=== PATIENT | male | born 1945 | race Hispanic/Latino ===

== ENCOUNTER 2017-09-24 21:33 | Inpatient (IN) | payer BC, MEDICARE ==
--- NOTE | 2017-09-24 21:45 | EDPD ---
HPI Stroke - General Time Seen by Provider: 09/24/17 21:35 Historian: Patient, Family - History of Present Illness Narrative History of Present Illness (Free Text): 09/24/17 21:41 Zay Mcdonald is a 72 year old male, whose past medical history includes hypertension, diabetes, hyperlipidemia, and arthritis, who presents to the Emergency department brought in EMS accompanied by family complaining of altered mental status. As per , patient has been disoriented and experiencing expressive aphasia since 17:00 today. Daughter notes patient has experienced a similar episode in the past but not to this extent. Daughter states patient followed-up with his physician at the time but never went for his outpatient MRI. Daughter notes patient was fine this morning and went to a close friend's earlier in the day. On arrival to ED, patient is awake, alert, and oriented to person only. Patient denies any chest pain, shortness of breath, abdominal pain, nausea, or any other complaints. PMD: Dr. Jimmy Teran Neurologist: Dr. Armando Date:: 09/24/17 Time: 21:41 Onset:: Hours Timing: Currently Symptomatic Context: Home Associated Symptoms: other (Expressive aphasia) Exacerbated by: Nothing Relieved by: Nothing - Location Location: Speech rTPA Inclusion/Exclusion - Refusal of Treatment Patient Refused Treatment: No - Inclusion Criteria for Altepase Patient is 18 years or Older: No The Clinical Diagnosis of Ischemic Stroke That is Causing a Potentially Disabling Neurological Deficit: No Time of Onset is Well Established to be Less Than 270 Minute Before Treatment Would Begin: Yes Risk/Benefit Discussed With Patient/Family Member Present: No - Exclusion Criteria for Altepase Uncontrolled Hypertension at Time of Treatment (Systolic BP above 185 or Diastolic BP above 110 mmHg): No Active Internal Bleeding: No Known Bleeding Diathesis Including but Not Limited to: Platelets Below 100,000/ mm,PTT Above 40 sec After Heparin Use, Current Use of Oral Anitcoagulant With INR Greater Than 1.7 or PT Greater Than 15 secs: No Evidence of an Intracranial Hemorrhage: No Evidence of Major Acute Infarct With Signs Greater Than 1/3 MCA Territory: No Suspicion of Subarachnoid Hemorrhage on Pretreatment Evaluation Even if CT Head Negative For Hemorrhage: No - Warning to TPA With Conditions Following Conditions Weighed Against Anticipated Benefit: Yes Condition: Stroke Serevity Too Mild, Rapid Improvement Past Medical History - Provider Review Nursing Documentation Reviewed: Yes - Infectious Disease Hx of Infectious Diseases: None - Cardiac Hx Cardiac Disorders: Yes Hx Hypertension: Yes - Pulmonary Hx Respiratory Disorders: No - Neurological Hx Neurological Disorder: No - HEENT Hx HEENT Disorder: No - Renal Hx Renal Disorder: No - Endocrine/Metabolic Hx Endocrine Disorders: Yes Hx Diabetes Mellitus Type 2: Yes - Hematological/Oncological Hx Blood Disorders: No - Integumentary Hx Dermatological Disorder: No - Musculoskeletal/Rheumatological Hx Musculoskeletal Disorders: Yes Hx Arthritis: Yes - Gastrointestinal Hx Gastrointestinal Disorders: No - Genitourinary/Gynecological Hx Genitourinary Disorders: No - Psychiatric Hx Anxiety: Yes Hx Substance Use: No - Surgical History Hx Orthopedic Surgery: Yes (knee) - Anesthesia Hx Anesthesia Reactions: No Family/Social History - Family/Social History Family History: Non-Contributory - Dr. Stewart Nursing documentation reviewed.: Yes Allergies/Home Meds Allergies/Adverse Reactions: Allergies No Known Allergies Allergy (Verified 09/27/15 13:27) Home Medications: Home Meds Medication Instructions Recorded Confirmed Aspirin [Ecotrin] 325 mg PO DAILY 06/20/16 09/25/17 Atorvastatin [Lipitor] 10 mg PO DAILY 06/20/16 09/25/17 Carvedilol [Coreg] 3.125 mg PO DAILY 06/20/16 09/25/17 Celecoxib [Celecoxib] 200 mg PO DAILY 06/20/16 09/25/17 Etodolac [Etodolac] 400 mg PO DAILY 06/20/16 09/25/17 Gabapentin [Neurontin] 2 tab PO BID 06/20/16 09/25/17 Glipizide [Glipizide] 10 mg PO BID 06/20/16 09/25/17 Mecobal/Levomefolat Ca/B6 Phos 1 tab PO BID 06/20/16 09/25/17 [Foltanx Tablet] MetFORMIN [glucoPHAGE] 1,000 mg PO BID 06/20/16 09/25/17 Valsartan [Diovan] 80 mg PO DAILY 06/20/16 09/25/17 Review of Systems - Physician Review All systems were reviewed & negative as marked: Yes - Review of Systems Constitutional: Normal. absent: Fevers Eyes: Normal ENT: Normal Respiratory: Normal. absent: SOB, Cough Cardiovascular: Normal. absent: Chest Pain Gastrointestinal: Normal. absent: Abdominal Pain, Diarrhea, Nausea, Vomiting Genitourinary Male: Normal. absent: Dysuria, Frequency, Hematuria, Urinary Output Changes Musculoskeletal: Normal. absent: Back Pain, Neck Pain Skin: Normal. absent: Rash Neurological: Speech Changes (+expressive aphasia), Other (+altered mental status). absent: Facial Droop Endocrine: Normal Hemo/Lymphatic: Normal Psychiatric: Normal ED Stroke Physical Exam Vital Signs Reviewed: Yes Temperature: Afebrile Blood Pressure: Hypertensive Pulse: Regular Respiratory Rate: Normal Appearance: Positive for: Well-Appearing, Non-Toxic, Comfortable Pain Distress: None Mental Status: Positive for: other (Alert, oriented x1 (person)) - Systems Exam Head: Present: Atraumatic, Normocephalic Pupils: Present: PERRL Extroacular Muscles: Present: EOMI Conjunctiva: Present: Normal Mouth: Present: Moist Mucous Membranes Neck: Present: Normal Range of Motion Respiratory/Chest: Present: Clear to Auscultation, Good Air Exchange. No: Respiratory Distress, Accessory Muscle Use Cardiovascular: Present: Regular Rate and Rhythm, Normal S1, S2. No: Murmurs Abdomen: Present: Normal Bowel Sounds. No: Tenderness, Distention, Peritoneal Signs Upper Extremity: Present: Normal Inspection. No: Cyanosis, Edema Lower Extremity: Present: Normal Inspection. No: Edema Neurologic: Present: GCS=15, CN II-XII Intact, Motor Func Grossly Intact, Normal Sensory Function, Normal Cerebellar Funct, Gait Normal. No: Speech Normal (Expressive aphasia), Pronator Drift, Facial Droop Skin: Present: Warm, Dry, Normal Color. No: Rashes Psychiatric: Present: Alert. No: Oriented x 3 (Oriented x1 (person)) Medical Decision Making ED Course and Treatment: 09/24/17 21:41 Impression: 72 year old male brought in by EMS for altered mental status and expressive aphasia since 17:00 today. Differential Diagnosis included but are not limited to: CVA vs. TIA Plan: -- CT Head w/o contrast -- EKG -- Chest X-ray -- Labs, troponin, lipid panel, troponin, blood type and screen -- Reassess and disposition Prior Visits: Notes and results from previous visits were reviewed. On 09/27/2015, pt was seen in the Emergency department for right lower back pain , worse with movement. Pt was d/c home. Progress Notes: 09/24/17 21:41 Code Stroke called. Pt taken to CT scan. 09/24/17 22:01 Reviewed radiology, CT Head shows: Brain: Bilateral white matter changes. This is nonspecific and may include microangiopathic disease, small lacunae of indeterminate chronicity, chronic infarcts and/or encephalomalacia. No hemorrhage. No edema. Ventricles: No hydrocephalus. Bones: Skull is intact. Sinuses: Mild bilateral maxillary sinus disease with small polyps or mucus retention cyst. Mastoid air cells: No mastoid effusion. IMPRESSION: Chronic changes as above. Acute infarcts/early ischemic changes may not be detectable by this modality; MRI is more sensitive in detecting acute ischemia. 09/24/17 22:36 Reviewed EKG, NSR at [address]-segment elevations or depressions, no T-wave inversions, normal intervals. 09/24/17 22:55 Chest X-ray reviewed, shows no acute processes. 09/24/17 23:[address] Gonzalez, neurologist, who is aware and agrees with plan. Requests pt receive Plavix and CTA Head. States pt not a candidate for tPA due to improving symptoms/symptoms are not severe enough. 09/24/17 23:[address] Teran, who is aware and agrees with plan. Accepts pt in to his service. Pt will be admitted to Telemetry for TIA. Requests Dr. Gonzalez on consult. 09/25/17 01:31 CTA Head Impression: The right vertebral artery appears minimally dominant with respect to the left. The basilar artery is patent. The posterior cerebral arteries are patent. Calcifications are noted within the cavernous internal carotid arteries bilaterally more prominent on the right. No significant stenosis or occlusion. The anterior cerebral arteries are patent. The middle cerebral arteries are patent. The visualized brain parenchyma appears normal. IMPRESSION: No acute findings. - Critical Care Critical Care Minutes: 30 minutes - Lab Interpretations I have reviewed the lab results: Yes - RAD Interpretation Sales And Marketing Analyst: ED Physician, Radiologist - EKG Interpretation Interpreted by ED Physician: Yes Type: 12 lead EKG - Scribe Statement The provider has reviewed the documentation as recorded by the Scribe Nandini Prieto Provider Scribe Attestation: All medical record entries made by the Scribe were at my direction and personally dictated by me. I have reviewed the chart and agree that the record accurately reflects my personal performance of the history, physical exam, medical decision making, and the department course for this patient. I have also personally directed, reviewed, and agree with the discharge instructions and disposition. NIHSS Scale ([place]) Time Performed: 21:41 - How Severe is the Stoke Baseline Level of Consciousness: 0=Alert LOC to Questions: 1=One correct LOC to commands: 0=Obeys both correctly Best Gaze: 0=Normal Visual: 0=No visual loss Facial: 0=Normal Motor Arm - Left: 0=No drift Motor Arm - Right: 0=No drift Motor Leg - Left: 0=No drift Motor Leg - Right: 0=No drift Limb Ataxia: 0=Absent Sensory: 0=Normal Best Language: 1=Mild to moderate aphasia Dysarthia: 0=Normal articulation Extinction & Inattention (Neglect): 0=Normal, no object Score: 2 Risk Level: Minor Stroke Risk Disposition/Present on Arrival - Present on Arrival Any Indicators Present on Arrival: No History of DVT/PE: No History of Uncontrolled Diabetes: No Urinary Catheter: No History of Decub. Ulcer: No History Surgical Site Infection Following: None - Disposition Have Diagnosis and Disposition been Completed?: Yes Diagnosis: CVA (cerebral vascular accident) Disposition: HOSPITALIZED Disposition Time: 00:50 Condition: STABLE
[2017-09-24 21:48] VITALS: BMI 36.0
[2017-09-24 21:58] LABS: BASO # 0.01 K/mm3 (0.0-2.0); BASO % 0.1 % (0.0-3.0); EOS # 0.2 (0.0-0.7); GRAN # 4.14 (1.4-6.5); GRAN % 56.4 % (50.0-68.0); HEMATOCRIT 42.6 % (42.0-52.0); LYMPH % 27.7 % (22.0-35.0); MEAN CELL VOLUME 92.6 fl (80.0-105.0); MEAN CORPUSCULAR HGB CONC 32.4 g/dl (31.0-37.0); MEAN PLATELET VOLUME 11.2 fl (7.0-11.0); MONO # 0.9 (0.1-0.6); MONO % 12.8 % (1.0-6.0); RED CELL DISTRIBUTION WIDTH 13.6 % (11.5-14.5); WHITE BLOOD COUNT 7.3 10^3/ul (4.5-11.0)
--- NOTE | 2017-09-24 22:01 | CT ---
EXAM: CT Head Without Intravenous Contrast CLINICAL HISTORY: 72 years old, male; Signs and symptoms; Other: Code stroke TECHNIQUE: Axial computed tomography images of the head/brain without intravenous contrast. All CT scans at this facility use one or more dose reduction techniques, viz.: automated exposure control; ma/kV adjustment per patient size (including targeted exams where dose is matched to indication; i.e. head); or iterative reconstruction technique. COMPARISON: No relevant prior studies available. FINDINGS: Brain: Bilateral white matter changes. This is nonspecific and may include microangiopathic disease, small lacunae of indeterminate chronicity, chronic infarcts and/or encephalomalacia. No hemorrhage. No edema. Ventricles: No hydrocephalus. Bones: Skull is intact. Sinuses: Mild bilateral maxillary sinus disease with small polyps or mucus retention cyst. Mastoid air cells: No mastoid effusion. IMPRESSION: Chronic changes as above. Acute infarcts/early ischemic changes may not be detectable by this modality; MRI is more sensitive in detecting acute ischemia.
[2017-09-24 22:09] LABS: PARTIAL THROMBOPLASTIN TIME 33.7 Seconds (25.1-36.5)
[2017-09-24 22:17] LABS: ALB/GLOB RATIO 1.3 (1.1-1.8); ALKALINE PHOSPHATASE 70 U/L (38-126); ALT/SGPT 57 U/L (7-56); AST/SGOT 29 U/L (17-59); BILIRUBIN,TOTAL 0.7 mg/dL (0.2-1.3); BLOOD UREA NITROGEN 24 mg/dL (7-21); CALCIUM 9.6 mg/dL (8.4-10.5); CARBON DIOXIDE 27 mmol/L (21-33); CHLORIDE 107 mmol/L (98-107); GFR AFRICAN-AMERICAN > 60; GLUCOSE,RANDOM 112 mg/dL (70-110); TOTAL PROTEIN 7.2 g/dL (5.8-8.3)
[2017-09-24 22:46] LABS: POTASSIUM 4.5 mmol/L (3.6-5.0); SODIUM 142 mmol/L (132-148)
[2017-09-24 22:47] LABS: TROPONIN I < 0.01 ng/mL
[2017-09-24 22:59] LABS: CHOLESTEROL 139 mg/dL (130-200)
[2017-09-24] MEDS ORDERED: Sodium Chloride 0.9% 1,000 ML IV STA (23:16)
[2017-09-25] MEDS ORDERED: Iodixanol 320 MG/ML 100 ML BOTTLE IV ONE (00:04)
--- NOTE | 2017-09-25 01:26 | CT ---
EXAM: CT Angiography Head With Intravenous Contrast EXAM DATE/TIME: 09/24/2017 11:08 PM CLINICAL HISTORY: 72 years old, male; Signs and symptoms; Cognitive deficit; Altered mental status; Additional info: CVA TECHNIQUE: Axial computed tomographic angiography images of the head with intravenous contrast using CT angiography protocol. All CT scans at this facility use one or more dose reduction techniques, viz.: automated exposure control; ma/kV adjustment per patient size (including targeted exams where dose is matched to indication; i.e. head); or iterative reconstruction technique. MIP reconstructed images were created and reviewed. Coronal and sagittal reformatted images were created and reviewed. CONTRAST: 96 mL of VISI 320 administered intravenously. COMPARISON: CT - HEAD W/O (CODE STROKE) 2017-09-24 21:48 FINDINGS: The right vertebral artery appears minimally dominant with respect to the left. The basilar artery is patent. The posterior cerebral arteries are patent. Calcifications are noted within the cavernous internal carotid arteries bilaterally more prominent on the right. No significant stenosis or occlusion. The anterior cerebral arteries are patent. The middle cerebral arteries are patent. The visualized brain parenchyma appears normal. IMPRESSION: No acute findings.
[2017-09-25] MEDS ORDERED: Sodium Chloride 0.9% 1,000 ML IV STA (01:45)
[2017-09-25] MEDS: Sodium Chloride 0.9% 1,000 ML IV SCH ×2 (01:57→11:15)
--- NOTE | 2017-09-25 07:50 | CP.PCM.PCO ---
Physician Communication Note - Physician Communication Note Physician Communication Note: Altered speech/affect r/o CVA
--- NOTE | 2017-09-25 08:25 | RAD ---
HISTORY: cva COMPARISON: No prior. FINDINGS: LUNGS: No active pulmonary disease. PLEURA: No significant pleural effusion identified, no pneumothorax apparent. CARDIOVASCULAR: Prominent cardiac silhouette is appreciated. Mild pulmonary venous congestion questioned. OSSEOUS STRUCTURES: No significant abnormalities. VISUALIZED UPPER ABDOMEN: Normal. OTHER FINDINGS: None. IMPRESSION: Prominent cardiac silhouette noted and mild pulmonary venous congestion is questioned. No acute infiltrate bilaterally. No pleural effusions.
[2017-09-25] MEDS ORDERED: Influenza Vaccine 60 mcg/0.5 mL SYR (4YR UP) IM ONE (13:12)
[2017-09-25] MEDS ORDERED: Pneumococcal 23-Valent Vaccine IM ONE (13:12)
--- NOTE | 2017-09-25 14:26 | MRI ---
PROCEDURE: MRI BRAIN WITHOUT CONTRAST HISTORY: cva COMPARISON: None. TECHNIQUE: Multiplanar, multisequence MR images of the brain were obtained without intravenous contrast enhancement. FINDINGS: HEMORRHAGE: None DWI: No evidence of an acute or early subacute infarction. BRAIN PARENCHYMA: Diffuse cerebral atrophy and chronic microangiopathy are reiterated. No mass is identified or suspicious extra-axial fluid collection in the midline brain and appears diffusely unremarkable nevertheless. Posterior fossa contents remain unremarkable including the brainstem. Trace dilated perivascular spaces are seen at the left basal ganglia superiorly in particular. VENTRICLES: Unremarkable. No hydrocephalus. CRANIUM: Unremarkable. ORBITS: Grossly unremarkable. PARANASAL SINUSES/MASTOIDS: Trace bilateral ethmoid and maxillary sinus disease is appreciate as well as at the left frontal sinus. VASCULAR SYSTEM: Skull base flow voids intact. OTHER FINDINGS: None. IMPRESSION: No acute intracranial findings including brain infarction. Reiterated age related neuro degenerative changes are identified.
--- NOTE | 2017-09-25 15:08 | CP.PCM.CON ---
Addendum entered and electronically signed by Ct Tuttle DO 09/25/17 15:57 : Social history: denies smoking, alcohol use, illicit drug use family history: mother: maryann, father: diabetes Original Note: <Ct Tuttle - Last Filed: 09/25/17 15:56> History of Present Illness - History of Present Illness History of Present Illness: PGY-2 Neurology consult note for Dr. Lanza's service 72 year old male, wITH past medical history of hypertension, diabetes, hyperlipidemia, and arthritis, who presents to the Emergency department with altered mental status and expressive aphasia. As per adn daughter at bedside, patient was found to disoriented and experiencing expressive aphasia since yesterday evening. Daughter notes patient has experienced a similar episode in the past but they resolved and were not to this extent. Daughter states patient initially followed-up with his physician but never went for his outpatient MRI. Per family patient was fine in the morning and went to a close friend's earlier in the day. Per daughter patient has poor compliance with medications and does not wear cpap machine at night. Patient denies any chest pain, shortness of breath, abdominal pain, nausea, or any other complaints. PMH: hypertension, diabetes, hyperlipidemia, and arthritis PSH: orthopedic suger of knee social history: allergy: NKDA home meds: diovan, metformin, glipizide, neurontin, vot D3, celecoxib, coreg, lipitor, asa Review of Systems - Review of Systems All systems: reviewed and no additional remarkable complaints except (as states in HPI) Past Patient History - Infectious Disease Hx of Infectious Diseases: None - Past Social History Smoking Status: Never Smoked - CARDIAC Hx Cardiac Disorders: Yes (hypotension) Hx Hypercholesterolemia: Yes Hx Hypertension: Yes - PULMONARY Hx Respiratory Disorders: No - NEUROLOGICAL Hx Neurological Disorder: Yes HX Cerebrovascular Accident: Yes (09/24/17 expressive aphasia) - HEENT Hx HEENT Problems: No - RENAL Hx Chronic Kidney Disease: No - ENDOCRINE/METABOLIC Hx Endocrine Disorders: Yes Hx Diabetes Mellitus Type 2: Yes - HEMATOLOGICAL/ONCOLOGICAL Hx Blood Disorders: No - INTEGUMENTARY Hx Dermatological Problems: No - MUSCULOSKELETAL/RHEUMATOLOGICAL Hx Falls: No - GASTROINTESTINAL Hx Gastrointestinal Disorders: Yes (obese) - GENITOURINARY/GYNECOLOGICAL Hx Genitourinary Disorders: No - PSYCHIATRIC Hx Substance Use: No - SURGICAL HISTORY Hx Orthopedic Surgery: Yes (knee right torn meniscus "yr's ago") Other/Comment: left hup replacement 5 or 6 yrs ago due to arthritis, lumbar spinal fusion with screws and plate 5 or 6 yrs ago - ANESTHESIA Hx Anesthesia Reactions: No Meds Allergies/Adverse Reactions: Allergies Allergy/AdvReac Type Severity Reaction Status Date / Time No Known Allergies Allergy Verified 09/27/15 13:27 - Medications Medications: Current Medications Aspirin (Aspirin Chewable) 81 mg PO DAILY [facility] Last Admin: 09/25/17 11:18 Dose: 81 mg Aspirin (Aspirin) 325 mg PO DAILY [facility] Atorvastatin Calcium (Lipitor) 10 mg PO DIN [facility] Carvedilol (Coreg) 3.125 mg PO BID [facility] Cholecalciferol (Vitamin D) 1,000 iu PO DAILY [facility] Gabapentin (Neurontin) 1,200 mg PO ACB [facility] PRN Reason: Protocol Gabapentin (Neurontin) 600 mg PO ACD [facility] PRN Reason: Protocol Gabapentin (Neurontin) 600 mg PO HS [facility] PRN Reason: Protocol Glipizide (Glucotrol) 10 mg PO 0730,1630 [facility] Sodium Chloride (Sodium Chloride 0.9%) 1,000 mls @ 100 mls/hr IV .Q10H [facility] Last Admin: 09/25/17 11:15 Dose: 100 mls/hr Losartan Potassium (Cozaar) 50 mg PO DAILY [facility] Metformin HCl (Glucophage) 1,000 mg PO BID [facility] Physical Exam - Constitutional Appears: No Acute Distress - Head Exam Head Exam: ATRAUMATIC, NORMAL INSPECTION, NORMOCEPHALIC - Eye Exam Eye Exam: EOMI, Normal appearance - ENT Exam ENT Exam: Mucous Membranes Moist - Respiratory Exam Respiratory Exam: Clear to Auscultation Bilateral, NORMAL BREATHING PATTERN. absent: Rales, Rhonchi, Wheezes, Respiratory Distress - Cardiovascular Exam Cardiovascular Exam: REGULAR RHYTHM. absent: Tachycardia, Diastolic murmur, Systolic Murmur - GI/Abdominal Exam GI & Abdominal Exam: Soft. absent: Tenderness - Extremities Exam Extremities exam: Positive for: normal inspection. Negative for: pedal edema - Neurological Exam Neurological exam: Alert, CN II-XII Intact - Expanded Neurological Exam Expanded Neurological exam: Expressive Aphasia (improving) Speech: Expressive Aphasia Cranial nerves: Tongue Deviation: Normal Cerebellar Function: Finger to Nose: Normal Upper motor neuron: Babinski Sign: Normal Neuro motor strength exam: Left Upper Extremity: 5, Right Upper Extremity: 5, Left Lower Extremity: 5, Right Lower Extremity: 5 - Skin Skin Exam: Dry, Intact, Normal Color, Warm Results - Vital Signs Recent Vital Signs: Last Vital Signs Temp 98.3 F 09/24/17 21:34 Pulse 60 09/25/17 12:58 Resp 18 09/25/17 12:58 BP 142/55 L 09/25/17 12:58 Pulse Ox 97 09/25/17 11:00 - Labs Result Diagrams: 09/24/17 21:43 09/24/17 21:43 Labs: Laboratory Results - last 24 hr 09/25/17 09/25/17 09/25/17 07:50 07:50 07:50 ESR 10 C-React Prot High Sens 5.28 H Vitamin B12 295 25-OH Vitamin D Total 09/25/17 07:50 ESR C-React Prot High Sens Vitamin B12 25-OH Vitamin D Total 34.6 Assessment & Plan - Assessment and Plan (Free Text) Assessment: 72 year old male, wITH past medical history of hypertension, diabetes, hyperlipidemia, and arthritis, who presents to the Emergency department with expressive aphasia most likely due to TIA. 1. expressive aphasia most likely due to TIA. 2. HTN 3. diabetes 4. hyperlipidemia - Most likely TIA due to diffuse arthroscelrotic disease. - CTA and CT of the head normal - MRI of brain is normal, no stroke, TIA. - carotid ultrasound bilaterally pending. - HgbA1C is 7. - Vitamin B12 is low normal recommend injection. - Cpap for ANDREW. - Consider pulmary consult. - Avoid sudden drops in blood pressure. Patient seen and case discussed/reviewed with attending, Dr. Lanza <Chencho Lanza - Last Filed: 09/25/17 18:01> Meds - Medications Medications: Current Medications Aspirin (Aspirin Chewable) 81 mg PO DAILY [facility] Last Admin: 09/25/17 11:18 Dose: 81 mg Aspirin (Aspirin) 325 mg PO DAILY [facility] Atorvastatin Calcium (Lipitor) 10 mg PO DIN [facility] Last Admin: 09/25/17 17:04 Dose: 10 mg Carvedilol (Coreg) 3.125 mg PO BID [facility] Last Admin: 09/25/17 17:05 Dose: 3.125 mg Cholecalciferol (Vitamin D) 1,000 iu PO DAILY [facility] Last Admin: 09/25/17 17:03 Dose: 1,000 iu Gabapentin (Neurontin) 1,200 mg PO ACB [facility] PRN Reason: Protocol Gabapentin (Neurontin) 600 mg PO ACD [facility] PRN Reason: Protocol Last Admin: 09/25/17 17:05 Dose: 600 mg Gabapentin (Neurontin) 600 mg PO HS [facility] PRN Reason: Protocol Glipizide (Glucotrol) 10 mg PO 0730,1630 [facility] Last Admin: 09/25/17 17:04 Dose: 10 mg Sodium Chloride (Sodium Chloride 0.9%) 1,000 mls @ 100 mls/hr IV .Q10H [facility] Last Admin: 09/25/17 11:15 Dose: 100 mls/hr Losartan Potassium (Cozaar) 50 mg PO DAILY [facility] Metformin HCl (Glucophage) 1,000 mg PO BID [facility] Last Admin: 09/25/17 17:04 Dose: 1,000 mg Results - Vital Signs Recent Vital Signs: Last Vital Signs Temp 98.1 F 09/25/17 16:30 Pulse 66 09/25/17 16:30 Resp 20 09/25/17 16:30 BP 158/60 H 09/25/17 16:30 Pulse Ox 98 09/25/17 16:30 - Labs Result Diagrams: 09/24/17 21:43 09/24/17 21:43 Labs: Laboratory Results - last 24 hr 09/25/17 09/25/17 09/25/17 07:50 07:50 07:50 ESR 10 POC Glucose (mg/dL) C-React Prot High Sens 5.28 H Vitamin B12 295 25-OH Vitamin D Total 09/25/17 09/25/17 07:50 16:28 ESR POC Glucose (mg/dL) 132 H C-React Prot High Sens Vitamin B12 25-OH Vitamin D Total 34.6 Attending/Attestation - Attestation I have personally seen and examined this patient.: Yes I have fully participated in the care of the patient.: Yes I have reviewed all pertinent clinical information: Yes
--- NOTE | 2017-09-25 18:29 | US ---
PROCEDURE: Bilateral carotid artery duplex ultrasound HISTORY: Carotid stenosis CVA PHYSICIAN(S): Chase Al MD. TECHNIQUE: Duplex sonography and color-flow Doppler were used to evaluate the carotid bifurcations and limited segments of the vertebral arteries bilaterally. FINDINGS: There is mild smooth heterogeneous plaque noted at the carotid bifurcations bilaterally. The peak systolic velocity in the proximal right internal carotid artery is 103 cm/sec. This corresponds to a 20 to 39% proximal right ICA stenosis. Normal systolic velocities are noted in the proximal right external carotid artery. There is antegrade flow in the right vertebral artery. The peak systolic velocity in the proximal left internal carotid artery is 100 cm/sec. This corresponds to a 20 to 39% proximal left ICA stenosis. Normal systolic velocities are noted in the proximal left external carotid artery. There is antegrade flow in the left vertebral artery. IMPRESSION: 1. Bilateral 20-39% proximal ICA stenoses. 2. Antegrade flow in both vertebral arteries.
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
--- NOTE | 2017-09-25 23:34 | CARD ---
APPROVED REPORT EKG Measurement Heart [id number] <Conclusion> Normal sinus rhythm Normal ECG
[2017-09-26 06:30] LABS: HOMOCYSTEINE 9.6 umol/L (<11.4)
--- NOTE | 2017-09-26 10:25 | CP.PCM.PN ---
<Ct Tuttle - Last Filed: 09/26/17 18:02> Subjective - Date & Time of Evaluation Date of Evaluation: 09/26/17 Time of Evaluation: 10:22 - Subjective Subjective: PGY-2 Neurology progress note for Dr. Lanza's service Patient seen and examined at bedside. No acute distress. Patient states that he is feeling good. He is alert, orient to person, place and time. He denies any headache, dizziness, lightheadedness, chest pain, sob, focal weakness. Objective - Vital Signs/Intake and Output Vital Signs (last 24 hours): Temp Pulse Resp BP Pulse Ox 98.9 F 83 20 157/76 H 96 09/26/17 08:32 09/26/17 09:34 09/26/17 08:32 09/26/17 09:34 09/26/17 08:32 Intake and Output: 09/26/17 09/26/17 06:59 18:59 Intake Total 780 Output Total 1050 Balance -270 - Medications Medications: Current Medications Aspirin (Aspirin Chewable) 81 mg PO DAILY [facility] Last Admin: 09/26/17 09:34 Dose: 81 mg Aspirin (Aspirin) 325 mg PO DAILY [facility] Atorvastatin Calcium (Lipitor) 10 mg PO DIN [facility] Last Admin: 09/25/17 17:04 Dose: 10 mg Carvedilol (Coreg) 3.125 mg PO BID [facility] Last Admin: 09/26/17 09:33 Dose: 3.125 mg Cholecalciferol (Vitamin D) 1,000 iu PO DAILY [facility] Last Admin: 09/26/17 09:34 Dose: 1,000 iu Gabapentin (Neurontin) 1,200 mg PO ACB [facility] PRN Reason: Protocol Last Admin: 09/26/17 08:25 Dose: 1,200 mg Gabapentin (Neurontin) 600 mg PO ACD [facility] PRN Reason: Protocol Last Admin: 09/25/17 17:05 Dose: 600 mg Gabapentin (Neurontin) 600 mg PO HS [facility] PRN Reason: Protocol Last Admin: 09/25/17 22:18 Dose: 600 mg Glipizide (Glucotrol) 10 mg PO 0730,1630 [facility] Last Admin: 09/26/17 08:24 Dose: 10 mg Sodium Chloride (Sodium Chloride 0.9%) 1,000 mls @ 100 mls/hr IV .Q10H [facility] Last Admin: 09/25/17 11:15 Dose: 100 mls/hr Losartan Potassium (Cozaar) 50 mg PO DAILY [facility] Last Admin: 09/26/17 09:34 Dose: 50 mg Metformin HCl (Glucophage) 1,000 mg PO BID [facility] Last Admin: 09/26/17 09:33 Dose: 1,000 mg - Labs Labs: PT 10.9 SECONDS (9.4-12.5) 09/24/17 21:43 INR 1.00 (0.93-1.08) 09/24/17 21:43 APTT 33.7 Seconds (25.1-36.5) 09/24/17 21:43 - Constitutional Appears: Well, No Acute Distress - Head Exam Head Exam: ATRAUMATIC, NORMAL INSPECTION, NORMOCEPHALIC - Eye Exam Eye Exam: EOMI, Normal appearance - ENT Exam ENT Exam: Mucous Membranes Moist - Respiratory Exam Respiratory Exam: Clear to Ausculation Bilateral, NORMAL BREATHING PATTERN. absent: Rhonchi - Cardiovascular Exam Cardiovascular Exam: REGULAR RHYTHM, +S1, +S2. absent: Tachycardia, Murmur - GI/Abdominal Exam GI & Abdominal Exam: Soft, Normal Bowel Sounds. absent: Distended, Firm, Guarding, Tenderness - Extremities Exam Extremities Exam: Normal Inspection. absent: Pedal Edema, Tenderness - Neurological Exam Neurological Exam: Alert, Awake, CN II-XII Intact, Oriented x3 Neuro motor strength exam: Left Upper Extremity: 5, Right Upper Extremity: 5, Left Lower Extremity: 5, Right Lower Extremity: 5 - Skin Skin Exam: Dry, Intact, Normal Color, Warm Assessment and Plan - Assessment and Plan (Free Text) Assessment: 72 year old male, with past medical history of hypertension, diabetes, hyperlipidemia, and arthritis, who presents to the Emergency department with expressive aphasia most likely due to TIA. 1. expressive aphasia most likely due to TIA. 2. HTN 3. diabetes 4. hyperlipidemia - TIA due to diffuse arthroscelrotic disease. - CTA and CT of the head normal - MRI of brain is normal, no stroke, TIA. - carotid ultrasound bilaterally pending. - HgbA1C is 7. - Vitamin B12 is low normal recommend injection. - continue Cpap for ANDREW, follow up pulmonary outpatient - asa 81mg - lipitor 40mg - Avoid sudden drops in blood pressure. - had discussion with family and patient about compliance and follow up Thank you for the consult, please reconsult us if needed. Patient seen and case discussed/reviewed with attending, Dr. Lanza <Chencho Lanza - Last Filed: 09/27/17 09:19> Objective - Vital Signs/Intake and Output Vital Signs (last 24 hours): Temp Pulse Resp BP Pulse Ox 97.5 F L 65 20 136/73 97 09/27/17 06:00 09/27/17 06:00 09/27/17 06:00 09/27/17 06:00 09/27/17 06:00 Intake and Output: 09/27/17 09/27/17 06:59 18:59 Intake Total 1360 Output Total 400 Balance 960 - Medications Medications: Current Medications Acetaminophen (Tylenol 325mg Tab) 650 mg PO Q6H PRN PRN Reason: Pain, Mild (1-3) Aspirin (Aspirin Chewable) 81 mg PO DAILY [facility] Last Admin: 09/26/17 09:34 Dose: 81 mg Aspirin (Aspirin) 325 mg PO DAILY [facility] Atorvastatin Calcium (Lipitor) 10 mg PO DIN [facility] Last Admin: 09/26/17 20:39 Dose: Not Given Carvedilol (Coreg) 3.125 mg PO BID [facility] Last Admin: 09/26/17 20:37 Dose: Not Given Cholecalciferol (Vitamin D) 1,000 iu PO DAILY [facility] Last Admin: 09/26/17 09:34 Dose: 1,000 iu Gabapentin (Neurontin) 1,200 mg PO ACB [facility] PRN Reason: Protocol Last Admin: 09/27/17 07:45 Dose: Not Given Gabapentin (Neurontin) 600 mg PO ACD [facility] PRN Reason: Protocol Last Admin: 09/26/17 20:39 Dose: Not Given Gabapentin (Neurontin) 600 mg PO HS [facility] PRN Reason: Protocol Last Admin: 09/27/17 01:04 Dose: 600 mg Glipizide (Glucotrol) 10 mg PO 0730,1630 [facility] Last Admin: 09/26/17 20:39 Dose: Not Given Sodium Chloride (Sodium Chloride 0.9%) 1,000 mls @ 100 mls/hr IV .Q10H [facility] Last Admin: 09/26/17 20:40 Dose: Not Given Lorazepam (Ativan) 1 mg IVP [facility] PRN; Protocol PRN Reason: Agitation Losartan Potassium (Cozaar) 50 mg PO DAILY [facility] Last Admin: 09/26/17 09:34 Dose: 50 mg Metformin HCl (Glucophage) 1,000 mg PO BID [facility] Last Admin: 09/26/17 20:39 Dose: Not Given Quetiapine Fumarate (Seroquel) 12.5 mg PO HS [facility] PRN Reason: Protocol Last Admin: 09/27/17 01:04 Dose: 12.5 mg Ziprasidone (Geodon Inj) 10 mg IM Q12H PRN; Protocol PRN Reason: agitation/psychosis - Labs Labs: PT 10.9 SECONDS (9.4-12.5) 09/24/17 21:43 INR 1.00 (0.93-1.08) 09/24/17 21:43 APTT 33.7 Seconds (25.1-36.5) 09/24/17 21:43 Attending/Attestation - Attestation I have personally seen and examined this patient.: Yes I have fully participated in the care of the patient.: Yes I have reviewed all pertinent clinical information, including history, physical exam and plan: Yes
--- NOTE | 2017-09-26 16:02 | CP.PCM.PCO ---
Physician Communication Note - Physician Communication Note Physician Communication Note: Violently agitated-Rx Ativan
[2017-09-26] MEDS: Sodium Chloride 0.9% 1,000 ML IV SCH (20:40)
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
--- NOTE | 2017-09-27 07:06 | CP.PCM.PCO ---
Physician Communication Note - Physician Communication Note Physician Communication Note: AgitTion controlled by psychiatry/aphasia persists
--- NOTE | 2017-09-27 09:02 | CARD ---
APPROVED REPORT EXAM: Two-dimensional and M-mode echocardiogram with Doppler and color Doppler. INDICATION R/O TIA/BUBBLE STUDY 2D DIMENSIONS Left Atrium (2D)5.0 (1.6-4.0cm)IVSd1.3 (0.7-1.1cm) LVDd4.8 (3.9-5.9cm)PWd1.4 (0.7-1.1cm) LVDs3.5 (2.5-4.0cm)FS (%) 26.6 % LVEF (%)51.9 (>50%) M-Mode DIMENSIONS Aortic Root3.50 (2.2-3.7cm)Aortic Cusp Exc.2.00 (1.5-2.0cm) Aortic Valve AoV Peak Vbjzbysa886.0cm/Rob Peak GR.15mmHg Mitral Valve MV E Wexefnev78.5cm/sMV A Dmsopcvg10.7cm/sE/A ratio0.7 TDI Lateral E' Peak V7.41cm/sMedial E' Peak V5.95cm/sE/Lateral E'8.2 E/Medial E'10.2 Pulmonary Valve PV Peak Heeduncj17.0cm/sPV Peak Grad.3mmHg Tricuspid Valve TR Peak Wiwkdjwr117of/sRAP NWKWGLOE67poVtCA Peak Gr.14mmHg [id number] LEFT VENTRICLE The left ventricle is normal size. There is mild concentric left ventricular hypertrophy. The left ventricular function is normal. The left ventricular ejection fraction is within the normal range. There is normal LV segmental wall motion. RIGHT VENTRICLE The right ventricle is normal size. The right ventricular systolic function is normal. ATRIA The left atrium is moderately dilated. The right atrium size is normal. The interatrial septum is intact with no evidence for an atrial septal defect. AORTIC VALVE The aortic valve is normal in structure. No aortic regurgitation is present. There is no aortic valvular stenosis. MITRAL VALVE Mitral annular calcification is mild. There is no mitral valve regurgitation noted. TRICUSPID VALVE The tricuspid valve is normal in structure. There is mild tricuspid regurgitation. GREAT VESSELS The aortic root is normal in size. The IVC is normal in size and collapses >50% with inspiration. PERICARDIAL EFFUSION There is no pleural effusion. There is no pericardial effusion. <Conclusion> Dilated LA. Mild concentric LVH. Normal LV systolic function. Mild TR. No PFO identified.
--- NOTE | 2017-09-27 12:28 | RAD ---
PROCEDURE: Bilateral Knee Radiographs. HISTORY: ACUTE RT KNEE PAIN COMPARISON: None. FINDINGS: BONES: Right Knee: Normal. No fracture. Left Knee: Normal. No fracture. JOINTS: Right Knee: Severe degenerative changes are seen in all 3 compartments. There is severe joint space narrowing and osteophyte formation. The changes are severe in the patellofemoral joint. Left knee: Normal. No osteoarthritis. SOFT TISSUES: Right Knee: Normal. Left Knee: Normal. JOINT EFFUSION: Right Knee: None. Left Knee: None. OTHER FINDINGS: None. IMPRESSION: Severe osteoarthritis of the right knee. The left knee is unremarkable
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
[2017-09-28] MEDS: Sodium Chloride 0.9% 1,000 ML IV SCH ×2 (05:05→17:09)
[2017-09-28] MEDS ORDERED: Bupivacaine 0.5% Inj(30mL) IJ ONE (08:34)
[2017-09-28] MEDS ORDERED: MethylPREDNISolone Depo 40 mg/ml Inj IM ONE (08:34)
[2017-09-28 09:45] LABS: FLUID TYPE SYNOVIAL FLUID
[2017-09-28 10:24] LABS: SYNOVIAL FLUID LYMPHOCYTE 10.5 % (0-0); SYNOVIAL FLUID NEUTROPHIL 89.5 % (0-0)
--- NOTE | 2017-09-28 12:29 | CON ---
DATE: 09/28/2017 HISTORY: The patient is a 72-year-old male with pain in his right, worse than the left, knee. X-ray show extensive osteoarthritis, worse on the right than the left, with a large effusion of synovial fluid. The patient had the same condition for over 10 years including two surgeries and one arthrocentesis about 10 years ago. So, with this information, we did prepping of the right knee and did arthrocentesis of the suprapatellar area laterally and extracted about 40 mL of serosanguineous fluid, relatively clear. No evidence of purulence. No evidence of infection, looks like osteoarthritic knee with hypertrophic synovial fluid. So we send that fluid to the lab for cell count, culture, and crystals, and injected the knee with Depo-Medrol and Marcaine for symptomatic relief, and we will sent him to physical therapy. He does not want to consider surgery even though he is a good candidate, because of his age and the nature of his condition severe osteoarthritis of the right knee with limited range of motion. We will start physical therapy and ambulate with a walker, and we will wait for the cell count culture and crystal results to come back for the osteoarthritis of the right knee. Cody Brunner DO [facility]
--- NOTE | 2017-09-28 19:55 | PN ---
FOLLOWUP NOTE DATE: 09/28/2017 SUBJECTIVE: The patient was followed up today. The patient presented much calmer. The patient has residual symptoms of aphasia. As per family, the patient is doing much better but at times, the patient has episodes of confusion and delirium was improving. OBJECTIVE: VITAL SIGNS: Stable. MEDICATIONS: Reviewed. The patient is on Tylenol, aspirin, Neurontin. The patient also is on Seroquel 12.5 mg at the nighttime scheduled, which is helping him. The patient also is on Ativan 1 mg IV push three times a day as needed for agitation. Last time, the patient got it was more than 24 hours. MENTAL STATUS EXAMINATION: The patient presented to be alert. The patient is much calmer. Intermittent eye contact. Speech: The patient has aphasia, but this improving. Mood described, I feel better. Affect was constricted but reactive. Mood congruent. Thought process was more coherent but at times, the patient has episodes of confusions. The patient denied thoughts of harming himself or others. Denied intents or plan. Insight and judgment improving. Impulses are better controlled. IMPRESSION: Most likely the patient has delirium, which is improving. PLAN: Continue current management. Continue current medications. The patient is improving. Discussed medications with the patient as well as the patient's family. Risk, benefits and alternatives also were discussed. This press writer will follow up on this patient every other day. Should you have any questions, give me a call back. If the patient is improving, Seroquel as needed should be given. Thank you very much for letting me participate in care of your patient. Brittany Bowling MD
[2017-09-29] MEDS: Sodium Chloride 0.9% 1,000 ML IV SCH (01:56)
--- NOTE | 2017-09-29 17:31 | PN ---
SUBJECTIVE: The patient is 72-year-old who came with confusion, difficulty bringing out the words and now feels better more, not in distress, sitting comfortably, at bedside. Denies any headache or dizziness. PHYSICAL EXAMINATION: HEENT: Normocephalic, atraumatic. NECK: Supple. NEUROLOGIC: Awake, oriented to self. No aphasia. Cranial nerves II-XII were tested. Pupils reactive. EOM intact. No facial asymmetry. Tongue midline. Motor examination: Spontaneous movement of the extremities noted. Deep tendon reflexes is 1+. Both plantars are downgoing. Sensory appears intact. Cerebellar, gait deferred. Not in distress. IMPRESSION: Continue present management, will followup. William Lanza MD
--- NOTE | 2017-09-29 19:13 | PN ---
FOLLOWUP NOTE SUBJECTIVE: Shortly, the patient is a 72-year-old male. This commercial real estate underwriter was involved into the patient's care because the patient was agitated. The patient was in delirium stage. The patient was started on Seroquel at the nighttime as well as Ativan as needed for agitation. Overall, the patient improved significantly. The patient was seen today for followup. The patient was alert and oriented, pleasant, cooperative. Family is around the patient. Discussed with the patient's . The patient gave permission to talk to his . As per the , the patient is closer to his baseline. The patient is much calmer right now. Family is very appreciative. The patient's family was educated about plan to give Seroquel only as needed. The patient and the family were educated about delirium which is improving. Vital signs seem to be stable. Medications reviewed. The patient is on Tylenol, aspirin, Lipitor, Coreg, vitamin D, Neurontin, gabapentin, Glucotrol, Cozaar, metformin, Seroquel 12.5 mg as needed for agitation at the nighttime. MENTAL STATUS EXAMINATION: The patient is much calmer, pleasant, cooperative, is aware of his medical condition. The patient requested to be discharged tomorrow, but this is up to the primary team. There were no episodes of aggression or agitation for the past 2 days. The patient has intermittent eye contact. Speech was normal rate, but the patient still has some residual aphasia. Thought process seems to be more coherent and goal directed. Thought content, the patient denied visual, auditory, and tactile hallucinations. Denied paranoid ideation. The patient denied thoughts of harming himself or others. Denied intents or plan. Insight and judgment improving. Impulses are better controlled. IMPRESSION AND PLAN: Delirium is improving. Continue current management. This commercial real estate underwriter will change Seroquel to as-needed. The patient and family were educated about this plan, were in agreement with the plan. The patient does not have any symptoms of depression or psychosis, has good appetite and fair sleep. This commercial real estate underwriter will sign off. Should you have any questions, give me a call back. Thank you very much for letting me participate in care of your patient. Brittany Bowling MD [facility] # [id number]
[2017-09-30 16:40] VITALS: RESP 20
[2017-10-01 07:06] LABS: BASO # 0.01 K/mm3 (0.0-2.0); BASO % 0.1 % (0.0-3.0); EOS # 0.3 (0.0-0.7); EOS % 3.5 % (1.5-5.0); GRAN # 5.79 (1.4-6.5); GRAN % 66.1 % (50.0-68.0); HEMATOCRIT 42.9 % (42.0-52.0); LYMPH # 1.8 (1.2-3.4); LYMPH % 20.4 % (22.0-35.0); MEAN CELL VOLUME 93.1 fl (80.0-105.0); MEAN CORPUSCULAR HEMOGLOBIN 29.9 pg (25.0-35.0); MEAN CORPUSCULAR HGB CONC 32.2 g/dl (31.0-37.0); MEAN PLATELET VOLUME 11.5 fl (7.0-11.0); MONO # 0.9 (0.1-0.6); MONO % 9.9 % (1.0-6.0); RED CELL DISTRIBUTION WIDTH 13.3 % (11.5-14.5); WHITE BLOOD COUNT 8.8 10^3/ul (4.5-11.0)
[2017-10-01 07:28] LABS: ALB/GLOB RATIO 1.1 (1.1-1.8); ALKALINE PHOSPHATASE 104 U/L (38-126); ALT/SGPT 61 U/L (7-56); AST/SGOT 25 U/L (17-59); BILIRUBIN,TOTAL 0.7 mg/dL (0.2-1.3); BLOOD UREA NITROGEN 25 mg/dL (7-21); CALCIUM 9.2 mg/dL (8.4-10.5); CARBON DIOXIDE 30 mmol/L (21-33); CHLORIDE 104 mmol/L (98-107); GFR AFRICAN-AMERICAN > 60; GLUCOSE,RANDOM 99 mg/dL (70-110); POTASSIUM 4.5 mmol/L (3.6-5.0); SODIUM 142 mmol/L (132-148); TOTAL PROTEIN 6.9 g/dL (5.8-8.3)
[2017-10-01 08:32] VITALS: BP 162/84; TEMP 97.4; O2SAT 98
[2017-10-01 12:02] VITALS: PULSE 57
== END 2017-10-01 14:47 | disposition home or self-care (01) | DRG 69 ==
LOC: ED 21:33 → ERH 09-25 01:00 → 3RNO 09-25 14:43
PROVIDERS: ADMIT Surgery; ATTEND Surgery
PROC: 3E0234Z Introduction of Serum, Toxoid and Vaccine into Muscle, Percutaneous Approach (ICD-10-PCS; principal; 2017-09-25)
DX: G45.9 Transient cerebral ischemic attack, unspecified (principal); F05 Delirium due to known physiological condition; E11.9 Type 2 diabetes mellitus without complications; R47.01 Aphasia; I10 Essential (primary) hypertension; E78.5 Hyperlipidemia, unspecified; E78.00 Pure hypercholesterolemia, unspecified; G47.33 Obstructive sleep apnea (adult) (pediatric); M17.11 Unilateral primary osteoarthritis, right knee; Z79.82 Long term (current) use of aspirin; Z79.899 Other long term (current) drug therapy; Z83.3 Family history of diabetes mellitus; Z82.3 Family history of stroke; Z91.14 Patient's other noncompliance with medication regimen; Z98.1 Arthrodesis status; Z96.642 Presence of left artificial hip joint; F41.9 Anxiety disorder, unspecified; R40.2412 Glasgow coma scale score 13-15, at arrival to emergency department; Z23 Encounter for immunization

== ENCOUNTER 2018-12-23 21:07 | Inpatient (IN) | payer MEDICARE ==
[2018-12-23 21:22] VITALS: BMI 42.7
--- NOTE | 2018-12-23 21:38 | ED PDOC ---
Arrival/HPI - General Chief Complaint: Altered Mental Status Time Seen by Provider: 12/23/18 21:15 Historian: Patient - History of Present Illness Narrative History of Present Illness (Text): 12/23/18 21:15 73 year old male, whose past medical history includes stroke without any residual deficits, diabetes, arthritis, hypertension, and hyperlipidemia, who presents to the Emergency department complaining of difficulty word finding since sudden onset at 14:00 today. Patient reports a similar experience 2 years prior during which he had a stroke but recovered. Patient notes symptoms have been persistent since 14:00 today. Patient denies any other focal neurological deficits. and daughter at bedside noticed difficulty word finding, but deny any slurred speech or difficulty ambulating. No unilateral weakness. No diffic ulty swallowing. No vision complaints. Patient denies any falls, trauma, fevers, chills, night sweats, neck stiffness, chest pain, shortness of breath, abdominal pain, or any other complaints. Time/Duration: Other (Patient notes onset since 14:00 today) Symptom Onset: Sudden Symptom Course: Unchanged Activities at Onset: Light Past Medical History - Provider Review Nursing Documentation Reviewed: Yes - Infectious Disease Hx of Infectious Diseases: None - Cardiac Hx Hypertension: Yes - Pulmonary Hx Respiratory Disorders: No - Neurological Hx Neurological Disorder: Yes HX Cerebrovascular Accident: Yes (09/24/17 expressive aphasia) - HEENT Hx HEENT Disorder: No - Renal Hx Renal Disorder: No - Endocrine/Metabolic Hx Diabetes Mellitus Type 2: Yes - Hematological/Oncological Hx Blood Disorders: No - Integumentary Hx Dermatological Disorder: No - Musculoskeletal/Rheumatological Hx Arthritis: Yes - Gastrointestinal Hx Gastrointestinal Disorders: Yes (obese) - Genitourinary/Gynecological Hx Genitourinary Disorders: No - Psychiatric Hx Anxiety: Yes Hx Substance Use: No - Surgical History Hx Orthopedic Surgery: Yes (knee right torn meniscus "yr's ago") Other/Comment: left hup replacement 5 or 6 yrs ago due to arthritis, lumbar spinal fusion with screws and plate 5 or 6 yrs ago - Anesthesia Hx Anesthesia Reactions: No Family/Social History - Physician Review Nursing Documentation Reviewed: Yes Family/Social History: No Known Family HX Smoking Status: Never Smoked Hx Alcohol Use: No (rare) Hx Substance Use: No Allergies/Home Meds Allergies/Adverse Reactions: Allergies No Known Allergies Allergy (Verified 09/27/15 13:27) Home Medications: Home Meds Medication Instructions Recorded Confirmed Aspirin [Ecotrin] 325 mg PO DAILY 06/20/16 09/25/17 Atorvastatin [Lipitor] 10 mg PO DAILY 06/20/16 09/25/17 Carvedilol [Coreg] 3.125 mg PO BID 06/20/16 09/25/17 Gabapentin [Neurontin] 2 tab PO ACB 06/20/16 09/25/17 Glipizide 10 mg PO BID 06/20/16 09/25/17 MetFORMIN [glucoPHAGE] 1,000 mg PO BID 06/20/16 09/25/17 Valsartan [Diovan] 80 mg PO DAILY 06/20/16 09/25/17 Celecoxib [Celebrex] 200 mg PO DAILY 09/25/17 09/25/17 Cholecalciferol (Vitamin D3) 1,000 units PO DAILY 09/25/17 09/25/17 Gabapentin [Neurontin] 1 tab PO ACD 09/25/17 09/25/17 Gabapentin [Neurontin] 1 tab PO HS 09/25/17 09/25/17 Glucosam/Chond/Hyalu/Cf Borate 1 each PO DAILY 09/25/17 09/25/17 [Move Free Joint Health Tablet] Review of Systems - Physician Review All systems were reviewed & negative as marked: Yes - Review of Systems Constitutional: Normal. absent: Weight Change, Fevers, Night Sweats Eyes: absent: Vision Changes, Photophobia, Eye Pain ENT: absent: Hearing Changes, Tinnitus, TMJ Pain, Voice Changes Respiratory: absent: SOB, Cough, Sputum Cardiovascular: Normal. absent: Chest Pain, Palpitations, Edema Gastrointestinal: Normal. absent: Abdominal Pain, Stool Changes, Constipation, Vomiting Genitourinary Male: absent: Dysuria, Frequency Musculoskeletal: Normal. absent: Arthralgias, Back Pain, Neck Pain (Patient den ies neck stiffness ), Joint Swelling Skin: absent: Rash, Pruritis Neurological: Speech Changes (Patient notes he has been having difficulty word finding persistently since sudden onset at 14:00 today). absent: Normal, Headache, Dizziness, Focal Weakness, Gait Changes, Facial Droop, Disequilibrium, Seizure Endocrine: absent: Diaphoresis Physical Exam Vital Signs Reviewed: Yes Vital Signs Pulse Resp BP Pulse Ox 12/23/18 21:20 73 18 159/80 H 95 Temperature: Afebrile Blood Pressure: Hypertensive Pulse: Regular Respiratory Rate: Normal Appearance: Positive for: Well-Appearing, Non-Toxic, Comfortable Pain Distress: None Mental Status: Positive for: Alert and Oriented X 3 Finger Stick Blood Glucose: 110 - Systems Exam Head: Present: Atraumatic, Normocephalic Pupils: Present: PERRL Extroacular Muscles: Present: EOMI Conjunctiva: Present: Normal Ears: Present: Normal Mouth: Present: Moist Mucous Membranes Pharnyx: Present: Normal. No: ERYTHEMA, EXUDATE Neck: Present: Normal Range of Motion. No: Meningeal Signs, MIDLINE TENDERNESS Respiratory/Chest: Present: Clear to Auscultation, Good Air Exchange. No: Respiratory Distress, Accessory Muscle Use Cardiovascular: Present: Regular Rate and Rhythm, Normal S1, S2. No: Murmurs Abdomen: No: Tenderness, Distention, Peritoneal Signs Back: Present: Normal Inspection. No: CVA Tenderness, Midline Tenderness Upper Extremity: Present: Normal Inspection, Normal ROM, NORMAL PULSES, Neurovascularly Intact. No: Cyanosis, Edema Lower Extremity: Present: Normal Inspection, NORMAL PULSES, Normal ROM, Neurovascularly Intact. No: Edema, Deformity Neurological: Present: GCS=15, CN II-XII Intact, Motor Func Grossly Intact, Normal Sensory Function, Normal Cerebellar Funct, Gait Normal, Memory Normal. No: Speech Normal (Difficulty word finding) Skin: Present: Warm, Dry, Normal Color. No: Rashes Psychiatric: Present: Alert, Oriented x 3, Normal Insight, Normal Concentration Medical Decision Making ED Course and Treatment: 12/23/18 21:15 Impression: 73 year old male who presents to the emergency department for having persistent difficulty word finding since 14:00 today. Outside of TPA window given time frame. NIHSS 1 given mild aphasia. No signs of trauma. Afebrile, normal glucose, no meningeal signs. Code stroke called given within 24 hours. Differential Diagnosis included but are not limited to: Plan: -- Labs -- CTA of head & neck bundle -- CT of head -- EKG -- X-Ray of chest -- IV fluids -- Reassess and disposition Prior Visits: Notes and results from previous visits were reviewed. Progress Notes: EK, NSR, no stemi CT of head reviewed by radiologist, shows: IMPRESSION: 1. There is generalized parenchymal atrophy noted as demonstrated by symmetrical dilatation of ventricles and sulci. 2. Chronic periventricular and subcortical microvascular disease is seen. 3. Sinusitis. 4. No acute intracranial pathology. -- CTA of head & neck reviewed by radiologist, shows: IMPRESSION: 1. Atheromatous calcific plaquing within the internal carotid siphons bilaterally and minimally within the left carotid bulb. 2. Otherwise, unremarkable CTA of the head and neck. 3. Evidence of degenerative disc disease at C4-5, C5-6, C6-7. 4. 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 Gonzalez: Plavix 300 mg, permissive HTN. Fluids running, pt in NAD- agreeable to plan. Paged Diego Dixon for admission Pt notes he is still having some difficulty word findings but denies any other FND. Neuro exam unchanged from baseline. 12/23/18 23:43 Discussed case with Diego Dixon who is aware of and agrees with plan. Dr. Teran accepts patient onto his service to telemetry. 12/24/18 00:25 - RAD Interpretation Radiology Orders: 12/23/18 21:22 HEAD W/O (CODE STROKE) [CT] Stat CHEST PORTABLE [RAD] Stat 12/23/18 21:30 CTA HEAD & NECK BUNDLE [CT] Stat Pediatric Cns: Radiologist - EKG Interpretation EKG Interpretation (Text): 12/23/18 EKG: Ordered, reviewed, and independently interpreted the EKG. Rate : 65 BPM Rhythm : NSR Interpretation : No STEMI Interpreted by ED Physician: Yes Type: 12 lead EKG - Medication Orders Current Medication Orders: Sodium Chloride (Sodium Chloride 0.9%) 1,000 mls @ 100 mls/hr IV .Q10H TYSON NIHSS Scale ([place]) Time Performed: 21:15 - How Severe is the Stoke Baseline Level of Consciousness: 0=Alert LOC to Questions: 0=Both comments correct LOC to commands: 0=Obeys both correctly Best Gaze: 0=Normal Visual: 0=No visual loss Facial: 0=Normal Motor Arm - Left: 0=No drift Motor Arm - Right: 0=No drift Motor Leg - Left: 0=No drift Motor Leg - Right: 0=No drift Limb Ataxia: 0=Absent Sensory: 0=Normal Best Language: 1=Mild to moderate aphasia Dysarthia: 0=Normal articulation Extinction & Inattention (Neglect): 0=Normal, no object Score: 1 Risk Level: Minor Stroke Risk rTPA Inclusion/Exclusion - Refusal of Treatment Patient Refused Treatment: No - Inclusion Criteria for Altepase Patient is 18 years or Older: Yes The Clinical Diagnosis of Ischemic Stroke That is Causing a Potentially Disabling Neurological Deficit: Yes Time of Onset is Well Established to be Less Than 270 Minute Before Treatment Would Begin: No Risk/Benefit Discussed With Patient/Family Member Present: Yes - Scribe Statement The provider has reviewed the documentation as recorded by the Scribe Flaca Porter All medical record entries made by the Scribe were at my direction and personally dictated by me. I have reviewed the chart and agree that the record accurately reflects my personal performance of the history, physical exam, medical decision making, and the department course for this patient. I have also personally directed, reviewed, and agree with the discharge instructions and disposition. Disposition/Present on Arrival - Present on Arrival Any Indicators Present on Arrival: No History of DVT/PE: No History of Uncontrolled Diabetes: No Urinary Catheter: No History of Decub. Ulcer: No History Surgical Site Infection Following: None - Disposition Have Diagnosis and Disposition been Completed?: Yes Diagnosis: Aphasia, Stroke-like symptom Disposition Time: 23:33 Patient Problems: Current Active Problems Problem Status Onset Aphasia Acute Stroke-like symptom Acute Condition: STABLE
[2018-12-23] MEDS: Sodium Chloride 0.9% 1,000 ML IV SCH (22:00)
[2018-12-23 22:14] LABS: BASO # 0.01 K/mm3 (0.0-2.0); BASO % 0.2 % (0.0-3.0); EOS # 0.3 (0.0-0.7); EOS % 7.2 % (1.5-5.0); HEMOGLOBIN 12.9 g/dL (14.0-18.0); LYMPH % 20.9 % (22.0-35.0); MEAN CELL VOLUME 90.8 fl (80.0-105.0); MEAN CORPUSCULAR HEMOGLOBIN 29.8 pg (25.0-35.0); MEAN CORPUSCULAR HGB CONC 32.8 g/dl (31.0-37.0); MEAN PLATELET VOLUME 10.6 fl (7.0-11.0); MONO # 1.1 (0.1-0.6); MONO % 22.6 % (1.0-6.0); PLATELET COUNT 131 10^3/uL (120.0-450.0); RBC 4.33 10^6/uL (3.5-6.1); RED CELL DISTRIBUTION WIDTH 13.5 % (11.5-14.5); WHITE BLOOD COUNT 4.7 10^3/uL (4.5-11.0)
[2018-12-23 22:25] LABS: INR 0.95; PARTIAL THROMBOPLASTIN TIME 32.6 Seconds (26.9-38.3); PROTHROMBIN TIME 10.5 SECONDS (9.4-12.5)
[2018-12-23 22:26] LABS: ALB/GLOB RATIO 1.3 (1.1-1.8); ALBUMIN 3.8 g/dL (3.0-4.8); ALT/SGPT 28 U/L (7-56); AST/SGOT 26 U/L (17-59); BLOOD UREA NITROGEN 19 mg/dL (7-21); CALCIUM 8.9 mg/dL (8.4-10.5); GFR NON-AFRICAN AMERICAN > 60; HDL CHOLESTEROL 39 mg/dL (29-60)
[2018-12-23 22:36] LABS: EOSINOPHIL 5 % (0.0-3.0); LYMPHOCYTE 27 % (22.0-35.0); MONOCYTE 15 % (1.0-6.0); NEUTROPHIL 53 % (50.0-70.0)
[2018-12-23 22:37] LABS: LDL CHOLESTEROL 64 mg/dL (0-129); TROPONIN I < 0.01 ng/mL
--- NOTE | 2018-12-24 09:21 | CARD ---
APPROVED REPORT Date of service: 12/23/2018 EKG Measurement Heart [id number] <Conclusion> Normal sinus rhythm Normal ECG
--- NOTE | 2018-12-24 09:22 | CT ---
Date of service: 12/23/2018 PROCEDURE: CT HEAD WITHOUT CONTRAST. HISTORY: Code Stroke COMPARISON: None available. TECHNIQUE: Axial computed tomography images were obtained through the head/brain without intravenous contrast. Radiation dose: Total exam DLP = 1050.25 mGy-cm. This CT exam was performed using one or more of the following dose reduction techniques: Automated exposure control, adjustment of the mA and/or kV according to patient size, and/or use of iterative reconstruction technique. FINDINGS: HEMORRHAGE: No intracranial hemorrhage. BRAIN: No mass effect or edema. Chronic microvascular changes. VENTRICLES: Unremarkable. No hydrocephalus. CALVARIUM: Unremarkable. PARANASAL SINUSES: Unremarkable as visualized. No significant inflammatory changes. MASTOID AIR CELLS: Unremarkable as visualized. No inflammatory changes. OTHER FINDINGS: The report concurs with the preliminary [facility] report IMPRESSION: No acute intracranial abnormality
--- NOTE | 2018-12-24 09:28 | CT ---
Date of service: 12/23/2018 PROCEDURE: CT Angiography of the neck with contrast HISTORY: mild aphasia COMPARISON: None. TECHNIQUE: Contiguous axial images of the neck were obtained from the level of the skull-base to the superior mediastinum in the arteriographic phase of enhancement. Coronal and sagittal reformats or also generated. IV contrast dose: Radiation dose: Total exam DLP = 684.78 mGy-cm. This CT exam was performed using one or more of the following dose reduction techniques: Automated exposure control, adjustment of the mA and/or kV according to patient size, and/or use of iterative reconstruction technique. FINDINGS: RIGHT CAROTID ARTERIES: Common Carotid Artery: Normal. Carotid Bifurcation: Normal. Internal Carotid Artery:Normal. External Carotid Artery (proximal branches): Normal. LEFT CAROTID ARTERIES: Common Carotid Artery: Mild calcified plaque Carotid Bifurcation: Normal. Internal Carotid Artery:Normal. External Carotid Artery (proximal branches): Normal. VERTEBRAL ARTERIES: Right Vertebral Artery: Normal. Left Vertebral Artery: Normal. OTHER FINDINGS: Minimal calcification IMPRESSION: No significant stenosis CT Angiography of the Brain. HISTORY: mild aphasia COMPARISON: None available. TECHNIQUE: CT angiography of the intracranial arteries was performed. Coronal and sagittal maximum intensity projection reformated images were generated. Radiation dose: Total exam DLP = 684.78 mGy-cm. This CT exam was performed using one or more of the following dose reduction techniques: Automated exposure control, adjustment of the mA and/or kV according to patient size, and/or use of iterative reconstruction technique. FINDINGS: INTERNAL CEREBRAL ARTERIES: Unremarkable. The skull base, petrous, cavernous and supraclinoid segments are bilaterally widely patent. ANTERIOR CEREBRAL ARTERIES: Unremarkable. A1 and A2 segments are widely patent. Smaller distal branches unremarkable, as visualized. MIDDLE CEREBRAL ARTERIES: Unremarkable. M1 and M2 segments are widely patent. Perisylvian branches grossly symmetric. POSTERIOR CIRCULATION: Basilar Artery: Unremarkable. Distal Vertebral Arteries: Unremarkable. Posterior Cerebral Arteries: Unremarkable. Posterior Inferior Cerebellar Arteries: Unremarkable. ANEURYSM/ VASCULAR MALFORMATIONS: None. OTHER FINDINGS: The report concurs with the preliminary [facility] report IMPRESSION: Unremarkable CT Angiography of the Brain.
--- NOTE | 2018-12-24 10:01 | RAD ---
Date of service: 12/23/2018 HISTORY: Code Stroke COMPARISON: No prior. FINDINGS: LUNGS: No active pulmonary disease. PLEURA: No significant pleural effusion identified, no pneumothorax apparent. CARDIOVASCULAR: No aortic atherosclerotic calcification present. Mild cardiomegaly no pulmonary vascular congestion. OSSEOUS STRUCTURES: No significant abnormalities. VISUALIZED UPPER ABDOMEN: Normal. OTHER FINDINGS: None. IMPRESSION: No active disease.
[2018-12-24] MEDS: Sodium Chloride 0.9% 1,000 ML IV SCH ×2 (10:23→18:03)
--- NOTE | 2018-12-24 12:01 | CP.PCM.CON ---
<Sp Miles - Last Filed: 12/24/18 16:11> History of Present Illness - History of Present Illness History of Present Illness: PGY-1 Neurology Consult note for Dr. Cisneros Consulting physician: Dr. Lamont Tiwari CC: Speech changes HPI: Patient is a 73 year old male with past medical history of CVA (2016), diabetes, arthritis, hypertension, and hyperlipidemia, who presents to the Emergency de partment complaining of difficulties in finding his words. Patient's was at bedside and states that the symptoms started at 2pm on 12/23 while they were at home. She states that he had a similar episodes 2 years prior during which he had a stroke but recovered. Patient's denies noticing any slurred speech, difficulty ambulating, or focal neurological deficits. Patient denies any falls, trauma, vision changes, difficulty swallowing, fevers, chills, chest pain, shortness of breath, nausea, vomiting, or abdominal pain. HPI and ROS limited due to patient's confusion. HPI obtained from medical records and , who is at bedside. In ED, code stroke was called, NIHSS score: 1. Outside of tPA window, tPA not indicated. PMHx: CVA (2017), diabetes, arthritis, hypertension, and hyperlipidemia. PSHx: Right knee surgery, left hip replacement, lumbar spinal fusion with screws and plate. Social Hx: Denies tobacco, alcohol, or drug use. Family Hx: denies Allergies: NKDA PMD: Dr. Teran Past Patient History - Infectious Disease Hx of Infectious Diseases: None - Past Social History Smoking Status: Never Smoked - CARDIAC Hx Hypertension: Yes - PULMONARY Hx Respiratory Disorders: No - NEUROLOGICAL Hx Neurological Disorder: Yes HX Cerebrovascular Accident: Yes (09/24/17 expressive aphasia) - HEENT Hx HEENT Problems: No - RENAL Hx Chronic Kidney Disease: No - ENDOCRINE/METABOLIC Hx Diabetes Mellitus Type 2: Yes - HEMATOLOGICAL/ONCOLOGICAL Hx Blood Disorders: No - INTEGUMENTARY Hx Dermatological Problems: No - MUSCULOSKELETAL/RHEUMATOLOGICAL Hx Arthritis: Yes - GASTROINTESTINAL Hx Gastrointestinal Disorders: Yes (obese) - GENITOURINARY/GYNECOLOGICAL Hx Genitourinary Disorders: No - PSYCHIATRIC Hx Anxiety: Yes Hx Substance Use: No - SURGICAL HISTORY Hx Orthopedic Surgery: Yes (knee right torn meniscus "yr's ago") Other/Comment: left hup replacement 5 or 6 yrs ago due to arthritis, lumbar spinal fusion with screws and plate 5 or 6 yrs ago - ANESTHESIA Hx Anesthesia Reactions: No Meds Allergies/Adverse Reactions: Allergies Allergy/AdvReac Type Severity Reaction Status Date / Time No Known Allergies Allergy Verified 12/24/18 11:51 - Medications Medications: Current Medications Glipizide (Glucotrol) 10 mg PO 0730,1630 [facility] Sodium Chloride (Sodium Chloride 0.9%) 1,000 mls @ 100 mls/hr IV .Q10H [facility] Last Admin: 12/24/18 10:23 Dose: 100 mls/hr Losartan Potassium (Cozaar) 100 mg PO DAILY [facility] Metformin HCl (Glucophage) 1,000 mg PO BID [facility] Last Admin: 12/24/18 10:54 Dose: Not Given Physical Exam - Constitutional Appears: No Acute Distress, Confused - Head Exam Head Exam: ATRAUMATIC, NORMAL INSPECTION - Eye Exam Eye Exam: EOMI, Normal appearance Pupil Exam: NORMAL ACCOMODATION, PERRL - ENT Exam ENT Exam: Mucous Membranes Moist - Respiratory Exam Respiratory Exam: Clear to Auscultation Bilateral. absent: Wheezes, Respiratory Distress - Cardiovascular Exam Cardiovascular Exam: REGULAR RHYTHM, +S1, +S2. absent: Systolic Murmur - GI/Abdominal Exam GI & Abdominal Exam: Normal Bowel Sounds, Soft. absent: Tenderness - Extremities Exam Extremities exam: Negative for: calf tenderness, pedal edema - Neurological Exam Neurological exam: Alert, CN II-XII Intact Additional comments: Patient is noted to have difficulties in finding his words. No slurred speech or facial droop noted. Sensations intact in all extremities. No pronator drift noted. - Expanded Neurological Exam Expanded Neuro motor strength exam: Left Upper Extremity: 5, Right Upper Extremity: 5, Left Lower Extremity: 5, Right Lower Extremity: 5 - Psychiatric Exam Psychiatric exam: Agitated - Skin Skin Exam: Dry, Intact, Normal Color, Warm Results - Vital Signs Recent Vital Signs: Last Vital Signs Temp 98.9 F 12/24/18 10:49 Pulse 75 12/24/18 10:49 Resp 18 12/24/18 10:49 BP 153/69 H 12/24/18 10:49 Pulse Ox 94 L 12/24/18 10:49 - Labs Result Diagrams: 12/23/18 22:12 12/23/18 22:12 Labs: Laboratory Results - last 24 hr 12/23/18 12/23/18 12/23/18 21:10 22:06 22:12 WBC 4.7 RBC 4.33 Hgb 12.9 L Hct 39.3 L MCV 90.8 MCH 29.8 MCHC 32.8 RDW 13.5 Plt Count 131 MPV 10.6 Neut % (Auto) 49.1 L Lymph % (Auto) 20.9 L Madison % (Auto) 22.6 H Eos % (Auto) 7.2 H Baso % (Auto) 0.2 Lymph # (Auto) 1.0 L Madison # (Auto) 1.1 H Eos # (Auto) 0.3 Baso # (Auto) 0.01 Absolute Neuts (auto) 2.30 Neutrophils % (Manual) 53 Lymphocytes % (Manual) 27 Monocytes % (Manual) 15 H Eosinophils % (Manual) 5 H PT INR APTT Sodium Potassium Chloride Carbon Dioxide Anion Gap BUN Creatinine Est GFR ( Amer) Est GFR (Non-Af Amer) POC Glucose (mg/dL) 104 Random Glucose Calcium Total Bilirubin AST ALT Alkaline Phosphatase Troponin I Total Protein Albumin Globulin Albumin/Globulin Ratio Triglycerides Cholesterol LDL Cholesterol Direct HDL Cholesterol Blood Type B POSITIVE Blood Type Confirm Antibody Screen Negative BBK History Checked No verified bt 12/23/18 12/23/18 12/23/18 22:12 22:12 23:47 WBC RBC Hgb Hct MCV MCH MCHC RDW Plt Count MPV Neut % (Auto) Lymph % (Auto) Madison % (Auto) Eos % (Auto) Baso % (Auto) Lymph # (Auto) Madison # (Auto) Eos # (Auto) Baso # (Auto) Absolute Neuts (auto) Neutrophils % (Manual) Lymphocytes % (Manual) Monocytes % (Manual) Eosinophils % (Manual) PT 10.5 INR 0.95 APTT 32.6 Sodium 138 Potassium 4.8 Chloride 107 Carbon Dioxide 24 Anion Gap 11 BUN 19 Creatinine 1.0 Est GFR ( Amer) > 60 Est GFR (Non-Af Amer) > 60 POC Glucose (mg/dL) Random Glucose 117 H Calcium 8.9 Total Bilirubin 0.5 AST 26 ALT 28 Alkaline Phosphatase 79 Troponin I < 0.01 Total Protein 6.8 Albumin 3.8 Globulin 2.9 Albumin/Globulin Ratio 1.3 Triglycerides 105 Cholesterol 128 L LDL Cholesterol Direct 64 HDL Cholesterol 39 Blood Type Blood Type Confirm B POSITIVE Antibody Screen BBK History Checked Assessment & Plan - Assessment and Plan (Free Text) Assessment: Patient is a 73 year old male presenting with speech changes. Patient is admitted to rule out a stroke. Plan: - Head and neck CTA: Unremarkable - Head CT: No acute intracranial abnormality - Brain MRI: pending - NIHSS score: 1 - Lipid panel: WNL - Patient is confused, on 1:1 observation - Patient wanted to leave AMA, psychiatry consulted to assess competency - Further recommendations as per Dr. Cisneros Patient seen and case discussed with attending, Dr. Cisneros. Sp Miles, PGY-1 <Ben Cisneros - Last Filed: 12/24/18 18:45> Meds - Medications Medications: Current Medications Glipizide (Glucotrol) 10 mg PO 0730,1630 [facility] Last Admin: 12/24/18 18:02 Dose: 10 mg Sodium Chloride (Sodium Chloride 0.9%) 1,000 mls @ 100 mls/hr IV .Q10H [facility] Last Admin: 12/24/18 18:03 Dose: 100 mls/hr Losartan Potassium (Cozaar) 100 mg PO DAILY [facility] Last Admin: 12/24/18 12:37 Dose: 100 mg Metformin HCl (Glucophage) 1,000 mg PO BID [facility] Last Admin: 12/24/18 10:54 Dose: Not Given Results - Vital Signs Recent Vital Signs: Last Vital Signs Temp 98.7 F 12/24/18 18:00 Pulse 73 12/24/18 18:00 Resp 20 12/24/18 18:00 BP 176/88 H 12/24/18 18:00 Pulse Ox 94 L 12/24/18 10:49 - Labs Result Diagrams: 12/23/18 22:12 12/23/18 22:12 Labs: Laboratory Results - last 24 hr 12/23/18 12/23/18 12/23/18 21:10 22:06 22:12 WBC 4.7 RBC 4.33 Hgb 12.9 L Hct 39.3 L MCV 90.8 MCH 29.8 MCHC 32.8 RDW 13.5 Plt Count 131 MPV 10.6 Neut % (Auto) 49.1 L Lymph % (Auto) 20.9 L Madison % (Auto) 22.6 H Eos % (Auto) 7.2 H Baso % (Auto) 0.2 Lymph # (Auto) 1.0 L Madison # (Auto) 1.1 H Eos # (Auto) 0.3 Baso # (Auto) 0.01 Absolute Neuts (auto) 2.30 Neutrophils % (Manual) 53 Lymphocytes % (Manual) 27 Monocytes % (Manual) 15 H Eosinophils % (Manual) 5 H PT INR APTT Sodium Potassium Chloride Carbon Dioxide Anion Gap BUN Creatinine Est GFR ( Amer) Est GFR (Non-Af Amer) POC Glucose (mg/dL) 104 Random Glucose Calcium Total Bilirubin AST ALT Alkaline Phosphatase Troponin I Total Protein Albumin Globulin Albumin/Globulin Ratio Triglycerides Cholesterol LDL Cholesterol Direct HDL Cholesterol Blood Type B POSITIVE Blood Type Confirm Antibody Screen Negative BBK History Checked No verified bt 12/23/18 12/23/18 12/23/18 22:12 22:12 23:47 WBC RBC Hgb Hct MCV MCH MCHC RDW Plt Count MPV Neut % (Auto) Lymph % (Auto) Madison % (Auto) Eos % (Auto) Baso % (Auto) Lymph # (Auto) Madison # (Auto) Eos # (Auto) Baso # (Auto) Absolute Neuts (auto) Neutrophils % (Manual) Lymphocytes % (Manual) Monocytes % (Manual) Eosinophils % (Manual) PT 10.5 INR 0.95 APTT 32.6 Sodium 138 Potassium 4.8 Chloride 107 Carbon Dioxide 24 Anion Gap 11 BUN 19 Creatinine 1.0 Est GFR ( Amer) > 60 Est GFR (Non-Af Amer) > 60 POC Glucose (mg/dL) Random Glucose 117 H Calcium 8.9 Total Bilirubin 0.5 AST 26 ALT 28 Alkaline Phosphatase 79 Troponin I < 0.01 Total Protein 6.8 Albumin 3.8 Globulin 2.9 Albumin/Globulin Ratio 1.3 Triglycerides 105 Cholesterol 128 L LDL Cholesterol Direct 64 HDL Cholesterol 39 Blood Type Blood Type Confirm B POSITIVE Antibody Screen BBK History Checked Assessment & Plan - Assessment and Plan (Free Text) Plan: Neurology attending note: I have examined the patient independently and formulated the assessment and plan. Mr Mcdonald is a 73 yr old male who is admitted for possible left frontal stroke,ischemic. Stroke workup has been initiated including MRI Brain, ECHO and speech therapy. WE will await results of these tests before discharge. Thank you DR. Cisneros Neurology
--- NOTE | 2018-12-24 13:49 | CP.PCM.PCO ---
Physician Communication Note - Physician Communication Note Physician Communication Note: Still confused(improving)-lesscombative/NO AMA Allowable!
[2018-12-24] MEDS ORDERED: Pneumococcal 23-Valent Vaccine IM ONE (14:46)
[2018-12-24] MEDS ORDERED: Influenza Vaccine 60 mcg/0.5 mL SYR (4YR UP) IM ONE (14:46)
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
[2018-12-25] MEDS: Sodium Chloride 0.9% 1,000 ML IV SCH ×2 (04:28→23:48)
[2018-12-25] MEDS ORDERED: Metoprolol 1 mg/ml Inj IVP ONE (11:00)
--- NOTE | 2018-12-25 11:04 | CP.PCM.PCO ---
Physician Communication Note - Physician Communication Note Physician Communication Note: Extreme agitation(?DT)-Steve PELAEZ- [id number] consult
--- NOTE | 2018-12-25 11:09 | CP.PCM.PCO ---
Physician Communication Note - Physician Communication Note Physician Communication Note: states he Does Not Drink ETOH/Pt states otherwise
[2018-12-25] MEDS: Thiamine 100 mg/ml Inj IM SCH (11:35)
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
--- NOTE | 2018-12-25 20:30 | CON ---
DATE: 12/25/2018 HISTORY OF PRESENT ILLNESS: In short, the patient is a 73-year-old male with multiple medical issues including stroke, history of hypertension, hyperlipidemia. The patient was admitted on the medical side for evaluation of aphasia. Psych consult was called for evaluation of capacity to leave against medical advice. The patient was seen and examined. The patient presented to be in distress. The patient appears to be anxious and mildly agitated. The patient obviously was not able to express himself. The patient seems to be frustrated that was not able to express what he means. The patient seems to be poor historian due to aphasia. Collateral information were obtained from the patient's , Harini Mcdonald, who is next to the patient. The patient does not have history of mental illness, does not have history of substance abuse. The patient has similar episodes in the past, but recovered fully. Also discussed with Dr. Teran today. The patient had similar presentations in the past. During the nighttime, the patient wanted to leave against medical advise, was restless, was started on one-to-one and was given 4 mg of Ativan, which seems to not very helpful. This principal technical writer reviewed the previous admissions. The patient had the similar presentation and the patient improved on Seroquel 12.5 mg and Ativan. Last time, the patient was seen by this principal technical writer on 09/2017. PHYSICAL EXAMINATION: VITAL SIGNS: Going back to the current presentation, vital signs reviewed, it seems to be the patient has tachycardia, blood pressure is elevated at 174/80, respirations 18, oxygen saturation 94. MEDICATIONS: Medications reviewed. Seroquel will be started at the nighttime, Ativan 2 mg twice a day and at the nighttime started. Risks, benefits, and alternatives were discussed with the patient's . LABORATORY DATA: Labs reviewed. MENTAL STATUS EXAMINATION: The patient appears to be alert, mildly restless, soft restraint upper extremities and lower extremities. No meaningful conversation possible. The patient is aphasic. IMPRESSION: Most likely, the patient is in delirium stage, also the patient could be agitated because of aphasia. PLAN: Seroquel 12.5 mg at the nighttime, also Ativan 2 mg twice a day and at the nighttime. Risks, benefits, and alternatives of the medications discussed with the patient's family including the patient's . The patient does not have history of dementia and does not have history of mental illness, but had similar episodes in the past. Meanwhile, we will continue current management, continue current medications, and follow up and advise accordingly. Brittany Bowling MD [facility]
[2018-12-25] MEDS: Metoprolol 1 mg/ml Inj IVP SCH (20:35)
--- NOTE | 2018-12-25 21:23 | CP.PCM.PN ---
Subjective - Date & Time of Evaluation Date of Evaluation: 12/25/18 Time of Evaluation: 15:00 - Subjective Subjective: Patient is quite agitated, and drifts in and out of sleep. He has received seroquel and ativan and has significant expressive aphasia. He has not had MRI Brain done yet due to agitation. ROS: not able to be obtained due to pateints mental status. On exam: Shows aphasia. otherwise normal neurological exam. Objective - Vital Signs/Intake and Output Vital Signs (last 24 hours): Temp Pulse Resp BP Pulse Ox 99.8 F H 85 20 154/96 H 94 L 12/25/18 06:00 12/25/18 20:35 12/25/18 18:00 12/25/18 20:35 12/25/18 06:00 Intake and Output: 12/25/18 12/26/18 18:59 06:59 Intake Total 1200 Balance 1200 - Medications Medications: Current Medications Glipizide (Glucotrol) 10 mg PO 0730,1630 [facility] Last Admin: 12/25/18 16:30 Dose: Not Given Sodium Chloride (Sodium Chloride 0.9%) 1,000 mls @ 100 mls/hr IV .Q10H [facility] Last Admin: 12/25/18 04:28 Dose: 100 mls/hr Lorazepam (Ativan) 0.5 mg PO Q6 PRN; Protocol PRN Reason: Agitation Lorazepam (Ativan) 4 mg IVP Q2H PRN; Protocol PRN Reason: Restlessness Last Admin: 12/25/18 20:37 Dose: 4 mg Lorazepam (Ativan) 2 mg PO BID [facility]; Protocol Last Admin: 12/25/18 18:00 Dose: Not Given Lorazepam (Ativan) 2 mg PO HS [facility]; Protocol Losartan Potassium (Cozaar) 100 mg PO DAILY [facility] Last Admin: 12/25/18 10:57 Dose: Not Given Metformin HCl (Glucophage) 1,000 mg PO BID [facility] Last Admin: 12/24/18 10:54 Dose: Not Given Metoprolol Tartrate (Lopressor) 5 mg IVP Q4H [facility] Last Admin: 12/25/18 20:35 Dose: 5 mg Quetiapine Fumarate (Seroquel) 12.5 mg PO HS [facility]; Protocol Thiamine HCl (Vitamin B1 Inj) 100 mg IM DAILY [facility] Last Admin: 12/25/18 11:35 Dose: 100 mg Ziprasidone (Geodon Inj) 10 mg IM Q2 PRN; Protocol PRN Reason: Agitation - Labs Labs: 12/23/18 22:12 12/23/18 22:12 PT 10.5 SECONDS (9.4-12.5) 12/23/18 22:12 INR 0.95 12/23/18 22:12 APTT 32.6 Seconds (26.9-38.3) 12/23/18 22:12 - Neurological Exam Neurological Exam: Alert, Awake, CN II-XII Intact, Normal Gait. absent: Abnormal Gait, Altered, Motor Sensory Deficit, Oriented x3, Reflexes Normal Neuro motor strength exam: Left Upper Extremity: 5, Right Upper Extremity: 5, Left Lower Extremity: 5, Right Lower Extremity: 5 - Psychiatric Exam Psychiatric exam: Agitated Assessment and Plan - Assessment and Plan (Free Text) Assessment: 73 yr old male with most likely LEft frontal lobe stroke, now with delirium that is preventing the stroke workup. His deficits are stable so we will continue to attempt testing. PLan; 1. Aspirin 2. MRI Brain without sheela 3. ECHO 4. PT ST OT 5. Appreciate psychiatry consult and assistance. Dr. Cisneros
[2018-12-26] MEDS: Metoprolol 1 mg/ml Inj IVP SCH ×8 (00:48→23:46)
[2018-12-26] MEDS: Thiamine 100 mg/ml Inj IM SCH ×2 (10:20→10:28)
--- NOTE | 2018-12-26 10:20 | CP.PCM.PN ---
Subjective - Date & Time of Evaluation Date of Evaluation: 12/26/18 Time of Evaluation: 10:20 - Subjective Subjective: PGY-1 Neurology Progress note for Dr. Cisneros Patient seen and examined at bedside. Family was at bedside. He is AAO x 3 and states that he is feeling better. Patient agrees to get a head CT. Objective - Vital Signs/Intake and Output Vital Signs (last 24 hours): Temp Pulse Resp BP Pulse Ox 99.8 F H 77 20 133/70 95 12/26/18 06:00 12/26/18 08:43 12/26/18 06:00 12/26/18 08:43 12/26/18 06:00 Intake and Output: 12/26/18 12/26/18 06:59 18:59 Intake Total 1200 Balance 1200 - Medications Medications: Current Medications Glipizide (Glucotrol) 10 mg PO 0730,1630 [facility] Last Admin: 12/26/18 08:36 Dose: Not Given Sodium Chloride (Sodium Chloride 0.9%) 1,000 mls @ 100 mls/hr IV .Q10H [facility] Last Admin: 12/25/18 23:48 Dose: 100 mls/hr Lorazepam (Ativan) 0.5 mg PO Q6 PRN; Protocol PRN Reason: Agitation Lorazepam (Ativan) 4 mg IVP Q2H PRN; Protocol PRN Reason: Restlessness Last Admin: 12/26/18 03:19 Dose: 4 mg Lorazepam (Ativan) 2 mg PO BID [facility]; Protocol Last Admin: 12/25/18 18:00 Dose: Not Given Lorazepam (Ativan) 2 mg PO HS [facility]; Protocol Last Admin: 12/25/18 21:24 Dose: Not Given Losartan Potassium (Cozaar) 100 mg PO DAILY [facility] Last Admin: 12/25/18 10:57 Dose: Not Given Metformin HCl (Glucophage) 1,000 mg PO BID [facility] Last Admin: 12/24/18 10:54 Dose: Not Given Metoprolol Tartrate (Lopressor) 5 mg IVP Q4H [facility] Last Admin: 12/26/18 08:43 Dose: Not Given Quetiapine Fumarate (Seroquel) 12.5 mg PO HS [facility]; Protocol Last Admin: 12/25/18 21:23 Dose: Not Given Thiamine HCl (Vitamin B1 Inj) 100 mg IM DAILY [facility] Last Admin: 12/25/18 11:35 Dose: 100 mg Ziprasidone (Geodon Inj) 10 mg IM Q2 PRN; Protocol PRN Reason: Agitation - Labs Labs: 12/23/18 22:12 12/23/18 22:12 PT 10.5 SECONDS (9.4-12.5) 12/23/18 22:12 INR 0.95 12/23/18 22:12 APTT 32.6 Seconds (26.9-38.3) 12/23/18 22:12 - Additional Findings Additional findings: - Constitutional Appears: No Acute Distress - Head Exam Head Exam: ATRAUMATIC, NORMAL INSPECTION - Eye Exam Eye Exam: EOMI, Normal appearance Pupil Exam: NORMAL ACCOMODATION, PERRL - ENT Exam ENT Exam: Mucous Membranes Moist - Respiratory Exam Respiratory Exam: Clear to Auscultation Bilateral. absent: Wheezes, Respiratory Distress - Cardiovascular Exam Cardiovascular Exam: REGULAR RHYTHM, +S1, +S2. absent: Systolic Murmur - GI/Abdominal Exam GI & Abdominal Exam: Normal Bowel Sounds, Soft. absent: Tenderness - Extremities Exam Extremities exam: Negative for: calf tenderness, pedal edema - Neurological Exam Neurological exam: AAO x 3, CN II-XII Intact Additional comments: Patient is noted to have difficulties in finding his words but is improving. He is able to identify objects and follows commands. No slurred speech or facial droop noted. Sensations intact in all extremities. No pronator drift noted. - Expanded Neurological Exam Expanded Neuro motor strength exam: Left Upper Extremity: 5, Right Upper Extremity: 5, Left Lower Extremity: 5, Right Lower Extremity: 5 - Psychiatric Exam Psychiatric exam: Agitated - Skin Skin Exam: Dry, Intact, Normal Color, Warm Assessment and Plan - Assessment and Plan (Free Text) Assessment: Patient is a 73 year old male presenting with speech changes. Patient is admitted to rule out a stroke. Plan: - Head CT with contrast ordered - Patient too agitated to get an MRI - Continue with daily Aspirin and Lipitor - Continue to work with PT/ST/OT - Further recommendations as per Dr. Cisneros Patient seen and case discussed with attending, Dr. Blayne Miles, PGY-1
--- NOTE | 2018-12-26 11:04 | CP.PCM.PCO ---
Physician Communication Note - Physician Communication Note Physician Communication Note: Finally sedated/BPbetter/? Plavix Rx when PO Intake possible
[2018-12-26] MEDS: Sodium Chloride 0.9% 1,000 ML IV SCH ×2 (11:23→23:40)
--- NOTE | 2018-12-26 20:51 | PN ---
DATE: 12/26/2018 FOLLOWUP NOTE SUBJECTIVE: This screenplay writer attempted to speak to the patient, but the patient is deeply sleeping, was not able to participate in interview. The patient got Ativan 2 mg earlier and that is why the patient was sleeping. As per report, the patient had restless night again, was refusing to take medications. The patient is on one-to-one observation. The patient was seen by neurology team. As per neurology team, the patient presented little better and the patient agreed to have CT scan. 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 PHYSICAL EXAMINATION: VITAL SIGNS: Reviewed. Temperature 98.7, pulse is 84, blood pressure 149/73, respirations 18, oxygen saturation is 96. MEDICATIONS: Reviewed. The patient has tendency of refusing to take medication. The patient is on aspirin, Lipitor, glipizide but the patient refused, Ativan 2 mg twice a day schedule and 2 mg at the nighttime. The patient is on Cozaar, Glucophage, Lopressor, Seroquel 12.5 mg at the nighttime schedule, but the patient refused to take it. The patient is on sodium chloride. Geodon as needed for agitation. MENTAL STATUS EXAMINATION: The patient is deeply sleeping and was not able to participate in interview. IMPRESSION: The patient obviously in delirium stage. The patient has left frontal lobe stroke most likely which could explain the patient's agitation as well as aphasia. At present moment, the patient has delirium, which seems to be related to the stroke and aphasia and agitation due to aphasia. PLAN: Continue current management. Continue current medications. We will follow up this patient every other day. The patient has a scheduled dose of Seroquel and Ativan and as needed IM of Geodon. Discussed with the patient's family yesterday. We will follow up on Monday. Should you have any questions, give me a call back. Brittany Bowling MD [facility]
[2018-12-26] MEDS ORDERED: Iohexol 350 MG/100 ML VIAL ONE (21:37)
[2018-12-27] MEDS: Metoprolol 1 mg/ml Inj IVP SCH ×5 (05:50→20:40)
--- NOTE | 2018-12-27 08:47 | CT ---
Date of service: 12/26/2018 PROCEDURE: CT HEAD WITH CONTRAST HISTORY: r/o CVA COMPARISON: None available. TECHNIQUE: Axial computed tomography images were obtained through the head/brain with intravenous contrast. Contrast dose: 96 cc of Omni 350 Radiation dose: Total exam DLP = 1941.08 mGy-cm. This CT exam was performed using one or more of the following dose reduction techniques: Automated exposure control, adjustment of the mA and/or kV according to patient size, and/or use of iterative reconstruction technique. FINDINGS: HEMORRHAGE: No intracranial hemorrhage. BRAIN: No mass, mass effect or edema. No abnormal intracranial enhancement. Chronic microvascular changes in the periventricular white matter. VENTRICLES: Unremarkable. No hydrocephalus. CALVARIUM: Unremarkable. PARANASAL SINUSES: Unremarkable as visualized. No significant inflammatory changes. MASTOID AIR CELLS: Unremarkable as visualized. No mastoid effusion. OTHER FINDINGS: The report concurs with the preliminary [facility] report IMPRESSION: No acute intracranial findings
[2018-12-27] MEDS: Sodium Chloride 0.9% 1,000 ML IV SCH ×3 (11:05→21:35)
--- NOTE | 2018-12-27 11:06 | CP.PCM.PCO ---
Physician Communication Note - Physician Communication Note Physician Communication Note: Awake-zach diet-? Start Plavix([facility] Neurology)
--- NOTE | 2018-12-27 11:17 | CP.PCM.PN ---
Subjective - Date & Time of Evaluation Date of Evaluation: 12/27/18 Time of Evaluation: 11:16 - Subjective Subjective: PGY-1 Neurology Progress note for Dr. Cisneros Patient seen and examined at bedside. No acute events overnight. He is AAO x 3 and his speech has improved since admission. He denies headaches, dizziness, or any other complaints at this time. Objective - Vital Signs/Intake and Output Vital Signs (last 24 hours): Temp Pulse Resp BP Pulse Ox 98.0 F 84 20 146/69 96 12/27/18 06:00 12/27/18 06:00 12/27/18 06:00 12/27/18 09:26 12/26/18 08:43 Intake and Output: 12/27/18 12/27/18 06:59 18:59 Intake Total 1440 Output Total 1200 Balance 240 - Medications Medications: Current Medications Aspirin (Ecotrin) 81 mg PO DAILY [facility] Last Admin: 12/27/18 09:25 Dose: 81 mg Atorvastatin Calcium (Lipitor) 10 mg PO DIN [facility] Last Admin: 12/26/18 17:28 Dose: Not Given Glipizide (Glucotrol) 10 mg PO 0730,1630 [facility] Last Admin: 12/27/18 09:26 Dose: 10 mg Sodium Chloride (Sodium Chloride 0.9%) 1,000 mls @ 100 mls/hr IV .Q10H [facility] Last Admin: 12/27/18 11:05 Dose: 100 mls/hr Lorazepam (Ativan) 2 mg PO BID [facility]; Protocol Last Admin: 12/27/18 09:25 Dose: 2 mg Lorazepam (Ativan) 2 mg PO HS [facility]; Protocol Last Admin: 12/26/18 21:02 Dose: 2 mg Lorazepam (Ativan) 1 mg IVP Q4H PRN; Protocol PRN Reason: Anxiety Losartan Potassium (Cozaar) 100 mg PO DAILY [facility] Last Admin: 12/27/18 09:25 Dose: 100 mg Metformin HCl (Glucophage) 1,000 mg PO BID [facility] Last Admin: 12/27/18 09:26 Dose: 1,000 mg Metoprolol Tartrate (Lopressor) 5 mg IVP Q4H [facility] Last Admin: 12/27/18 09:26 Dose: Not Given Quetiapine Fumarate (Seroquel) 12.5 mg PO HS [facility]; Protocol Last Admin: 12/26/18 21:03 Dose: 12.5 mg Ziprasidone (Geodon Inj) 10 mg IM Q2 PRN; Protocol PRN Reason: Agitation - Labs Labs: 12/23/18 22:12 12/23/18 22:12 PT 10.5 SECONDS (9.4-12.5) 12/23/18 22:12 INR 0.95 12/23/18 22:12 APTT 32.6 Seconds (26.9-38.3) 12/23/18 22:12 - Additional Findings Additional findings: - Constitutional Appears: No Acute Distress - Head Exam Head Exam: ATRAUMATIC, NORMAL INSPECTION - Eye Exam Eye Exam: EOMI, Normal appearance Pupil Exam: NORMAL ACCOMODATION, PERRL - ENT Exam ENT Exam: Mucous Membranes Moist - Respiratory Exam Respiratory Exam: Clear to Auscultation Bilateral. absent: Wheezes, Respiratory Distress - Cardiovascular Exam Cardiovascular Exam: REGULAR RHYTHM, +S1, +S2. absent: Systolic Murmur - GI/Abdominal Exam GI & Abdominal Exam: Normal Bowel Sounds, Soft. absent: Tenderness - Extremities Exam Extremities exam: Negative for: calf tenderness, pedal edema - Neurological Exam Neurological exam: AAO x 3, CN II-XII Intact Additional comments: Patient's speech has improved since admission. No slurred speech or facial droop noted. Sensations intact in all extremities. No pronator drift noted. - Expanded Neurological Exam Expanded Neuro motor strength exam: Left Upper Extremity: 5, Right Upper Extremity: 5, Left Lower Extremity: 5, Right Lower Extremity: 5 - Psychiatric Exam Psychiatric exam: Agitated - Skin Skin Exam: Dry, Intact, Normal Color, Warm Assessment and Plan - Assessment and Plan (Free Text) Assessment: Patient is a 73 year old male presenting with speech changes. Patient is admitted to rule out a stroke. Plan: - Head CT with contrast shows no acute findings - Continue with daily Aspirin and Lipitor - Continue to work with PT/ST/OT - Follow up with Dr. Gonzalez in his office in 4 weeks - Further recommendations as per Dr. Cisneros Disposition: No further neurological imaging/interventions indicated at this time. Neurology will be signing off at this time. Please feel free to reconsult as indicated. Patient seen and case discussed with attending, Dr. Blayne Miles, PGY-1
[2018-12-27] MEDS: Metoprolol 1 mg/ml Inj IVP PRN (23:06)
--- NOTE | 2018-12-28 02:48 | CP.PCM.PN ---
<Taqueria George - Last Filed: 12/28/18 02:53> Subjective - Date & Time of Evaluation Date of Evaluation: 12/28/18 Time of Evaluation: 02:30 - Subjective Subjective: Paged by nurse Patient noted to be agitated, trying to pull out his IV and gown PRN Ativan was given with no resolution Patient was examined at bedside. Patient is AAOx1 and uncooperative with questioning. Soft wrist restraints were ordered Taqueria George PGY-1 Objective - Vital Signs/Intake and Output Vital Signs (last 24 hours): Temp Pulse Resp BP Pulse Ox 99.2 F 88 73 H 173/83 H 95 12/27/18 23:29 12/28/18 01:52 12/27/18 23:29 12/27/18 23:29 12/27/18 23:29 Intake and Output: 12/27/18 12/28/18 18:59 06:59 Intake Total 1200 Balance 1200 - Medications Medications: Current Medications Aspirin (Ecotrin) 81 mg PO DAILY [facility] Last Admin: 12/27/18 09:25 Dose: 81 mg Atorvastatin Calcium (Lipitor) 10 mg PO DIN [facility] Last Admin: 12/27/18 17:01 Dose: 10 mg Glipizide (Glucotrol) 10 mg PO 0730,1630 [facility] Last Admin: 12/27/18 17:01 Dose: 10 mg Sodium Chloride (Sodium Chloride 0.9%) 1,000 mls @ 100 mls/hr IV .Q10H [facility] Last Admin: 12/27/18 21:35 Dose: 100 mls/hr Lorazepam (Ativan) 2 mg PO BID [facility]; Protocol Last Admin: 12/27/18 17:01 Dose: 2 mg Lorazepam (Ativan) 2 mg PO HS [facility]; Protocol Last Admin: 12/28/18 00:09 Dose: 2 mg Lorazepam (Ativan) 1 mg IVP Q4H PRN; Protocol PRN Reason: Anxiety Last Admin: 12/28/18 00:23 Dose: 1 mg Losartan Potassium (Cozaar) 100 mg PO DAILY [facility] Last Admin: 12/27/18 09:25 Dose: 100 mg Metformin HCl (Glucophage) 1,000 mg PO BID [facility] Last Admin: 12/27/18 17:01 Dose: 1,000 mg Metoprolol Tartrate (Lopressor) 5 mg IVP Q6 PRN PRN Reason: if sbp >150 Last Admin: 12/27/18 23:06 Dose: 5 mg Metoprolol Tartrate (Lopressor) 50 mg PO BID [facility] Quetiapine Fumarate (Seroquel) 12.5 mg PO HS [facility]; Protocol Last Admin: 12/27/18 21:30 Dose: 12.5 mg Ziprasidone (Geodon Inj) 10 mg IM Q2 PRN; Protocol PRN Reason: Agitation Last Admin: 12/28/18 01:40 Dose: 10 mg - Labs Labs: 12/23/18 22:12 12/23/18 22:12 PT 10.5 SECONDS (9.4-12.5) 12/23/18 22:12 INR 0.95 12/23/18 22:12 APTT 32.6 Seconds (26.9-38.3) 12/23/18 22:12 <Susy Crawford - Last Filed: 12/28/18 19:21> Objective - Vital Signs/Intake and Output Vital Signs (last 24 hours): Temp Pulse Resp BP Pulse Ox 98 F 74 20 151/80 H 95 12/28/18 18:00 12/28/18 18:00 12/28/18 18:00 12/28/18 18:00 12/28/18 06:00 Intake and Output: 12/28/18 12/29/18 18:59 06:59 Intake Total 200 Balance 200 - Medications Medications: Current Medications Aspirin (Ecotrin) 81 mg PO DAILY [facility] Last Admin: 12/28/18 10:45 Dose: 81 mg Atorvastatin Calcium (Lipitor) 10 mg PO DIN [facility] Last Admin: 12/28/18 18:56 Dose: 10 mg Glipizide (Glucotrol) 10 mg PO 0730,1630 [facility] Last Admin: 12/28/18 17:10 Dose: 10 mg Sodium Chloride (Sodium Chloride 0.9%) 1,000 mls @ 60 mls/hr IV .[id number] [facility] Last Admin: 12/28/18 05:44 Dose: Not Given Lorazepam (Ativan) 2 mg PO BID [facility]; Protocol Last Admin: 12/28/18 18:55 Dose: 2 mg Lorazepam (Ativan) 2 mg PO HS [facility]; Protocol Last Admin: 12/28/18 00:09 Dose: 2 mg Lorazepam (Ativan) 1 mg IVP Q4H PRN; Protocol PRN Reason: Anxiety Last Admin: 12/28/18 00:23 Dose: 1 mg Losartan Potassium (Cozaar) 100 mg PO DAILY [facility] Last Admin: 12/28/18 10:45 Dose: 100 mg Metformin HCl (Glucophage) 1,000 mg PO BID [facility] Last Admin: 12/28/18 18:56 Dose: 1,000 mg Metoprolol Tartrate (Lopressor) 5 mg IVP Q6 PRN PRN Reason: if sbp >150 Last Admin: 12/28/18 05:28 Dose: 5 mg Metoprolol Tartrate (Lopressor) 50 mg PO BID [facility] Last Admin: 12/28/18 18:56 Dose: 50 mg Quetiapine Fumarate (Seroquel) 25 mg PO HS [facility]; Protocol Ziprasidone (Geodon Inj) 10 mg IM Q2 PRN; Protocol PRN Reason: Agitation Last Admin: 12/28/18 01:40 Dose: 10 mg - Labs Labs: 12/28/18 07:00 12/28/18 07:00 PT 12.9 SECONDS (9.4-12.5) H 12/28/18 07:00 INR 1.14 12/28/18 07:00 APTT 32.6 Seconds (26.9-38.3) 12/23/18 22:12 Attending/Attestation - Attestation I have personally seen and examined this patient.: No I have fully participated in the care of the patient.: No I have reviewed all pertinent clinical information, including history, physical exam and plan: No
--- NOTE | 2018-12-28 02:49 | CP.PCM.PN ---
Objective - Vital Signs/Intake and Output Vital Signs (last 24 hours): Temp Pulse Resp BP Pulse Ox 99.2 F 88 73 H 173/83 H 95 12/27/18 23:29 12/28/18 01:52 12/27/18 23:29 12/27/18 23:29 12/27/18 23:29 Intake and Output: 12/27/18 12/28/18 18:59 06:59 Intake Total 1200 Balance 1200 - Medications Medications: Current Medications Aspirin (Ecotrin) 81 mg PO DAILY [facility] Last Admin: 12/27/18 09:25 Dose: 81 mg Atorvastatin Calcium (Lipitor) 10 mg PO DIN [facility] Last Admin: 12/27/18 17:01 Dose: 10 mg Glipizide (Glucotrol) 10 mg PO 0730,1630 [facility] Last Admin: 12/27/18 17:01 Dose: 10 mg Sodium Chloride (Sodium Chloride 0.9%) 1,000 mls @ 100 mls/hr IV .Q10H [facility] Last Admin: 12/27/18 21:35 Dose: 100 mls/hr Lorazepam (Ativan) 2 mg PO BID [facility]; Protocol Last Admin: 12/27/18 17:01 Dose: 2 mg Lorazepam (Ativan) 2 mg PO HS [facility]; Protocol Last Admin: 12/28/18 00:09 Dose: 2 mg Lorazepam (Ativan) 1 mg IVP Q4H PRN; Protocol PRN Reason: Anxiety Last Admin: 12/28/18 00:23 Dose: 1 mg Losartan Potassium (Cozaar) 100 mg PO DAILY [facility] Last Admin: 12/27/18 09:25 Dose: 100 mg Metformin HCl (Glucophage) 1,000 mg PO BID [facility] Last Admin: 12/27/18 17:01 Dose: 1,000 mg Metoprolol Tartrate (Lopressor) 5 mg IVP Q6 PRN PRN Reason: if sbp >150 Last Admin: 12/27/18 23:06 Dose: 5 mg Metoprolol Tartrate (Lopressor) 50 mg PO BID [facility] Quetiapine Fumarate (Seroquel) 12.5 mg PO HS [facility]; Protocol Last Admin: 12/27/18 21:30 Dose: 12.5 mg Ziprasidone (Geodon Inj) 10 mg IM Q2 PRN; Protocol PRN Reason: Agitation Last Admin: 12/28/18 01:40 Dose: 10 mg - Labs Labs: 12/23/18 22:12 12/23/18 22:12 PT 10.5 SECONDS (9.4-12.5) 12/23/18 22:12 INR 0.95 12/23/18 22:12 APTT 32.6 Seconds (26.9-38.3) 12/23/18 22:12
[2018-12-28] MEDS: Metoprolol 1 mg/ml Inj IVP PRN (05:28)
[2018-12-28] MEDS: Sodium Chloride 0.9% 1,000 ML IV SCH ×2 (05:44→22:26)
[2018-12-28 07:17] LABS: BASO # 0.01 K/mm3 (0.0-2.0); BASO % 0.1 % (0.0-3.0); EOS # 0.3 (0.0-0.7); EOS % 3.3 % (1.5-5.0); LYMPH # 1.4 (1.2-3.4); LYMPH % 17.6 % (22.0-35.0); MEAN CELL VOLUME 91.8 fl (80.0-105.0); MEAN CORPUSCULAR HEMOGLOBIN 29.5 pg (25.0-35.0); MEAN CORPUSCULAR HGB CONC 32.1 g/dl (31.0-37.0); MEAN PLATELET VOLUME 10.3 fl (7.0-11.0); MONO # 1.5 (0.1-0.6); MONO % 19.7 % (1.0-6.0); RBC 4.41 10^6/uL (3.5-6.1); RED CELL DISTRIBUTION WIDTH 13.3 % (11.5-14.5); WHITE BLOOD COUNT 7.7 10^3/uL (4.5-11.0)
[2018-12-28 07:25] LABS: INR 1.14; PROTHROMBIN TIME 12.9 SECONDS (9.4-12.5)
[2018-12-28 07:53] LABS: ALB/GLOB RATIO 1.2 (1.1-1.8); ALBUMIN 3.8 g/dL (3.0-4.8); ALT/SGPT 22 U/L (7-56); AST/SGOT 36 U/L (17-59); BLOOD UREA NITROGEN 12 mg/dL (7-21); CALCIUM 8.8 mg/dL (8.4-10.5); GFR NON-AFRICAN AMERICAN > 60
--- NOTE | 2018-12-28 10:05 | CP.PCM.PCO ---
Physician Communication Note - Physician Communication Note Physician Communication Note: dx; CVA
--- NOTE | 2018-12-28 18:30 | PN ---
DATE: 12/28/2018 SUBJECTIVE: The patient is a 73-year-old male who was admitted on the medical side to rule out CVA. The patient had expressive aphasia. This newswriter got involved into the patient's care because of altered mental status and periods of agitation. Please see initial consultation note for more detailed information. This newswriter implemented Seroquel as well as Ativan because the patient had episodes of trying to pull IV line as well as restless behavior and the patient posed imminent danger to self and others. The patient was seen by this newswriter every other day. The patient was seen today. As per report, the patient had a good one day of good behavior. The patient was able to express himself. Overnight, the patient again became agitated and needed to be on soft restraint upper extremities. The patient was seen today. The patient is status post medication. Majority of the information was obtained from the patient's who is next to him. As per , the patient was able to express himself and had a very good day yesterday but by the evening time, the patient became very confused and agitated. So far, the patient is improving from the from the 's perspective. This newswriter educated about treatment plan, about Seroquel, about Ativan. The patient was feeling comfortable for this medication to be administered to the patient. PHYSICAL EXAMINATION VITAL SIGNS: Vital signs seem to be stable. Temperature 98.9, pulse 79, blood pressure 141/72, respiration 20, and O2 saturation is 95%. MEDICATIONS: Reviewed. The patient is on aspirin, Lipitor, glipizide, Ativan 2 mg twice a day and 2 mg at the nighttime, Ativan 1 mg IV push every 4 hours as needed for anxiety and restless behavior, Cozaar, metformin, Lopressor. Seroquel will be increased to 25 mg from 12.5 mg and Geodon 10 mg IM every 2 hours as the medical team. This newswriter okays clarification for Geodon 10 mg every 2 hours, but maximal two doses could be given a day, which seems to be fine. MENTAL STATUS EXAM: The patient is deeply sedated and was not able to participate in interview, but the patient has episodes of confusion, agitation, and restless behavior. IMPRESSION: Most likely, the patient is in delirium stage due to general medical condition. The patient did not have any new stroke but most likely the patient had transient ischemic attack. PLAN: Seroquel was increased to 25 mg at the nighttime, Ativan 2 mg twice a day and 1 mg at the nighttime. Without those medications, the patient appears to be very restless, agitated and not able to participate in treatment plan. The medications were discussed with the patient's . Over the weekend, the patient would be seen by Dr. Parada. Next followup is Monday. Should you have any questions give me a call back. Brittany Bowling MD
--- NOTE | 2018-12-29 04:27 | CP.PCM.CON ---
<Bora Jackman - Last Filed: 12/29/18 05:28> History of Present Illness - History of Present Illness History of Present Illness: Patient is a 73 year old male with past medical history of CVA (2017), diabetes, arthritis, hypertension, and hyperlipidemia, who presented to the Emergency department complaining of difficulties in finding his words as symptoms started at 2pm on 12/23 . Rapid response and code blue were called around 4am this morning because patient became bradycardic and unresponsive. Code was initiated, compressions started, one dose of atropine was given, followed by one dose epi after which radial pulse was felt. HPI and ROS limited due to patient's condition. Patient was intubated and will transferred to ICU. PMHx: CVA (2017), diabetes, arthritis, hypertension, and hyperlipidemia. PSHx: Right knee surgery, left hip replacement, lumbar spinal fusion with screws and plate. Social Hx: Denies tobacco, alcohol, or drug use. Family Hx: denies Allergies: NKDA PMD: Dr. Teran Review of Systems - Review of Systems Systems not reviewed;Unavailable: Acuity of Condition Review of Systems: Unable to obtain due to mental status and condition Past Patient History - Infectious Disease Hx of Infectious Diseases: None - Past Social History Smoking Status: Never Smoked - CARDIAC Hx Cardiac Disorders: Yes Hx Hypercholesterolemia: Yes (HLD) Hx Hypertension: Yes - PULMONARY Hx Respiratory Disorders: No - NEUROLOGICAL HX Cerebrovascular Accident: Yes (without residual deficits.) - HEENT Hx HEENT Problems: No - RENAL Hx Chronic Kidney Disease: No - ENDOCRINE/METABOLIC Hx Diabetes Mellitus Type 2: Yes - HEMATOLOGICAL/ONCOLOGICAL Hx Blood Disorders: No - INTEGUMENTARY Hx Dermatological Problems: No - MUSCULOSKELETAL/RHEUMATOLOGICAL Hx Arthritis: Yes - GASTROINTESTINAL Hx Gastrointestinal Disorders: Yes (obese) - GENITOURINARY/GYNECOLOGICAL Hx Genitourinary Disorders: No - PSYCHIATRIC Hx Anxiety: Yes Hx Substance Use: No - SURGICAL HISTORY Hx Orthopedic Surgery: Yes (knee right torn meniscus "yr's ago") Other/Comment: left hup replacement 5 or 6 yrs ago due to arthritis, lumbar spinal fusion with screws and plate 5 or 6 yrs ago - ANESTHESIA Hx Anesthesia Reactions: No Meds Allergies/Adverse Reactions: Allergies Allergy/AdvReac Type Severity Reaction Status Date / Time No Known Allergies Allergy Verified 12/24/18 11:51 - Medications Medications: Current Medications Aspirin (Ecotrin) 81 mg PO DAILY [facility] Last Admin: 12/28/18 10:45 Dose: 81 mg Atorvastatin Calcium (Lipitor) 10 mg PO DIN [facility] Last Admin: 12/28/18 18:56 Dose: 10 mg Glipizide (Glucotrol) 10 mg PO 0730,1630 [facility] Last Admin: 12/28/18 17:10 Dose: 10 mg Sodium Chloride (Sodium Chloride 0.9%) 1,000 mls @ 60 mls/hr IV .[id number] [facility] Last Admin: 12/28/18 22:26 Dose: Not Given Lorazepam (Ativan) 2 mg PO BID [facility]; Protocol Last Admin: 12/28/18 18:55 Dose: 2 mg Lorazepam (Ativan) 2 mg PO HS [facility]; Protocol Last Admin: 12/28/18 22:14 Dose: 2 mg Lorazepam (Ativan) 1 mg IVP Q4H PRN; Protocol PRN Reason: Anxiety Last Admin: 12/28/18 00:23 Dose: 1 mg Losartan Potassium (Cozaar) 100 mg PO DAILY [facility] Last Admin: 12/28/18 10:45 Dose: 100 mg Metformin HCl (Glucophage) 1,000 mg PO BID [facility] Last Admin: 12/28/18 18:56 Dose: 1,000 mg Metoprolol Tartrate (Lopressor) 5 mg IVP Q6 PRN PRN Reason: if sbp >150 Last Admin: 12/28/18 05:28 Dose: 5 mg Metoprolol Tartrate (Lopressor) 50 mg PO BID [facility] Last Admin: 12/28/18 18:56 Dose: 50 mg Quetiapine Fumarate (Seroquel) 25 mg PO HS [facility]; Protocol Last Admin: 12/28/18 22:14 Dose: 25 mg Ziprasidone (Geodon Inj) 10 mg IM Q2 PRN; Protocol PRN Reason: Agitation Last Admin: 12/28/18 01:40 Dose: 10 mg Physical Exam - Constitutional Appears: In Acute Distress - Head Exam Head Exam: ATRAUMATIC, NORMAL INSPECTION, NORMOCEPHALIC - Eye Exam Eye Exam: Normal appearance - ENT Exam ENT Exam: Mucous Membranes Moist - Respiratory Exam Respiratory Exam: Clear to Auscultation Bilateral. absent: Rhonchi, Wheezes, Respiratory Distress - Cardiovascular Exam Cardiovascular Exam: REGULAR RHYTHM, +S1, +S2 - GI/Abdominal Exam GI & Abdominal Exam: Distended, Soft - Extremities Exam Extremities exam: Positive for: pedal pulses present. Negative for: pedal edema - Neurological Exam Additional comments: unable to assess - Skin Skin Exam: Dry, Intact Results - Vital Signs Recent Vital Signs: Last Vital Signs Temp 98.6 F 12/29/18 00:01 Pulse 87 12/29/18 02:00 Resp 20 12/29/18 00:01 BP 153/80 H 12/29/18 00:01 Pulse Ox 95 12/29/18 00:01 - Labs Result Diagrams: 12/29/18 04:35 12/29/18 04:35 Labs: Laboratory Results - last 24 hr 12/28/18 12/28/18 12/28/18 07:00 07:00 07:00 WBC 7.7 D RBC 4.41 Hgb 13.0 L Hct 40.5 L MCV 91.8 MCH 29.5 MCHC 32.1 RDW 13.3 Plt Count 139 MPV 10.3 Neut % (Auto) 59.3 Lymph % (Auto) 17.6 L [place] % (Auto) 19.7 H Eos % (Auto) 3.3 Baso % (Auto) 0.1 Lymph # (Auto) 1.4 [place] # (Auto) 1.5 H Eos # (Auto) 0.3 Baso # (Auto) 0.01 Absolute Neuts (auto) 4.54 PT 12.9 H INR 1.14 Sodium 141 Potassium 4.1 Chloride 108 H Carbon Dioxide 27 Anion Gap 10 BUN 12 Creatinine 0.8 Est GFR ( Amer) > 60 Est GFR (Non-Af Amer) > 60 Random Glucose 137 H Calcium 8.8 Phosphorus 3.9 Magnesium 1.9 Total Bilirubin 0.9 AST 36 ALT 22 Alkaline Phosphatase 96 Total Protein 7.1 Albumin 3.8 Globulin 3.3 Albumin/Globulin Ratio 1.2 Assessment & Plan - Assessment and Plan (Free Text) Assessment: Patient is a 73 year old male with past medical history of CVA (2017), diabetes, arthritis, hypertension, and hyperlipidemia, who presented to the Emergency department complaining of difficulties in finding his words as symptoms started at 2pm on 12/23 . Rapid response and code blue were called around 4am this morning because patient became unresponsive. Patient intubated and monitored in the ICU. Plan: Neuro - AAOx0 - maintain normothermia - Neurology on consult. Appreciate recs. - Ativan PRN discontinued Cardio - s/p cardiac arrest - maintain MAP > 65 mm Hg - dopamine drip - ECHO - EKG pending - Cardiology Dr. Baez consulted. Appreciate recs. - Troponin 0.20 - Hyperkalemia - D50 x2, insulin 10 units, calcium gluconate, kayexalate given - trend troponins - hold beta kyler and losartan - Lipitor 80 mg PO daily - Aspirin 300 mg VT given Pulm - s/p intubation - possible aspiration as patient vomited - maintain SaO2>92% - CXR - Zosyn renally dosed - followup d-dimer and V/Q scan - ABG pending - heparin drip for possible PE GI - NPO - Protonix Renal - Creatinine 1.7 - francois catheter placed - Strict Is and Os - NS @ 100 ccs/hr H/H - stable - heparin drip - monitor coags - continue to monitor ID - afebrile, leukocytosis likely reactive - empiric Zosyn for aspiration pneumonia - blood and urine cultures, procal pending Endo - no active issues - maintain euglycemia - ISS, Accuchecks Case discussed with Dr. Yvette Jackman PGY-2 <Susy Crawford - Last Filed: 12/29/18 05:58> Meds - Medications Medications: Current Medications Aspirin (Ecotrin) 81 mg PO DAILY [facility] Last Admin: 12/28/18 10:45 Dose: 81 mg Atorvastatin Calcium (Lipitor) 80 mg PO DIN [facility] Dextrose (Dextrose 50% Inj) 0 ml IV STAT PRN; Protocol PRN Reason: Hypoglycemia Protocol Dopamine HCl/Dextrose (Dopamine 400mg/250ml D5w) 400 mg in 250 mls @ 21.5 mls/hr IV .[id number] PRN; Protocol PRN Reason: TITRATE PER MD ORDER Dextrose (Dextrose 5% In Water 1000 Ml) 1,000 mls @ 0 mls/hr IV .Q0M PRN; Protocol PRN Reason: Hypoglycemia Protocol Piperacillin Sod/Tazobactam Sod (Zosyn 2.25 Gm In 0.9% 100 Ml) 2.25 gm in 100 mls @ 100 mls/hr IVPB STAT STA; Protocol Stop: 12/29/18 05:58 Sodium Chloride (Sodium Chloride 0.9%) 1,000 mls @ 100 mls/hr IV .Q10H [facility] Heparin Sodium/Sodium Chloride (Heparin 24960 Units/250ml 1/2 Normal Saline) 25,000 units in 250 mls @ 20.64 mls/hr IV .Q12H7M PRN; Protocol PRN Reason: ADJUST RATE PER PROTOCOL Insulin Human Lispro (Humalog Low) 0 units SC ACHS [facility]; Protocol Metoprolol Tartrate (Lopressor) 5 mg IVP Q6 PRN PRN Reason: if sbp >150 Last Admin: 12/28/18 05:28 Dose: 5 mg Pantoprazole Sodium (Protonix Inj) 40 mg IVP DAILY [facility] Results - Vital Signs Recent Vital Signs: Last Vital Signs Temp 98.6 F 12/29/18 00:01 Pulse 87 12/29/18 02:00 Resp 20 12/29/18 00:01 BP 153/80 H 12/29/18 00:01 Pulse Ox 95 12/29/18 00:01 - Labs Result Diagrams: 12/29/18 04:35 12/29/18 04:35 Labs: Laboratory Results - last 24 hr 12/28/18 12/28/18 12/28/18 07:00 07:00 07:00 WBC 7.7 D RBC 4.41 Hgb 13.0 L Hct 40.5 L MCV 91.8 MCH 29.5 MCHC 32.1 RDW 13.3 Plt Count 139 MPV 10.3 Neut % (Auto) 59.3 Lymph % (Auto) 17.6 L [place] % (Auto) 19.7 H Eos % (Auto) 3.3 Baso % (Auto) 0.1 Lymph # (Auto) 1.4 [place] # (Auto) 1.5 H Eos # (Auto) 0.3 Baso # (Auto) 0.01 Absolute Neuts (auto) 4.54 PT 12.9 H INR 1.14 Sodium 141 Potassium 4.1 Chloride 108 H Carbon Dioxide 27 Anion Gap 10 BUN 12 Creatinine 0.8 Est GFR ( Amer) > 60 Est GFR (Non-Af Amer) > 60 Random Glucose 137 H Calcium 8.8 Phosphorus 3.9 Magnesium 1.9 Total Bilirubin 0.9 AST 36 ALT 22 Alkaline Phosphatase 96 Troponin I Total Protein 7.1 Albumin 3.8 Globulin 3.3 Albumin/Globulin Ratio 1.2 12/29/18 12/29/18 04:35 04:35 WBC 13.4 H D RBC 4.49 Hgb 13.4 L Hct 44.4 MCV 98.9 D MCH 29.8 MCHC 30.2 L RDW 13.4 Plt Count 219 MPV 10.3 Neut % (Auto) 73.8 H Lymph % (Auto) 13.5 L [place] % (Auto) 11.0 H Eos % (Auto) 1.6 Baso % (Auto) 0.1 Lymph # (Auto) 1.8 [place] # (Auto) 1.5 H Eos # (Auto) 0.2 Baso # (Auto) 0.02 Absolute Neuts (auto) 9.90 H PT INR Sodium 147 Potassium 5.7 H* D Chloride 107 Carbon Dioxide 33 Anion Gap 12 BUN 19 Creatinine 1.7 H Est GFR ( Amer) 48 Est GFR (Non-Af Amer) 40 Random Glucose 217 H Calcium 8.8 Phosphorus 12.0 H Magnesium 2.5 H Total Bilirubin 0.7 AST 68 H D ALT 51 Alkaline Phosphatase 110 Troponin I 0.20 H* D Total Protein 7.0 Albumin 3.9 Globulin 3.2 Albumin/Globulin Ratio 1.2 Attending/Attestation - Attestation I have personally seen and examined this patient.: Yes I have fully participated in the care of the patient.: Yes I have reviewed all pertinent clinical information: Yes Notes (Text): 12/29/18 05:53 Seen and examined with resident. Obese unresponsive S1S2 CTA anterior chest Distended belly, + BS Cardiac arrest ROSC after CPR, atropine and epinepherine intubated vent bundle cardiac consult R/O PE started on heparin gtt V/Q scan stat Hypotension on IVF and dopamine gtt Losartan and lopressor held Hyperkalemia treated hold losartan GONZALEZ francois hydration trend cr troponin leak 2/2 CPR trend troponin cardiology consulted trend troponin ASA 300 VT x 1 stat lipitor increased to 80 mg rest of A&P as above
[2018-12-29 04:46] LABS: BASO # 0.02 K/mm3 (0.0-2.0); BASO % 0.1 % (0.0-3.0); EOS # 0.2 (0.0-0.7); EOS % 1.6 % (1.5-5.0); HEMOGLOBIN 13.4 g/dL (14.0-18.0); LYMPH # 1.8 (1.2-3.4); LYMPH % 13.5 % (22.0-35.0); MEAN CELL VOLUME 98.9 fl (80.0-105.0); MEAN CORPUSCULAR HEMOGLOBIN 29.8 pg (25.0-35.0); MEAN CORPUSCULAR HGB CONC 30.2 g/dl (31.0-37.0); MEAN PLATELET VOLUME 10.3 fl (7.0-11.0); MONO # 1.5 (0.1-0.6); RBC 4.49 10^6/uL (3.5-6.1); RED CELL DISTRIBUTION WIDTH 13.4 % (11.5-14.5); WHITE BLOOD COUNT 13.4 10^3/uL (4.5-11.0)
[2018-12-29 04:55] LABS: ALB/GLOB RATIO 1.2 (1.1-1.8); ALBUMIN 3.9 g/dL (3.0-4.8); CALCIUM 8.8 mg/dL (8.4-10.5)
[2018-12-29] MEDS ORDERED: Insulin Regular 1 UNITS/0.01 ML ML IV ONE (04:56)
[2018-12-29] MEDS ORDERED: Piperacillin/Tazobact 2.25gm 2.25 GM/100 ML BAG IVPB STA (04:59)
[2018-12-29 05:08] LABS: TROPONIN I 0.2 ng/mL
[2018-12-29] MEDS ORDERED: Heparin25000 units/250ml 1/2NS 25,000 UNITS/250 ML BAG IV SCH (05:15)
--- NOTE | 2018-12-29 06:25 | PCM.PROC ---
<Jose Cramer - Last Filed: 12/29/18 06:23> Procedures Attestation:: I certify that I have explained the specified Operation(s) or Procedure(s), risks, benefits and reasonable alternatives to the Patient and/or other person responsible. The opportunity was given to ask questions and all questions answered - Central Line Placement Left Internal Jugular Triple Lumen Catheter Aseptic technique was employed throughout the procedure: Hand Hygiene done prior to procedure, Full sterile barriers (mask, hair cover, sterile gown, sterile gloves), Full body sterile drape, Chloraprep Antiseptic: 30 second prep for IJ or SC sites CVP Time Out Performed: Yes Pt. Placed on Pulse Ox Monitor: Yes Central Line Prep: Chlorhexidine-Alcohol Combination Local Anesthesia Used: Lidocaine 1% Ultrasound Used for Placement: Yes Central Line Lumen Inserted: triple Central Line Length: 20 cm Post Procedure: Sutured in Place, Good Blood Return, All Ports Aspirated, Flushed, Capped, Sterile Dressing Applied Secured by: Suture Post procedure dressing: Chlorhexidine disc (Biopatch) Post Procedure X-Ray: Yes Patient Tolerated Procedure: No Complications Immediate Complications: None <Susy Crawford - Last Filed: 12/29/18 06:55> Attending/Attestation - Attestation I have personally seen and examined this patient.: Yes I have fully participated in the care of the patient.: Yes I have reviewed all pertinent clinical information, including history, physical exam and plan: Yes
[2018-12-29] MEDS: Sodium Chloride 0.9% 1,000 ML IV SCH ×2 (07:30→21:23)
[2018-12-29] MEDS: Heparin 25,000units in 1/2NS /250 ML BAG IV PRN ×2 (08:12→21:22)
[2018-12-29] MEDS: Insulin Lispro (humaLOG) LOW Coverage SC SCH ×3 (09:18→17:25)
--- NOTE | 2018-12-29 09:18 | PN ---
DATE: 12/29/2018 [employer]IVE NOTE SUBJECTIVE: The patient is unresponsive on the ventilator. At this time, he is on dopamine to support his blood pressure. The patient had bradycardia with cardiac arrest and CPR earlier this morning was a very difficult intubation and felt to have aspirated. At this time, he is on the ventilator 100%, O2 saturations are stable. BP is stable with the dopamine support. OBJECTIVE: VITAL SIGNS: Temperature is 99.1, his pulse is 102, respirations are 20 and his BP is 170/92. SKIN: Warm and dry. HEENT: Head is atraumatic, normocephalic. Eyes, reactive to light. Ears, nose and throat seem to be within normal limits. NECK: Supple, but obese. LUNGS: Reveal bilateral rhonchi. HEART: Regular rate and rhythm. Normal S1 and S2. ABDOMEN: Soft, but obese. Decreased bowel sounds. GENITALIA/RECTAL: Deferred. MUSCULOSKELETAL: No joint deformities. EXTREMITIES: Reveal trace lower extremity edema. NEUROLOGIC: The patient is unresponsive on the ventilator. LABORATORY DATA: As far as his laboratories, the patient's white count is 13.4, hemoglobin is 13.4, hematocrit 44.4 with platelets of 219,000. The patient's D-dimer is 4186 and his sodium is 147, potassium 5.7, chloride 107, CO2 of 33 with a BUN of 19, creatinine of 1.7 and a glucose of 217. The patient's troponins are mildly elevated at 0.2. As far as chest x-ray, there is at this time no obvious infiltrates. IMPRESSION: As far as my impression, this patient has respiratory failure with bradycardia, short episode of cardiac arrest with cardiopulmonary resuscitation. The patient during the cardiopulmonary resuscitation seemed to have aspirated with aspiration pneumonia as a possibility to develop. The patient was initially the patient was initially admitted for mild aphasia and stroke-like syndrome, felt to have a cerebrovascular accident, has a history of morbid obesity, diabetes, hypertension, arthritis and hyperlipidemia. The patient is noted to have acute renal insufficiency and possible obstructive sleep apnea due to his body habitus. The patient has been in the hospital for the above diagnoses. We also are considering possible pulmonary embolism, so the patient has been scheduled for V/Q scan, he is on dopamine to support his blood pressure and heparin will be started. PLAN: As far as our plan, we will continue with ventilator support, decrease the FIO2 as the patient tolerates. Will follow his chest x-ray and arterial blood gas closely. The patient will get aggressive pulmonary toilet. He is on the dopamine IV and heparin IV. The patient is getting his Lipitor as well as Protonix and IV fluids. He is on Zosyn as well. We will continue to treat aggressively and follow closely along with the other consultants and the primary care doctor. Narciso Castro MD
--- NOTE | 2018-12-29 09:21 | RAD ---
Date of service: 12/29/2018 HISTORY: debra giles COMPARISON: 12/23/2018 FINDINGS: Endotracheal tube terminates 1.5 cm proximal to the angie. Left IJV line terminates in the SVC. LUNGS: The lungs are well inflated. There is moderate pulmonary venous congestion. There is asymmetric prominence of the left hilum and patchy airspace disease in the infrahilar region. PLEURA: No pleural effusions or pneumothorax. CARDIOVASCULAR: Mild cardiomegaly. No aortic atherosclerotic calcifications present. OSSEOUS STRUCTURES: Within normal limits for the patient's age. VISUALIZED UPPER ABDOMEN: Normal. OTHER FINDINGS: None. IMPRESSION: Patchy airspace disease in the left infrahilar region could represent pneumonia. Asymmetric enlargement of the left hilum could be related to adenopathy versus mass. Postobstructive pneumonia is also a consideration. Follow-up after medical management is recommended to ensure complete resolution.
--- NOTE | 2018-12-29 09:39 | RAD ---
Date of service: 12/29/2018 HISTORY: intubated COMPARISON: 12/29/2018. FINDINGS: Endotracheal tube terminates 1.5 cm proximal to the angie. The left IJV line terminates in the SVC. LUNGS: The lungs are well inflated. There is interval development of patchy airspace disease in the right lung and left mid lung. There is mild pulmonary venous congestion. PLEURA: No pleural effusions or pneumothorax. CARDIOVASCULAR: There is persistent moderate cardiomegaly. No aortic atherosclerotic calcifications present. OSSEOUS STRUCTURES: Within normal limits for the patient's age. VISUALIZED UPPER ABDOMEN: Normal. OTHER FINDINGS: None. IMPRESSION: Interval development of multifocal pneumonia in the right lung, persistent patchy pneumonia in the left mid lung. Stable position of endotracheal tube and left IJV line.
[2018-12-29] MEDS: DOPamine 400mg/250ml D5W 400 MG/250 ML BAG IV PRN ×3 (10:50→21:24)
[2018-12-29 11:05] LABS: ARTERIAL BLOOD GAS HCO3 23.6 mmol/L (21-28); ARTERIAL BLOOD GAS O2 SAT 93.4 % (95-98); ARTERIAL BLOOD GAS PCO2 39 mm/Hg (35-45); ARTERIAL BLOOD GAS PH 7.39 (7.35-7.45); ARTERIAL BLOOD GAS TCO2 24.8 mmol.L (22-28)
[2018-12-29] MEDS ORDERED: NOREPINEPHRINE BIT/0.9 % NACL 4 MG/250 ML BAG IV PRN (11:07)
--- NOTE | 2018-12-29 11:45 | RAD ---
Date of service: 12/29/2018 HISTORY: OG tube placement COMPARISON: None available. FINDINGS: BOWEL: The nasogastric tube terminates in the distal esophagus. There is gaseous distension of the stomach. There is gas in visualized bowel loops. BONES: Status post posterior spinal fixation in the lower lumbar spine with transpedicular screws and plate. OTHER FINDINGS: None. IMPRESSION: Nasogastric tube terminates in the distal esophagus. Gaseous distension of the stomach.
[2018-12-29] MEDS ORDERED: Sodium Chloride 0.9% 1,000 ML IV STA (11:53)
[2018-12-29 12:19] LABS: ALB/GLOB RATIO 1.1 (1.1-1.8); ALBUMIN 3.3 g/dL (3.0-4.8); CALCIUM 8.4 mg/dL (8.4-10.5)
--- NOTE | 2018-12-29 13:16 | CARD ---
APPROVED REPORT Date of service: 12/29/2018 EXAM: Two-dimensional and M-mode echocardiogram with Doppler and color Doppler. INDICATION Dyspnea 2D DIMENSIONS Left Atrium (2D)3.7 (1.6-4.0cm)IVSd1.1 (0.7-1.1cm) LVDd4.9 (3.9-5.9cm)PWd1.3 (0.7-1.1cm) LVDs3.5 (2.5-4.0cm)FS (%) 28.5 % LVEF (%)54.7 (>50%) M-Mode DIMENSIONS Aortic Root3.20 (2.2-3.7cm)Aortic Cusp Exc.1.80 (1.5-2.0cm) Aortic Valve AoV Peak Vajghdxd668.0cm/Rob Peak GR.14mmHg Mitral Valve MV E Utojnhqk52.7cm/sMV A Wgwttngl87.9cm/sE/A ratio0.8 TDI Lateral E' Peak V7.31cm/sMedial E' Peak V5.75cm/sE/Lateral E'8.7 E/Medial E'11.1 Pulmonary Valve PV Peak Ktsvwhis363.0cm/sPV Peak Grad.4mmHg Tricuspid Valve TR Peak Gaghrdat647lv/sRAP [id number] Peak Gr.28mmHg [id number] LEFT VENTRICLE The left ventricle is normal size. There is borderline concentric left ventricular hypertrophy. The left ventricular function is normal.EF-55% There is normal LV segmental wall motion. Transmitral Doppler flow pattern is Grade III-reversible restrictive diastolic dysfunction. No left ventricle thrombus noted on this study. There is no ventricular septal defect visualized. There is no left ventricular aneurysm. There is no mass noted in the left ventricle. RIGHT VENTRICLE The right ventricle is normal size. There is normal right ventricular wall thickness. The right ventricular systolic function is normal. ATRIA The left atrium size is normal. The right atrium size is normal. The interatrial septum is intact with no evidence for an atrial septal defect. AORTIC VALVE The aortic valve is thickened but opens well. There is trace aortic regurgitation. There is no aortic valvular stenosis. There is no aortic valvular vegetation. MITRAL VALVE The mitral valve is thickened but opens well. Mitral regurgitation is trace to mild. There is no mitral valve stenosis. There is no evidence of mitral valve prolapse. TRICUSPID VALVE The tricuspid valve leaflets are thickened , but open well. There is no tricuspid valve regurgitation noted.RVSP-38 mmof Hg. There is no tricuspid valve stenosis. There is no tricuspid valve prolapse or vegetation. PULMONIC VALVE The pulmonic valve is not well visualized. GREAT VESSELS The aortic root is normal in size. The ascending aorta is normal in size. The pulmonary artery is normal. The IVC is normal in size and collapses >50% with inspiration. PERICARDIAL EFFUSION There is no pleural effusion. There is no pericardial effusion. <Conclusion> The left ventricle is normal size. There is borderline concentric left ventricular hypertrophy. The left ventricular function is normal.EF-55% There is trace aortic regurgitation. Mitral regurgitation is trace to mild. There is no tricuspid valve regurgitation noted.RVSP-38 mmof Hg. The IVC is normal in size and collapses >50% with inspiration. There is no pericardial effusion. No vegetation or thrombus noted.
[2018-12-29 13:40] LABS: CK-MB 3.6 ng/mL (0.0-3.6); TROPONIN I 0.53 ng/mL
[2018-12-29] MEDS ORDERED: Potassium Phosphate 15 MMOLE in Dextrose 5% In Water 250 ML IVPB ONE (13:41)
[2018-12-29] MEDS ORDERED: Sodium Phosphate 15 MMOLE in Dextrose 5% In Water 250 ML IVPB ONE (13:48)
[2018-12-29] MEDS ORDERED: Vancomycin 1gm in NS 250ml 1 GM/250 ML BAG IVPB STA (15:35)
--- NOTE | 2018-12-29 16:10 | PN ---
DATE: 12/29/2018 CHIEF COMPLAINT: Cardiac arrest. PRESENT HOSPITAL ILLNESS: The patient is a 73-year-old morbidly obese adult onset diabetic, hypertensive, who entered the hospital with expressive aphasia of a recurrent nature that was slowly resolving with the patient's extreme belligerence and required sedation. During the night, he became somewhat somnolent, not taking in his benzodiazepine sedation and was noted at 4:00 a.m. on the monitor worker to have a junctional rhythm at 35. A rapid response followed and then a code which required intubation of the difficult nature. There is probably some aspiration, it was noted on the initial x-ray and the patient was transferred to the intensive care unit. He was on dopamine at that time and when the dopamine ran out, the blood pressure dropped to 66 and required restarting of the medication. The code team and the nurse on the floor did not call the attending physician and he founds out 4 hours later the patient was now in the intensive care unit and answers were difficult to obtain. Consultation with Dr. Rajan from cardiology demonstrates a very significant jump in troponin, probably secondary to the period of time when he was hypoxic and due to the creatinine of 1.5, rising to 1.7, it was advisable not to do a VQ scan and echocardiogram failed to demonstrate and enlarged pulmonary artery and the suspicion at this point was that the patient has obstructive sleep apnea became hypoxic and developed a burning arrhythmia and the code status. The patient was placed on intravenous heparin, dopamine is restarted and he is on the respirator and discussion was held with Dr. Sharma from the Intensive Care Unit to continue supportive care at this point. The family is advised that there is some air space disease in the right middle and lower lobe presumptively secondary to the gastric uses being aspirated at the time of the intubation. The patient's prognosis is somewhat guarded but family has been reassured that at this point full measures have been taken and it is anticipated he will recover. Neurology was seen initially on this patient ordered some tests and was unable to come up with an answer and according to the resident's note signed off on the case without definitive diagnosis and recommendation. It is a feeling of this attending that the patient will be on Plavix after discharge if he recovers enough at this point. This dictation will be electronically signed without being read. Diego Teran MD [facility] # [id number]
[2018-12-29 16:49] LABS: VENOUS BLOOD GAS BASE EXCESS -0.6 mmol/L (0.0-2.0); VENOUS BLOOD GAS PO2 211 mm/Hg (30-55); VENOUS BLOOD PH 7.35 (7.32-7.43)
--- NOTE | 2018-12-29 17:10 | CP.PCM.PN ---
Subjective - Date & Time of Evaluation Date of Evaluation: 12/29/18 Time of Evaluation: 04:30 - Subjective Subjective: My involvement in this case is limited only to the assistance of emergent endotracheal intubation. I was called to the floor to assist for emergent and difficult intubation attempted by Dr. Crawford -patient was s/p cardiac with successful ROSC. I arrived at bedside and patient was undergoing bag mask ventilation by respiratory therapy and Dr. Crawford. Patient was observed to be unconscious but breathing spontaneously in between assisted breaths. The hypopharynx was accessed and visualized via glidescope. The patient vocal cords were directlly visualized, there was no blood noted, there was copious amount of emesis that was intermittent suctioned by myself. The trachea was successfully intubated on second attempt. ETT was directly visualized passing the vocal cords and into the trachea and placement further confirmed by auscultation and condensation seen within the ETT. Emesis was further noted within the ETT with each assisted breath and was immediately suctioned by respiratory therapy. At this point, Dr. Crawford took control of the case. Objective - Vital Signs/Intake and Output Vital Signs (last 24 hours): Temp Pulse Resp BP Pulse Ox 98 F 93 H 24 116/58 L 97 12/29/18 06:00 12/29/18 14:30 12/29/18 08:30 12/29/18 14:30 12/29/18 14:30 Intake and Output: 12/29/18 12/29/18 06:59 18:59 Intake Total 200 395 Balance 200 395 - Medications Medications: Current Medications Aspirin (Ecotrin) 81 mg PO DAILY [facility] Last Admin: 12/29/18 09:16 Dose: Not Given Atorvastatin Calcium (Lipitor) 80 mg PO DIN [facility] Dextrose (Dextrose 50% Inj) 0 ml IV STAT PRN; Protocol PRN Reason: Hypoglycemia Protocol Dopamine HCl/Dextrose (Dopamine 400mg/250ml D5w) 400 mg in 250 mls @ 21.5 mls/hr IV .[id number] PRN; Protocol PRN Reason: TITRATE PER MD ORDER Last Titration: 12/29/18 15:50 Dose: 10 mcg/kg/min, 43.001 mls/hr Dextrose (Dextrose 5% In Water 1000 Ml) 1,000 mls @ 0 mls/hr IV .Q0M PRN; Protocol PRN Reason: Hypoglycemia Protocol Sodium Chloride (Sodium Chloride 0.9%) 1,000 mls @ 100 mls/hr IV .Q10H [facility] Last Admin: 12/29/18 07:30 Dose: 100 mls/hr Heparin Sodium/Sodium Chloride (Heparin 02200 Units/250ml 1/2 Normal Saline) 25,000 units in 250 mls @ 20.64 mls/hr IV .Q12H7M PRN; Protocol PRN Reason: ADJUST RATE PER PROTOCOL Last Titration: 12/29/18 15:02 Dose: 0 units/kg/hr, 0 mls/hr NOREPINEPHRINE BIT/0.9 % NACL (Levophed 4 Mg/ 250 Ml Ns Premixed) 4 mg in 250 mls @ 15 mls/hr IV .[id number] PRN; Protocol PRN Reason: TITRATE PER MD ORDER Sodium Phosphate 15 mmole/ (Dextrose) 255 mls @ 42.5 mls/hr IVPB ONCE ONE Stop: 12/29/18 19:47 Last Admin: 12/29/18 14:28 Dose: 42.5 mls/hr Acetaminophen (Ofirmev) 1,000 mg in 100 mls @ 400 mls/hr IVPB Q6H PRN PRN Reason: for temp>100.4 Stop: 12/31/18 14:59 Last Admin: 12/29/18 15:04 Dose: 400 mls/hr Meropenem/Sodium Chloride (Merrem Iv 500 Mg/Ns 50 Ml) 500 mg in 50 mls @ 100 mls/hr IVPB Q12 [facility]; Protocol Stop: 01/07/19 22:01 Vancomycin HCl (Vancomycin 1gm) 1 gm in 250 mls @ 167 mls/hr IVPB STAT STA; Protocol Stop: 12/29/18 17:04 Last Admin: 12/29/18 15:46 Dose: 167 mls/hr Insulin Human Lispro (Humalog Low) 0 units SC ACHS [facility]; Protocol Last Admin: 12/29/18 12:17 Dose: 3 units Metoprolol Tartrate (Lopressor) 5 mg IVP Q6 PRN PRN Reason: if sbp >150 Last Admin: 12/28/18 05:28 Dose: 5 mg Pantoprazole Sodium (Protonix Inj) 40 mg IVP DAILY [facility] Last Admin: 12/29/18 12:17 Dose: 40 mg - Labs Labs: 12/29/18 04:35 12/29/18 11:45 PT 12.9 SECONDS (9.4-12.5) H 12/28/18 07:00 INR 1.14 12/28/18 07:00 APTT 115.5 Seconds (26.9-38.3) H* 12/29/18 14:31
[2018-12-29] MEDS: MEROPENEM 500 MG in NS 500 MG/50 ML BAG IVPB SCH (21:20)
--- NOTE | 2018-12-29 21:31 | CON ---
DATE: 12/29/2018 CARDIOLOGY CONSULTATION REASON FOR CONSULTATION: Status post code blue, respiratory failure, bradycardia, intubated, moved to ICU. BRIEF CLINICAL HISTORY: A 73-year-old morbidly obese male with history of CVA, diabetes, arthritis, possible sleep apnea, hypertension, and hyperlipidemia, who was initially presented to emergency room, initially admitted on 12/23/2018, with altered mental status, and was confused and combative. Yesterday, the patient had rapid response and code blue, found to have heart rate of 30, requiring intubation, it was a prolonged intubation because of thick neck difficult intubation. Now, the patient moved to ICU. Information obtained from the chart and the nursing staff taking care of the patient. At 4 a.m., heart rate was 38 and blood pressure was 170/138. PAST MEDICAL HISTORY: Significant for CVA in 2017, diabetes, arthritis, hypertension, and hyperlipidemia. PAST SURGICAL HISTORY: Significant for right knee surgery, left hip replacement, lumbar spinal stenosis, and a plating at the back. SOCIAL HISTORY: Documented in the chart; no history of alcohol abuse, no history of substance abuse or tobacco abuse. RECENT CARDIAC WORKUP: The patient had a stress test on 08/27/2012, normal myocardial perfusion study and then the patient had serial stress test in 2012 and 2013, and then the patient had a MUGA scan in 2013 that shows ejection fraction 52%, normal RV. The patient had last stress test on 06/20/2016, and also was essentially normal myocardial perfusion and in comparison of last study on 09/22/2014, no significant change. Recent carotid artery ultrasound in 09/2017 shows bilateral 39% stenosis noted. Admitting CAT scan of the head on 12/26/2018, no acute intracranial finding noted. EKG on admitting 12/23/2018, normal sinus, no acute ST-T changes noted, heart rate on admission was 65. CURRENT MEDICATIONS: At home, the patient was taking Keppra, Seroquel, Glucophage, Cozaar, glipizide, Neurontin, Plavix, cholecalciferol, carvedilol, atorvastatin, and aspirin. REVIEW OF SYSTEMS: As per HPI. PHYSICAL EXAMINATION GENERAL: Height of the patient is 5 feet 6 inches, weight of the patient is 252 pounds, and body mass index 41 kg/m2. VITAL SIGNS: Temperature 99.1, heart rate 60, blood pressure 130/80. HEENT: PERRLA. Extraocular muscles intact. NECK: Supple. No carotid bruits or thyromegaly. CHEST: Clear to auscultation. HEART: S1 and S2, regular. ABDOMEN: Soft. EXTREMITIES: Clubbing and cyanosis, negative. LABORATORY DATA: WBC 13.4, hemoglobin 13.4, hematocrit 44.4, platelet count 219. Chemistry shows sodium 147, potassium 5.7, chloride 107, carbon dioxide 33, anion gap of 12, BUN 19, creatinine 1.7. Troponin 0.2. IMPRESSION: A 73-year-old male with past medical history of diabetes, hypertension, hyperlipidemia, morbid obesity, possibly obstructive sleep apnea, admitted with altered mental status. Yesterday, the patient had code blue, intubated and moved to ICU. The patient has an acute kidney injury with hyperkalemia, positive troponin most likely secondary to post CPR requiring CPR and intubation, that was a difficult intubation. RECOMMENDATIONS: Since the patient has acute kidney injury, we cannot get the CT angio to rule out pulmonary embolism. Troponin positive, and the patient since has stable H and H, we will start heparin, get echo to assess LV function. Follow up serial CPK and troponin. Heparin will cover both acute PE. Also needs to rule out obstructive sleep apnea. We will continue aspirin, continue heparin and treat possible as possible unstable angina versus acute PE. Echo to assess LV function as well as RV pressure. Further management depending upon hospital course. Covered with broad-spectrum antibiotic. Overall, the patient is critical, prognosis guarded. Follow up serial CPK and troponin. We will also give Kayexalate and repeat SMA-7. We will repeat TSH, lipid profile, fasting and hemoglobin A1c tomorrow morning. We will follow with you. Thank you Dr. Nayak for providing us the opportunity in taking care of the patient, Zay Mcdonald. Magdalena Rajan MD
[2018-12-29 21:44] LABS: TROPONIN I 0.81 ng/mL
[2018-12-29] MEDS ORDERED: Linezolid 600 mg in D5W 300 ml 600 MG/300 ML BAG IVPB SCH (22:00)
[2018-12-29 22:02] LABS: CK MB% 0.6 % (2.5-3.0); CK-MB 15.1 ng/mL (0.0-3.6)
--- NOTE | 2018-12-29 23:22 | CON ---
DATE: 12/29/2018 LOCATION: The patient is seen in [facility], bed 5. The patient is intubated on a ventilator, hypotensive. CHIEF COMPLAINT: Respiratory failure day. HISTORY OF PRESENT ILLNESS: This is a 73-year-old male whose past medical history is significant for diabetes mellitus, high cholesterol, hypertension, arthritis, bipolar, and has anxiety who is admitted with aphasia, stroke-like symptoms, and was in the hospital now. The patient was admitted on 12/23/2018, had a CAT scan of the head and was seen in emergency room by Dr. Lamont Tiwari on 12/23/2018 and has been in the hospital now. Today, the patient required respiratory failure. The patient had a cardiac arrest and code blue, is hypotensive during the intubation. It was believed that the patient aspirated and infectious disease consultation requested. REVIEW OF SYSTEMS: Reveal the patient is unable to give any information. Information status from a residence and caring for the patient and there has been low-grade fever, respiratory failure, intubated. A 12-point review of systems is performed. PAST MEDICAL HISTORY: Significant for anxiety, bipolar, high cholesterol, arthritis, hypertension, obesity with BMI of 41, and diabetes mellitus. PAST SURGICAL HISTORY: Significant for knee surgery. ALLERGIES: THE PATIENT HAS NO KNOWN ALLERGIES. MEDICATIONS AT HOME: Reviewed including the patient was on Seroquel. PHYSICAL EXAMINATION: GENERAL: The patient is intubated on a ventilator in poor condition. VITAL SIGNS: Temperature of 98, heart rate of 99 to 102, blood pressure is 88/49 now up to 116 on pressors, and respiratory rate on a vent. HEENT: ET tube in place. NECK: Supple. LUNGS: Decreased breath sounds. HEART: Normal S1 and S2. ABDOMEN: Soft and nontender. LABORATORY DATA: Reveals a white count of 13,400, hemoglobin of 13, and platelets of 219. Chemistry reveals a creatinine is 2.4. Troponin is 0.53 and 0.20. Microbiology is pending and chest x-ray is noted to have infiltrates, airspace disease. ASSESSMENT AND PLAN: A 73-year-old with diabetes, obesity, hypertension, arthritis, and high cholesterol, admitted with change in mental status, stroke-like symptoms, status post cardiac arrest with septic shock with aspiration healthcare-associated pneumonia with respiratory failure, intubated on ventilator, status post cardiac arrest with acute renal failure and cerebrovascular accident. We will treat with vancomycin x1 dose and meropenem, pending blood cultures, urine cultures, sputum cultures, nasal methicillin-resistant Staphylococcus aureus, and procalcitonin. Overall prognosis quite poor. Darrel Ramesh MD
--- NOTE | 2018-12-29 23:29 | CP.PCM.PCO ---
Physician Communication Note - Physician Communication Note Physician Communication Note: Holding heparin til am
[2018-12-30] MEDS ORDERED: DiphenhydrAMINE 50 mg/ml Inj IVP STA (03:24)
[2018-12-30] MEDS ORDERED: Morphine 4 mg/ml ISec IVP STA (05:02)
[2018-12-30] MEDS: Insulin Lispro (humaLOG) LOW Coverage SC SCH ×5 (05:04→23:50)
[2018-12-30] MEDS: DOPamine 400mg/250ml D5W 400 MG/250 ML BAG IV PRN (05:06)
[2018-12-30] MEDS: Sodium Chloride 0.9% 1,000 ML IV SCH ×2 (05:09→23:51)
[2018-12-30 05:59] LABS: VENOUS BLOOD GAS BASE EXCESS -1.7 mmol/L (0.0-2.0); VENOUS BLOOD GAS PO2 224 mm/Hg (30-55); VENOUS BLOOD PH 7.39 (7.32-7.43)
[2018-12-30 06:22] LABS: BASO # 0.01 K/mm3 (0.0-2.0); BASO % 0.1 % (0.0-3.0); HEMOGLOBIN 12.2 g/dL (14.0-18.0); LYMPH % 8.7 % (22.0-35.0); MEAN CELL VOLUME 91.6 fl (80.0-105.0); MEAN CORPUSCULAR HEMOGLOBIN 29.3 pg (25.0-35.0); MEAN CORPUSCULAR HGB CONC 31.9 g/dl (31.0-37.0); MEAN PLATELET VOLUME 10.9 fl (7.0-11.0); MONO # 1.2 (0.1-0.6); MONO % 10.4 % (1.0-6.0); RBC 4.17 10^6/uL (3.5-6.1); RED CELL DISTRIBUTION WIDTH 13.3 % (11.5-14.5); WHITE BLOOD COUNT 11.9 10^3/uL (4.5-11.0)
[2018-12-30 06:50] LABS: ALBUMIN 3.3 g/dL (3.0-4.8); ALT/SGPT 56 U/L (7-56); AST/SGOT 121 U/L (17-59); BLOOD UREA NITROGEN 30 mg/dL (7-21); CALCIUM 8.1 mg/dL (8.4-10.5); GFR NON-AFRICAN AMERICAN 26; HDL CHOLESTEROL 32 mg/dL (29-60); LDL CHOLESTEROL < 30 mg/dL (0-129); TROPONIN I 0.56 ng/mL
[2018-12-30 06:58] LABS: CK MB% 0.4 % (2.5-3.0); CK-MB 17.7 ng/mL (0.0-3.6)
[2018-12-30] MEDS: MEROPENEM 500 MG in NS 500 MG/50 ML BAG IVPB SCH ×2 (09:10→22:15)
[2018-12-30 09:11] LABS: ARTERIAL BLOOD GAS HCO3 22.4 mmol/L (21-28); ARTERIAL BLOOD GAS HEMOGLOBIN 10.9 g/dL (11.7-17.4); ARTERIAL BLOOD GAS O2 CAPACITY 15.3 mL/dl (16-24); ARTERIAL BLOOD GAS O2 CONTENT 14.8 ML/dl (15-23); ARTERIAL BLOOD GAS O2 SAT 96.7 % (95-98); ARTERIAL BLOOD GAS PCO2 37 mm/Hg (35-45); ARTERIAL BLOOD GAS PH 7.39 (7.35-7.45); ARTERIAL BLOOD GAS TCO2 23.5 mmol.L (22-28)
[2018-12-30] MEDS ORDERED: Albuterol-Ipratrop 3 mg / 0.5 (3 ml) UD IH STA (09:48)
--- NOTE | 2018-12-30 11:00 | PN ---
DATE: 12/30/2018 SCREW REMOVER NOTE SUBJECTIVE: The patient is responsive on the ventilator. Family is at bedside. The patient continues to be on dopamine and Levophed. The patient had bradycardia and cardiac arrest when coming to the Intensive Care Unit yesterday. At this time his FIO2 on the ventilator is 60% and the patient hemodynamically is stable with the medications. OBJECTIVE: VITAL SIGNS: Temperature is 100.6, pulse is 78, BP is 132/57 and respirations are 18. HEENT: Head is atraumatic and normocephalic. Eyes reactive to light. Ear, nose and throat seemed to be within normal limits. NECK: Supple, but obese. LUNGS: Reveal mild rhonchi bilaterally. HEART: Has regular rate and rhythm. Normal S1, and S2. ABDOMEN: Soft, but obese. Decreased bowel sounds. GENITALIA: Deferred. RECTAL: Deferred. MUSCULOSKELETAL: No joint deformities. EXTREMITIES: Reveal lower extremity edema. NEUROLOGICALLY: The patient seemed to be grossly intact. LABORATORY DATA: White count is 11.9, hemoglobin is 12.2, hematocrit 38.2 with platelets of 177,000. The patient's PTT is 64.4. Arterial blood gas is pending. Sodium is 144, potassium 4.1, chloride 111, CO2 of 26 with a BUN of 30, creatinine of 2.5 and a glucose of 173. Note that the patient's troponin is 0.56 which is decreasing. IMPRESSION: This patient has respiratory failure and status post bradycardia with episode of cardiopulmonary arrest and resuscitation. The patient has possible aspiration and there and was initially admitted for mild aphasic stroke-like syndrome. The patient has a history of morbid obesity, diabetes, hypertension, arthritis, hyperlipidemia and is noted to have acute renal insufficiency. He has obstructive sleep apnea and continues to require ventilator support. The patient continues to be on heparin and when stable will get studies to rule out any possible pulmonary embolus. PLAN: We will continue with ventilator support, follow his chest x-ray and arterial blood gas closely. Continue with aggressive pulmonary toilet. The patient is on IV fluids. He is on dopamine as well as heparin IV and Lipitor as well as meropenem, Levophed, Protonix and we will continue to treat aggressively along with the other consultants and the primary care doctor. Narciso Castro MD [facility] # [id number]
--- NOTE | 2018-12-30 11:03 | RAD ---
Date of service: 12/30/2018 HISTORY: intubated COMPARISON: 12/29/2018 FINDINGS: Endotracheal tube terminates in the mid trachea. The nasogastric tube terminates in the stomach. The left IJV line terminates in the SVC. LUNGS: The lungs are well inflated. There is discoid atelectasis in the left lower lobe. There is mild pulmonary venous congestion. PLEURA: No pleural effusions or pneumothorax. CARDIOVASCULAR: Persistent severe cardiomegaly. No aortic atherosclerotic calcifications present. OSSEOUS STRUCTURES: Within normal limits for the patient's age. VISUALIZED UPPER ABDOMEN: Normal. OTHER FINDINGS: None. IMPRESSION: No active pulmonary disease. Persistent severe cardiomegaly and mild pulmonary venous congestion. Stable position of support line and tubes.
[2018-12-30] MEDS: Albuterol-Ipratrop 3 mg / 0.5 (3 ml) UD IH SCH ×2 (13:55→19:24)
[2018-12-30] MEDS: Acetylcysteine 20% Inhal Soln (4ml) IH SCH ×2 (13:55→19:30)
--- NOTE | 2018-12-30 15:34 | PN ---
DATE: 12/30/2018 REASON FOR CONSULTATION AND FOLLOWUP: Status post code blue, respiratory failure, bradycardia, intubated, moved to ICU. SUBJECTIVE: The patient is much weak and alert, still being intubated. OBJECTIVE: GENERAL: Not in apparent distress. Denies any chest pain, shortness of breath, any palpitation. VITAL SIGNS: Temperature afebrile, heart rate 78, and blood pressure 132/57. HEENT: PERRLA. Extraocular muscles intact. NECK: Supple. No carotid bruit. No thyromegaly. CHEST: Clear to auscultation. HEART: S1 and S2 regular. ABDOMEN: Soft. EXTREMITIES: Clubbing and cyanosis negative. LABORATORY DATA: Blood workup; WBC 11.9, hemoglobin 12.2, hematocrit 38.2, and platelet count 177. Chemistry shows sodium 140, potassium 4.2, chloride 110, carbon dioxide 27, anion gap of 11, BUN 25, and creatinine 2.4. Admitting creatinine 1.1, yesterday did jump to 1.7 and today is 2.4. Troponin maximum 0.53. Increase of creatinine is probably not significant status post CPR. IMPRESSION: A 73-year-old male, morbidly obese with past medical history of cerebrovascular accident, diabetes, arthritis, hypertension, possible obstructive sleep apnea, hyperlipidemia, presented initially to the emergency room on 12/23/2018 with altered mental status. Yesterday, the patient had code blue, heart rate was 30, was intubated, and moved to ICU. Now, the patient went into acute kidney injury. The patient's previous workup, preserved left ventricular function, ejection fraction 52% with the MUGA. The patient had yesterday an echocardiography done that revealed ejection fraction 55%, trace aortic regurgitation, trace to mild mitral regurgitation, no significant tricuspid regurgitation noted, right ventricular systolic pressure 38, no stenosis. Probably this leak of the troponin is secondary to cardiopulmonary resuscitation, doubted the primary cardiac event. Most likely, the patient has obstructive sleep apnea and probably is reported from the sleep apnea, wanted to do the CAT scan, but because of the worsening renal insufficiency, cannot do, we are waiting for perfusion scan to be done, to rule out any pulmonary embolism. In the interim, continue to treat as non-ST elevation myocardial infarction for pulmonary embolism as well. We will start some intravenous fluid because of the worsening renal insufficiency. Continue intravenous fluid. Continue antibiotic. We will follow closely. Try to extubate and wean off the vent as blood pressure is tolerated. Continue broad-spectrum antibiotic as covered as given by the ICU team. So far doubted is primary cardiac event. We will follow with you. Magdalena Rajan MD
--- NOTE | 2018-12-30 16:37 | PN ---
DATE: 12/30/2018 SUBJECTIVE: The patient is in bed in no acute distress, nontoxic. PHYSICAL EXAMINATION: VITAL SIGNS: The patient's temperature is 100.6, T-max yesterday was 103, blood pressure is 130/50, respiratory rate on the vent, heart rate of 78. HEENT: Reveals ET to be in place. NECK: Supple. LUNGS: Have decreased breath sounds. HEART: Normal S1, S2. ABDOMEN: Soft, nontender. LABORATORY EXAMINATION: Reveals a white count is 11,900, hemoglobin of 12. Chemistries are noted and creatinine is 2.5. Troponin is elevated. The patient's procalcitonin is 14.26, although the patient's creatinine is 2.5. Microbiology is pending. The blood cultures from yesterday has no growth at 24 hours. Review of orders reveals the patient to have meropenem and intermittent vancomycin. ASSESSMENT AND PLAN: This is a 73-year-old male who was in the ICU bed number 5, seen earlier this morning with diabetes, obesity, hypertension, arthritis, high cholesterol, admitted with a change in mental status, stroke like symptoms status post cardiac arrest, septic shock with aspiration, healthcare-associated pneumonia with respiratory failure intubated on a ventilator and status post cardiac arrest with acute renal failure and cerebrovascular accident on intermittent vancomycin and meropenem day #2. Pending dueñas culture, sputum culture, urine cultures and methicillin-resistant Staphylococcus aureus screen and renal failure. We will follow closely with you. Darrel Ramesh MD
[2018-12-31] MEDS: Albuterol-Ipratrop 3 mg / 0.5 (3 ml) UD IH SCH ×4 (01:36→20:00)
--- NOTE | 2018-12-31 04:50 | CP.PCM.PN ---
<Moi Sanedrs - Last Filed: 12/31/18 05:30> Subjective - Date & Time of Evaluation Date of Evaluation: 12/31/18 Time of Evaluation: 04:30 - Subjective Subjective: CODE BLUE NOTE Code blue was called for patient in ICU for PEA. Patient was noted to be hypoxic prior to the code and then was noted to be unresponsive by the ICU nurses. ACLS was conducted and 2 rounds of epinephrine were given. ROSC was achieved. Patient was subsequently intubated and placed on vent. Objective - Vital Signs/Intake and Output Vital Signs (last 24 hours): Temp Pulse Resp BP Pulse Ox 99.4 F 96 H 26 H 109/54 L 91 L 12/30/18 18:00 12/30/18 18:00 12/30/18 15:10 12/30/18 15:01 12/30/18 15:10 Intake and Output: 12/30/18 12/31/18 18:59 06:59 Intake Total 2167 7 Output Total 1000 Balance 1167 7 - Medications Medications: Current Medications Acetylcysteine (Acetylcysteine 20%) 4 ml IH [id number] [facility] Last Admin: 12/30/18 19:30 Dose: 4 ml Albuterol/Ipratropium (Duoneb 3 Mg/0.5 Mg (3 Ml) Ud) 3 ml IH [id number] [facility] Last Admin: 12/31/18 01:36 Dose: 3 ml Aspirin (Ecotrin) 81 mg PO DAILY [facility] Last Admin: 12/30/18 09:12 Dose: 81 mg Atorvastatin Calcium (Lipitor) 80 mg PO DIN [facility] Last Admin: 12/30/18 17:09 Dose: 80 mg Dextrose (Dextrose 50% Inj) 0 ml IV STAT PRN; Protocol PRN Reason: Hypoglycemia Protocol Dextrose (Dextrose 5% In Water 1000 Ml) 1,000 mls @ 0 mls/hr IV .Q0M PRN; Protocol PRN Reason: Hypoglycemia Protocol Sodium Chloride (Sodium Chloride 0.9%) 1,000 mls @ 100 mls/hr IV .Q10H [facility] Last Admin: 12/30/18 23:51 Dose: 100 mls/hr Heparin Sodium/Sodium Chloride (Heparin 78574 Units/250ml 1/2 Normal Saline) 25,000 units in 250 mls @ 20.64 mls/hr IV .Q12H7M PRN; Protocol PRN Reason: ADJUST RATE PER PROTOCOL Last Titration: 12/30/18 08:10 Dose: 12 units/kg/hr, 13.76 mls/hr NOREPINEPHRINE BIT/0.9 % NACL (Levophed 4 Mg/ 250 Ml Ns Premixed) 4 mg in 250 mls @ 15 mls/hr IV .[id number] PRN; Protocol PRN Reason: TITRATE PER MD ORDER Acetaminophen (Ofirmev) 1,000 mg in 100 mls @ 400 mls/hr IVPB Q6H PRN PRN Reason: for temp>100.4 Stop: 12/31/18 14:59 Last Admin: 12/29/18 15:04 Dose: 400 mls/hr Meropenem/Sodium Chloride (Merrem Iv 500 Mg/Ns 50 Ml) 500 mg in 50 mls @ 100 mls/hr IVPB Q12 [facility]; Protocol Stop: 01/07/19 22:01 Last Admin: 12/30/18 22:15 Dose: 100 mls/hr Insulin Human Lispro (Humalog Low) 0 units SC ACHS [facility]; Protocol Last Admin: 12/30/18 23:50 Dose: Not Given Metoprolol Tartrate (Lopressor) 5 mg IVP Q6 PRN PRN Reason: if sbp >150 Last Admin: 12/28/18 05:28 Dose: 5 mg Pantoprazole Sodium (Protonix Inj) 40 mg IVP DAILY [facility] Last Admin: 12/30/18 09:12 Dose: 40 mg - Labs Labs: 12/30/18 05:00 12/30/18 05:00 PT 12.9 SECONDS (9.4-12.5) H 12/28/18 07:00 INR 1.14 12/28/18 07:00 APTT 42.4 Seconds (26.9-38.3) H 12/30/18 22:00 - Head Exam Head Exam: NORMAL INSPECTION - Eye Exam Eye Exam: Normal appearance - ENT Exam ENT Exam: Mucous Membranes Dry Additional comments: intubated - Neck Exam Neck Exam: Normal Inspection - Respiratory Exam Respiratory Exam: Decreased Breath Sounds, Rhonchi (diffuse) Additional comments: on vent - Cardiovascular Exam Cardiovascular Exam: RRR, +S1, +S2 - GI/Abdominal Exam GI & Abdominal Exam: Soft. absent: Distended, Tenderness - Extremities Exam Extremities Exam: absent: Pedal Edema - Back Exam Back Exam: NORMAL INSPECTION - Neurological Exam Neurological Exam: Altered - Skin Skin Exam: Dry, Intact, Warm Assessment and Plan - Assessment and Plan (Free Text) Assessment: Code blue ROSC achieved after 2 rounds of epinephrine. Please refer to nursing notes/PAT[facility] note for details. Patient was intubated following ROSC. - CBC, CMP, Mag, Phos, Trops ordered - CXR to confirm ETT placement - EKG ordered STAT - Primary MD contacted - will start Levophed for BP support - continue ICU monitoring Procedures Attestation:: I certify that I have explained the specified Operation(s) or Procedure(s), risks, benefits and reasonable alternatives to the Patient and/or other person responsible. The opportunity was given to ask questions and all questions answered - Intubation Time Out Performed: No (code blue) Sedative: None Laryngoscope: Glidescope Assist Device Used: Fiber Optic Device ET Tube Size: 7.5 ET Tube Uncuffed: Yes ET Tube Secured Locarion: Teeth ET Tube Placement Confirmation: Visualized Passing Through Cords, Breath Sounds Equal Bilaterally, No Breath Sounds Over Epigastrum, Confirmation w/Capnometry Patient Tolerated Procedure: Well Procedure Immediate Complications: None Additional comments: confirmed by XR done by Dr. Crawford <Susy Crawford - Last Filed: 12/31/18 06:04> Objective - Vital Signs/Intake and Output Vital Signs (last 24 hours): Temp Pulse Resp BP Pulse Ox 99.4 F 96 H 26 H 109/54 L 91 L 12/30/18 18:00 12/30/18 18:00 12/30/18 15:10 12/30/18 15:01 12/30/18 15:10 Intake and Output: 12/30/18 12/31/18 18:59 06:59 Intake Total 2167 7 Output Total 1000 Balance 1167 7 - Medications Medications: Current Medications Acetylcysteine (Acetylcysteine 20%) 4 ml IH [id number] [facility] Last Admin: 12/30/18 19:30 Dose: 4 ml Albuterol/Ipratropium (Duoneb 3 Mg/0.5 Mg (3 Ml) Ud) 3 ml IH [id number] [facility] Last Admin: 12/31/18 01:36 Dose: 3 ml Albuterol/Ipratropium (Duoneb 3 Mg/0.5 Mg (3 Ml) Ud) 3 ml IH Q2H PRN PRN Reason: Shortness of Breath Aspirin (Ecotrin) 81 mg PO DAILY [facility] Last Admin: 12/30/18 09:12 Dose: 81 mg Atorvastatin Calcium (Lipitor) 80 mg PO DIN [facility] Last Admin: 12/30/18 17:09 Dose: 80 mg Dextrose (Dextrose 50% Inj) 0 ml IV STAT PRN; Protocol PRN Reason: Hypoglycemia Protocol Dextrose (Dextrose 5% In Water 1000 Ml) 1,000 mls @ 0 mls/hr IV .Q0M PRN; Protocol PRN Reason: Hypoglycemia Protocol Sodium Chloride (Sodium Chloride 0.9%) 1,000 mls @ 100 mls/hr IV .Q10H [facility] Last Admin: 12/30/18 23:51 Dose: 100 mls/hr Heparin Sodium/Sodium Chloride (Heparin 21210 Units/250ml 1/2 Normal Saline) 25,000 units in 250 mls @ 20.64 mls/hr IV .Q12H7M PRN; Protocol PRN Reason: ADJUST RATE PER PROTOCOL Last Titration: 12/30/18 08:10 Dose: 12 units/kg/hr, 13.76 mls/hr NOREPINEPHRINE BIT/0.9 % NACL (Levophed 4 Mg/ 250 Ml Ns Premixed) 4 mg in 250 mls @ 15 mls/hr IV .[id number] PRN; Protocol PRN Reason: TITRATE PER MD ORDER Acetaminophen (Ofirmev) 1,000 mg in 100 mls @ 400 mls/hr IVPB Q6H PRN PRN Reason: for temp>100.4 Stop: 12/31/18 14:59 Last Admin: 12/29/18 15:04 Dose: 400 mls/hr Meropenem/Sodium Chloride (Merrem Iv 500 Mg/Ns 50 Ml) 500 mg in 50 mls @ 100 mls/hr IVPB Q12 [facility]; Protocol Stop: 01/07/19 22:01 Last Admin: 12/30/18 22:15 Dose: 100 mls/hr Insulin Human Lispro (Humalog Low) 0 units SC ACHS [facility]; Protocol Last Admin: 12/30/18 23:50 Dose: Not Given Metoprolol Tartrate (Lopressor) 5 mg IVP Q6 PRN PRN Reason: if sbp >150 Last Admin: 12/28/18 05:28 Dose: 5 mg Pantoprazole Sodium (Protonix Inj) 40 mg IVP DAILY [facility] Last Admin: 12/30/18 09:12 Dose: 40 mg - Labs Labs: 12/30/18 05:00 12/30/18 05:00 PT 12.9 SECONDS (9.4-12.5) H 12/28/18 07:00 INR 1.14 12/28/18 07:00 APTT 42.4 Seconds (26.9-38.3) H 12/30/18 22:00 Attending/Attestation - Attestation I have personally seen and examined this patient.: Yes I have fully participated in the care of the patient.: Yes I have reviewed all pertinent clinical information, including history, physical exam and plan: Yes
[2018-12-31] MEDS ORDERED: Albuterol-Ipratrop 3 mg / 0.5 (3 ml) UD IH PRN (05:17)
[2018-12-31 05:20] LABS: ARTERIAL BLOOD GAS HCO3 19.5 mmol/L (21-28); ARTERIAL BLOOD GAS HEMOGLOBIN 10.5 g/dL (11.7-17.4); ARTERIAL BLOOD GAS O2 CONTENT 14.6 ML/dl (15-23); ARTERIAL BLOOD GAS O2 SAT 97.4 % (95-98); ARTERIAL BLOOD GAS PCO2 37 mm/Hg (35-45); ARTERIAL BLOOD GAS PH 7.33 (7.35-7.45); ARTERIAL BLOOD GAS TCO2 20.6 mmol.L (22-28)
--- NOTE | 2018-12-31 06:06 | PCM.PROC ---
Procedures Attestation:: I certify that I have explained the specified Operation(s) or Procedure(s), risks, benefits and reasonable alternatives to the Patient and/or other person responsible. The opportunity was given to ask questions and all questions answered - Intubation Time Out Performed: Yes Sedative: None Laryngoscope: Glidescope ET Tube Size: 7.5 ET Tube Secured Locarion: Lips ET Tube Placement Confirmation: Visualized Passing Through Cords Patient Tolerated Procedure: Well, No Complications Procedure Immediate Complications: None Additional comments: Sally giles was called for patient in ICU for PEA. Patient was noted to be hypoxic prior to the code and then was noted to be unresponsive by the ICU nurses. ACLS was conducted and 2 rounds of epinephrine were given. ROSC was achieved. Patient was subsequently intubated and placed on vent.
[2018-12-31 07:11] LABS: BASO # 0.01 K/mm3 (0.0-2.0); BASO % 0.1 % (0.0-3.0); EOS % 0.3 % (1.5-5.0); HEMOGLOBIN 11.3 g/dL (14.0-18.0); INR 1.25; LYMPH # 0.8 (1.2-3.4); LYMPH % 7.5 % (22.0-35.0); MEAN CELL VOLUME 92.9 fl (80.0-105.0); MEAN CORPUSCULAR HEMOGLOBIN 28.8 pg (25.0-35.0); MEAN PLATELET VOLUME 11.2 fl (7.0-11.0); MONO # 1.3 (0.1-0.6); MONO % 12.1 % (1.0-6.0); PARTIAL THROMBOPLASTIN TIME 49.4 Seconds (26.9-38.3); PROTHROMBIN TIME 14.1 SECONDS (9.4-12.5); RBC 3.92 10^6/uL (3.5-6.1); RED CELL DISTRIBUTION WIDTH 14.1 % (11.5-14.5)
[2018-12-31] MEDS: Insulin Lispro (humaLOG) LOW Coverage SC SCH ×3 (07:30→17:30)
[2018-12-31 08:01] LABS: ALBUMIN 3.1 g/dL (3.0-4.8); CALCIUM 8.2 mg/dL (8.4-10.5); TROPONIN I 0.23 ng/mL
[2018-12-31] MEDS: Acetylcysteine 20% Inhal Soln (4ml) IH SCH (08:28)
[2018-12-31] MEDS ORDERED: Lactated Ringer's 1,000 ML IV SCH (09:15)
[2018-12-31] MEDS: MethylPREDNISolone 40 mg Vial IVP SCH ×2 (09:30→22:45)
[2018-12-31] MEDS: MEROPENEM 500 MG in NS 500 MG/50 ML BAG IVPB SCH ×2 (09:32→22:45)
[2018-12-31 09:46] LABS: CK MB% 0.2 % (2.5-3.0); CK-MB 7.1 ng/mL (0.0-3.6)
--- NOTE | 2018-12-31 11:24 | CARD ---
APPROVED REPORT Date of service: 12/31/2018 EKG Measurement Heart [id number] [id number] <Conclusion> Normal sinus rhythm Normal ECG
--- NOTE | 2018-12-31 11:38 | CP.CCUPN ---
<Steffen Silva - Last Filed: 12/31/18 15:56> CCU Subjective - Physician Review Subjective (Free Text): ICU Progress Note for Dr. Santiago Patient was seen and examined at bedside. Patient was extubated yesterday, however went into cardiorespiratory arrest overnight. ROSC was achieved after 2 rounds of compressions and epinephrine. Patient was also re-intubated during that time. Currently, patient is awake, not sedated, and responding to commands appropriately. Patient reports improved breathing, but has some back pain. Patient denies CP, n/v/d, abdominal pain, fever, chills, LEIJA, or dizziness. CCU Objective - Vital Signs / Intake & Output Intake and Output (Last 8hrs): Intake & Output 12/30/18 12/31/18 12/31/18 22:59 06:59 14:59 Intake Total 2074 7 Output Total 1000 Balance 1074 7 Intake: IV 1364 7 0.9NS 1200 DOPAMINE 26 HEPARIN 138 Oral 650 Tube Feeding 60 Output: Gastric Amount 0 Stomach 0 Urine 1000 Urine, Voided 1000 Stool 0 - Physical Exam Head: Positive for: Atraumatic, Normocephalic Pupils: Positive for: PERRL Extroacular Muscles: Positive for: EOMI Conjunctiva: Positive for: Normal Ears: Positive for: Normal Mouth: Positive for: Moist Mucous Membranes Pharnyx: Positive for: Normal. Negative for: ERYTHEMA, EXUDATE Neck: Positive for: Normal Range of Motion. Negative for: Meningeal Signs, MIDLINE TENDERNESS Respiratory/Chest: Positive for: Wheezes, Rales. Negative for: Respiratory Distress, Accessory Muscle Use, Rhonchi, Tachypneic Cardiovascular: Positive for: Regular Rate and Rhythm, Normal S1, S2. Negative for: Murmurs Abdomen: Positive for: Normal Bowel Sounds. Negative for: Tenderness, Di stention, Peritoneal Signs Back: Positive for: Normal Inspection. Negative for: CVA Tenderness, Midline Tenderness Upper Extremity: Positive for: Normal Inspection, Normal ROM, NORMAL PULSES, Neurovascularly Intact. Negative for: Cyanosis, Edema Lower Extremity: Positive for: Normal Inspection, NORMAL PULSES, Normal ROM, Neurovascularly Intact. Negative for: Edema, Deformity Neurological: Positive for: GCS=15, CN II-XII Intact, Motor Func Grossly Intact, Normal Sensory Function, Normal Cerebellar Funct, Gait Normal, Memory Normal Skin: Positive for: Warm, Dry, Normal Color. Negative for: Rashes Psychiatric: Positive for: Alert - Medications Active Medications: Active Medications Generic Name Dose Route Start Last Admin Trade Name Freq PRN Reason Stop Dose Admin Albuterol/Ipratropium 3 ml 12/30/18 14:00 12/31/18 08:28 Duoneb 3 Mg/0.5 Mg (3 Ml) Ud IH 3 ml [id number] NARENDRA Administration Albuterol/Ipratropium 3 ml 12/31/18 05:17 Duoneb 3 Mg/0.5 Mg (3 Ml) Ud IH Q2H PRN Shortness of Breath Aspirin 81 mg 12/26/18 13:30 12/30/18 09:12 Ecotrin PO 81 mg DAILY NARENDRA Administration Dextrose 0 ml 12/29/18 04:53 Dextrose 50% Inj IV STAT PRN Hypoglycemia Protocol Protocol Dextrose 1,000 mls @ 0 mls/hr 12/29/18 04:53 Dextrose 5% In Water 1000 Ml IV .Q0M PRN Hypoglycemia Protocol Protocol Per Protocol Heparin Sodium/Sodium Chloride 25,000 units in 250 mls @ 20.64 mls/hr 12/29/18 05:14 12/30/18 08:10 Heparin 07878 Units/250ml 1/2 Normal Saline IV 12 units/kg/hr .Q12H7M PRN 13.76 mls/hr ADJUST RATE PER PROTOCOL Titration Protocol 18 UNITS/KG/HR NOREPINEPHRINE BIT/0.9 % NACL 4 mg in 250 mls @ 15 mls/hr 12/29/18 11:07 Levophed 4 Mg/ 250 Ml Ns Premixed IV .[id number] PRN TITRATE PER MD ORDER Protocol 4 MCG/MIN Acetaminophen 1,000 mg in 100 mls @ 400 mls/hr 12/29/18 14:58 12/29/18 15:04 Ofirmev IVPB 12/31/18 14:59 400 mls/hr Q6H PRN Administration for temp>100.4 Meropenem/Sodium Chloride 500 mg in 50 mls @ 100 mls/hr 12/29/18 22:00 12/31/18 09:32 Merrem Iv 500 Mg/Ns 50 Ml IVPB 01/07/19 22:01 100 mls/hr Q12 NARENDRA Administration Protocol Lactated Ringer's 1,000 mls @ 100 mls/hr 12/31/18 09:15 12/31/18 09:43 Lactated Ringer's IV 100 mls/hr .Q10H NARENDRA Administration Insulin Human Lispro 0 units 12/29/18 07:30 12/30/18 23:50 Humalog Low SC Not Given ACHS NARENDRA Protocol Methylprednisolone 20 mg 12/31/18 10:00 12/31/18 09:30 Solu-Medrol IVP 20 mg Q12 NARENDRA Administration Metoprolol Tartrate 5 mg 12/27/18 20:39 12/28/18 05:28 Lopressor IVP 5 mg Q6 PRN Administration if sbp >150 Pantoprazole Sodium 40 mg 12/29/18 10:00 12/31/18 09:31 Protonix Inj IVP 40 mg DAILY NARENDRA Administration - Patient Studies Lab Studies: Microbiology Studies 12/30/18 09:20 Urine Culture - Final Urine,Francois No Growth (<1,000 CFU/ML) 12/29/18 09:05 Blood Culture - Preliminary Blood NO GROWTH AFTER 48 HOURS 12/30/18 07:30 Gram Stain - Final Sputum 12/29/18 20:54 Blood Culture - Preliminary Blood NO GROWTH AFTER 24 HOURS 12/29/18 20:24 Blood Culture - Preliminary Blood NO GROWTH AFTER 24 HOURS Lab Studies 12/31/18 12/31/18 12/31/18 Range/Units 07:24 06:00 06:00 WBC 11.0 (4.5-11.0) 10^3/uL RBC 3.92 (3.5-6.1) 10^6/uL Hgb 11.3 L (14.0-18.0) g/dL Hct 36.4 L (42.0-52.0) % MCV 92.9 (80.0-105.0) fl MCH 28.8 (25.0-35.0) pg MCHC 31.0 (31.0-37.0) g/dl RDW 14.1 (11.5-14.5) % Plt Count 185 (120.0-450.0) 10^3/uL MPV 11.2 H (7.0-11.0) fl Neut % (Auto) 80.0 H (50.0-68.0) % Lymph % (Auto) 7.5 L (22.0-35.0) % [place] % (Auto) 12.1 H (1.0-6.0) % Eos % (Auto) 0.3 L (1.5-5.0) % Baso % (Auto) 0.1 (0.0-3.0) % Lymph # (Auto) 0.8 L (1.2-3.4) [place] # (Auto) 1.3 H (0.1-0.6) Eos # (Auto) 0.0 (0.0-0.7) Baso # (Auto) 0.01 (0.0-2.0) K/mm3 Absolute Neuts (auto) 8.79 H (1.4-6.5) PT 14.1 H (9.4-12.5) SECONDS INR 1.25 APTT 49.4 H (26.9-38.3) Seconds pCO2 (35-45) mm/Hg pO2 (80-100) mm/Hg HCO3 (21-28) mmol/L ABG pH (7.35-7.45) ABG Total CO2 (22-28) mmol.L ABG O2 Saturation (95-98) % ABG O2 Content (15-23) ML/dl ABG Base Excess (-2.0-3.0) mmol/L ABG Hemoglobin (11.7-17.4) g/dL ABG Carboxyhemoglobin (0.5-1.5) % POC ABG HHb (Measured) (0-5) % ABG Methemoglobin (0.0-3.0) % ABG O2 Capacity (16-24) mL/dl Hgb O2 Saturation (95.0-98.0) % FiO2 % Sodium (132-148) mmol/L Potassium (3.6-5.0) mmol/L Chloride (98-107) mmol/L Carbon Dioxide (21-33) mmol/L Anion Gap (10-20) BUN (7-21) mg/dL Creatinine (0.8-1.5) mg/dl Est GFR ( Amer) Est GFR (Non-Af Amer) POC Glucose (mg/dL) 135 H (65-110) mg/dL Random Glucose (70-110) mg/dL Hemoglobin A1c (4.2-6.5) % Calcium (8.4-10.5) mg/dL Phosphorus (2.5-4.5) mg/dL Magnesium (1.7-2.2) mg/dL Total Bilirubin (0.2-1.3) mg/dL AST (17-59) U/L ALT (7-56) U/L Alkaline Phosphatase (38-126) U/L Lactate Dehydrogenase (333-699) U/L Total Creatine Kinase (35-230) U/L CK-MB (CK-2) (0.0-3.6) ng/mL CK-MB (CK-2) % (2.5-3.0) % Troponin I ng/mL Total Protein (5.8-8.3) g/dL Albumin (3.0-4.8) g/dL Globulin gm/dL Albumin/Globulin Ratio (1.1-1.8) 12/31/18 12/31/18 12/30/18 Range/Units 06:00 05:10 22:05 WBC (4.5-11.0) 10^3/uL RBC (3.5-6.1) 10^6/uL Hgb (14.0-18.0) g/dL Hct (42.0-52.0) % MCV (80.0-105.0) fl MCH (25.0-35.0) pg MCHC (31.0-37.0) g/dl RDW (11.5-14.5) % Plt Count (120.0-450.0) 10^3/uL MPV (7.0-11.0) fl Neut % (Auto) (50.0-68.0) % Lymph % (Auto) (22.0-35.0) % [place] % (Auto) (1.0-6.0) % Eos % (Auto) (1.5-5.0) % Baso % (Auto) (0.0-3.0) % Lymph # (Auto) (1.2-3.4) [place] # (Auto) (0.1-0.6) Eos # (Auto) (0.0-0.7) Baso # (Auto) (0.0-2.0) K/mm3 Absolute Neuts (auto) (1.4-6.5) PT (9.4-12.5) SECONDS INR APTT (26.9-38.3) Seconds pCO2 37 (35-45) mm/Hg pO2 155.0 H (80-100) mm/Hg HCO3 19.5 L (21-28) mmol/L ABG pH 7.33 L (7.35-7.45) ABG Total CO2 20.6 L (22-28) mmol.L ABG O2 Saturation 97.4 (95-98) % ABG O2 Content 14.6 L (15-23) ML/dl ABG Base Excess -5.9 L (-2.0-3.0) mmol/L ABG Hemoglobin 10.5 L (11.7-17.4) g/dL ABG Carboxyhemoglobin 0.4 L (0.5-1.5) % POC ABG HHb (Measured) 2.6 (0-5) % ABG Methemoglobin 0.4 (0.0-3.0) % ABG O2 Capacity 15.0 L (16-24) mL/dl Hgb O2 Saturation 96.6 (95.0-98.0) % FiO2 100.0 % Sodium 145 (132-148) mmol/L Potassium 3.9 (3.6-5.0) mmol/L Chloride 112 H (98-107) mmol/L Carbon Dioxide 23 (21-33) mmol/L Anion Gap 14 (10-20) BUN 31 H (7-21) mg/dL Creatinine 2.2 H (0.8-1.5) mg/dl Est GFR ( Amer) 36 Est GFR (Non-Af Amer) 30 POC Glucose (mg/dL) 180 H (65-110) mg/dL Random Glucose 231 H (70-110) mg/dL Hemoglobin A1c (4.2-6.5) % Calcium 8.2 L (8.4-10.5) mg/dL Phosphorus 5.0 H (2.5-4.5) mg/dL Magnesium 2.1 (1.7-2.2) mg/dL Total Bilirubin 1.2 (0.2-1.3) mg/dL AST 186 H D (17-59) U/L ALT 94 H (7-56) U/L Alkaline Phosphatase 106 (38-126) U/L Lactate Dehydrogenase 1224 H (333-699) U/L Total Creatine Kinase 4194 H (35-230) U/L CK-MB (CK-2) 7.1 H (0.0-3.6) ng/mL CK-MB (CK-2) % 0.2 L (2.5-3.0) % Troponin I 0.23 H* D ng/mL Total Protein 6.2 (5.8-8.3) g/dL Albumin 3.1 (3.0-4.8) g/dL Globulin 3.0 gm/dL Albumin/Globulin Ratio 1.0 L (1.1-1.8) 12/30/18 12/30/18 12/30/18 Range/Units 22:00 16:34 15:00 WBC (4.5-11.0) 10^3/uL RBC (3.5-6.1) 10^6/uL Hgb (14.0-18.0) g/dL Hct (42.0-52.0) % MCV (80.0-105.0) fl MCH (25.0-35.0) pg MCHC (31.0-37.0) g/dl RDW (11.5-14.5) % Plt Count (120.0-450.0) 10^3/uL MPV (7.0-11.0) fl Neut % (Auto) (50.0-68.0) % Lymph % (Auto) (22.0-35.0) % [place] % (Auto) (1.0-6.0) % Eos % (Auto) (1.5-5.0) % Baso % (Auto) (0.0-3.0) % Lymph # (Auto) (1.2-3.4) [place] # (Auto) (0.1-0.6) Eos # (Auto) (0.0-0.7) Baso # (Auto) (0.0-2.0) K/mm3 Absolute Neuts (auto) (1.4-6.5) PT (9.4-12.5) SECONDS INR APTT 42.4 H 72.6 H (26.9-38.3) Seconds pCO2 (35-45) mm/Hg pO2 (80-100) mm/Hg HCO3 (21-28) mmol/L ABG pH (7.35-7.45) ABG Total CO2 (22-28) mmol.L ABG O2 Saturation (95-98) % ABG O2 Content (15-23) ML/dl ABG Base Excess (-2.0-3.0) mmol/L ABG Hemoglobin (11.7-17.4) g/dL ABG Carboxyhemoglobin (0.5-1.5) % POC ABG HHb (Measured) (0-5) % ABG Methemoglobin (0.0-3.0) % ABG O2 Capacity (16-24) mL/dl Hgb O2 Saturation (95.0-98.0) % FiO2 % Sodium (132-148) mmol/L Potassium (3.6-5.0) mmol/L Chloride (98-107) mmol/L Carbon Dioxide (21-33) mmol/L Anion Gap (10-20) BUN (7-21) mg/dL Creatinine (0.8-1.5) mg/dl Est GFR ( Amer) Est GFR (Non-Af Amer) POC Glucose (mg/dL) 182 H (65-110) mg/dL Random Glucose (70-110) mg/dL Hemoglobin A1c (4.2-6.5) % Calcium (8.4-10.5) mg/dL Phosphorus (2.5-4.5) mg/dL Magnesium (1.7-2.2) mg/dL Total Bilirubin (0.2-1.3) mg/dL AST (17-59) U/L ALT (7-56) U/L Alkaline Phosphatase (38-126) U/L Lactate Dehydrogenase (333-699) U/L Total Creatine Kinase (35-230) U/L CK-MB (CK-2) (0.0-3.6) ng/mL CK-MB (CK-2) % (2.5-3.0) % Troponin I ng/mL Total Protein (5.8-8.3) g/dL Albumin (3.0-4.8) g/dL Globulin gm/dL Albumin/Globulin Ratio (1.1-1.8) 12/30/18 12/30/18 Range/Units 11:12 05:00 WBC (4.5-11.0) 10^3/uL RBC (3.5-6.1) 10^6/uL Hgb (14.0-18.0) g/dL Hct (42.0-52.0) % MCV (80.0-105.0) fl MCH (25.0-35.0) pg MCHC (31.0-37.0) g/dl RDW (11.5-14.5) % Plt Count (120.0-450.0) 10^3/uL MPV (7.0-11.0) fl Neut % (Auto) (50.0-68.0) % Lymph % (Auto) (22.0-35.0) % [place] % (Auto) (1.0-6.0) % Eos % (Auto) (1.5-5.0) % Baso % (Auto) (0.0-3.0) % Lymph # (Auto) (1.2-3.4) [place] # (Auto) (0.1-0.6) Eos # (Auto) (0.0-0.7) Baso # (Auto) (0.0-2.0) K/mm3 Absolute Neuts (auto) (1.4-6.5) PT (9.4-12.5) SECONDS INR APTT (26.9-38.3) Seconds pCO2 (35-45) mm/Hg pO2 (80-100) mm/Hg HCO3 (21-28) mmol/L ABG pH (7.35-7.45) ABG Total CO2 (22-28) mmol.L ABG O2 Saturation (95-98) % ABG O2 Content (15-23) ML/dl ABG Base Excess (-2.0-3.0) mmol/L ABG Hemoglobin (11.7-17.4) g/dL ABG Carboxyhemoglobin (0.5-1.5) % POC ABG HHb (Measured) (0-5) % ABG Methemoglobin (0.0-3.0) % ABG O2 Capacity (16-24) mL/dl Hgb O2 Saturation (95.0-98.0) % FiO2 % Sodium (132-148) mmol/L Potassium (3.6-5.0) mmol/L Chloride (98-107) mmol/L Carbon Dioxide (21-33) mmol/L Anion Gap (10-20) BUN (7-21) mg/dL Creatinine (0.8-1.5) mg/dl Est GFR ( Amer) Est GFR (Non-Af Amer) POC Glucose (mg/dL) 153 H (65-110) mg/dL Random Glucose (70-110) mg/dL Hemoglobin A1c 7.1 H (4.2-6.5) % Calcium (8.4-10.5) mg/dL Phosphorus (2.5-4.5) mg/dL Magnesium (1.7-2.2) mg/dL Total Bilirubin (0.2-1.3) mg/dL AST (17-59) U/L ALT (7-56) U/L Alkaline Phosphatase (38-126) U/L Lactate Dehydrogenase (333-699) U/L Total Creatine Kinase (35-230) U/L CK-MB (CK-2) (0.0-3.6) ng/mL CK-MB (CK-2) % (2.5-3.0) % Troponin I ng/mL Total Protein (5.8-8.3) g/dL Albumin (3.0-4.8) g/dL Globulin gm/dL Albumin/Globulin Ratio (1.1-1.8) Laboratory Results - last 24 hr 12/30/18 12/30/18 12/30/18 05:00 11:12 15:00 WBC RBC Hgb Hct MCV MCH MCHC RDW Plt Count MPV Neut % (Auto) Lymph % (Auto) [place] % (Auto) Eos % (Auto) Baso % (Auto) Lymph # (Auto) [place] # (Auto) Eos # (Auto) Baso # (Auto) Absolute Neuts (auto) PT INR APTT 72.6 H pCO2 pO2 HCO3 ABG pH ABG Total CO2 ABG O2 Saturation ABG O2 Content ABG Base Excess ABG Hemoglobin ABG Carboxyhemoglobin POC ABG HHb (Measured) ABG Methemoglobin ABG O2 Capacity Hgb O2 Saturation FiO2 Sodium Potassium Chloride Carbon Dioxide Anion Gap BUN Creatinine Est GFR ( Amer) Est GFR (Non-Af Amer) POC Glucose (mg/dL) 153 H Random Glucose Hemoglobin A1c 7.1 H Calcium Phosphorus Magnesium Total Bilirubin AST ALT Alkaline Phosphatase Lactate Dehydrogenase Total Creatine Kinase CK-MB (CK-2) CK-MB (CK-2) % Troponin I Total Protein Albumin Globulin Albumin/Globulin Ratio 12/30/18 12/30/18 12/30/18 16:34 22:00 22:05 WBC RBC Hgb Hct MCV MCH MCHC RDW Plt Count MPV Neut % (Auto) Lymph % (Auto) [place] % (Auto) Eos % (Auto) Baso % (Auto) Lymph # (Auto) [place] # (Auto) Eos # (Auto) Baso # (Auto) Absolute Neuts (auto) PT INR APTT 42.4 H pCO2 pO2 HCO3 ABG pH ABG Total CO2 ABG O2 Saturation ABG O2 Content ABG Base Excess ABG Hemoglobin ABG Carboxyhemoglobin POC ABG HHb (Measured) ABG Methemoglobin ABG O2 Capacity Hgb O2 Saturation FiO2 Sodium Potassium Chloride Carbon Dioxide Anion Gap BUN Creatinine Est GFR ( Amer) Est GFR (Non-Af Amer) POC Glucose (mg/dL) 182 H 180 H Random Glucose Hemoglobin A1c Calcium Phosphorus Magnesium Total Bilirubin AST ALT Alkaline Phosphatase Lactate Dehydrogenase Total Creatine Kinase CK-MB (CK-2) CK-MB (CK-2) % Troponin I Total Protein Albumin Globulin Albumin/Globulin Ratio 12/31/18 12/31/18 12/31/18 05:10 06:00 06:00 WBC 11.0 RBC 3.92 Hgb 11.3 L Hct 36.4 L MCV 92.9 MCH 28.8 MCHC 31.0 RDW 14.1 Plt Count 185 MPV 11.2 H Neut % (Auto) 80.0 H Lymph % (Auto) 7.5 L [place] % (Auto) 12.1 H Eos % (Auto) 0.3 L Baso % (Auto) 0.1 Lymph # (Auto) 0.8 L [place] # (Auto) 1.3 H Eos # (Auto) 0.0 Baso # (Auto) 0.01 Absolute Neuts (auto) 8.79 H PT INR APTT pCO2 37 pO2 155.0 H HCO3 19.5 L ABG pH 7.33 L ABG Total CO2 20.6 L ABG O2 Saturation 97.4 ABG O2 Content 14.6 L ABG Base Excess -5.9 L ABG Hemoglobin 10.5 L ABG Carboxyhemoglobin 0.4 L POC ABG HHb (Measured) 2.6 ABG Methemoglobin 0.4 ABG O2 Capacity 15.0 L Hgb O2 Saturation 96.6 FiO2 100.0 Sodium 145 Potassium 3.9 Chloride 112 H Carbon Dioxide 23 Anion Gap 14 BUN 31 H Creatinine 2.2 H Est GFR ( Amer) 36 Est GFR (Non-Af Amer) 30 POC Glucose (mg/dL) Random Glucose 231 H Hemoglobin A1c Calcium 8.2 L Phosphorus 5.0 H Magnesium 2.1 Total Bilirubin 1.2 AST 186 H D ALT 94 H Alkaline Phosphatase 106 Lactate Dehydrogenase 1224 H Total Creatine Kinase 4194 H CK-MB (CK-2) 7.1 H CK-MB (CK-2) % 0.2 L Troponin I 0.23 H* D Total Protein 6.2 Albumin 3.1 Globulin 3.0 Albumin/Globulin Ratio 1.0 L 12/31/18 12/31/18 06:00 07:24 WBC RBC Hgb Hct MCV MCH MCHC RDW Plt Count MPV Neut % (Auto) Lymph % (Auto) [place] % (Auto) Eos % (Auto) Baso % (Auto) Lymph # (Auto) [place] # (Auto) Eos # (Auto) Baso # (Auto) Absolute Neuts (auto) PT 14.1 H INR 1.25 APTT 49.4 H pCO2 pO2 HCO3 ABG pH ABG Total CO2 ABG O2 Saturation ABG O2 Content ABG Base Excess ABG Hemoglobin ABG Carboxyhemoglobin POC ABG HHb (Measured) ABG Methemoglobin ABG O2 Capacity Hgb O2 Saturation FiO2 Sodium Potassium Chloride Carbon Dioxide Anion Gap BUN Creatinine Est GFR ( Amer) Est GFR (Non-Af Amer) POC Glucose (mg/dL) 135 H Random Glucose Hemoglobin A1c Calcium Phosphorus Magnesium Total Bilirubin AST ALT Alkaline Phosphatase Lactate Dehydrogenase Total Creatine Kinase CK-MB (CK-2) CK-MB (CK-2) % Troponin I Total Protein Albumin Globulin Albumin/Globulin Ratio EKG/Cardiology Studies: Cardiology / EKG Studies 12/31/18 04:30 EKG [ELECTROCARDIOGRAM] Stat Comment: Reason For Exam: code blue Fingerstick Blood Sugar Results: 206 Review of Systems - Review of Systems All systems: reviewed and no additional remarkable complaints except (12 point ROS reviewed and is negative other than what is stated in HPI.) Critical Care Progress Note - Nutrition Nutrition: Nutrition Category Date Time Status Liquid Diet [DIET] Diets 12/30/18 Dinner Ordered Assessment/Plan - Assessment and Plan (Free Text) Assessment: Patient is a 73 year old male with past medical history of CVA (2017), diabetes, arthritis, hypertension, and hyperlipidemia, who presented to the Emergency department with aphasia and altered mental status. Patient was code blue on 12/29 as patient went into respiratory arrest and PEA likely in the setting of obstructive sleep apnea. Patient was intubated and ROSC was achieved per ACLS protocol. Patient was transferred to the ICU and started on pressors for septic shock likely 2/2 aspiration pneumonia vs. HCAP. Patient was extubated yesterday and placed on non-invasive ventilation. However, patient was non-compliant and removed BIPAP on his own. He again went into cardiorespiratory arrest last night. He was re-intubated and ROSC was achieved. Plan: Neuro - Intubated, not sedated, currently responding to questioning - maintain normothermia - Cont ASA and Lipitor Cardio - s/p cardiac arrest x2 - Echo showed EF 55%, RSVP - Troponin elevated likely 2/2 chest compressions - Cont heparin gtt for possible PE, which will cover for OR - Levophed, cont to wean off as BP is currently stable - hold beta kyler and losartan - Cont Lipitor and ASA - Cardiology consulted - maintain MAP > 65 mm Hg Pulm - s/p intubation x2 - Pulmonary arrest likely in setting ANDREW, noncompliant with BIPAP - Plan for Trach tomorrow - Possible aspiration PNA vs HCAP - CXR shows vascular congestion - Elevated D-dimer 4186 - V/Q scan pending; CTA contraindicated in setting of GONZALEZ - ABG reviewed, will manage vent settings accordingly - Cont mechanical ventilation: FiO2 60%, PEEP 10, RR 16, TV 450 - Cont Heparin gtt for possible PE - Solumedrol 20 mg q12h - Duoneb narendra/prn - maintain SaO2 > 92% GI - Liver enzymes elevated likely 2/2 to hypoperfusion in setting of cardiorespiratory arrest - Cont to trend LFT's - NPO - Protonix for GI PPx Renal - GONZALEZ, creatinine trending downwards; likely 2/2 hypoperfusion - LR at 100 cc/hr - francois catheter placed - Strict Is and Os - Maintain euvolemia - Cont to monitor electrolytes and replete as needed Heme - Hgb stable - heparin drip; titrate per PTT, target 55-85 - continue to monitor - SCD's for DVT PPx ID - Procal 14. - Cont Merrem (Day 3) per ID - blood and urine cultures negative after 24 hrs - ID consulted Endo - maintain euglycemia - ISS, Accuchecks Patient seen and discussed in detail with Dr. Santiago. Dipesh Silva, DO PGY2 <Fuentes Santiago - Last Filed: 01/01/19 13:46> CCU Objective - Vital Signs / Intake & Output Intake and Output (Last 8hrs): Intake & Output 12/31/18 01/01/19 01/01/19 22:59 06:59 14:59 Intake Total 1466 84 Output Total 450 Balance 1016 84 Intake: IV 1466 84 Left Internal Jugular 1450 Output: Urine 450 2-way Urethral 450 - Medications Active Medications: Active Medications Generic Name Dose Route Start Last Admin Trade Name Freq PRN Reason Stop Dose Admin Albuterol/Ipratropium 3 ml 12/30/18 14:00 01/01/19 07:41 Duoneb 3 Mg/0.5 Mg (3 Ml) Ud IH 3 ml [id number] NARENDRA Administration Albuterol/Ipratropium 3 ml 12/31/18 05:17 Duoneb 3 Mg/0.5 Mg (3 Ml) Ud IH Q2H PRN Shortness of Breath Aspirin 81 mg 12/26/18 13:30 01/01/19 10:29 Ecotrin PO Not Given DAILY NARENDRA Dextrose 0 ml 12/29/18 04:53 Dextrose 50% Inj IV STAT PRN Hypoglycemia Protocol Protocol NOREPINEPHRINE BIT/0.9 % NACL 4 mg in 250 mls @ 15 mls/hr 12/29/18 11:07 Levophed 4 Mg/ 250 Ml Ns Premixed IV .[id number] PRN TITRATE PER MD ORDER Protocol 4 MCG/MIN Meropenem/Sodium Chloride 500 mg in 50 mls @ 100 mls/hr 12/29/18 22:00 01/01/19 10:47 Merrem Iv 500 Mg/Ns 50 Ml IVPB 01/07/19 22:01 100 mls/hr Q12 NARENDRA Administration Protocol Lactated Ringer's 1,000 mls @ 100 mls/hr 12/31/18 09:15 12/31/18 09:43 Lactated Ringer's IV 100 mls/hr .Q10H NARENDRA Administration Propofol 1,000 mg in 100 mls @ 3.44 mls/hr 12/31/18 13:11 01/01/19 03:13 Diprivan IV 10 mcg/kg/min .Q24H PRN 6.88 mls/hr TITRATE PER MD ORDER Administration Protocol 5 MCG/KG/MIN Insulin Human Lispro 0 units 12/29/18 07:30 01/01/19 10:29 Humalog Low SC Not Given ACHS NARENDRA Protocol Methylprednisolone 20 mg 12/31/18 10:00 01/01/19 10:47 Solu-Medrol IVP 20 mg Q12 NARENDRA Administration Metoprolol Tartrate 5 mg 12/27/18 20:39 12/28/18 05:28 Lopressor IVP 5 mg Q6 PRN Administration if sbp >150 Pantoprazole Sodium 40 mg 12/29/18 10:00 01/01/19 10:46 Protonix Inj IVP 40 mg DAILY NARENDRA Administration - Patient Studies Lab Studies: Microbiology Studies 12/30/18 07:30 Gram Stain - Final Sputum Sputum Culture - Final No growth. 12/29/18 09:05 Blood Culture - Preliminary Blood NO GROWTH AFTER 3 DAYS 12/29/18 20:54 Blood Culture - Preliminary Blood NO GROWTH AFTER 48 HOURS 12/29/18 20:24 Blood Culture - Preliminary Blood NO GROWTH AFTER 48 HOURS 12/29/18 17:30 MRSA Culture (Admit) - Final Naris MRSA NOT DETECTED 12/30/18 09:20 Urine Culture - Final Urine,Francois No Growth (<1,000 CFU/ML) Lab Studies 01/01/19 01/01/19 01/01/19 Range/Units 07:21 05:30 05:30 WBC 7.9 D (4.5-11.0) 10^3/uL RBC 3.75 (3.5-6.1) 10^6/uL Hgb 10.8 L (14.0-18.0) g/dL Hct 34.6 L (42.0-52.0) % MCV 92.3 (80.0-105.0) fl MCH 28.8 (25.0-35.0) pg MCHC 31.2 (31.0-37.0) g/dl RDW 14.5 (11.5-14.5) % Plt Count 181 (120.0-450.0) 10^3/uL MPV 11.0 (7.0-11.0) fl Neut % (Auto) 85.6 H (50.0-68.0) % Lymph % (Auto) 7.6 L (22.0-35.0) % [place] % (Auto) 6.8 H (1.0-6.0) % Eos % (Auto) 0.0 L (1.5-5.0) % Baso % (Auto) 0.0 (0.0-3.0) % Lymph # (Auto) 0.6 L (1.2-3.4) [place] # (Auto) 0.5 (0.1-0.6) Eos # (Auto) 0.0 (0.0-0.7) Baso # (Auto) 0.00 (0.0-2.0) K/mm3 Absolute Neuts (auto) 6.76 H (1.4-6.5) pCO2 (35-45) mm/Hg pO2 (80-100) mm/Hg HCO3 (21-28) mmol/L ABG pH (7.35-7.45) ABG Total CO2 (22-28) mmol.L ABG O2 Saturation (95-98) % ABG O2 Content (15-23) ML/dl ABG Base Excess (-2.0-3.0) mmol/L ABG Hemoglobin (11.7-17.4) g/dL ABG Carboxyhemoglobin (0.5-1.5) % POC ABG HHb (Measured) (0-5) % ABG Methemoglobin (0.0-3.0) % ABG O2 Capacity (16-24) mL/dl Hgb O2 Saturation (95.0-98.0) % FiO2 % Sodium 146 (132-148) mmol/L Potassium 4.3 (3.6-5.0) mmol/L Chloride 115 H (98-107) mmol/L Carbon Dioxide 24 (21-33) mmol/L Anion Gap 12 (10-20) BUN 53 H (7-21) mg/dL Creatinine 2.8 H (0.8-1.5) mg/dl Est GFR ( Amer) 27 Est GFR (Non-Af Amer) 22 POC Glucose (mg/dL) 251 H (65-110) mg/dL Random Glucose 290 H (70-110) mg/dL Calcium 8.9 (8.4-10.5) mg/dL Phosphorus 3.8 (2.5-4.5) mg/dL Magnesium 2.4 H (1.7-2.2) mg/dL Total Bilirubin 0.7 (0.2-1.3) mg/dL AST 92 H D (17-59) U/L ALT 78 H (7-56) U/L Alkaline Phosphatase 108 (38-126) U/L Total Protein 6.4 (5.8-8.3) g/dL Albumin 3.1 (3.0-4.8) g/dL Globulin 3.3 gm/dL Albumin/Globulin Ratio 1.0 L (1.1-1.8) 01/01/19 12/31/18 12/31/18 Range/Units 05:10 21:50 16:20 WBC (4.5-11.0) 10^3/uL RBC (3.5-6.1) 10^6/uL Hgb (14.0-18.0) g/dL Hct (42.0-52.0) % MCV (80.0-105.0) fl MCH (25.0-35.0) pg MCHC (31.0-37.0) g/dl RDW (11.5-14.5) % Plt Count (120.0-450.0) 10^3/uL MPV (7.0-11.0) fl Neut % (Auto) (50.0-68.0) % Lymph % (Auto) (22.0-35.0) % [place] % (Auto) (1.0-6.0) % Eos % (Auto) (1.5-5.0) % Baso % (Auto) (0.0-3.0) % Lymph # (Auto) (1.2-3.4) [place] # (Auto) (0.1-0.6) Eos # (Auto) (0.0-0.7) Baso # (Auto) (0.0-2.0) K/mm3 Absolute Neuts (auto) (1.4-6.5) pCO2 38 (35-45) mm/Hg pO2 109.0 H (80-100) mm/Hg HCO3 21.5 (21-28) mmol/L ABG pH 7.36 (7.35-7.45) ABG Total CO2 22.7 (22-28) mmol.L ABG O2 Saturation 96.9 (95-98) % ABG O2 Content 14.6 L (15-23) ML/dl ABG Base Excess -3.6 L (-2.0-3.0) mmol/L ABG Hemoglobin 10.6 L (11.7-17.4) g/dL ABG Carboxyhemoglobin 0.1 L (0.5-1.5) % POC ABG HHb (Measured) 3.1 (0-5) % ABG Methemoglobin 0.1 (0.0-3.0) % ABG O2 Capacity 15.1 L (16-24) mL/dl Hgb O2 Saturation 96.7 (95.0-98.0) % FiO2 60.0 % Sodium (132-148) mmol/L Potassium (3.6-5.0) mmol/L Chloride (98-107) mmol/L Carbon Dioxide (21-33) mmol/L Anion Gap (10-20) BUN (7-21) mg/dL Creatinine (0.8-1.5) mg/dl Est GFR ( Amer) Est GFR (Non-Af Amer) POC Glucose (mg/dL) 251 H 230 H (65-110) mg/dL Random Glucose (70-110) mg/dL Calcium (8.4-10.5) mg/dL Phosphorus (2.5-4.5) mg/dL Magnesium (1.7-2.2) mg/dL Total Bilirubin (0.2-1.3) mg/dL AST (17-59) U/L ALT (7-56) U/L Alkaline Phosphatase (38-126) U/L Total Protein (5.8-8.3) g/dL Albumin (3.0-4.8) g/dL Globulin gm/dL Albumin/Globulin Ratio (1.1-1.8) Laboratory Results - last 24 hr 12/31/18 12/31/18 01/01/19 16:20 21:50 05:10 WBC RBC Hgb Hct MCV MCH MCHC RDW Plt Count MPV Neut % (Auto) Lymph % (Auto) [place] % (Auto) Eos % (Auto) Baso % (Auto) Lymph # (Auto) [place] # (Auto) Eos # (Auto) Baso # (Auto) Absolute Neuts (auto) pCO2 38 pO2 109.0 H HCO3 21.5 ABG pH 7.36 ABG Total CO2 22.7 ABG O2 Saturation 96.9 ABG O2 Content 14.6 L ABG Base Excess -3.6 L ABG Hemoglobin 10.6 L ABG Carboxyhemoglobin 0.1 L POC ABG HHb (Measured) 3.1 ABG Methemoglobin 0.1 ABG O2 Capacity 15.1 L Hgb O2 Saturation 96.7 FiO2 60.0 Sodium Potassium Chloride Carbon Dioxide Anion Gap BUN Creatinine Est GFR ( Amer) Est GFR (Non-Af Amer) POC Glucose (mg/dL) 230 H 251 H Random Glucose Calcium Phosphorus Magnesium Total Bilirubin AST ALT Alkaline Phosphatase Total Protein Albumin Globulin Albumin/Globulin Ratio 01/01/19 01/01/19 01/01/19 05:30 05:30 07:21 WBC 7.9 D RBC 3.75 Hgb 10.8 L Hct 34.6 L MCV 92.3 MCH 28.8 MCHC 31.2 RDW 14.5 Plt Count 181 MPV 11.0 Neut % (Auto) 85.6 H Lymph % (Auto) 7.6 L [place] % (Auto) 6.8 H Eos % (Auto) 0.0 L Baso % (Auto) 0.0 Lymph # (Auto) 0.6 L [place] # (Auto) 0.5 Eos # (Auto) 0.0 Baso # (Auto) 0.00 Absolute Neuts (auto) 6.76 H pCO2 pO2 HCO3 ABG pH ABG Total CO2 ABG O2 Saturation ABG O2 Content ABG Base Excess ABG Hemoglobin ABG Carboxyhemoglobin POC ABG HHb (Measured) ABG Methemoglobin ABG O2 Capacity Hgb O2 Saturation FiO2 Sodium 146 Potassium 4.3 Chloride 115 H Carbon Dioxide 24 Anion Gap 12 BUN 53 H Creatinine 2.8 H Est GFR ( Amer) 27 Est GFR (Non-Af Amer) 22 POC Glucose (mg/dL) 251 H Random Glucose 290 H Calcium 8.9 Phosphorus 3.8 Magnesium 2.4 H Total Bilirubin 0.7 AST 92 H D ALT 78 H Alkaline Phosphatase 108 Total Protein 6.4 Albumin 3.1 Globulin 3.3 Albumin/Globulin Ratio 1.0 L Radiology Impressions: Radiology Impressions Extremity Ultrasound 12/31/18 15:29 IMPRESSION: No sonographic evidence for deep venous thrombosis in the visualized segments of both lower extremities. Attending/Attestation - Attestation I have personally seen and examined this patient.: Yes I have fully participated in the care of the patient.: Yes I have reviewed all pertinent clinical information: Yes Notes (Text): 01/01/19 13:[address] Santiago note
--- NOTE | 2018-12-31 12:39 | RAD ---
Date of service: 12/31/2018 HISTORY: Follow-up intubation COMPARISON: No prior. FINDINGS: In situ ETT, tip of which lies approximately 3.4 cm above angie. No change left IJ central line with tip in the SVC/brachiocephalic junction. Patchy infiltrates seen in the right mid and left mid to lower lung rodriguez. LUNGS: Minimal central pulmonary venous congestive changes with patchy opacity seen in right upper and mid-left mid to lower lung rodriguez. PLEURA: No significant pleural effusion identified, no pneumothorax apparent. CARDIOVASCULAR: No obvious aortic atherosclerotic calcification present. Heart remains enlarged.. OSSEOUS STRUCTURES: No significant abnormalities. VISUALIZED UPPER ABDOMEN: Normal. OTHER FINDINGS: None. IMPRESSION: Support lines and tubes as above. Minimal central pulmonary venous congestive changes with patchy opacity in the right upper and mid to left lower lung rodriguez.. Minimal central pulmonary venous congestive changes.
--- NOTE | 2018-12-31 13:11 | CP.PCM.PCO ---
Physician Communication Note - Physician Communication Note Physician Communication Note: DoubtPE/Rec Hypoxia(ANDREW)-Needs Trach(01/01(
--- NOTE | 2018-12-31 13:27 | CP.PCM.PN ---
Subjective - Date & Time of Evaluation Date of Evaluation: 12/31/18 Time of Evaluation: 13:23 - Subjective Subjective: Neurology Progress Note: Mr. Mcdonald was seen and examined today in the ICU at bedside. He was intubated, but off sedation. He was alert and followed commands appropriately. Objective - Vital Signs/Intake and Output Vital Signs (last 24 hours): Temp Pulse Resp BP Pulse Ox 98.2 F 89 20 109/54 L 96 12/31/18 12:00 12/31/18 12:00 12/31/18 12:00 12/30/18 15:01 12/31/18 12:00 Intake and Output: 12/31/18 12/31/18 06:59 18:59 Intake Total 7 Balance 7 - Medications Medications: Current Medications Albuterol/Ipratropium (Duoneb 3 Mg/0.5 Mg (3 Ml) Ud) 3 ml IH [id number] TYSON Last Admin: 12/31/18 13:01 Dose: 3 ml Albuterol/Ipratropium (Duoneb 3 Mg/0.5 Mg (3 Ml) Ud) 3 ml IH Q2H PRN PRN Reason: Shortness of Breath Aspirin (Ecotrin) 81 mg PO DAILY TYSON Last Admin: 12/30/18 09:12 Dose: 81 mg Dextrose (Dextrose 50% Inj) 0 ml IV STAT PRN; Protocol PRN Reason: Hypoglycemia Protocol Dextrose (Dextrose 5% In Water 1000 Ml) 1,000 mls @ 0 mls/hr IV .Q0M PRN; Protocol PRN Reason: Hypoglycemia Protocol NOREPINEPHRINE BIT/0.9 % NACL (Levophed 4 Mg/ 250 Ml Ns Premixed) 4 mg in 250 mls @ 15 mls/hr IV .[id number] PRN; Protocol PRN Reason: TITRATE PER MD ORDER Acetaminophen (Ofirmev) 1,000 mg in 100 mls @ 400 mls/hr IVPB Q6H PRN PRN Reason: for temp>100.4 Stop: 12/31/18 14:59 Last Admin: 12/29/18 15:04 Dose: 400 mls/hr Meropenem/Sodium Chloride (Merrem Iv 500 Mg/Ns 50 Ml) 500 mg in 50 mls @ 100 mls/hr IVPB Q12 TYSON; Protocol Stop: 01/07/19 22:01 Last Admin: 12/31/18 09:32 Dose: 100 mls/hr Lactated Ringer's (Lactated Ringer's) 1,000 mls @ 100 mls/hr IV .Q10H TYSON Last Admin: 12/31/18 09:43 Dose: 100 mls/hr Sodium Chloride (Sodium Chloride 0.9%) 1,000 mls @ 100 mls/hr IV .Q10H TYSON Stop: 01/01/19 23:59 Propofol (Diprivan) 1,000 mg in 100 mls @ 3.44 mls/hr IV .Q24H PRN; Protocol PRN Reason: TITRATE PER MD ORDER Insulin Human Lispro (Humalog Low) 0 units SC ACHS TYSON; Protocol Last Admin: 12/31/18 07:30 Dose: Not Given Methylprednisolone (Solu-Medrol) 20 mg IVP Q12 TYSON Last Admin: 12/31/18 09:30 Dose: 20 mg Metoprolol Tartrate (Lopressor) 5 mg IVP Q6 PRN PRN Reason: if sbp >150 Last Admin: 12/28/18 05:28 Dose: 5 mg Pantoprazole Sodium (Protonix Inj) 40 mg IVP DAILY [facility] Last Admin: 12/31/18 09:31 Dose: 40 mg - Labs Labs: 12/31/18 06:00 12/31/18 06:00 PT 14.1 SECONDS (9.4-12.5) H 12/31/18 06:00 INR 1.25 12/31/18 06:00 APTT 56.1 Seconds (26.9-38.3) H 12/31/18 11:50 - Neurological Exam Neurological Exam: Alert, Awake, CN II-XII Intact, Oriented x3 Neuro motor strength exam: Left Upper Extremity: 5, Right Upper Extremity: 5, Left Lower Extremity: 5, Right Lower Extremity: 5 Additional comments: Gait could not be tested due to patient being intubated. He answered questions with hand gestures and appeared to understand his current condition. There were no focal deficits. Assessment and Plan (1) Respiratory distress Assessment & Plan: This does not appear to be of central causes. CT head was not consistent with stroke and clinically, the patient does not have any focal deficits. From a neurological standpoint, the patient is cleared for any potential surgical intervention for his respiratory issues. Status: Acute
[2018-12-31] MEDS: Propofol 10 mg/ml 1,000 MG/100 ML VIAL IV PRN (13:28)
--- NOTE | 2018-12-31 14:19 | PN ---
DATE: 12/31/2018 CARDIOLOGY FOLLOWUP SUBJECTIVE: The patient is awake, alert, still on a ventilator. PHYSICAL EXAMINATION: VITAL SIGNS: Blood pressure is 109/54, the heart rates in the 90s. NECK: Negative JVD. LUNGS: Decreased breath sounds. HEART: Reveals S1, S2. EXTREMITIES: Without edema. LABORATORY DATA: BUN and creatinine are 31 and 2.2. Troponin is 0.23. IMPRESSION: 1. Status post cardiopulmonary arrest. 2. Respiratory failure. 3. Elevated troponins, likely secondary event. 4. Renal insufficiency. 5. Preserved left ventricular function on echocardiogram. Given these findings, we will continue supportive care. Hemodynamically, the patient remained stable at this time. Chase Baez MD
--- NOTE | 2018-12-31 14:35 | PN ---
DATE: 12/31/2018 SUBJECTIVE: The patient is seen and examined at bedside. He had PEA cardiorespiratory arrest last night, which required him to be reintubated. At present time, he is doing pretty well on PRVC 450/60/16/10/60%. On that setting, his oxygen saturation 95%. End-tidal CO2 on the monitor 37. Heart rate 95, and respiratory 22. The patient is on Levophed 5 mcg per minute and blood pressure 147/75. The patient is also on heparin drip. OBJECTIVE: ENT: Head and neck atraumatic. The patient is intubated. LUNGS: Clear to auscultation bilaterally. HEART: Regular rate and rhythm. S1 and S2 normal. ABDOMEN: Soft, nontender, and nondistended. Obese. MUSCULOSKELETAL: Trace bilateral pedal and ankle edema. NEURO: The patient moves all extremities spontaneously. SKIN: Moist. PSYCH: The patient is following commands. LABORATORY DATA: WBC 11 down from 11.9, hemoglobin 11.3, and platelet count 185. Sodium 145, potassium 3.9, chloride 112, carbon dioxide 23, BUN 31, creatinine 2.2 down from 2.4. CPK 4194. Glucose 135, calcium 8.2, AST 186, and ALT 94. Troponin 0.23, down from 0.56. PTT 49.4. ABG 7.33/37/155 on 100% FiO2 (FiO2 went down to 60% since blood gas was down, PEEP went up to 10). Respiratory rate went up to 18. MEDICATIONS: Tylenol p.r.n. IV, DuoNeb p.r.n. and every 6 hours on standard basis, aspirin, Lipitor (on hold), heparin drip, regular insulin sliding scale low protocol, meropenem, metoprolol p.r.n., norepinephrine at 5 mcg per minute, Protonix, Seroquel, normal saline at 100 mL/hour. Echocardiogram performed on 12/29/2018 showed grade 3 reversible restrictive diastolic dysfunction, ejection fraction 55%. Normal left ventricular segmental wall motion, RVSP 38 mmHg, normal left and right atrium in size. ASSESSMENT AND PLAN: This is a 73-year-old gentleman who presented with clinical picture suggestive of ischemic stroke in middle cerebral artery territory; however, initial CAT scan and CAT scan repeated 24 hours later did not reveal any changes supporting this diagnosis. At present time, the patient moving all extremities spontaneously and on command. His mental status clearly improved. He is morbidly obese and did have bradycardia/pulseless electrical activity arrest yesterday requiring reintubation. The patient did have some troponin leak, whether it is related to demand supply mismatch ischemia or transitory right ventricular strain in the setting of obstructive pathophysiology (PE?) or primary cardiac event is unclear at present time. The patient is on therapeutic anticoagulation with heparin drip. The patient's acute kidney injury, and the fact that he is intubated make CAT scan with PE protocol or V/Q scan fairly risky. Patient also not compliant with BPAP therapy at night-->severe ANDREW with OHS may have ignited cardiorespiratory event, that would have led to cardiorespiratory arresr, thus at present time, in light of possible clinical scenario described above, tracheotomy would be the safest way to proceed, which would make further liberating from mechanical ventilation safer as well. That what was discussed with the patient's family, and they agreed. The patient is on schedule for tomorrow. At present time, we will work with protective lung ventilation strategy. The patient is covered with broad-spectrum antibiotics until septic workup deem to be negative or reveal any infectious etiology. Chest x-ray has few bilateral opacities, which might represent atelectasis. PEEP was increased to 10 from 5 in this regard. Once weaned off of vasopressors, we will proceed with conservative fluid and oxygen management. Head of bed elevated more than 35 degrees. Oral hygiene. The patient is comfortable even though off of any sedation at present time. His renal function improving. We will try to avoid hyperchloremia and maintain euvolemia and euglycemia with mean arterial pressure more than 65. We will proceed with small dose of steroids. We will continue with bronchodilators. We will maintain blood glucose within 140 to 180 range according to NICE-SUGAR trial. ccm time 40 min Fuentes Santiago MD FERNANDO
--- NOTE | 2018-12-31 14:50 | CP.PCM.PN ---
Subjective - Date & Time of Evaluation Date of Evaluation: 12/31/18 Time of Evaluation: 08:00 - Subjective Subjective: Still on the ventilator, no fevers this morning. Objective - Vital Signs/Intake and Output Vital Signs (last 24 hours): Temp Pulse Resp BP Pulse Ox 98.2 F 89 20 109/54 L 96 12/31/18 12:00 12/31/18 12:00 12/31/18 12:00 12/30/18 15:01 12/31/18 12:00 Intake and Output: 12/31/18 12/31/18 06:59 18:59 Intake Total 7 Balance 7 - Medications Medications: Current Medications Albuterol/Ipratropium (Duoneb 3 Mg/0.5 Mg (3 Ml) Ud) 3 ml IH [id number] TYSON Last Admin: 12/31/18 13:01 Dose: 3 ml Albuterol/Ipratropium (Duoneb 3 Mg/0.5 Mg (3 Ml) Ud) 3 ml IH Q2H PRN PRN Reason: Shortness of Breath Aspirin (Ecotrin) 81 mg PO DAILY [facility] Last Admin: 12/31/18 10:00 Dose: Not Given Dextrose (Dextrose 50% Inj) 0 ml IV STAT PRN; Protocol PRN Reason: Hypoglycemia Protocol Dextrose (Dextrose 5% In Water 1000 Ml) 1,000 mls @ 0 mls/hr IV .Q0M PRN; Protocol PRN Reason: Hypoglycemia Protocol NOREPINEPHRINE BIT/0.9 % NACL (Levophed 4 Mg/ 250 Ml Ns Premixed) 4 mg in 250 m ls @ 15 mls/hr IV .Q05H63H PRN; Protocol PRN Reason: TITRATE PER MD ORDER Acetaminophen (Ofirmev) 1,000 mg in 100 mls @ 400 mls/hr IVPB Q6H PRN PRN Reason: for temp>100.4 Stop: 12/31/18 14:59 Last Admin: 12/29/18 15:04 Dose: 400 mls/hr Meropenem/Sodium Chloride (Merrem Iv 500 Mg/Ns 50 Ml) 500 mg in 50 mls @ 100 mls/hr IVPB Q12 TYSON; Protocol Stop: 01/07/19 22:01 Last Admin: 12/31/18 09:32 Dose: 100 mls/hr Lactated Ringer's (Lactated Ringer's) 1,000 mls @ 100 mls/hr IV .Q10H TYSON Last Admin: 12/31/18 09:43 Dose: 100 mls/hr Sodium Chloride (Sodium Chloride 0.9%) 1,000 mls @ 100 mls/hr IV .Q10H TYSON Stop: 01/01/19 23:59 Propofol (Diprivan) 1,000 mg in 100 mls @ 3.44 mls/hr IV .Q24H PRN; Protocol PRN Reason: TITRATE PER MD ORDER Last Admin: 12/31/18 13:28 Dose: 5 mcg/kg/min, 3.44 mls/hr Insulin Human Lispro (Humalog Low) 0 units SC ACHS TYSON; Protocol Last Admin: 12/31/18 11:30 Dose: Not Given Methylprednisolone (Solu-Medrol) 20 mg IVP Q12 TYSON Last Admin: 12/31/18 09:30 Dose: 20 mg Metoprolol Tartrate (Lopressor) 5 mg IVP Q6 PRN PRN Reason: if sbp >150 Last Admin: 12/28/18 05:28 Dose: 5 mg Pantoprazole Sodium (Protonix Inj) 40 mg IVP DAILY [facility] Last Admin: 12/31/18 09:31 Dose: 40 mg - Labs Labs: 12/31/18 06:00 12/31/18 06:00 PT 14.1 SECONDS (9.4-12.5) H 12/31/18 06:00 INR 1.25 12/31/18 06:00 APTT 56.1 Seconds (26.9-38.3) H 12/31/18 11:50 - Constitutional Appears: Chronically Ill, Other (intubated) - Respiratory Exam Respiratory Exam: Decreased Breath Sounds - Cardiovascular Exam Cardiovascular Exam: +S1, +S2 - GI/Abdominal Exam GI & Abdominal Exam: Soft. absent: Tenderness Assessment and Plan - Assessment and Plan (Free Text) Plan: Assessment septic shock due to aspiration HCAP with VDRF in this patient S/P cardiac arrest, with acute renal failure CVA dyslipidemia arthritis HTN morbid obesity with BMI 41 bipolar disorder anxiety DM S/P knee surgery Plan continue intermittent Vancomycin and Merrem pending sputum cx; blood cx are negative; follow up MRSA screen PCT is 14.26 prognosis is guarded at best
--- NOTE | 2018-12-31 16:25 | PN ---
DATE: 12/31/2018 REASON FOR CONSULTATION AND FOLLOWUP: Status post code blue, respiratory failure, bradycardia, intubated. Yesterday successfully extubated, last night the patient become apneic and reintubated. SUBJECTIVE: The patient much awake and alert being intubated. Denies any chest pain, shortness of breath, any palpitation. PHYSICAL EXAMINATION: VITAL SIGNS: Temperature afebrile. Heart rate 92 and blood pressure 109/54. HEENT: PERRLA. Extraocular muscles intact. NECK: Supple. No carotid bruit. No thyromegaly. CHEST: Clear to auscultation. HEART: S1 and S2 regular. ABDOMEN: Soft. EXTREMITIES: Clubbing and cyanosis negative. LABORATORY DATA: Blood workup WBC 11, hemoglobin 11.3, hematocrit 36.4 and platelet count 185. Chemistry shows sodium 145, potassium 3.0, chloride 101, carbon dioxide 23, anion gap of 14, BUN 31 and creatinine 2.2. Troponin 0.53, 0.81, 0.56 and 0.23 status post CPR. Total CPK 4196 and CPK-MB 0.2. IMPRESSION: This is a 73-year-old male with past medical history significant for diabetes, hypertension, arthritis, morbid obesity, cerebrovascular accident, possible obstructive sleep apnea who presented to emergency room on 12/23/2018 with altered mental status. Day before yesterday, the patient was in the floor, heart rate 30, apneic, intubated and move to ICU. Now the patient yesterday successfully extubated, found to be acute kidney injury as well. The patient has previous MUGA scan done ejection fraction 52%. The patient had echocardiography done yesterday, that revealed ejection fraction 55%, trace aortic regurgitation, trace mild mitral regurgitation. No significant tricuspid regurgitation noted. Yesterday, the patient was extubated while in the ICU suddenly become apneic, intubated, and cardiopulmonary resuscitation done. Today, troponin revealed 0.56, but the maximum troponin trend as follows 0.01 and 0.02 now 0.56, but if we look the total CPK, it was 5023 with MB fraction 0.4 prior to that total CPK 2681, MB fraction 0.6 and creatinine is 2.5, 30 mL, so does not ruled in for myocardial infarction, doubt is the myocardial infarction. The borderline troponin positive most likely secondary to cardiopulmonary resuscitation and the total CPK rhabdomyolysis probably secondary to CPK with MB fraction is 0.4, less than 2.5 so it does not qualify for myocardial infarction, the phase of acute renal insufficiency probably troponin 0.56 is nothing significant while CPK 5023 and MB 0.4. Most likely the patient has a obstructive sleep apnea becomes apneic that has happened twice. The patient is also important the patient very difficult intubation ER physician Dr. Bolden came in and had a very difficult intubation direct vision. The patent's recent echo shows preserved left ventricular function. RECOMMENDATIONS: Pulmonary evaluation agreed with Dr. Teran. Monitor vent management. Discussed with Dr. Santiago, doubt is , but for risk stratification once the patient is extubated consider stress test versus cardiac catheterization, but right now it is low priority because it does not seem OR, most likely recent event is a obstructive sleep apnea and the patient become apneic. We will monitor closely and further recommendation made upon the hospital course. We will follow with you. Thank you Dr. Nayak for providing us the opportunity in taking care of the patient, Zay Mcdonald. The patient had a rhabdomyolysis, we will start IV fluid to prevent further damage to the kidney. We will start 100 mL an hour and monitor the renal function. We will treat aggressively for rhabdomyolysis. Monitor renal function. Magdalena Rajan MD
--- NOTE | 2018-12-31 17:35 | US ---
HISTORY: Leg pain and swelling. Evaluate for DVT PHYSICIAN(S): Chase Al MD. TECHNIQUE: Duplex sonography and color-flow Doppler with graded compression were used to evaluate the deep venous systems of both lower extremities. FINDINGS: The visualized deep venous systems of both lower extremities are sonographically normal and compressible. Normal wave forms and augmentation are seen. There is no sonographic evidence for deep venous thrombosis in the visualized segments of both lower extremities. IMPRESSION: No sonographic evidence for deep venous thrombosis in the visualized segments of both lower extremities.
--- NOTE | 2018-12-31 17:56 | CON ---
DATE: 12/31/2018 REFERRING PHYSICIAN: Diego Teran MD. REASON FOR CONSULT: Obstructive sleep apnea syndrome and respiratory failure. HISTORY OF PRESENT ILLNESS: This is a 73-year-old male who underwent 2 episodes of respiratory failure, was intubated and then extubated, and had to be intubated again. About 2 days ago the patient was extubated, had respiratory arrest and had to be intubated again. The patient is presently on ventilator. The patient originally presented to the emergency room with sudden onset of altered mental status while driving his car with expressive dysphagia, which he had, had about 2 years prior. On 12/29/2018, rapid response and CODE BLUE was called because the patient became bradycardic and unresponsive. At that point, the patient was initially intubated and transferred to ICU. The patient today he is on ventilator. PAST MEDICAL HISTORY: Hypertension, diabetes, obesity, joint replacement, noncompliance, arthritis, hyperlipidemia, right knee surgery, left hip replacement, lumbar spinal fusion with screws and plates. ALLERGIES: NO KNOWN ALLERGIES. SOCIAL HISTORY: Nonsmoker. No EtOH abuse. No illicit drug use. FAMILY HISTORY: No cardiopulmonary disease reported. MEDICATION: Reviewed. DuoNeb 3 mL inhalation every 6 hours, DuoNeb 3 mL inhalation every 2 hours p.r.n., aspirin 81 mg daily, Humalog sliding scale a.c. and at bedtime, lactate of Ringers 1000 mL at 100 mL per hour, meropenem 500 mg every 12 hours, Solu-Medrol 20 mg IV push every 12 hours, metoprolol tartrate 5 mg every 6 hours p.r.n. for systolic blood pressure greater than 150, Levophed 1 mg at 250 mL p.r.n., Protonix 40 mg daily, propofol 1000 mg in 100 mL at 3.44 mL per hour p.r.n., sodium chloride 1000 mL in 100 mL per hour. REVIEW OF SYSTEMS: Unable to obtain. PHYSICAL EXAMINATION: VITAL SIGNS: Blood pressure 109/54, pulse 89, temperature 98.2, and oxygen saturation 96%. GENERAL: No acute distress. HEENT: Intubated. Small oral cavity. NECK: Supple. No JVD. Short and thick. RESPIRATORY: Fair airflow bilaterally. CARDIOVASCULAR: S1 and S2. ABDOMEN: Obese, soft and nontender. No distention. EXTREMITIES: Trace bilateral lower extremity edema. NEUROLOGIC: Following command. LABORATORY DATA: Reviewed. WBC 11, RBC 3.92, hemoglobin 11.3, hematocrit 36.4 and platelets 185. PT 14.1, INR 1.25, APTT 56.1, PCO2 of 37, PO2 155, HCO3 19, ABG pH 7.33 and FiO2 100. Sodium 145, potassium 3.9, chloride 112, carbon dioxide 23, anion gap 14, BUN 31, creatinine 2.2, GFR 30, POC glucose 135, random glucose 231, calcium 8.2, phosphorous 5.0, magnesium 2.1, total bilirubin 1.2, AST 186, ALT 94, alkaline phosphatase 106, lactate dehydrogenase 1224, total creatine kinase 4194, CK MB 7.1, troponin 0.23, total protein 6.2, albumin 3.1, globulin 3.0 and albumin-globulin ratio 1.0. Urine culture final no growth. Sputum culture pending. Blood cultures preliminary no growth after 24 hours. Chest x-ray shows minimal central pulmonary venous congestive changes with patchy opacity in the right upper and mid to left lower lung rodriguez, minimal pulmonary venous congestive changes. Electrocardiogram normal sinus rhythm. Echocardiogram shows ejection fraction 55%, trace aortic regurgitation, mitral regurgitation trace to mild, RVSP 38. No pericardial effusion. No vegetation or thrombus. Head CT shows no acute intracranial findings. IMPRESSION AND PLAN: Healthcare-acquired pneumonia status post cardiac arrest, acute renal failure, cerebrovascular accident, dyslipidemia, hypertension, morbid obesity, bipolar disorder, anxiety, diabetes mellitus, arthritis, respiratory failure on ventilator. The patient is suspected sleep apnea, not tolerating bilevel positive airway pressure. At one point reported pulling off bilevel positive airway pressure. The patient had 2 near experiences with respiratory failure with normal cardiac function pulmonary pressure. We believe the patient would benefit from tracheostomy to avoid further near episodes, until that time keep present ventilator setting. The patient had D-dimer, which was done on 12/29/2018, which was elevated 4186. The patient has near normal ABG's on ventilator suggesting no significant lung disease even though the D-dimer is elevated. Unable to do CTA because of BUN and creatinine; will however, order Venous Doppler bilateral lower extremities to be done. Continue inhaled bronchodilators, gastric prophylaxis, sleep apnea precaution. We will repeat labs, ABG's, and chest x-ray in the morning. Critical care time spent more than 35 minutes. This patient was seen and examined with Dr. Wright. Discussed assessment and plan as described above. This patient seen and examined with Basia Scruggs. Discussed assessment and plan as described above. Thank you for this consult. We will follow with you. Kael Flor APN Magdalena Wright MD [facility]ERNANDO
[2018-12-31] MEDS: Sodium Chloride 0.9% 1,000 ML IV SCH (18:00)
[2019-01-01] MEDS: Albuterol-Ipratrop 3 mg / 0.5 (3 ml) UD IH SCH ×4 (01:38→20:16)
[2019-01-01] MEDS: Propofol 10 mg/ml 1,000 MG/100 ML VIAL IV PRN ×2 (03:13→17:07)
[2019-01-01] MEDS: Sodium Chloride 0.9% 1,000 ML IV SCH (04:15)
[2019-01-01] MEDS: Insulin Lispro (humaLOG) LOW Coverage SC SCH ×4 (04:27→22:03)
[2019-01-01 05:30] LABS: ARTERIAL BLOOD GAS HCO3 21.5 mmol/L (21-28); ARTERIAL BLOOD GAS HEMOGLOBIN 10.6 g/dL (11.7-17.4); ARTERIAL BLOOD GAS O2 CAPACITY 15.1 mL/dl (16-24); ARTERIAL BLOOD GAS O2 CONTENT 14.6 ML/dl (15-23); ARTERIAL BLOOD GAS O2 SAT 96.9 % (95-98); ARTERIAL BLOOD GAS PCO2 38 mm/Hg (35-45); ARTERIAL BLOOD GAS PH 7.36 (7.35-7.45); ARTERIAL BLOOD GAS TCO2 22.7 mmol.L (22-28)
--- NOTE | 2019-01-01 06:33 | CP.PCM.PN ---
Subjective - Date & Time of Evaluation Date of Evaluation: 01/01/19 Time of Evaluation: 06:31 - Subjective Subjective: TBD renew restraint Objective - Vital Signs/Intake and Output Vital Signs (last 24 hours): Temp Pulse Resp BP Pulse Ox 99.5 F 68 17 123/65 96 12/31/18 18:00 01/01/19 02:00 12/31/18 18:00 12/31/18 18:30 12/31/18 18:40 Intake and Output: 12/31/18 01/01/19 18:59 06:59 Intake Total 1466 84 Output Total 450 Balance 1016 84 - Medications Medications: Current Medications Albuterol/Ipratropium (Duoneb 3 Mg/0.5 Mg (3 Ml) Ud) 3 ml IH [id number] [facility]YSON Last Admin: 01/01/19 01:38 Dose: 3 ml Albuterol/Ipratropium (Duoneb 3 Mg/0.5 Mg (3 Ml) Ud) 3 ml IH Q2H PRN PRN Reason: Shortness of Breath Aspirin (Ecotrin) 81 mg PO DAILY [facility] Last Admin: 12/31/18 10:00 Dose: Not Given Dextrose (Dextrose 50% Inj) 0 ml IV STAT PRN; Protocol PRN Reason: Hypoglycemia Protocol Dextrose (Dextrose 5% In Water 1000 Ml) 1,000 mls @ 0 mls/hr IV .Q0M PRN; Protocol PRN Reason: Hypoglycemia Protocol NOREPINEPHRINE BIT/0.9 % NACL (Levophed 4 Mg/ 250 Ml Ns Premixed) 4 mg in 250 m ls @ 15 mls/hr IV .[id number] PRN; Protocol PRN Reason: TITRATE PER MD ORDER Meropenem/Sodium Chloride (Merrem Iv 500 Mg/Ns 50 Ml) 500 mg in 50 mls @ 100 mls/hr IVPB Q12 [facility]; Protocol Stop: 01/07/19 22:01 Last Admin: 12/31/18 22:45 Dose: 100 mls/hr Lactated Ringer's (Lactated Ringer's) 1,000 mls @ 100 mls/hr IV .Q10H [facility] Last Admin: 12/31/18 09:43 Dose: 100 mls/hr Sodium Chloride (Sodium Chloride 0.9%) 1,000 mls @ 100 mls/hr IV .Q10H [facility] Stop: 01/01/19 23:59 Last Admin: 01/01/19 04:15 Dose: 100 mls/hr Propofol (Diprivan) 1,000 mg in 100 mls @ 3.44 mls/hr IV .Q24H PRN; Protocol PRN Reason: TITRATE PER MD ORDER Last Admin: 01/01/19 03:13 Dose: 10 mcg/kg/min, 6.88 mls/hr Insulin Human Lispro (Humalog Low) 0 units SC ACHS TYS[facility]; Protocol Last Admin: 01/01/19 04:27 Dose: Not Given Methylprednisolone (Solu-Medrol) 20 mg IVP Q12 [facility] Last Admin: 12/31/18 22:45 Dose: 20 mg Metoprolol Tartrate (Lopressor) 5 mg IVP Q6 PRN PRN Reason: if sbp >150 Last Admin: 12/28/18 05:28 Dose: 5 mg Pantoprazole Sodium (Protonix Inj) 40 mg IVP DAILY [facility] Last Admin: 12/31/18 09:31 Dose: 40 mg - Labs Labs: 12/31/18 06:00 12/31/18 06:00 PT 14.1 SECONDS (9.4-12.5) H 12/31/18 06:00 INR 1.25 12/31/18 06:00 APTT 56.1 Seconds (26.9-38.3) H 12/31/18 11:50
[2019-01-01 07:20] LABS: HEMOGLOBIN 10.8 g/dL (14.0-18.0); LYMPH # 0.6 (1.2-3.4); LYMPH % 7.6 % (22.0-35.0); MEAN CELL VOLUME 92.3 fl (80.0-105.0); MEAN CORPUSCULAR HEMOGLOBIN 28.8 pg (25.0-35.0); MEAN CORPUSCULAR HGB CONC 31.2 g/dl (31.0-37.0); MONO # 0.5 (0.1-0.6); MONO % 6.8 % (1.0-6.0); RBC 3.75 10^6/uL (3.5-6.1); RED CELL DISTRIBUTION WIDTH 14.5 % (11.5-14.5); WHITE BLOOD COUNT 7.9 10^3/uL (4.5-11.0)
[2019-01-01 07:56] LABS: ALBUMIN 3.1 g/dL (3.0-4.8); CALCIUM 8.9 mg/dL (8.4-10.5)
[2019-01-01] MEDS: MethylPREDNISolone 40 mg Vial IVP SCH ×2 (10:47→21:34)
[2019-01-01] MEDS: MEROPENEM 500 MG in NS 500 MG/50 ML BAG IVPB SCH ×2 (10:47→22:00)
[2019-01-01] MEDS ORDERED: Propofol 10 mg/ml Inj (20 ML) ONE (12:05)
--- NOTE | 2019-01-01 12:05 | CP.CCUPN ---
<Steffen Silva - Last Filed: 01/01/19 12:01> CCU Subjective - Physician Review Subjective (Free Text): ICU Progress Note for Dr. Santiago Patient was seen and examined at bedside. No acute overnight events. Patient complaining of some superficial chest tightness that is reproducible on palpi tations. Patient denies SOB, n/v/d, abdominal pain, fever, chills, LEIJA, or dizziness. CCU Objective - Vital Signs / Intake & Output Intake and Output (Last 8hrs): Intake & Output 12/31/18 01/01/19 01/01/19 22:59 06:59 14:59 Intake Total 1466 84 Output Total 450 Balance 1016 84 Intake: IV 1466 84 Left Internal Jugular 1450 Output: Urine 450 2-way Urethral 450 - Physical Exam Head: Positive for: Atraumatic, Normocephalic Pupils: Positive for: PERRL Extroacular Muscles: Positive for: EOMI Conjunctiva: Positive for: Normal Ears: Positive for: Normal Mouth: Positive for: Moist Mucous Membranes Pharnyx: Positive for: Normal. Negative for: ERYTHEMA, EXUDATE Neck: Positive for: Normal Range of Motion. Negative for: Meningeal Signs, MIDLINE TENDERNESS Respiratory/Chest: Positive for: Rales. Negative for: Respiratory Distress, Accessory Muscle Use, Wheezes, Rhonchi, Tachypneic Cardiovascular: Positive for: Regular Rate and Rhythm, Normal S1, S2. Negative for: Murmurs Abdomen: Positive for: Normal Bowel Sounds. Negative for: Tenderness, Distention, Peritoneal Signs Back: Positive for: Normal Inspection. Negative for: CVA Tenderness, Midline Tenderness Upper Extremity: Positive for: Normal Inspection, Normal ROM, NORMAL PULSES, Neurovascularly Intact. Negative for: Cyanosis, Edema Lower Extremity: Positive for: Normal Inspection, NORMAL PULSES, Normal ROM, Neurovascularly Intact. Negative for: Edema, Deformity Neurological: Positive for: GCS=15, CN II-XII Intact, Motor Func Grossly Intact, Normal Sensory Function, Normal Cerebellar Funct, Gait Normal, Memory Normal Skin: Positive for: Warm, Dry, Normal Color. Negative for: Rashes Psychiatric: Positive for: Alert - Medications Active Medications: Active Medications Generic Name Dose Route Start Last Admin Trade Name Freq PRN Reason Stop Dose Admin Albuterol/Ipratropium 3 ml 12/30/18 14:00 01/01/19 07:41 Duoneb 3 Mg/0.5 Mg (3 Ml) Ud IH 3 ml [id number] NARENDRA Administration Albuterol/Ipratropium 3 ml 12/31/18 05:17 Duoneb 3 Mg/0.5 Mg (3 Ml) Ud IH Q2H PRN Shortness of Breath Aspirin 81 mg 12/26/18 13:30 01/01/19 10:29 Ecotrin PO Not Given DAILY NARENDRA Dextrose 0 ml 12/29/18 04:53 Dextrose 50% Inj IV STAT PRN Hypoglycemia Protocol Protocol Dextrose 1,000 mls @ 0 mls/hr 12/29/18 04:53 Dextrose 5% In Water 1000 Ml IV .Q0M PRN Hypoglycemia Protocol Protocol Per Protocol NOREPINEPHRINE BIT/0.9 % NACL 4 mg in 250 mls @ 15 mls/hr 12/29/18 11:07 Levophed 4 Mg/ 250 Ml Ns Premixed IV .[id number] PRN TITRATE PER MD ORDER Protocol 4 MCG/MIN Meropenem/Sodium Chloride 500 mg in 50 mls @ 100 mls/hr 12/29/18 22:00 01/01/19 10:47 Merrem Iv 500 Mg/Ns 50 Ml IVPB 01/07/19 22:01 100 mls/hr Q12 NARENDRA Administration Protocol Lactated Ringer's 1,000 mls @ 100 mls/hr 12/31/18 09:15 12/31/18 09:43 Lactated Ringer's IV 100 mls/hr .Q10H NARENDRA Administration Sodium Chloride 1,000 mls @ 100 mls/hr 12/31/18 12:15 01/01/19 04:15 Sodium Chloride 0.9% IV 01/01/19 23:59 100 mls/hr .Q10H NARENDRA Administration Propofol 1,000 mg in 100 mls @ 3.44 mls/hr 12/31/18 13:11 01/01/19 03:13 Diprivan IV 10 mcg/kg/min .Q24H PRN 6.88 mls/hr TITRATE PER MD ORDER Administration Protocol 5 MCG/KG/MIN Insulin Human Lispro 0 units 12/29/18 07:30 01/01/19 10:29 Humalog Low SC Not Given ACHS NARENDRA Protocol Methylprednisolone 20 mg 12/31/18 10:00 01/01/19 10:47 Solu-Medrol IVP 20 mg Q12 NARENDRA Administration Metoprolol Tartrate 5 mg 12/27/18 20:39 12/28/18 05:28 Lopressor IVP 5 mg Q6 PRN Administration if sbp >150 Pantoprazole Sodium 40 mg 12/29/18 10:00 01/01/19 10:46 Protonix Inj IVP 40 mg DAILY NARENDRA Administration - Patient Studies Lab Studies: Microbiology Studies 12/30/18 07:30 Gram Stain - Final Sputum Sputum Culture - Final No growth. 12/29/18 09:05 Blood Culture - Preliminary Blood NO GROWTH AFTER 3 DAYS 12/29/18 20:54 Blood Culture - Preliminary Blood NO GROWTH AFTER 48 HOURS 12/29/18 20:24 Blood Culture - Preliminary Blood NO GROWTH AFTER 48 HOURS 12/29/18 17:30 MRSA Culture (Admit) - Final Naris MRSA NOT DETECTED 12/30/18 09:20 Urine Culture - Final Urine,Francois No Growth (<1,000 CFU/ML) Lab Studies 01/01/19 01/01/19 01/01/19 Range/Units 07:21 05:30 05:30 WBC 7.9 D (4.5-11.0) 10^3/uL RBC 3.75 (3.5-6.1) 10^6/uL Hgb 10.8 L (14.0-18.0) g/dL Hct 34.6 L (42.0-52.0) % MCV 92.3 (80.0-105.0) fl MCH 28.8 (25.0-35.0) pg MCHC 31.2 (31.0-37.0) g/dl RDW 14.5 (11.5-14.5) % Plt Count 181 (120.0-450.0) 10^3/uL MPV 11.0 (7.0-11.0) fl Neut % (Auto) 85.6 H (50.0-68.0) % Lymph % (Auto) 7.6 L (22.0-35.0) % [place] % (Auto) 6.8 H (1.0-6.0) % Eos % (Auto) 0.0 L (1.5-5.0) % Baso % (Auto) 0.0 (0.0-3.0) % Lymph # (Auto) 0.6 L (1.2-3.4) [place] # (Auto) 0.5 (0.1-0.6) Eos # (Auto) 0.0 (0.0-0.7) Baso # (Auto) 0.00 (0.0-2.0) K/mm3 Absolute Neuts (auto) 6.76 H (1.4-6.5) APTT (26.9-38.3) Seconds pCO2 (35-45) mm/Hg pO2 (80-100) mm/Hg HCO3 (21-28) mmol/L ABG pH (7.35-7.45) ABG Total CO2 (22-28) mmol.L ABG O2 Saturation (95-98) % ABG O2 Content (15-23) ML/dl ABG Base Excess (-2.0-3.0) mmol/L ABG Hemoglobin (11.7-17.4) g/dL ABG Carboxyhemoglobin (0.5-1.5) % POC ABG HHb (Measured) (0-5) % ABG Methemoglobin (0.0-3.0) % ABG O2 Capacity (16-24) mL/dl Hgb O2 Saturation (95.0-98.0) % FiO2 % Sodium 146 (132-148) mmol/L Potassium 4.3 (3.6-5.0) mmol/L Chloride 115 H (98-107) mmol/L Carbon Dioxide 24 (21-33) mmol/L Anion Gap 12 (10-20) BUN 53 H (7-21) mg/dL Creatinine 2.8 H (0.8-1.5) mg/dl Est GFR ( Amer) 27 Est GFR (Non-Af Amer) 22 POC Glucose (mg/dL) 251 H (65-110) mg/dL Random Glucose 290 H (70-110) mg/dL Calcium 8.9 (8.4-10.5) mg/dL Phosphorus 3.8 (2.5-4.5) mg/dL Magnesium 2.4 H (1.7-2.2) mg/dL Total Bilirubin 0.7 (0.2-1.3) mg/dL AST 92 H D (17-59) U/L ALT 78 H (7-56) U/L Alkaline Phosphatase 108 (38-126) U/L Total Protein 6.4 (5.8-8.3) g/dL Albumin 3.1 (3.0-4.8) g/dL Globulin 3.3 gm/dL Albumin/Globulin Ratio 1.0 L (1.1-1.8) 01/01/19 12/31/18 12/31/18 Range/Units 05:10 21:50 16:20 WBC (4.5-11.0) 10^3/uL RBC (3.5-6.1) 10^6/uL Hgb (14.0-18.0) g/dL Hct (42.0-52.0) % MCV (80.0-105.0) fl MCH (25.0-35.0) pg MCHC (31.0-37.0) g/dl RDW (11.5-14.5) % Plt Count (120.0-450.0) 10^3/uL MPV (7.0-11.0) fl Neut % (Auto) (50.0-68.0) % Lymph % (Auto) (22.0-35.0) % [place] % (Auto) (1.0-6.0) % Eos % (Auto) (1.5-5.0) % Baso % (Auto) (0.0-3.0) % Lymph # (Auto) (1.2-3.4) [place] # (Auto) (0.1-0.6) Eos # (Auto) (0.0-0.7) Baso # (Auto) (0.0-2.0) K/mm3 Absolute Neuts (auto) (1.4-6.5) APTT (26.9-38.3) Seconds pCO2 38 (35-45) mm/Hg pO2 109.0 H (80-100) mm/Hg HCO3 21.5 (21-28) mmol/L ABG pH 7.36 (7.35-7.45) ABG Total CO2 22.7 (22-28) mmol.L ABG O2 Saturation 96.9 (95-98) % ABG O2 Content 14.6 L (15-23) ML/dl ABG Base Excess -3.6 L (-2.0-3.0) mmol/L ABG Hemoglobin 10.6 L (11.7-17.4) g/dL ABG Carboxyhemoglobin 0.1 L (0.5-1.5) % POC ABG HHb (Measured) 3.1 (0-5) % ABG Methemoglobin 0.1 (0.0-3.0) % ABG O2 Capacity 15.1 L (16-24) mL/dl Hgb O2 Saturation 96.7 (95.0-98.0) % FiO2 60.0 % Sodium (132-148) mmol/L Potassium (3.6-5.0) mmol/L Chloride (98-107) mmol/L Carbon Dioxide (21-33) mmol/L Anion Gap (10-20) BUN (7-21) mg/dL Creatinine (0.8-1.5) mg/dl Est GFR ( Amer) Est GFR (Non-Af Amer) POC Glucose (mg/dL) 251 H 230 H (65-110) mg/dL Random Glucose (70-110) mg/dL Calcium (8.4-10.5) mg/dL Phosphorus (2.5-4.5) mg/dL Magnesium (1.7-2.2) mg/dL Total Bilirubin (0.2-1.3) mg/dL AST (17-59) U/L ALT (7-56) U/L Alkaline Phosphatase (38-126) U/L Total Protein (5.8-8.3) g/dL Albumin (3.0-4.8) g/dL Globulin gm/dL Albumin/Globulin Ratio (1.1-1.8) 12/31/18 12/31/18 Range/Units 12:14 11:50 WBC (4.5-11.0) 10^3/uL RBC (3.5-6.1) 10^6/uL Hgb (14.0-18.0) g/dL Hct (42.0-52.0) % MCV (80.0-105.0) fl MCH (25.0-35.0) pg MCHC (31.0-37.0) g/dl RDW (11.5-14.5) % Plt Count (120.0-450.0) 10^3/uL MPV (7.0-11.0) fl Neut % (Auto) (50.0-68.0) % Lymph % (Auto) (22.0-35.0) % [place] % (Auto) (1.0-6.0) % Eos % (Auto) (1.5-5.0) % Baso % (Auto) (0.0-3.0) % Lymph # (Auto) (1.2-3.4) [place] # (Auto) (0.1-0.6) Eos # (Auto) (0.0-0.7) Baso # (Auto) (0.0-2.0) K/mm3 Absolute Neuts (auto) (1.4-6.5) APTT 56.1 H (26.9-38.3) Seconds pCO2 (35-45) mm/Hg pO2 (80-100) mm/Hg HCO3 (21-28) mmol/L ABG pH (7.35-7.45) ABG Total CO2 (22-28) mmol.L ABG O2 Saturation (95-98) % ABG O2 Content (15-23) ML/dl ABG Base Excess (-2.0-3.0) mmol/L ABG Hemoglobin (11.7-17.4) g/dL ABG Carboxyhemoglobin (0.5-1.5) % POC ABG HHb (Measured) (0-5) % ABG Methemoglobin (0.0-3.0) % ABG O2 Capacity (16-24) mL/dl Hgb O2 Saturation (95.0-98.0) % FiO2 % Sodium (132-148) mmol/L Potassium (3.6-5.0) mmol/L Chloride (98-107) mmol/L Carbon Dioxide (21-33) mmol/L Anion Gap (10-20) BUN (7-21) mg/dL Creatinine (0.8-1.5) mg/dl Est GFR ( Amer) Est GFR (Non-Af Amer) POC Glucose (mg/dL) 224 H (65-110) mg/dL Random Glucose (70-110) mg/dL Calcium (8.4-10.5) mg/dL Phosphorus (2.5-4.5) mg/dL Magnesium (1.7-2.2) mg/dL Total Bilirubin (0.2-1.3) mg/dL AST (17-59) U/L ALT (7-56) U/L Alkaline Phosphatase (38-126) U/L Total Protein (5.8-8.3) g/dL Albumin (3.0-4.8) g/dL Globulin gm/dL Albumin/Globulin Ratio (1.1-1.8) Laboratory Results - last 24 hr 12/31/18 12/31/18 12/31/18 11:50 12:14 16:20 WBC RBC Hgb Hct MCV MCH MCHC RDW Plt Count MPV Neut % (Auto) Lymph % (Auto) [place] % (Auto) Eos % (Auto) Baso % (Auto) Lymph # (Auto) [place] # (Auto) Eos # (Auto) Baso # (Auto) Absolute Neuts (auto) APTT 56.1 H pCO2 pO2 HCO3 ABG pH ABG Total CO2 ABG O2 Saturation ABG O2 Content ABG Base Excess ABG Hemoglobin ABG Carboxyhemoglobin POC ABG HHb (Measured) ABG Methemoglobin ABG O2 Capacity Hgb O2 Saturation FiO2 Sodium Potassium Chloride Carbon Dioxide Anion Gap BUN Creatinine Est GFR ( Amer) Est GFR (Non-Af Amer) POC Glucose (mg/dL) 224 H 230 H Random Glucose Calcium Phosphorus Magnesium Total Bilirubin AST ALT Alkaline Phosphatase Total Protein Albumin Globulin Albumin/Globulin Ratio 12/31/18 01/01/19 01/01/19 21:50 05:10 05:30 WBC 7.9 D RBC 3.75 Hgb 10.8 L Hct 34.6 L MCV 92.3 MCH 28.8 MCHC 31.2 RDW 14.5 Plt Count 181 MPV 11.0 Neut % (Auto) 85.6 H Lymph % (Auto) 7.6 L [place] % (Auto) 6.8 H Eos % (Auto) 0.0 L Baso % (Auto) 0.0 Lymph # (Auto) 0.6 L [place] # (Auto) 0.5 Eos # (Auto) 0.0 Baso # (Auto) 0.00 Absolute Neuts (auto) 6.76 H APTT pCO2 38 pO2 109.0 H HCO3 21.5 ABG pH 7.36 ABG Total CO2 22.7 ABG O2 Saturation 96.9 ABG O2 Content 14.6 L ABG Base Excess -3.6 L ABG Hemoglobin 10.6 L ABG Carboxyhemoglobin 0.1 L POC ABG HHb (Measured) 3.1 ABG Methemoglobin 0.1 ABG O2 Capacity 15.1 L Hgb O2 Saturation 96.7 FiO2 60.0 Sodium Potassium Chloride Carbon Dioxide Anion Gap BUN Creatinine Est GFR ( Amer) Est GFR (Non-Af Amer) POC Glucose (mg/dL) 251 H Random Glucose Calcium Phosphorus Magnesium Total Bilirubin AST ALT Alkaline Phosphatase Total Protein Albumin Globulin Albumin/Globulin Ratio 01/01/19 01/01/19 05:30 07:21 WBC RBC Hgb Hct MCV MCH MCHC RDW Plt Count MPV Neut % (Auto) Lymph % (Auto) [place] % (Auto) Eos % (Auto) Baso % (Auto) Lymph # (Auto) [place] # (Auto) Eos # (Auto) Baso # (Auto) Absolute Neuts (auto) APTT pCO2 pO2 HCO3 ABG pH ABG Total CO2 ABG O2 Saturation ABG O2 Content ABG Base Excess ABG Hemoglobin ABG Carboxyhemoglobin POC ABG HHb (Measured) ABG Methemoglobin ABG O2 Capacity Hgb O2 Saturation FiO2 Sodium 146 Potassium 4.3 Chloride 115 H Carbon Dioxide 24 Anion Gap 12 BUN 53 H Creatinine 2.8 H Est GFR ( Amer) 27 Est GFR (Non-Af Amer) 22 POC Glucose (mg/dL) 251 H Random Glucose 290 H Calcium 8.9 Phosphorus 3.8 Magnesium 2.4 H Total Bilirubin 0.7 AST 92 H D ALT 78 H Alkaline Phosphatase 108 Total Protein 6.4 Albumin 3.1 Globulin 3.3 Albumin/Globulin Ratio 1.0 L Radiology Impressions: Radiology Impressions Chest X-Ray 12/31/18 04:40 IMPRESSION: Support lines and tubes as above. Minimal central pulmonary venous congestive changes with patchy opacity in the right upper and mid to left lower lung rodriguez.. Minimal central pulmonary venous congestive changes. Extremity Ultrasound 12/31/18 15:29 IMPRESSION: No sonographic evidence for deep venous thrombosis in the visualized segments of both lower extremities. Fingerstick Blood Sugar Results: 251 Assessment/Plan - Assessment and Plan (Free Text) Assessment: Patient is a 73 year old male with past medical history of CVA (2017), diabetes, arthritis, hypertension, and hyperlipidemia, who presented to the Emergency department with aphasia and altered mental status. Patient was code blue on 12/29 as patient went into respiratory arrest and PEA likely in the setting of obstructive sleep apnea. Patient was intubated and ROSC was achieved per ACLS protocol. Patient was extubated and placed on non-invasive ventilation. Patient failed non-invasive ventilation and again went into cardiorespiratory arrest last night. He was re-intubated and ROSC was achieved. Patient will have tracheostomy placed today. Plan: Neuro - Intubated, not sedated, currently responding to questioning - maintain normothermia - Cont ASA and Lipitor Cardio - s/p cardiac arrest x2 - Echo showed EF 55%, RSVP 38 - Troponin elevated likely 2/2 chest compressions - Off pressors - hold beta kyler and losartan - Cont Lipitor and ASA - Cardiology consulted - maintain MAP > 65 mm Hg Pulm - Plan for trach today - Pulmonary arrest likely in setting ANDREW, noncompliant with BIPAP - Possible aspiration PNA vs HCAP - CXR shows vascular congestion - Elevated D-dimer 4186 - V/Q scan pending; CTA contraindicated in setting of GONZALEZ - Daily ABG and CXR - Cont mechanical ventilation: FiO2 60%, PEEP 10, RR 16, TV 450 - Solumedrol 20 mg q12h - Duoneb narendra/prn - maintain SaO2 > 92% GI - Liver enzymes downtrending likely 2/2 to hypoperfusion in setting of cardiorespiratory arrest - Cont to trend LFT's - NPO - Protonix for GI PPx Renal - GONZALEZ, creatinine elevated; likely 2/2 hypoperfusion, possible ATN - LR at 100 cc/hr - francois catheter placed - Strict Is and Os - Maintain euvolemia - Cont to monitor electrolytes and replete as needed - Nephro consulted Heme - Hgb stable - continue to monitor - SCD's for DVT PPx ID - Procal 14. - Cont Merrem (Day 4) per ID - blood and urine cultures negative - ID consulted Endo - maintain euglycemia - ISS, Accuchecks Patient seen and discussed in detail with Dr. Santiago. Dipesh Silva, DO PGY2 <Fuentes Santiago - Last Filed: 01/01/19 13:43> CCU Objective - Vital Signs / Intake & Output Intake and Output (Last 8hrs): Intake & Output 12/31/18 01/01/19 01/01/19 22:59 06:59 14:59 Intake Total 1466 84 Output Total 450 Balance 1016 84 Intake: IV 1466 84 Left Internal Jugular 1450 Output: Urine 450 2-way Urethral 450 - Medications Active Medications: Active Medications Generic Name Dose Route Start Last Admin Trade Name Freq PRN Reason Stop Dose Admin Albuterol/Ipratropium 3 ml 12/30/18 14:00 01/01/19 07:41 Duoneb 3 Mg/0.5 Mg (3 Ml) Ud IH 3 ml [id number] NARENDRA Administration Albuterol/Ipratropium 3 ml 12/31/18 05:17 Duoneb 3 Mg/0.5 Mg (3 Ml) Ud IH Q2H PRN Shortness of Breath Aspirin 81 mg 12/26/18 13:30 01/01/19 10:29 Ecotrin PO Not Given DAILY NARENDRA Dextrose 0 ml 12/29/18 04:53 Dextrose 50% Inj IV STAT PRN Hypoglycemia Protocol Protocol NOREPINEPHRINE BIT/0.9 % NACL 4 mg in 250 mls @ 15 mls/hr 12/29/18 11:07 Levophed 4 Mg/ 250 Ml Ns Premixed IV .[id number] PRN TITRATE PER MD ORDER Protocol 4 MCG/MIN Meropenem/Sodium Chloride 500 mg in 50 mls @ 100 mls/hr 12/29/18 22:00 01/01/19 10:47 Merrem Iv 500 Mg/Ns 50 Ml IVPB 01/07/19 22:01 100 mls/hr Q12 NARENDRA Administration Protocol Lactated Ringer's 1,000 mls @ 100 mls/hr 12/31/18 09:15 12/31/18 09:43 Lactated Ringer's IV 100 mls/hr .Q10H NARENDRA Administration Propofol 1,000 mg in 100 mls @ 3.44 mls/hr 12/31/18 13:11 01/01/19 03:13 Diprivan IV 10 mcg/kg/min .Q24H PRN 6.88 mls/hr TITRATE PER MD ORDER Administration Protocol 5 MCG/KG/MIN Insulin Human Lispro 0 units 12/29/18 07:30 01/01/19 10:29 Humalog Low SC Not Given ACHS NARENDRA Protocol Methylprednisolone 20 mg 12/31/18 10:00 01/01/19 10:47 Solu-Medrol IVP 20 mg Q12 NARENDRA Administration Metoprolol Tartrate 5 mg 12/27/18 20:39 12/28/18 05:28 Lopressor IVP 5 mg Q6 PRN Administration if sbp >150 Pantoprazole Sodium 40 mg 12/29/18 10:00 01/01/19 10:46 Protonix Inj IVP 40 mg DAILY NARENDRA Administration - Patient Studies Lab Studies: Microbiology Studies 12/30/18 07:30 Gram Stain - Final Sputum Sputum Culture - Final No growth. 12/29/18 09:05 Blood Culture - Preliminary Blood NO GROWTH AFTER 3 DAYS 12/29/18 20:54 Blood Culture - Preliminary Blood NO GROWTH AFTER 48 HOURS 12/29/18 20:24 Blood Culture - Preliminary Blood NO GROWTH AFTER 48 HOURS 12/29/18 17:30 MRSA Culture (Admit) - Final Naris MRSA NOT DETECTED 12/30/18 09:20 Urine Culture - Final Urine,Francois No Growth (<1,000 CFU/ML) Lab Studies 01/01/19 01/01/19 01/01/19 Range/Units 07:21 05:30 05:30 WBC 7.9 D (4.5-11.0) 10^3/uL RBC 3.75 (3.5-6.1) 10^6/uL Hgb 10.8 L (14.0-18.0) g/dL Hct 34.6 L (42.0-52.0) % MCV 92.3 (80.0-105.0) fl MCH 28.8 (25.0-35.0) pg MCHC 31.2 (31.0-37.0) g/dl RDW 14.5 (11.5-14.5) % Plt Count 181 (120.0-450.0) 10^3/uL MPV 11.0 (7.0-11.0) fl Neut % (Auto) 85.6 H (50.0-68.0) % Lymph % (Auto) 7.6 L (22.0-35.0) % [place] % (Auto) 6.8 H (1.0-6.0) % Eos % (Auto) 0.0 L (1.5-5.0) % Baso % (Auto) 0.0 (0.0-3.0) % Lymph # (Auto) 0.6 L (1.2-3.4) [place] # (Auto) 0.5 (0.1-0.6) Eos # (Auto) 0.0 (0.0-0.7) Baso # (Auto) 0.00 (0.0-2.0) K/mm3 Absolute Neuts (auto) 6.76 H (1.4-6.5) pCO2 (35-45) mm/Hg pO2 (80-100) mm/Hg HCO3 (21-28) mmol/L ABG pH (7.35-7.45) ABG Total CO2 (22-28) mmol.L ABG O2 Saturation (95-98) % ABG O2 Content (15-23) ML/dl ABG Base Excess (-2.0-3.0) mmol/L ABG Hemoglobin (11.7-17.4) g/dL ABG Carboxyhemoglobin (0.5-1.5) % POC ABG HHb (Measured) (0-5) % ABG Methemoglobin (0.0-3.0) % ABG O2 Capacity (16-24) mL/dl Hgb O2 Saturation (95.0-98.0) % FiO2 % Sodium 146 (132-148) mmol/L Potassium 4.3 (3.6-5.0) mmol/L Chloride 115 H (98-107) mmol/L Carbon Dioxide 24 (21-33) mmol/L Anion Gap 12 (10-20) BUN 53 H (7-21) mg/dL Creatinine 2.8 H (0.8-1.5) mg/dl Est GFR ( Amer) 27 Est GFR (Non-Af Amer) 22 POC Glucose (mg/dL) 251 H (65-110) mg/dL Random Glucose 290 H (70-110) mg/dL Calcium 8.9 (8.4-10.5) mg/dL Phosphorus 3.8 (2.5-4.5) mg/dL Magnesium 2.4 H (1.7-2.2) mg/dL Total Bilirubin 0.7 (0.2-1.3) mg/dL AST 92 H D (17-59) U/L ALT 78 H (7-56) U/L Alkaline Phosphatase 108 (38-126) U/L Total Protein 6.4 (5.8-8.3) g/dL Albumin 3.1 (3.0-4.8) g/dL Globulin 3.3 gm/dL Albumin/Globulin Ratio 1.0 L (1.1-1.8) 01/01/19 12/31/18 12/31/18 Range/Units 05:10 21:50 16:20 WBC (4.5-11.0) 10^3/uL RBC (3.5-6.1) 10^6/uL Hgb (14.0-18.0) g/dL Hct (42.0-52.0) % MCV (80.0-105.0) fl MCH (25.0-35.0) pg MCHC (31.0-37.0) g/dl RDW (11.5-14.5) % Plt Count (120.0-450.0) 10^3/uL MPV (7.0-11.0) fl Neut % (Auto) (50.0-68.0) % Lymph % (Auto) (22.0-35.0) % [place] % (Auto) (1.0-6.0) % Eos % (Auto) (1.5-5.0) % Baso % (Auto) (0.0-3.0) % Lymph # (Auto) (1.2-3.4) [place] # (Auto) (0.1-0.6) Eos # (Auto) (0.0-0.7) Baso # (Auto) (0.0-2.0) K/mm3 Absolute Neuts (auto) (1.4-6.5) pCO2 38 (35-45) mm/Hg pO2 109.0 H (80-100) mm/Hg HCO3 21.5 (21-28) mmol/L ABG pH 7.36 (7.35-7.45) ABG Total CO2 22.7 (22-28) mmol.L ABG O2 Saturation 96.9 (95-98) % ABG O2 Content 14.6 L (15-23) ML/dl ABG Base Excess -3.6 L (-2.0-3.0) mmol/L ABG Hemoglobin 10.6 L (11.7-17.4) g/dL ABG Carboxyhemoglobin 0.1 L (0.5-1.5) % POC ABG HHb (Measured) 3.1 (0-5) % ABG Methemoglobin 0.1 (0.0-3.0) % ABG O2 Capacity 15.1 L (16-24) mL/dl Hgb O2 Saturation 96.7 (95.0-98.0) % FiO2 60.0 % Sodium (132-148) mmol/L Potassium (3.6-5.0) mmol/L Chloride (98-107) mmol/L Carbon Dioxide (21-33) mmol/L Anion Gap (10-20) BUN (7-21) mg/dL Creatinine (0.8-1.5) mg/dl Est GFR ( Amer) Est GFR (Non-Af Amer) POC Glucose (mg/dL) 251 H 230 H (65-110) mg/dL Random Glucose (70-110) mg/dL Calcium (8.4-10.5) mg/dL Phosphorus (2.5-4.5) mg/dL Magnesium (1.7-2.2) mg/dL Total Bilirubin (0.2-1.3) mg/dL AST (17-59) U/L ALT (7-56) U/L Alkaline Phosphatase (38-126) U/L Total Protein (5.8-8.3) g/dL Albumin (3.0-4.8) g/dL Globulin gm/dL Albumin/Globulin Ratio (1.1-1.8) Laboratory Results - last 24 hr 12/31/18 12/31/18 01/01/19 16:20 21:50 05:10 WBC RBC Hgb Hct MCV MCH MCHC RDW Plt Count MPV Neut % (Auto) Lymph % (Auto) [place] % (Auto) Eos % (Auto) Baso % (Auto) Lymph # (Auto) [place] # (Auto) Eos # (Auto) Baso # (Auto) Absolute Neuts (auto) pCO2 38 pO2 109.0 H HCO3 21.5 ABG pH 7.36 ABG Total CO2 22.7 ABG O2 Saturation 96.9 ABG O2 Content 14.6 L ABG Base Excess -3.6 L ABG Hemoglobin 10.6 L ABG Carboxyhemoglobin 0.1 L POC ABG HHb (Measured) 3.1 ABG Methemoglobin 0.1 ABG O2 Capacity 15.1 L Hgb O2 Saturation 96.7 FiO2 60.0 Sodium Potassium Chloride Carbon Dioxide Anion Gap BUN Creatinine Est GFR ( Amer) Est GFR (Non-Af Amer) POC Glucose (mg/dL) 230 H 251 H Random Glucose Calcium Phosphorus Magnesium Total Bilirubin AST ALT Alkaline Phosphatase Total Protein Albumin Globulin Albumin/Globulin Ratio 01/01/19 01/01/19 01/01/19 05:30 05:30 07:21 WBC 7.9 D RBC 3.75 Hgb 10.8 L Hct 34.6 L MCV 92.3 MCH 28.8 MCHC 31.2 RDW 14.5 Plt Count 181 MPV 11.0 Neut % (Auto) 85.6 H Lymph % (Auto) 7.6 L [place] % (Auto) 6.8 H Eos % (Auto) 0.0 L Baso % (Auto) 0.0 Lymph # (Auto) 0.6 L [place] # (Auto) 0.5 Eos # (Auto) 0.0 Baso # (Auto) 0.00 Absolute Neuts (auto) 6.76 H pCO2 pO2 HCO3 ABG pH ABG Total CO2 ABG O2 Saturation ABG O2 Content ABG Base Excess ABG Hemoglobin ABG Carboxyhemoglobin POC ABG HHb (Measured) ABG Methemoglobin ABG O2 Capacity Hgb O2 Saturation FiO2 Sodium 146 Potassium 4.3 Chloride 115 H Carbon Dioxide 24 Anion Gap 12 BUN 53 H Creatinine 2.8 H Est GFR ( Amer) 27 Est GFR (Non-Af Amer) 22 POC Glucose (mg/dL) 251 H Random Glucose 290 H Calcium 8.9 Phosphorus 3.8 Magnesium 2.4 H Total Bilirubin 0.7 AST 92 H D ALT 78 H Alkaline Phosphatase 108 Total Protein 6.4 Albumin 3.1 Globulin 3.3 Albumin/Globulin Ratio 1.0 L Radiology Impressions: Radiology Impressions Extremity Ultrasound 12/31/18 15:29 IMPRESSION: No sonographic evidence for deep venous thrombosis in the visualized segments of both lower extremities. Attending/Attestation - Attestation I have personally seen and examined this patient.: Yes I have fully participated in the care of the patient.: Yes I have reviewed all pertinent clinical information: Yes Notes (Text): 01/01/19 13:[address] Santiago note
[2019-01-01] MEDS ORDERED: Bupivacaine 0.5% Inj(30mL) IJ ONE (12:40)
[2019-01-01] MEDS ORDERED: Rocuronium 10 mg/ml (5 ml) ONE (13:04)
[2019-01-01] MEDS ORDERED: Midazolam 2 MG/2 ML VIAL ONE (13:04)
--- NOTE | 2019-01-01 13:06 | PN ---
DATE: 01/01/2019 PULMONARY PROGRESS NOTE REFERRING PHYSICIAN: Diego Teran MD SUBJECTIVE: The patient is seen lying in bed, intubated, awake, alert, able to write using pen and paper to communicate, pending tracheostomy. No hemoptysis, hematemesis, hematuria, diarrhea, leg swelling reported. OBJECTIVE: GENERAL: No acute distress. VITAL SIGNS: Blood pressure 123/65, pulse 68, temperature 99.5, oxygen saturation 96%. HEENT: Intubated. Small oral cavity. NECK: Supple. No JVD. Short and thick. RESPIRATORY: Fair airflow bilaterally. CARDIOVASCULAR: S1, S2. ABDOMEN: Obese. Soft. Nontender. No distention. EXTREMITIES: No bilateral lower extremity edema. NEUROLOGIC: Able to follow commands. MEDICATIONS: Reviewed. DuoNeb 3 mL inhalation every 6 hours, DuoNeb 3 mL inhalation every 2 hours p.r.n., aspirin 81 mg daily, Humalog sliding scale a.c. and h.s., lactated Ringer's 1000 mL at 100 mL per hour, meropenem 500 mg in 50 mL every 12 hours, Solu-Medrol 20 mg every 12 hours, metoprolol tartrate 5 mg every 6 hours p.r.n., Levophed 4 mg p.r.n., Protonix 40 mg IV push daily, propofol 1000 mg in 100 mL p.r.n., sodium chloride 0.9% 1000 mL in 100 mL per hour. LABORATORY DATA: Reviewed. WBC 7.9, RBC 3.75, hemoglobin 10.8, hematocrit 34.6, platelets 181, pCO2 of 38, pO2 of 109, HCO3 of 21.5. ABG; pH 7.36, FiO2 of 60. Sodium 146, potassium 4.3, chloride 115, carbon dioxide 24, anion gap 12, BUN 53, creatinine 2.8, GFR 22, POC glucose 251, random glucose 290, calcium 8.9, phosphorus 3.8, magnesium 2.4, total bilirubin 0.7, AST 92, ALT 70, alkaline phosphatase 108, total protein 6.4, albumin 3.1, globulin 3.3, albumin-globulin ratio 1. Urine culture final, no growth. Sputum culture, no growth final. Blood cultures preliminary, no growth after 48 hours. Chest x-ray report pending. Extremity ultrasound, negative DVT bilateral lower extremity. IMPRESSION AND PLAN: Healthcare-acquired pneumonia status post cardiac arrest, acute renal failure, cerebrovascular accident, dyslipidemia, hypertension, morbid obesity, bipolar disorder, anxiety, respiratory failure on ventilator, diabetes mellitus, arthritis. We suspect the patient to have sleep apnea, not tolerating bilevel positive airway pressure machine. The patient is pending tracheostomy. Keep present vent setting. Wean off ventilator once the patient has tracheostomy. Sleep apnea precaution, head of bed elevated at 45 degrees. We recommend physical therapy rehabilitation after tracheostomy. We will order repeat labs, arterial blood gas, chest x-ray in the morning. Gastric prophylaxis. Continue inhaled bronchodilators. Critical care time spent more than 35 minutes. This patient was seen and examined with Dr. Wright. Discussed assessment and plan as described above. The patient was seen and examined with Kael Flor, nurse practitioner. Discussed assessment and plan as described above. Thank you for this consult. We will follow with you. Kael Flor APN Magdalena Wright MD
--- NOTE | 2019-01-01 13:17 | CP.PCM.PN ---
Subjective - Date & Time of Evaluation Date of Evaluation: 01/01/19 Time of Evaluation: 10:05 - Subjective Subjective: Still on the ventilator, no fevers, awake, answers simple questions, not in distress. Objective - Vital Signs/Intake and Output Vital Signs (last 24 hours): Temp Pulse Resp BP Pulse Ox 98.2 F 89 20 109/54 L 96 12/31/18 12:00 12/31/18 12:00 12/31/18 12:00 12/30/18 15:01 12/31/18 12:00 Intake and Output: 12/31/18 12/31/18 06:59 18:59 Intake Total 7 Balance 7 - Medications Medications: Current Medications Albuterol/Ipratropium (Duoneb 3 Mg/0.5 Mg (3 Ml) Ud) 3 ml IH [id number] [facility] Last Admin: 12/31/18 13:01 Dose: 3 ml Albuterol/Ipratropium (Duoneb 3 Mg/0.5 Mg (3 Ml) Ud) 3 ml IH Q2H PRN PRN Reason: Shortness of Breath Aspirin (Ecotrin) 81 mg PO DAILY [facility] Last Admin: 12/31/18 10:00 Dose: Not Given Dextrose (Dextrose 50% Inj) 0 ml IV STAT PRN; Protocol PRN Reason: Hypoglycemia Protocol Dextrose (Dextrose 5% In Water 1000 Ml) 1,000 mls @ 0 mls/hr IV .Q0M PRN; Protocol PRN Reason: Hypoglycemia Protocol NOREPINEPHRINE BIT/0.9 % NACL (Levophed 4 Mg/ 250 Ml Ns Premixed) 4 mg in 250 mls @ 15 mls/hr IV .[id number] PRN; Protocol PRN Reason: TITRATE PER MD ORDER Acetaminophen (Ofirmev) 1,000 mg in 100 mls @ 400 mls/hr IVPB Q6H PRN PRN Reason: for temp>100.4 Stop: 12/31/18 14:59 Last Admin: 12/29/18 15:04 Dose: 400 mls/hr Meropenem/Sodium Chloride (Merrem Iv 500 Mg/Ns 50 Ml) 500 mg in 50 mls @ 100 mls/hr IVPB Q12 [facility]; Protocol Stop: 01/07/19 22:01 Last Admin: 12/31/18 09:32 Dose: 100 mls/hr Lactated Ringer's (Lactated Ringer's) 1,000 mls @ 100 mls/hr IV .Q10H [facility] Last Admin: 12/31/18 09:43 Dose: 100 mls/hr Sodium Chloride (Sodium Chloride 0.9%) 1,000 mls @ 100 mls/hr IV .Q10H [facility] Stop: 01/01/19 23:59 Propofol (Diprivan) 1,000 mg in 100 mls @ 3.44 mls/hr IV .Q24H PRN; Protocol PRN Reason: TITRATE PER MD ORDER Last Admin: 12/31/18 13:28 Dose: 5 mcg/kg/min, 3.44 mls/hr Insulin Human Lispro (Humalog Low) 0 units SC ACHS [facility]; Protocol Last Admin: 12/31/18 11:30 Dose: Not Given Methylprednisolone (Solu-Medrol) 20 mg IVP Q12 [facility] Last Admin: 12/31/18 09:30 Dose: 20 mg Metoprolol Tartrate (Lopressor) 5 mg IVP Q6 PRN PRN Reason: if sbp >150 Last Admin: 12/28/18 05:28 Dose: 5 mg Pantoprazole Sodium (Protonix Inj) 40 mg IVP DAILY [facility] Last Admin: 12/31/18 09:31 Dose: 40 mg - Labs Labs: 12/31/18 06:00 12/31/18 06:00 PT 14.1 SECONDS (9.4-12.5) H 12/31/18 06:00 INR 1.25 12/31/18 06:00 APTT 56.1 Seconds (26.9-38.3) H 12/31/18 11:50 - Constitutional Appears: Chronically Ill - Head Exam Head Exam: NORMAL INSPECTION - ENT Exam Additional comments: ET tube in place - Neck Exam Additional comments: left IJ TLC in place - Respiratory Exam Respiratory Exam: Decreased Breath Sounds - Cardiovascular Exam Cardiovascular Exam: +S1, +S2 - GI/Abdominal Exam GI & Abdominal Exam: Soft. absent: Tenderness Assessment and Plan - Assessment and Plan (Free Text) Plan: Assessment severe sepsis S/P shock due to aspiration HCAP with VDRF in this patient S/P cardiac arrest, with acute renal failure CVA dyslipidemia arthritis HTN morbid obesity with BMI 41 bipolar disorder anxiety DM S/P knee surgery Plan continue intermittent Vancomycin and Merrem day 3 pending final sputum cx re sults; blood cx are negative; follow up MRSA screen PCT is 14.26 prognosis is guarded at best
--- NOTE | 2019-01-01 13:52 | RAD ---
Date of service: 01/01/2019 HISTORY: Follow-up. COMPARISON: 2018. FINDINGS: LUNGS: Stable multifocal primarily right upper lobe infiltrates. PLEURA: No significant pleural effusion identified, no pneumothorax apparent. CARDIOVASCULAR: No atherosclerotic calcification present Cardiomegaly. No evidence of acute, significant cardiovascular disease. Venous access catheter in stable, satisfactory position. OSSEOUS STRUCTURES: No significant abnormalities. VISUALIZED UPPER ABDOMEN: Normal. OTHER FINDINGS: Stable and satisfactory position of endotracheal tube. IMPRESSION: Stable infiltrates. No interval change compared to the prior study.
[2019-01-01] MEDS ORDERED: Bupivacaine 0.5% 50 ML IJ ONE (13:56)
--- NOTE | 2019-01-01 13:57 | PCM.SURG1 ---
Surgeon's Initial Post Op Note - Surgeon's Notes Surgeon: Dr. Teran Senior Asset Manager: Rafa PGY2 Type of Anesthesia: General Endo, Local Anesthesia Administered By: Dr. Sutton Pre-Operative Diagnosis: Ventilator dependent respiratory failure Operative Findings: See operative report Post-Operative Diagnosis: Same Operation Performed: Open Tracheostomy. Size 8 Tracheostomy tube Specimen/Specimens Removed: none Estimated Blood Loss: EBL {In ML}: 5 Blood Products Given: N/A Drains Used: No Drains Post-Op Condition: Fair Date of Surgery/Procedure: 01/01/19 Time of Surgery/Procedure: 13:57
--- NOTE | 2019-01-01 14:34 | RAD ---
Date of service: 01/01/2019 HISTORY: post tracheostomy procedure COMPARISON: Portable chest 01/01/2019. FINDINGS: LUNGS: Trach tube replaces prior endotracheal tube with the tip terminating 4 cm above the angie. Left central venous line unchanged, terminating at superior vena cava junction with the brachiocephalic vein. Limited right perihilar infiltrate is again seen as well as interval lateral left basilar opacity. PLEURA: No significant pleural effusion identified, no pneumothorax apparent. CARDIOVASCULAR: No aortic atherosclerotic calcification present. Mild cardiomegaly unchanged. No pulmonary vascular congestion. OSSEOUS STRUCTURES: No significant abnormalities. VISUALIZED UPPER ABDOMEN: Normal. OTHER FINDINGS: None. IMPRESSION: Stable limited right perihilar infiltrate with interval lateral left basilar patchy airspace disease suspected. Tracheostomy placement in good apparent position with left central venous line unchanged in position. No pulmonary vascular congestion.
--- NOTE | 2019-01-01 16:22 | PN ---
DATE: 01/01/2019 REASON FOR CONSULTATION AND FOLLOWUP: Status post code blue, respiratory failure, bradycardia, intubated. The patient yesterday successfully extubated; reintubated yesterday who found to be apneic. Possible tracheostomy today. SUBJECTIVE: The patient is awake and alert, history of being intubated. Denies any chest pain, shortness of breath, or any palpitation. Wanted me to talk to his . OBJECTIVE: As follows; GENERAL: Not in apparent distress; awake and alert. VITAL SIGNS: Temperature afebrile, heart rate 66, and blood pressure 123/65. HEENT: PERRLA. Extraocular muscles intact. NECK: Supple. No carotid bruits or thyromegaly. CHEST: Clear to auscultation. HEART: S1 and S2 regular. ABDOMEN: Soft. EXTREMITIES: Clubbing and cyanosis negative. LABORATORY DATA: Blood workup as follows; WBC 7.8, hemoglobin 10.8, hematocrit 34.6, and platelet count 181. Chemistry shows sodium 140, potassium 4.3, chloride 115, carbon dioxide 24, anion gap of 12, BUN 15 and creatinine 2.8. Total CPK 4096, MB fraction is 0.2, and troponin 0.23. IMPRESSION: A 73-year-old male, admitted with altered mental status, possible pneumonia, diabetes, hypertension, hyperlipidemia, and obesity, came to the emergency room on 12/23/2018 with altered mental status. While the patient was in telemetry, had apneic episode, decreased heart rate of 32, intubated and moved to ICU. The patient successfully extubated when the patient was in ICU, bed 5, he again become apneic intubated. The patient was difficult intubation, decision made for tracheostomy. The patient has last MUGA scan shows ejection fraction 52%. The patient had an echocardiography done yesterday that revealed ejection fraction 55%, trace aortic regurgitation, trace mild to moderate regurgitation, right ventricular systolic pressure 38. Though patient had troponin borderline, but total CPK is elevated and MB is 0.2. No evidence of acute myocardial infarction because of the rhabdomyolysis. RECOMMENDATIONS: I agree with sheet rock applicator, Dr. Santiago's recommendations. The patient needs tracheostomy. Continue IV fluid to prevent rhabdomyolysis and kidney injury. Acute kidney injury secondary to rhabdomyolysis. Once the patient stabilizes, tracheostomy done, consider cardiac catheterization to rule out any coronary ischemia versus . Discussed with the patient's , called on telephone number [phone] and explained the patient's condition, prognosis, and the plan. Also discussed with the patient's son who is in the hallway in the ICU. The patient is cleared to go for tracheostomy. We will put in a physician and nurse communication , the patient is cleared to go for tracheostomy with moderate risk. No evidence of acute AR. No absolute contraindication for tracheostomy from cardiology point of view. Magdalena Rajan MD
--- NOTE | 2019-01-01 16:37 | PN ---
DATE: 01/01/2019 SUBJECTIVE: The patient is awake, alert, remains on a ventilator. PHYSICAL EXAMINATION: VITAL SIGNS: Blood pressure is 123/65, heart rate is stable. NECK: Negative JVD. LUNGS: Decreased breath sounds. HEART: Reveals S1 and S2. EXTREMITIES: Without edema. LABORATORY DATA: Hemoglobin 10.8, BUN and creatinine are 53 and 2.8. IMPRESSION: 1. Respiratory failure. 2. Renal insufficiency. 3. Elevated troponins. 4. Good left ventricular function on echo. Given these findings, the patient is for tracheostomy today. Chase Baez MD
[2019-01-01] MEDS: Sodium Chloride 0.45% 1,000 ML IV SCH (17:01)
[2019-01-01 17:13] LABS: CREATININE,RANDOM URINE 99 mg/dL
[2019-01-01 17:22] LABS: PH,URINE 5.5 (4.7-8.0); URINE BILIRUBIN NEGATIVE (NEGATIVE); URINE BLOOD MODERATE (NEGATIVE); URINE GLUCOSE (UA) 100 mg/dL (NEGATIVE); URINE LEUKOCYTE ESTERASE NEGATIVE Leu/uL (NEGATIVE); URINE PROTEIN TRACE mg/dL (<30 mg/dL); URINE UROBILINOGEN 0.2 E.U./dL (<1 E.U./dL)
[2019-01-01 17:30] LABS: URINE APPEARANCE SLIGHT-CLOUDY (CLEAR); URINE COLOR YELLOW (YELLOW)
[2019-01-01 17:40] LABS: URINE RBC 20 - 25 /hpf (0-2)
[2019-01-01 17:43] LABS: URINE URIC ACID CRYSTALS MOD /hpf
--- NOTE | 2019-01-01 21:23 | PN ---
DATE: 01/01/2019 FOLLOWUP NOTE SUBJECTIVE: The patient was seen today in ICU. The patient was transferred status post septic shock and aspiration pneumonia, status post cardiac arrest. The patient is status post code blue on 12/28/2018, acute renal failure, CVA, dyslipidemia, arthritis, moderately obese, history of transient ischemic attack. Initially, this literary writer was involved into the patient care for periods of restlessness which could be related to delirium. This literary writer suggested Seroquel which helped the patient in the past 12.5 mg at the nighttime. Now, the patient is on propofol. The patient was seen today. The patient is intubated and at present moment, the patient is waiting for a tracheostomy. Collateral information was obtained from the patient's daughter, Horace, which is next to the patient. The patient's is also next to the patient as per family. The patient is able to write his request. Earlier, his face was to be worse and at present moment, the patient presented much calmer. In regards of the patient's episodes of confusion last night, it was rough. The patient was restless, but at present moment, the patient is under care of intensive care unit and will rely on day's suggestion and medication management. No option to have meaningful conversation because of the patient's condition. PHYSICAL EXAMINATION: VITAL SIGNS: Reviewed. MEDICATIONS: Reviewed. LABORATORY DATA: Labs reviewed. Microbiology reviewed. MENTAL STATUS EXAMINATION: The patient presented to be calm. The patient was writing his request on the piece of paper because the patient is intubated. IMPRESSION: Most likely, the patient is in delirium stage which is slowly improving. PLAN: Continue current management. Continue current medication. Seroquel could be helpful in case of restlessness and agitated behavior. Discussed with the patient's family. Family agreed with that. Risks, benefits and alternatives were discussed. So far, there are no acute psychiatric issues going on. Please re-consult as needed. Should you have any questions, give me a call back Brittany Bowling MD
--- NOTE | 2019-01-01 22:50 | CON ---
DATE: 01/01/[address] patient [address] for Dr. Diego Teran. REFERRING PHYSICIAN: Diego Teran MD REASON FOR CONSULTATION: Evaluation of the patient unknown to me who presents with worsening renal parameters in the setting of rhabdomyolysis, cardiac arrest, chest compression, and a CVA. HISTORY OF PRESENT ILLNESS The patient is a 73-year-old white male with a history of obstructive sleep apnea, who did not use CPAP therapy at home, history of hypertension, history of NIDDM, history of a reversible ischemic neurological deficit/mild CVA back in 2017. History of hyperlipidemia. History of anemia. History of mild aortic insufficiency, mitral regurgitation with a normal ejection fraction with LVH. The patient presented to the hospital one week ago with an apparent acute CVA. He was mildly aphasic. The patient remained stable for the first several days of his hospitalization. His BUN and creatinine were normal on admission to the hospital. The patient 48 hours ago underwent an apneic episode on the medical floor after he refused to use his BiPAP therapy. He had a full cardiac arrest with chest compressions. He was brought down to the ICU. The patient currently had a trach placed today. Apparently, the patient has a very difficult intubation because of his body size and short neck. The patient is also noted to have an elevated CPK level. His BUN and creatinine have been rising over the last several days. His BUN presently is up to 53 from a value of less than 20 on 12/29/2018. His creatinine is up to 2.8 from a value of 0.8 on 12/28/2018. The patient is currently seen by me together with his and his family. He has just returned from a tracheostomy. The patient is continuing to make urine. He has a rising BUN and creatinine with an elevated CPK. The patient is not receiving any nephrotoxic agents. He has not had any contrast or dye studies. We are asked to evaluate the patient for his worsening renal parameters. PAST MEDICAL HISTORY: Significant for ANDREW, not compliant with CPAP therapy; hypertension; NIDDM; history of a reversible ischemic neurological deficit/CVA, 2016; history of hyperlipidemia; history of anemia; history of aortic insufficiency, mitral regurgitation; history of obesity. PAST SURGICAL HISTORY: The patient has had multiple orthopedic surgeries. MEDICATIONS AT HOME: Include that of Keppra, Xyzal, Plavix, Neurontin, Seroquel, Glucophage, losartan, Glucotrol, vitamin D, Celebrex, Coreg, Lipitor, aspirin, and Tylenol p.r.n. ALLERGIES: NO KNOWN ALLERGIES TO MEDICATIONS. CURRENT MEDICATIONS IN HOSPITAL: Include that of Diprivan, Lactated Ringer's during the time of the tracheostomy, no Levophed was used. Lopressor is on hold. The patient remains on meropenem, Protonix, and Solu-Medrol. SOCIAL HISTORY: No history of cigarette smoking. No history of alcohol use. FAMILY HISTORY: Mother of complications of a CVA. Father of esophageal cancer. REVIEW OF SYSTEMS: Unobtainable from the patient, but his was contributing some information. GENERAL: Apparently no weight loss. Appetite had been good until one week ago. ENT: Denies any hearing or visual problems. PULMONARY: Positive shortness of breath with dyspnea on exertion, likely secondary to deconditioning and obesity. CARDIAC: No known history of coronary artery disease. History of LVH with aortic insufficiency/mitral regurgitation. Ejection fraction as noted above is 55%. GI: No nausea, vomiting, diarrhea, abdominal pain, constipation. : No past history of chronic kidney disease. No history of BPH for UTIs. ENDO: History of NIDDM with no apparent complications. MUSCULOSKELETAL: History of multiple orthopedic surgeries with intermittent joint pain. NEURO: Past history of RIND/CVA. HEME/ONC: History of anemia. No history of malignancy. PSYCHIATRIC: Psychiatric history is negative. PHYSICAL EXAMINATION: GENERAL: The patient is currently seen in ICU bed 5. He is seen together with his . The patient is currently nonspeaking as he has just come back from having a tracheostomy and he is on Diprivan. The patient's eyes are closed. VITAL SIGNS: Present blood pressure is 123/65, temperature is 99.5, respiratory rate is 20. Oxygen saturation is 97%. Pulse is 68 beats per minute. HEENT: Eyes are closed. Face is puffy. NECK: Positive tracheostomy. No visible neck vein distention. CHEST: Decreased breath sounds at the bases. Scattered rhonchi. No rales or wheezing. CARDIOVASCULAR: Shows a regular rate and rhythm without audible murmurs. Positive AI/MR. No S3, no S4, no rub. ABDOMEN: Moderately obese. Bowel sounds normal. No rebound, guarding, or masses. BACK: No CVAT. No spinal tenderness. No pitting sacral edema. EXTREMITIES: No lower extremity cyanosis, clubbing, or edema with diminished lower extremity pulses at 1+ bilaterally. NEUROLOGIC: Difficult to assess as the patient is sedated on Diprivan. LABORATORY DATA AND IMAGING: Recent lower extremity studies showed no evidence for DVT. Admitting chest x-ray only showed mild pulmonary vascular congestion which was unchanged throughout the hospitalization. No renal ultrasound was done. Labs: CBC, white blood cell count 7.9, hemoglobin 10.8 with a platelet count of 181,000. Coags, PTT of 56.1 with a PT of 44.1. Blood gas from today, 7.36 with a pCO2 of 38 and a pO2 of 109. Chemistries otherwise showed a glucose of 290, repeat 251. BUN is up to 53 with a creatinine of 2.8. Again, his baseline BUN is less than 20 with a baseline creatinine of less than 1. Mild elevation of his liver enzymes. Magnesium level is 2.4. Calcium, phosphorus level was normal. Albumin level is low at 3.1. No urines were obtained. Microbiology, all cultures are negative at 72 and 48 hours. Urine cultures are negative. ASSESSMENT: 1. Acute renal failure in a patient with no past history of chronic kidney disease. This is in the setting of the patient having sustained an acute cerebrovascular accident and status post cardiac arrest, likely with renal hypoperfusion and likely acute tubular necrosis. I will obtain a urine sodium, urine creatinine, urine Gordon stain, renal ultrasound. Of note, the patient also has an elevated CPK post chest compressions for cardiac arrest. He might have a small component of acute rhabdomyolysis. Ideally, we will give the patient a small amount of IV fluid hydration in light of his acute rhabdomyolysis, but monitor closely for fluid retention edema and worsening chest x-rays. Renal ultrasound to be ordered. 2. History of respiratory failure. The patient is now status post a trach. This will facilitate intubation as the patient had been re-intubated twice since the cardiac arrest. Apparently, he has a difficult intubation secondary to his obesity and short neck. The patient is being followed by Pulmonary, possible pneumonia. He is on IV antibiotic therapy. He had fevers in last 24 hours. 3. History of hypertension. Blood pressure is currently controlled and the patient remains off blood pressure medication. He is off losartan, needless to say. 4. History of cerebrovascular accident. The patient being followed by Neurology. He had been on anticoagulation. 5. History of hyperlipidemia. The patient had been on a low-fat, low-cholesterol diet in the outpatient setting. 6. History of anemia. Hemoglobin is stable in the 10-11 range. 7. History of left ventricular hypertrophy with aortic insufficiency/mitral regurgitation, ejection fraction 55%, stable. 8. Mild acute rhabdomyolysis status post cardiac arrest with chest compression. 9. Status post apnea secondary to the patient's refusal to use BiPAP mask on the floor, resulting in a cardiac/respiratory arrest. PLAN: 1. As noted above. We will obtain a urinalysis, urine electrolytes, urine Gordon stain. 2. Obtain a renal ultrasound to see that the patient has two normal-size kidneys, rule out obstructive uropathy which is unlikely. 3. Obtain a uric acid level in light of his acute rhabdomyolysis. 4. Continue to monitor magnesium and phosphorus levels. 5. No reason to alkalinize his urine at this point in time. 6. Cautious IV fluid hydration to be started. 7. Avoid all nephrotoxic agents. 8. Hoping to see plateauing of his BUN and creatinine in the next 24 to 48 hours. 9. Monitor accurate I's and O's. 10. Continue to monitor the patient closely in an ICU setting. Discussed with Respiratory Therapy, discussed with his medical biller, discussed with his ICU nurse, and discussed with his . Greater than 35 minutes spent in the care of this critically ill patient. Brian Castellon MD
[2019-01-02] MEDS: Propofol 10 mg/ml 1,000 MG/100 ML VIAL IV PRN (02:13)
[2019-01-02 06:05] LABS: BASO # 0.01 K/mm3 (0.0-2.0); BASO % 0.1 % (0.0-3.0); HEMOGLOBIN 11.8 g/dL (14.0-18.0); MEAN CELL VOLUME 92.9 fl (80.0-105.0); MEAN CORPUSCULAR HEMOGLOBIN 28.9 pg (25.0-35.0); MEAN CORPUSCULAR HGB CONC 31.1 g/dl (31.0-37.0); MEAN PLATELET VOLUME 10.7 fl (7.0-11.0); MONO # 0.4 (0.1-0.6); MONO % 3.7 % (1.0-6.0); RBC 4.09 10^6/uL (3.5-6.1); RED CELL DISTRIBUTION WIDTH 14.5 % (11.5-14.5); WHITE BLOOD COUNT 10.3 10^3/uL (4.5-11.0)
[2019-01-02 06:39] LABS: ARTERIAL BLOOD GAS HCO3 19.1 mmol/L (21-28); ARTERIAL BLOOD GAS HEMOGLOBIN 17.6 g/dL (11.7-17.4); ARTERIAL BLOOD GAS O2 CAPACITY 24.8 mL/dl (16-24); ARTERIAL BLOOD GAS O2 SAT 96.9 % (95-98); ARTERIAL BLOOD GAS PCO2 37 mm/Hg (35-45); ARTERIAL BLOOD GAS PH 7.32 (7.35-7.45); ARTERIAL BLOOD GAS TCO2 20.2 mmol.L (22-28)
[2019-01-02 06:55] LABS: ALBUMIN 3.3 g/dL (3.0-4.8); CALCIUM 9.2 mg/dL (8.4-10.5)
[2019-01-02] MEDS: Sodium Chloride 0.45% 1,000 ML IV SCH (07:00)
[2019-01-02] MEDS: Albuterol-Ipratrop 3 mg / 0.5 (3 ml) UD IH SCH ×3 (07:23→20:50)
[2019-01-02 07:26] LABS: CK-MB 1.5 ng/mL (0.0-3.6); TROPONIN I 0.54 ng/mL
[2019-01-02] MEDS: Insulin Lispro (humaLOG) LOW Coverage SC SCH ×4 (07:45→22:52)
[2019-01-02] MEDS: MethylPREDNISolone 40 mg Vial IVP SCH ×2 (09:08→21:06)
[2019-01-02] MEDS: MEROPENEM 500 MG in NS 500 MG/50 ML BAG IVPB SCH ×2 (09:32→21:07)
--- NOTE | 2019-01-02 09:48 | PN ---
DATE: 01/02/2019 SUBJECTIVE: The patient tolerated tracheostomy. He is awake, alert without distress. The patient is complaining of hunger. OBJECTIVE: VITAL SIGNS: Blood pressure is 167 systolic. Heart rate is okay. NECK: Negative JVD. LUNGS: Without rales. HEART: S1, S2. EXTREMITIES: Without edema. LABORATORY DATA: Hemoglobin is 10.8, glucose 322, the troponin is 0.54 with a creatinine of 2.8. IMPRESSION: 1. Respiratory failure. 2. A non-ST elevation myocardial infarction. 3. Renal insufficiency. 4. Good left ventricular function on echocardiogram. Given these findings, we will begin discussion with the patient about possibility of catheterization once his respiratory status is stabilized. Chase Baez MD
--- NOTE | 2019-01-02 10:27 | RAD ---
Date of service: 01/02/2019 HISTORY: follow up COMPARISON: 01/01/2019 FINDINGS: LUNGS: No active pulmonary disease. PLEURA: No significant pleural effusion identified, no pneumothorax apparent. CARDIOVASCULAR: No aortic atherosclerotic calcification present. Moderate cardiomegaly no pulmonary vascular congestion. OSSEOUS STRUCTURES: No significant abnormalities. VISUALIZED UPPER ABDOMEN: Normal. OTHER FINDINGS: Left-sided central line. Endotracheal tube in satisfactory position IMPRESSION: No active disease.
--- NOTE | 2019-01-02 12:24 | CP.CCUPN ---
<Steffen Silva - Last Filed: 01/02/19 12:06> CCU Subjective - Physician Review Subjective (Free Text): ICU Progress Note for Dr. Santiago Patient was seen and examined at bedside. No acute overnight events. Patient tolerated tracheostomy procedure well. Patient denies CP, SOB, n/v/d, abdominal pain, fever, chills, LEIJA, or dizziness. CCU Objective - Vital Signs / Intake & Output Vital Signs (Last 4 hours): Vital Signs Pulse BP 01/02/19 11:00 68 147/75 01/02/19 09:48 64 Intake and Output (Last 8hrs): Intake & Output 01/01/19 01/02/19 01/02/19 22:59 06:59 14:59 Intake Total 400 920 Output Total 675 Balance -275 920 Weight 116.664 kg Intake: IV 400 920 Left Hand 100 Left Internal Jugular 300 720 Oral 0 Output: Urine 675 2-way Urethral 675 Other: # Bowel Movements 0 - Physical Exam Head: Positive for: Atraumatic, Normocephalic Pupils: Positive for: PERRL Extroacular Muscles: Positive for: EOMI Conjunctiva: Positive for: Normal Ears: Positive for: Normal Mouth: Positive for: Moist Mucous Membranes Pharnyx: Positive for: Normal. Negative for: ERYTHEMA, EXUDATE Neck: Positive for: Normal Range of Motion. Negative for: Meningeal Signs, MIDLINE TENDERNESS Respiratory/Chest: Positive for: Rales, Other (tracheostomy in place, no signs of bleeding, discharge, erythema.). Negative for: Respiratory Distress, Accessory Muscle Use, Wheezes, Rhonchi, Tachypneic Cardiovascular: Positive for: Regular Rate and Rhythm, Normal S1, S2. Negative for: Murmurs Abdomen: Positive for: Normal Bowel Sounds. Negative for: Tenderness, Distention, Peritoneal Signs Back: Positive for: Normal Inspection. Negative for: CVA Tenderness, Midline Tenderness Upper Extremity: Positive for: Normal Inspection, Normal ROM, NORMAL PULSES, Neurovascularly Intact. Negative for: Cyanosis, Edema Lower Extremity: Positive for: Normal Inspection, NORMAL PULSES, Normal ROM, Neurovascularly Intact. Negative for: Edema, Deformity Neurological: Positive for: GCS=15, CN II-XII Intact, Motor Func Grossly Intact, Normal Sensory Function, Normal Cerebellar Funct, Gait Normal, Memory Normal Skin: Positive for: Warm, Dry, Normal Color. Negative for: Rashes Psychiatric: Positive for: Alert - Medications Active Medications: Active Medications Generic Name Dose Route Start Last Admin Trade Name Freq PRN Reason Stop Dose Admin Albuterol/Ipratropium 3 ml 12/30/18 14:00 01/02/19 07:23 Duoneb 3 Mg/0.5 Mg (3 Ml) Ud IH 3 ml [id number] NARENDRA Administration Albuterol/Ipratropium 3 ml 12/31/18 05:17 Duoneb 3 Mg/0.5 Mg (3 Ml) Ud IH Q2H PRN Shortness of Breath Aspirin 81 mg 12/26/18 13:30 01/01/19 10:29 Ecotrin PO Not Given DAILY NARENDRA Clonidine HCl 1 patch 01/02/19 10:00 01/02/19 11:00 Catapres-Tts2 0.2 Mg/24 Hr TD 1 patch Q7D@1000 NARENDRA Administration Dextrose 0 ml 12/29/18 04:53 Dextrose 50% Inj IV STAT PRN Hypoglycemia Protocol Protocol Hydralazine HCl 10 mg 01/02/19 09:46 Apresoline IVP Q6 PRN For SBP>160 Meropenem/Sodium Chloride 500 mg in 50 mls @ 100 mls/hr 12/29/18 22:00 01/02/19 09:32 Merrem Iv 500 Mg/Ns 50 Ml IVPB 01/07/19 22:01 100 mls/hr Q12 NARENDRA Administration Protocol Propofol 1,000 mg in 100 mls @ 3.44 mls/hr 12/31/18 13:11 01/02/19 02:13 Diprivan IV 10 mcg/kg/min .Q24H PRN 6.88 mls/hr TITRATE PER MD ORDER Administration Protocol 5 MCG/KG/MIN Sodium Chloride 1,000 mls @ 60 mls/hr 01/01/19 14:00 01/02/19 07:00 Sodium Chloride 0.45% IV 60 mls/hr .[id number] NARENDRA Administration Insulin Human Lispro 0 units 12/29/18 07:30 01/02/19 07:45 Humalog Low SC 4 units ACHS NARENDRA Administration Protocol Methylprednisolone 20 mg 12/31/18 10:00 01/02/19 09:08 Solu-Medrol IVP 20 mg Q12 NARENDRA Administration Metoprolol Tartrate 5 mg 12/27/18 20:39 12/28/18 05:28 Lopressor IVP 5 mg Q6 PRN Administration if sbp >150 Pantoprazole Sodium 40 mg 12/29/18 10:00 01/02/19 09:08 Protonix Inj IVP 40 mg DAILY NARENDRA Administration Quetiapine Fumarate 12.5 mg 01/01/19 15:50 Seroquel PO HS PRN Agitation Protocol - Patient Studies Lab Studies: Microbiology Studies 12/29/18 09:05 Blood Culture - Preliminary Blood NO GROWTH AFTER 4 DAYS 12/29/18 20:54 Blood Culture - Preliminary Blood NO GROWTH AFTER 3 DAYS 12/29/18 20:24 Blood Culture - Preliminary Blood NO GROWTH AFTER 3 DAYS 12/30/18 07:30 Gram Stain - Final Sputum Sputum Culture - Final No growth. Lab Studies 01/02/19 01/02/19 01/02/19 Range/Units 07:36 05:25 05:25 WBC 10.3 D (4.5-11.0) 10^3/uL RBC 4.09 (3.5-6.1) 10^6/uL Hgb 11.8 L (14.0-18.0) g/dL Hct 38.0 L (42.0-52.0) % MCV 92.9 (80.0-105.0) fl MCH 28.9 (25.0-35.0) pg MCHC 31.1 (31.0-37.0) g/dl RDW 14.5 (11.5-14.5) % Plt Count 191 (120.0-450.0) 10^3/uL MPV 10.7 (7.0-11.0) fl Neut % (Auto) 86.2 H (50.0-68.0) % Lymph % (Auto) 10.0 L (22.0-35.0) % [place] % (Auto) 3.7 (1.0-6.0) % Eos % (Auto) 0.0 L (1.5-5.0) % Baso % (Auto) 0.1 (0.0-3.0) % Lymph # (Auto) 1.0 L (1.2-3.4) [place] # (Auto) 0.4 (0.1-0.6) Eos # (Auto) 0.0 (0.0-0.7) Baso # (Auto) 0.01 (0.0-2.0) K/mm3 Absolute Neuts (auto) 8.90 H (1.4-6.5) pCO2 (35-45) mm/Hg pO2 (80-100) mm/Hg HCO3 (21-28) mmol/L ABG pH (7.35-7.45) ABG Total CO2 (22-28) mmol.L ABG O2 Saturation (95-98) % ABG O2 Content (15-23) ML/dl ABG Base Excess (-2.0-3.0) mmol/L ABG Hemoglobin (11.7-17.4) g/dL ABG Carboxyhemoglobin (0.5-1.5) % POC ABG HHb (Measured) (0-5) % ABG Methemoglobin (0.0-3.0) % ABG O2 Capacity (16-24) mL/dl Hgb O2 Saturation (95.0-98.0) % FiO2 % Sodium 146 (132-148) mmol/L Potassium 4.3 (3.6-5.0) mmol/L Chloride 117 H (98-107) mmol/L Carbon Dioxide 23 (21-33) mmol/L Anion Gap 11 (10-20) BUN 69 H (7-21) mg/dL Creatinine 2.8 H (0.8-1.5) mg/dl Est GFR ( Amer) 27 Est GFR (Non-Af Amer) 22 POC Glucose (mg/dL) 300 H (65-110) mg/dL Random Glucose 322 H* (70-110) mg/dL Uric Acid 12.0 H (3.5-8.5) mg/dL Calcium 9.2 (8.4-10.5) mg/dL Phosphorus 4.3 (2.5-4.5) mg/dL Magnesium 2.6 H (1.7-2.2) mg/dL Total Bilirubin 0.7 (0.2-1.3) mg/dL AST 47 (17-59) U/L ALT 75 H (7-56) U/L Alkaline Phosphatase 105 (38-126) U/L Lactate Dehydrogenase 788 H (333-699) U/L Total Creatine Kinase 491 H (35-230) U/L CK-MB (CK-2) 1.5 (0.0-3.6) ng/mL CK-MB (CK-2) % Cancelled Troponin I 0.54 H* D ng/mL Total Protein 6.6 (5.8-8.3) g/dL Albumin 3.3 (3.0-4.8) g/dL Globulin 3.3 gm/dL Albumin/Globulin Ratio 1.0 L (1.1-1.8) Urine Color (YELLOW) Urine Appearance (CLEAR) Urine pH (4.7-8.0) Ur Specific [place] (1.005-1.035) Urine Protein (<30 mg/dL) mg/dL Urine Glucose (UA) (NEGATIVE) mg/dL Urine Ketones (NEGATIVE) mg/dL Urine Blood (NEGATIVE) Urine Nitrate (NEGATIVE) Urine Bilirubin (NEGATIVE) Urine Urobilinogen (<1 E.U./dL) E.U./dL Ur Leukocyte Esterase (NEGATIVE) Celena/uL Urine RBC (0-2) /hpf Urine WBC (0-6) /hpf Ur Epithelial Cells (0-5) /hpf Uric Acid Crystals (NONE) /hpf Urine Eosinophils Ur Random Creatinine mg/dL Ur Random Sodium meq/L 01/02/19 01/01/19 01/01/19 Range/Units 05:00 21:59 16:50 WBC (4.5-11.0) 10^3/uL RBC (3.5-6.1) 10^6/uL Hgb (14.0-18.0) g/dL Hct (42.0-52.0) % MCV (80.0-105.0) fl MCH (25.0-35.0) pg MCHC (31.0-37.0) g/dl RDW (11.5-14.5) % Plt Count (120.0-450.0) 10^3/uL MPV (7.0-11.0) fl Neut % (Auto) (50.0-68.0) % Lymph % (Auto) (22.0-35.0) % [place] % (Auto) (1.0-6.0) % Eos % (Auto) (1.5-5.0) % Baso % (Auto) (0.0-3.0) % Lymph # (Auto) (1.2-3.4) [place] # (Auto) (0.1-0.6) Eos # (Auto) (0.0-0.7) Baso # (Auto) (0.0-2.0) K/mm3 Absolute Neuts (auto) (1.4-6.5) pCO2 37 (35-45) mm/Hg pO2 114.0 H (80-100) mm/Hg HCO3 19.1 L (21-28) mmol/L ABG pH 7.32 L (7.35-7.45) ABG Total CO2 20.2 L (22-28) mmol.L ABG O2 Saturation 96.9 (95-98) % ABG O2 Content 24.0 H (15-23) ML/dl ABG Base Excess -6.3 L (-2.0-3.0) mmol/L ABG Hemoglobin 17.6 H (11.7-17.4) g/dL ABG Carboxyhemoglobin 0 L (0.5-1.5) % POC ABG HHb (Measured) 3.1 (0-5) % ABG Methemoglobin 0.2 (0.0-3.0) % ABG O2 Capacity 24.8 H (16-24) mL/dl Hgb O2 Saturation 96.6 (95.0-98.0) % FiO2 60.0 % Sodium (132-148) mmol/L Potassium (3.6-5.0) mmol/L Chloride (98-107) mmol/L Carbon Dioxide (21-33) mmol/L Anion Gap (10-20) BUN (7-21) mg/dL Creatinine (0.8-1.5) mg/dl Est GFR ( Amer) Est GFR (Non-Af Amer) POC Glucose (mg/dL) 295 H (65-110) mg/dL Random Glucose (70-110) mg/dL Uric Acid (3.5-8.5) mg/dL Calcium (8.4-10.5) mg/dL Phosphorus (2.5-4.5) mg/dL Magnesium (1.7-2.2) mg/dL Total Bilirubin (0.2-1.3) mg/dL AST (17-59) U/L ALT (7-56) U/L Alkaline Phosphatase (38-126) U/L Lactate Dehydrogenase (333-699) U/L Total Creatine Kinase (35-230) U/L CK-MB (CK-2) (0.0-3.6) ng/mL CK-MB (CK-2) % Troponin I ng/mL Total Protein (5.8-8.3) g/dL Albumin (3.0-4.8) g/dL Globulin gm/dL Albumin/Globulin Ratio (1.1-1.8) Urine Color (YELLOW) Urine Appearance (CLEAR) Urine pH (4.7-8.0) Ur Specific [place] (1.005-1.035) Urine Protein (<30 mg/dL) mg/dL Urine Glucose (UA) (NEGATIVE) mg/dL Urine Ketones (NEGATIVE) mg/dL Urine Blood (NEGATIVE) Urine Nitrate (NEGATIVE) Urine Bilirubin (NEGATIVE) Urine Urobilinogen (<1 E.U./dL) E.U./dL Ur Leukocyte Esterase (NEGATIVE) Celena/uL Urine RBC (0-2) /hpf Urine WBC (0-6) /hpf Ur Epithelial Cells (0-5) /hpf Uric Acid Crystals (NONE) /hpf Urine Eosinophils Negative Ur Random Creatinine mg/dL Ur Random Sodium meq/L 01/01/19 01/01/19 01/01/19 Range/Units 16:34 16:30 16:30 WBC (4.5-11.0) 10^3/uL RBC (3.5-6.1) 10^6/uL Hgb (14.0-18.0) g/dL Hct (42.0-52.0) % MCV (80.0-105.0) fl MCH (25.0-35.0) pg MCHC (31.0-37.0) g/dl RDW (11.5-14.5) % Plt Count (120.0-450.0) 10^3/uL MPV (7.0-11.0) fl Neut % (Auto) (50.0-68.0) % Lymph % (Auto) (22.0-35.0) % [place] % (Auto) (1.0-6.0) % Eos % (Auto) (1.5-5.0) % Baso % (Auto) (0.0-3.0) % Lymph # (Auto) (1.2-3.4) [place] # (Auto) (0.1-0.6) Eos # (Auto) (0.0-0.7) Baso # (Auto) (0.0-2.0) K/mm3 Absolute Neuts (auto) (1.4-6.5) pCO2 (35-45) mm/Hg pO2 (80-100) mm/Hg HCO3 (21-28) mmol/L ABG pH (7.35-7.45) ABG Total CO2 (22-28) mmol.L ABG O2 Saturation (95-98) % ABG O2 Content (15-23) ML/dl ABG Base Excess (-2.0-3.0) mmol/L ABG Hemoglobin (11.7-17.4) g/dL ABG Carboxyhemoglobin (0.5-1.5) % POC ABG HHb (Measured) (0-5) % ABG Methemoglobin (0.0-3.0) % ABG O2 Capacity (16-24) mL/dl Hgb O2 Saturation (95.0-98.0) % FiO2 % Sodium (132-148) mmol/L Potassium (3.6-5.0) mmol/L Chloride (98-107) mmol/L Carbon Dioxide (21-33) mmol/L Anion Gap (10-20) BUN (7-21) mg/dL Creatinine (0.8-1.5) mg/dl Est GFR ( Amer) Est GFR (Non-Af Amer) POC Glucose (mg/dL) 295 H (65-110) mg/dL Random Glucose (70-110) mg/dL Uric Acid (3.5-8.5) mg/dL Calcium (8.4-10.5) mg/dL Phosphorus (2.5-4.5) mg/dL Magnesium (1.7-2.2) mg/dL Total Bilirubin (0.2-1.3) mg/dL AST (17-59) U/L ALT (7-56) U/L Alkaline Phosphatase (38-126) U/L Lactate Dehydrogenase (333-699) U/L Total Creatine Kinase (35-230) U/L CK-MB (CK-2) (0.0-3.6) ng/mL CK-MB (CK-2) % Troponin I ng/mL Total Protein (5.8-8.3) g/dL Albumin (3.0-4.8) g/dL Globulin gm/dL Albumin/Globulin Ratio (1.1-1.8) Urine Color Yellow (YELLOW) Urine Appearance Slight-cloudy (CLEAR) Urine pH 5.5 (4.7-8.0) Ur Specific [place] 1.025 (1.005-1.035) Urine Protein Trace H (<30 mg/dL) mg/dL Urine Glucose (UA) 100 H (NEGATIVE) mg/dL Urine Ketones Negative (NEGATIVE) mg/dL Urine Blood Moderate H (NEGATIVE) Urine Nitrate Negative (NEGATIVE) Urine Bilirubin Negative (NEGATIVE) Urine Urobilinogen 0.2 (<1 E.U./dL) E.U./dL Ur Leukocyte Esterase Negative (NEGATIVE) Celena/uL Urine RBC 20 - 25 H (0-2) /hpf Urine WBC 2 - 5 (0-6) /hpf Ur Epithelial Cells 6 - 8 H (0-5) /hpf Uric Acid Crystals Mod (NONE) /hpf Urine Eosinophils Ur Random Creatinine 99 mg/dL Ur Random Sodium 41 meq/L 01/01/19 Range/Units 11:39 WBC (4.5-11.0) 10^3/uL RBC (3.5-6.1) 10^6/uL Hgb (14.0-18.0) g/dL Hct (42.0-52.0) % MCV (80.0-105.0) fl MCH (25.0-35.0) pg MCHC (31.0-37.0) g/dl RDW (11.5-14.5) % Plt Count (120.0-450.0) 10^3/uL MPV (7.0-11.0) fl Neut % (Auto) (50.0-68.0) % Lymph % (Auto) (22.0-35.0) % [place] % (Auto) (1.0-6.0) % Eos % (Auto) (1.5-5.0) % Baso % (Auto) (0.0-3.0) % Lymph # (Auto) (1.2-3.4) [place] # (Auto) (0.1-0.6) Eos # (Auto) (0.0-0.7) Baso # (Auto) (0.0-2.0) K/mm3 Absolute Neuts (auto) (1.4-6.5) pCO2 (35-45) mm/Hg pO2 (80-100) mm/Hg HCO3 (21-28) mmol/L ABG pH (7.35-7.45) ABG Total CO2 (22-28) mmol.L ABG O2 Saturation (95-98) % ABG O2 Content (15-23) ML/dl ABG Base Excess (-2.0-3.0) mmol/L ABG Hemoglobin (11.7-17.4) g/dL ABG Carboxyhemoglobin (0.5-1.5) % POC ABG HHb (Measured) (0-5) % ABG Methemoglobin (0.0-3.0) % ABG O2 Capacity (16-24) mL/dl Hgb O2 Saturation (95.0-98.0) % FiO2 % Sodium (132-148) mmol/L Potassium (3.6-5.0) mmol/L Chloride (98-107) mmol/L Carbon Dioxide (21-33) mmol/L Anion Gap (10-20) BUN (7-21) mg/dL Creatinine (0.8-1.5) mg/dl Est GFR ( Amer) Est GFR (Non-Af Amer) POC Glucose (mg/dL) 270 H (65-110) mg/dL Random Glucose (70-110) mg/dL Uric Acid (3.5-8.5) mg/dL Calcium (8.4-10.5) mg/dL Phosphorus (2.5-4.5) mg/dL Magnesium (1.7-2.2) mg/dL Total Bilirubin (0.2-1.3) mg/dL AST (17-59) U/L ALT (7-56) U/L Alkaline Phosphatase (38-126) U/L Lactate Dehydrogenase (333-699) U/L Total Creatine Kinase (35-230) U/L CK-MB (CK-2) (0.0-3.6) ng/mL CK-MB (CK-2) % Troponin I ng/mL Total Protein (5.8-8.3) g/dL Albumin (3.0-4.8) g/dL Globulin gm/dL Albumin/Globulin Ratio (1.1-1.8) Urine Color (YELLOW) Urine Appearance (CLEAR) Urine pH (4.7-8.0) Ur Specific [place] (1.005-1.035) Urine Protein (<30 mg/dL) mg/dL Urine Glucose (UA) (NEGATIVE) mg/dL Urine Ketones (NEGATIVE) mg/dL Urine Blood (NEGATIVE) Urine Nitrate (NEGATIVE) Urine Bilirubin (NEGATIVE) Urine Urobilinogen (<1 E.U./dL) E.U./dL Ur Leukocyte Esterase (NEGATIVE) Celena/uL Urine RBC (0-2) /hpf Urine WBC (0-6) /hpf Ur Epithelial Cells (0-5) /hpf Uric Acid Crystals (NONE) /hpf Urine Eosinophils Ur Random Creatinine mg/dL Ur Random Sodium meq/L Laboratory Results - last 24 hr 01/01/19 01/01/19 01/01/19 11:39 16:30 16:30 WBC RBC Hgb Hct MCV MCH MCHC RDW Plt Count MPV Neut % (Auto) Lymph % (Auto) [place] % (Auto) Eos % (Auto) Baso % (Auto) Lymph # (Auto) [place] # (Auto) Eos # (Auto) Baso # (Auto) Absolute Neuts (auto) pCO2 pO2 HCO3 ABG pH ABG Total CO2 ABG O2 Saturation ABG O2 Content ABG Base Excess ABG Hemoglobin ABG Carboxyhemoglobin POC ABG HHb (Measured) ABG Methemoglobin ABG O2 Capacity Hgb O2 Saturation FiO2 Sodium Potassium Chloride Carbon Dioxide Anion Gap BUN Creatinine Est GFR ( Amer) Est GFR (Non-Af Amer) POC Glucose (mg/dL) 270 H Random Glucose Uric Acid Calcium Phosphorus Magnesium Total Bilirubin AST ALT Alkaline Phosphatase Lactate Dehydrogenase Total Creatine Kinase CK-MB (CK-2) CK-MB (CK-2) % Troponin I Total Protein Albumin Globulin Albumin/Globulin Ratio Urine Color Yellow Urine Appearance Slight-cloudy Urine pH 5.5 Ur Specific [place] 1.025 Urine Protein Trace H Urine Glucose (UA) 100 H Urine Ketones Negative Urine Blood Moderate H Urine Nitrate Negative Urine Bilirubin Negative Urine Urobilinogen 0.2 Ur Leukocyte Esterase Negative Urine RBC 20 - 25 H Urine WBC 2 - 5 Ur Epithelial Cells 6 - 8 H Uric Acid Crystals Mod Urine Eosinophils Ur Random Creatinine 99 Ur Random Sodium 41 01/01/19 01/01/19 01/01/19 16:34 16:50 21:59 WBC RBC Hgb Hct MCV MCH MCHC RDW Plt Count MPV Neut % (Auto) Lymph % (Auto) [place] % (Auto) Eos % (Auto) Baso % (Auto) Lymph # (Auto) [place] # (Auto) Eos # (Auto) Baso # (Auto) Absolute Neuts (auto) pCO2 pO2 HCO3 ABG pH ABG Total CO2 ABG O2 Saturation ABG O2 Content ABG Base Excess ABG Hemoglobin ABG Carboxyhemoglobin POC ABG HHb (Measured) ABG Methemoglobin ABG O2 Capacity Hgb O2 Saturation FiO2 Sodium Potassium Chloride Carbon Dioxide Anion Gap BUN Creatinine Est GFR ( Amer) Est GFR (Non-Af Amer) POC Glucose (mg/dL) 295 H 295 H Random Glucose Uric Acid Calcium Phosphorus Magnesium Total Bilirubin AST ALT Alkaline Phosphatase Lactate Dehydrogenase Total Creatine Kinase CK-MB (CK-2) CK-MB (CK-2) % Troponin I Total Protein Albumin Globulin Albumin/Globulin Ratio Urine Color Urine Appearance Urine pH Ur Specific [place] Urine Protein Urine Glucose (UA) Urine Ketones Urine Blood Urine Nitrate Urine Bilirubin Urine Urobilinogen Ur Leukocyte Esterase Urine RBC Urine WBC Ur Epithelial Cells Uric Acid Crystals Urine Eosinophils Negative Ur Random Creatinine Ur Random Sodium 01/02/19 01/02/19 01/02/19 05:00 05:25 05:25 WBC 10.3 D RBC 4.09 Hgb 11.8 L Hct 38.0 L MCV 92.9 MCH 28.9 MCHC 31.1 RDW 14.5 Plt Count 191 MPV 10.7 Neut % (Auto) 86.2 H Lymph % (Auto) 10.0 L [place] % (Auto) 3.7 Eos % (Auto) 0.0 L Baso % (Auto) 0.1 Lymph # (Auto) 1.0 L [place] # (Auto) 0.4 Eos # (Auto) 0.0 Baso # (Auto) 0.01 Absolute Neuts (auto) 8.90 H pCO2 37 pO2 114.0 H HCO3 19.1 L ABG pH 7.32 L ABG Total CO2 20.2 L ABG O2 Saturation 96.9 ABG O2 Content 24.0 H ABG Base Excess -6.3 L ABG Hemoglobin 17.6 H ABG Carboxyhemoglobin 0 L POC ABG HHb (Measured) 3.1 ABG Methemoglobin 0.2 ABG O2 Capacity 24.8 H Hgb O2 Saturation 96.6 FiO2 60.0 Sodium 146 Potassium 4.3 Chloride 117 H Carbon Dioxide 23 Anion Gap 11 BUN 69 H Creatinine 2.8 H Est GFR ( Amer) 27 Est GFR (Non-Af Amer) 22 POC Glucose (mg/dL) Random Glucose 322 H* Uric Acid 12.0 H Calcium 9.2 Phosphorus 4.3 Magnesium 2.6 H Total Bilirubin 0.7 AST 47 ALT 75 H Alkaline Phosphatase 105 Lactate Dehydrogenase 788 H Total Creatine Kinase 491 H CK-MB (CK-2) 1.5 CK-MB (CK-2) % Cancelled Troponin I 0.54 H* D Total Protein 6.6 Albumin 3.3 Globulin 3.3 Albumin/Globulin Ratio 1.0 L Urine Color Urine Appearance Urine pH Ur Specific [place] Urine Protein Urine Glucose (UA) Urine Ketones Urine Blood Urine Nitrate Urine Bilirubin Urine Urobilinogen Ur Leukocyte Esterase Urine RBC Urine WBC Ur Epithelial Cells Uric Acid Crystals Urine Eosinophils Ur Random Creatinine Ur Random Sodium 01/02/19 07:36 WBC RBC Hgb Hct MCV MCH MCHC RDW Plt Count MPV Neut % (Auto) Lymph % (Auto) [place] % (Auto) Eos % (Auto) Baso % (Auto) Lymph # (Auto) [place] # (Auto) Eos # (Auto) Baso # (Auto) Absolute Neuts (auto) pCO2 pO2 HCO3 ABG pH ABG Total CO2 ABG O2 Saturation ABG O2 Content ABG Base Excess ABG Hemoglobin ABG Carboxyhemoglobin POC ABG HHb (Measured) ABG Methemoglobin ABG O2 Capacity Hgb O2 Saturation FiO2 Sodium Potassium Chloride Carbon Dioxide Anion Gap BUN Creatinine Est GFR ( Amer) Est GFR (Non-Af Amer) POC Glucose (mg/dL) 300 H Random Glucose Uric Acid Calcium Phosphorus Magnesium Total Bilirubin AST ALT Alkaline Phosphatase Lactate Dehydrogenase Total Creatine Kinase CK-MB (CK-2) CK-MB (CK-2) % Troponin I Total Protein Albumin Globulin Albumin/Globulin Ratio Urine Color Urine Appearance Urine pH Ur Specific [place] Urine Protein Urine Glucose (UA) Urine Ketones Urine Blood Urine Nitrate Urine Bilirubin Urine Urobilinogen Ur Leukocyte Esterase Urine RBC Urine WBC Ur Epithelial Cells Uric Acid Crystals Urine Eosinophils Ur Random Creatinine Ur Random Sodium Radiology Impressions: Radiology Impressions Chest X-Ray 01/01/19 07:00 IMPRESSION: Stable infiltrates. No interval change compared to the prior study. Chest X-Ray 01/01/19 13:28 IMPRESSION: Stable limited right perihilar infiltrate with interval lateral left basilar patchy airspace disease suspected. Tracheostomy placement in good apparent position with left central venous line unchanged in position. No pulmonary vascular congestion. Chest X-Ray 01/02/19 07:00 IMPRESSION: No active disease. Fingerstick Blood Sugar Results: 300 Critical Care Progress Note - Nutrition Nutrition: Nutrition Category Date Time Status NPO Diet [DIET] Diets 01/02/19 Lunch Ordered Assessment/Plan - Assessment and Plan (Free Text) Assessment: Patient is a 73 year old male with past medical history of CVA (2017), diabetes, arthritis, hypertension, and hyperlipidemia, who presented to the Emergency department with aphasia and altered mental status. Patient was code blue on 12/29 as patient went into respiratory arrest and PEA likely in the setting of obstructive sleep apnea. Patient was intubated and ROSC was achieved per ACLS protocol. Patient was extubated and placed on non-invasive ventilation. Patient failed non-invasive ventilation and again went into cardiorespiratory arrest last night. He was re-intubated and ROSC was achieved. Patient is POD#1 for tracheostomy placement. Plan: Neuro - Intubated, not sedated, currently responding to questioning - maintain normothermia - Cont ASA and Lipitor Cardio - s/p cardiac arrest x2 - Echo showed EF 55%, RSVP 38 - Troponin elevated likely 2/2 chest compressions - Off pressors - hold beta kyler and losartan - Cont Lipitor and ASA - Cardiology consulted - maintain MAP > 65 mm Hg Pulm - POD#1 tracheostomy - Pulmonary arrest likely in setting ANDREW, noncompliant with BIPAP - Possible aspiration PNA vs HCAP - CXR shows vascular congestion - Solumedrol 20 mg q12h - Duoneb narendra/prn - maintain SaO2 > 92% GI - Liver enzymes downtrending likely 2/2 to hypoperfusion in setting of cardiorespiratory arrest - Cont to trend LFT's - NPO - Protonix for GI PPx Renal - GONZALEZ, creatinine elevated; likely 2/2 hypoperfusion, possible ATN, rhabdomyolysis - 1/2NS 60 per hr - FeNa 0.8% - prerenal - Renal US negative - Strict Is and Os - Maintain euvolemia - Cont to monitor electrolytes and replete as needed - Nephro consulted Heme - Hgb stable - continue to monitor - SCD's for DVT PPx ID - Procal 14. - Cont Merrem (Day 5) per ID - blood and urine cultures negative - ID consulted Endo - maintain euglycemia - ISS, Accuchecks Patient seen and discussed in detail with Dr. Santiago. Dipesh Silva, DO PGY2 <Fuentes Santiago - Last Filed: 01/02/19 12:28> CCU Objective - Vital Signs / Intake & Output Vital Signs (Last 4 hours): Vital Signs Temp Pulse Resp BP Pulse Ox 01/02/19 12:00 98.2 F 69 17 96 01/02/19 11:00 68 147/75 01/02/19 09:48 64 Intake and Output (Last 8hrs): Intake & Output 01/01/19 01/02/19 01/02/19 22:59 06:59 14:59 Intake Total 400 920 Output Total 675 Balance -275 920 Weight 257 lb 3.2 oz Intake: IV 400 920 Left Hand 100 Left Internal Jugular 300 720 Oral 0 Output: Urine 675 2-way Urethral 675 Other: # Bowel Movements 0 - Medications Active Medications: Active Medications Generic Name Dose Route Start Last Admin Trade Name Freq PRN Reason Stop Dose Admin Albuterol/Ipratropium 3 ml 12/30/18 14:00 01/02/19 07:23 Duoneb 3 Mg/0.5 Mg (3 Ml) Ud IH 3 ml [id number] NARENDRA Administration Albuterol/Ipratropium 3 ml 12/31/18 05:17 Duoneb 3 Mg/0.5 Mg (3 Ml) Ud IH Q2H PRN Shortness of Breath Aspirin 81 mg 12/26/18 13:30 01/01/19 10:29 Ecotrin PO Not Given DAILY NARENDRA Clonidine HCl 1 patch 01/02/19 10:00 01/02/19 11:00 Catapres-Tts2 0.2 Mg/24 Hr TD 1 patch Q7D@1000 NARENDRA Administration Dextrose 0 ml 12/29/18 04:53 Dextrose 50% Inj IV STAT PRN Hypoglycemia Protocol Protocol Hydralazine HCl 10 mg 01/02/19 09:46 Apresoline IVP Q6 PRN For SBP>160 Meropenem/Sodium Chloride 500 mg in 50 mls @ 100 mls/hr 12/29/18 22:00 01/02/19 09:32 Merrem Iv 500 Mg/Ns 50 Ml IVPB 01/07/19 22:01 100 mls/hr Q12 NARENDRA Administration Protocol Propofol 1,000 mg in 100 mls @ 3.44 mls/hr 12/31/18 13:11 01/02/19 02:13 Diprivan IV 10 mcg/kg/min .Q24H PRN 6.88 mls/hr TITRATE PER MD ORDER Administration Protocol 5 MCG/KG/MIN Sodium Chloride 1,000 mls @ 60 mls/hr 01/01/19 14:00 01/02/19 07:00 Sodium Chloride 0.45% IV 60 mls/hr .[id number] NARENDRA Administration Insulin Human Lispro 0 units 12/29/18 07:30 01/02/19 12:12 Humalog Low SC 3 units ACHS NARENDRA Administration Protocol Methylprednisolone 20 mg 12/31/18 10:00 01/02/19 09:08 Solu-Medrol IVP 20 mg Q12 NARENDRA Administration Metoprolol Tartrate 5 mg 12/27/18 20:39 12/28/18 05:28 Lopressor IVP 5 mg Q6 PRN Administration if sbp >150 Pantoprazole Sodium 40 mg 12/29/18 10:00 01/02/19 09:08 Protonix Inj IVP 40 mg DAILY NARENDRA Administration Quetiapine Fumarate 12.5 mg 01/01/19 15:50 Seroquel PO HS PRN Agitation Protocol - Patient Studies Lab Studies: Microbiology Studies 12/29/18 09:05 Blood Culture - Preliminary Blood NO GROWTH AFTER 4 DAYS 12/29/18 20:54 Blood Culture - Preliminary Blood NO GROWTH AFTER 3 DAYS 12/29/18 20:24 Blood Culture - Preliminary Blood NO GROWTH AFTER 3 DAYS 12/30/18 07:30 Gram Stain - Final Sputum Sputum Culture - Final No growth. Lab Studies 01/02/19 01/02/19 01/02/19 Range/Units 07:36 05:25 05:25 WBC 10.3 D (4.5-11.0) 10^3/uL RBC 4.09 (3.5-6.1) 10^6/uL Hgb 11.8 L (14.0-18.0) g/dL Hct 38.0 L (42.0-52.0) % MCV 92.9 (80.0-105.0) fl MCH 28.9 (25.0-35.0) pg MCHC 31.1 (31.0-37.0) g/dl RDW 14.5 (11.5-14.5) % Plt Count 191 (120.0-450.0) 10^3/uL MPV 10.7 (7.0-11.0) fl Neut % (Auto) 86.2 H (50.0-68.0) % Lymph % (Auto) 10.0 L (22.0-35.0) % [place] % (Auto) 3.7 (1.0-6.0) % Eos % (Auto) 0.0 L (1.5-5.0) % Baso % (Auto) 0.1 (0.0-3.0) % Lymph # (Auto) 1.0 L (1.2-3.4) [place] # (Auto) 0.4 (0.1-0.6) Eos # (Auto) 0.0 (0.0-0.7) Baso # (Auto) 0.01 (0.0-2.0) K/mm3 Absolute Neuts (auto) 8.90 H (1.4-6.5) pCO2 (35-45) mm/Hg pO2 (80-100) mm/Hg HCO3 (21-28) mmol/L ABG pH (7.35-7.45) ABG Total CO2 (22-28) mmol.L ABG O2 Saturation (95-98) % ABG O2 Content (15-23) ML/dl ABG Base Excess (-2.0-3.0) mmol/L ABG Hemoglobin (11.7-17.4) g/dL ABG Carboxyhemoglobin (0.5-1.5) % POC ABG HHb (Measured) (0-5) % ABG Methemoglobin (0.0-3.0) % ABG O2 Capacity (16-24) mL/dl Hgb O2 Saturation (95.0-98.0) % FiO2 % Sodium 146 (132-148) mmol/L Potassium 4.3 (3.6-5.0) mmol/L Chloride 117 H (98-107) mmol/L Carbon Dioxide 23 (21-33) mmol/L Anion Gap 11 (10-20) BUN 69 H (7-21) mg/dL Creatinine 2.8 H (0.8-1.5) mg/dl Est GFR ( Amer) 27 Est GFR (Non-Af Amer) 22 POC Glucose (mg/dL) 300 H (65-110) mg/dL Random Glucose 322 H* (70-110) mg/dL Uric Acid 12.0 H (3.5-8.5) mg/dL Calcium 9.2 (8.4-10.5) mg/dL Phosphorus 4.3 (2.5-4.5) mg/dL Magnesium 2.6 H (1.7-2.2) mg/dL Total Bilirubin 0.7 (0.2-1.3) mg/dL AST 47 (17-59) U/L ALT 75 H (7-56) U/L Alkaline Phosphatase 105 (38-126) U/L Lactate Dehydrogenase 788 H (333-699) U/L Total Creatine Kinase 491 H (35-230) U/L CK-MB (CK-2) 1.5 (0.0-3.6) ng/mL CK-MB (CK-2) % Cancelled Troponin I 0.54 H* D ng/mL Total Protein 6.6 (5.8-8.3) g/dL Albumin 3.3 (3.0-4.8) g/dL Globulin 3.3 gm/dL Albumin/Globulin Ratio 1.0 L (1.1-1.8) Urine Color (YELLOW) Urine Appearance (CLEAR) Urine pH (4.7-8.0) Ur Specific [place] (1.005-1.035) Urine Protein (<30 mg/dL) mg/dL Urine Glucose (UA) (NEGATIVE) mg/dL Urine Ketones (NEGATIVE) mg/dL Urine Blood (NEGATIVE) Urine Nitrate (NEGATIVE) Urine Bilirubin (NEGATIVE) Urine Urobilinogen (<1 E.U./dL) E.U./dL Ur Leukocyte Esterase (NEGATIVE) Celena/uL Urine RBC (0-2) /hpf Urine WBC (0-6) /hpf Ur Epithelial Cells (0-5) /hpf Uric Acid Crystals (NONE) /hpf Urine Eosinophils Ur Random Creatinine mg/dL Ur Random Sodium meq/L 01/02/19 01/01/19 01/01/19 Range/Units 05:00 21:59 16:50 WBC (4.5-11.0) 10^3/uL RBC (3.5-6.1) 10^6/uL Hgb (14.0-18.0) g/dL Hct (42.0-52.0) % MCV (80.0-105.0) fl MCH (25.0-35.0) pg MCHC (31.0-37.0) g/dl RDW (11.5-14.5) % Plt Count (120.0-450.0) 10^3/uL MPV (7.0-11.0) fl Neut % (Auto) (50.0-68.0) % Lymph % (Auto) (22.0-35.0) % [place] % (Auto) (1.0-6.0) % Eos % (Auto) (1.5-5.0) % Baso % (Auto) (0.0-3.0) % Lymph # (Auto) (1.2-3.4) [place] # (Auto) (0.1-0.6) Eos # (Auto) (0.0-0.7) Baso # (Auto) (0.0-2.0) K/mm3 Absolute Neuts (auto) (1.4-6.5) pCO2 37 (35-45) mm/Hg pO2 114.0 H (80-100) mm/Hg HCO3 19.1 L (21-28) mmol/L ABG pH 7.32 L (7.35-7.45) ABG Total CO2 20.2 L (22-28) mmol.L ABG O2 Saturation 96.9 (95-98) % ABG O2 Content 24.0 H (15-23) ML/dl ABG Base Excess -6.3 L (-2.0-3.0) mmol/L ABG Hemoglobin 17.6 H (11.7-17.4) g/dL ABG Carboxyhemoglobin 0 L (0.5-1.5) % POC ABG HHb (Measured) 3.1 (0-5) % ABG Methemoglobin 0.2 (0.0-3.0) % ABG O2 Capacity 24.8 H (16-24) mL/dl Hgb O2 Saturation 96.6 (95.0-98.0) % FiO2 60.0 % Sodium (132-148) mmol/L Potassium (3.6-5.0) mmol/L Chloride (98-107) mmol/L Carbon Dioxide (21-33) mmol/L Anion Gap (10-20) BUN (7-21) mg/dL Creatinine (0.8-1.5) mg/dl Est GFR ( Amer) Est GFR (Non-Af Amer) POC Glucose (mg/dL) 295 H (65-110) mg/dL Random Glucose (70-110) mg/dL Uric Acid (3.5-8.5) mg/dL Calcium (8.4-10.5) mg/dL Phosphorus (2.5-4.5) mg/dL Magnesium (1.7-2.2) mg/dL Total Bilirubin (0.2-1.3) mg/dL AST (17-59) U/L ALT (7-56) U/L Alkaline Phosphatase (38-126) U/L Lactate Dehydrogenase (333-699) U/L Total Creatine Kinase (35-230) U/L CK-MB (CK-2) (0.0-3.6) ng/mL CK-MB (CK-2) % Troponin I ng/mL Total Protein (5.8-8.3) g/dL Albumin (3.0-4.8) g/dL Globulin gm/dL Albumin/Globulin Ratio (1.1-1.8) Urine Color (YELLOW) Urine Appearance (CLEAR) Urine pH (4.7-8.0) Ur Specific [place] (1.005-1.035) Urine Protein (<30 mg/dL) mg/dL Urine Glucose (UA) (NEGATIVE) mg/dL Urine Ketones (NEGATIVE) mg/dL Urine Blood (NEGATIVE) Urine Nitrate (NEGATIVE) Urine Bilirubin (NEGATIVE) Urine Urobilinogen (<1 E.U./dL) E.U./dL Ur Leukocyte Esterase (NEGATIVE) Celena/uL Urine RBC (0-2) /hpf Urine WBC (0-6) /hpf Ur Epithelial Cells (0-5) /hpf Uric Acid Crystals (NONE) /hpf Urine Eosinophils Negative Ur Random Creatinine mg/dL Ur Random Sodium meq/L 01/01/19 01/01/19 01/01/19 Range/Units 16:34 16:30 16:30 WBC (4.5-11.0) 10^3/uL RBC (3.5-6.1) 10^6/uL Hgb (14.0-18.0) g/dL Hct (42.0-52.0) % MCV (80.0-105.0) fl MCH (25.0-35.0) pg MCHC (31.0-37.0) g/dl RDW (11.5-14.5) % Plt Count (120.0-450.0) 10^3/uL MPV (7.0-11.0) fl Neut % (Auto) (50.0-68.0) % Lymph % (Auto) (22.0-35.0) % [place] % (Auto) (1.0-6.0) % Eos % (Auto) (1.5-5.0) % Baso % (Auto) (0.0-3.0) % Lymph # (Auto) (1.2-3.4) [place] # (Auto) (0.1-0.6) Eos # (Auto) (0.0-0.7) Baso # (Auto) (0.0-2.0) K/mm3 Absolute Neuts (auto) (1.4-6.5) pCO2 (35-45) mm/Hg pO2 (80-100) mm/Hg HCO3 (21-28) mmol/L ABG pH (7.35-7.45) ABG Total CO2 (22-28) mmol.L ABG O2 Saturation (95-98) % ABG O2 Content (15-23) ML/dl ABG Base Excess (-2.0-3.0) mmol/L ABG Hemoglobin (11.7-17.4) g/dL ABG Carboxyhemoglobin (0.5-1.5) % POC ABG HHb (Measured) (0-5) % ABG Methemoglobin (0.0-3.0) % ABG O2 Capacity (16-24) mL/dl Hgb O2 Saturation (95.0-98.0) % FiO2 % Sodium (132-148) mmol/L Potassium (3.6-5.0) mmol/L Chloride (98-107) mmol/L Carbon Dioxide (21-33) mmol/L Anion Gap (10-20) BUN (7-21) mg/dL Creatinine (0.8-1.5) mg/dl Est GFR ( Amer) Est GFR (Non-Af Amer) POC Glucose (mg/dL) 295 H (65-110) mg/dL Random Glucose (70-110) mg/dL Uric Acid (3.5-8.5) mg/dL Calcium (8.4-10.5) mg/dL Phosphorus (2.5-4.5) mg/dL Magnesium (1.7-2.2) mg/dL Total Bilirubin (0.2-1.3) mg/dL AST (17-59) U/L ALT (7-56) U/L Alkaline Phosphatase (38-126) U/L Lactate Dehydrogenase (333-699) U/L Total Creatine Kinase (35-230) U/L CK-MB (CK-2) (0.0-3.6) ng/mL CK-MB (CK-2) % Troponin I ng/mL Total Protein (5.8-8.3) g/dL Albumin (3.0-4.8) g/dL Globulin gm/dL Albumin/Globulin Ratio (1.1-1.8) Urine Color Yellow (YELLOW) Urine Appearance Slight-cloudy (CLEAR) Urine pH 5.5 (4.7-8.0) Ur Specific [place] 1.025 (1.005-1.035) Urine Protein Trace H (<30 mg/dL) mg/dL Urine Glucose (UA) 100 H (NEGATIVE) mg/dL Urine Ketones Negative (NEGATIVE) mg/dL Urine Blood Moderate H (NEGATIVE) Urine Nitrate Negative (NEGATIVE) Urine Bilirubin Negative (NEGATIVE) Urine Urobilinogen 0.2 (<1 E.U./dL) E.U./dL Ur Leukocyte Esterase Negative (NEGATIVE) Celena/uL Urine RBC 20 - 25 H (0-2) /hpf Urine WBC 2 - 5 (0-6) /hpf Ur Epithelial Cells 6 - 8 H (0-5) /hpf Uric Acid Crystals Mod (NONE) /hpf Urine Eosinophils Ur Random Creatinine 99 mg/dL Ur Random Sodium 41 meq/L 01/01/19 Range/Units 11:39 WBC (4.5-11.0) 10^3/uL RBC (3.5-6.1) 10^6/uL Hgb (14.0-18.0) g/dL Hct (42.0-52.0) % MCV (80.0-105.0) fl MCH (25.0-35.0) pg MCHC (31.0-37.0) g/dl RDW (11.5-14.5) % Plt Count (120.0-450.0) 10^3/uL MPV (7.0-11.0) fl Neut % (Auto) (50.0-68.0) % Lymph % (Auto) (22.0-35.0) % [place] % (Auto) (1.0-6.0) % Eos % (Auto) (1.5-5.0) % Baso % (Auto) (0.0-3.0) % Lymph # (Auto) (1.2-3.4) [place] # (Auto) (0.1-0.6) Eos # (Auto) (0.0-0.7) Baso # (Auto) (0.0-2.0) K/mm3 Absolute Neuts (auto) (1.4-6.5) pCO2 (35-45) mm/Hg pO2 (80-100) mm/Hg HCO3 (21-28) mmol/L ABG pH (7.35-7.45) ABG Total CO2 (22-28) mmol.L ABG O2 Saturation (95-98) % ABG O2 Content (15-23) ML/dl ABG Base Excess (-2.0-3.0) mmol/L ABG Hemoglobin (11.7-17.4) g/dL ABG Carboxyhemoglobin (0.5-1.5) % POC ABG HHb (Measured) (0-5) % ABG Methemoglobin (0.0-3.0) % ABG O2 Capacity (16-24) mL/dl Hgb O2 Saturation (95.0-98.0) % FiO2 % Sodium (132-148) mmol/L Potassium (3.6-5.0) mmol/L Chloride (98-107) mmol/L Carbon Dioxide (21-33) mmol/L Anion Gap (10-20) BUN (7-21) mg/dL Creatinine (0.8-1.5) mg/dl Est GFR ( Amer) Est GFR (Non-Af Amer) POC Glucose (mg/dL) 270 H (65-110) mg/dL Random Glucose (70-110) mg/dL Uric Acid (3.5-8.5) mg/dL Calcium (8.4-10.5) mg/dL Phosphorus (2.5-4.5) mg/dL Magnesium (1.7-2.2) mg/dL Total Bilirubin (0.2-1.3) mg/dL AST (17-59) U/L ALT (7-56) U/L Alkaline Phosphatase (38-126) U/L Lactate Dehydrogenase (333-699) U/L Total Creatine Kinase (35-230) U/L CK-MB (CK-2) (0.0-3.6) ng/mL CK-MB (CK-2) % Troponin I ng/mL Total Protein (5.8-8.3) g/dL Albumin (3.0-4.8) g/dL Globulin gm/dL Albumin/Globulin Ratio (1.1-1.8) Urine Color (YELLOW) Urine Appearance (CLEAR) Urine pH (4.7-8.0) Ur Specific [place] (1.005-1.035) Urine Protein (<30 mg/dL) mg/dL Urine Glucose (UA) (NEGATIVE) mg/dL Urine Ketones (NEGATIVE) mg/dL Urine Blood (NEGATIVE) Urine Nitrate (NEGATIVE) Urine Bilirubin (NEGATIVE) Urine Urobilinogen (<1 E.U./dL) E.U./dL Ur Leukocyte Esterase (NEGATIVE) Celena/uL Urine RBC (0-2) /hpf Urine WBC (0-6) /hpf Ur Epithelial Cells (0-5) /hpf Uric Acid Crystals (NONE) /hpf Urine Eosinophils Ur Random Creatinine mg/dL Ur Random Sodium meq/L Laboratory Results - last 24 hr 0201/01/19 01/01/19 11:39 16:30 16:30 WBC RBC Hgb Hct MCV MCH MCHC RDW Plt Count MPV Neut % (Auto) Lymph % (Auto) [place] % (Auto) Eos % (Auto) Baso % (Auto) Lymph # (Auto) [place] # (Auto) Eos # (Auto) Baso # (Auto) Absolute Neuts (auto) pCO2 pO2 HCO3 ABG pH ABG Total CO2 ABG O2 Saturation ABG O2 Content ABG Base Excess ABG Hemoglobin ABG Carboxyhemoglobin POC ABG HHb (Measured) ABG Methemoglobin ABG O2 Capacity Hgb O2 Saturation FiO2 Sodium Potassium Chloride Carbon Dioxide Anion Gap BUN Creatinine Est GFR ( Amer) Est GFR (Non-Af Amer) POC Glucose (mg/dL) 270 H Random Glucose Uric Acid Calcium Phosphorus Magnesium Total Bilirubin AST ALT Alkaline Phosphatase Lactate Dehydrogenase Total Creatine Kinase CK-MB (CK-2) CK-MB (CK-2) % Troponin I Total Protein Albumin Globulin Albumin/Globulin Ratio Urine Color Yellow Urine Appearance Slight-cloudy Urine pH 5.5 Ur Specific [place] 1.025 Urine Protein Trace H Urine Glucose (UA) 100 H Urine Ketones Negative Urine Blood Moderate H Urine Nitrate Negative Urine Bilirubin Negative Urine Urobilinogen 0.2 Ur Leukocyte Esterase Negative Urine RBC 20 - 25 H Urine WBC 2 - 5 Ur Epithelial Cells 6 - 8 H Uric Acid Crystals Mod Urine Eosinophils Ur Random Creatinine 99 Ur Random Sodium 41 01/01/19 01/01/19 01/01/19 16:34 16:50 21:59 WBC RBC Hgb Hct MCV MCH MCHC RDW Plt Count MPV Neut % (Auto) Lymph % (Auto) [place] % (Auto) Eos % (Auto) Baso % (Auto) Lymph # (Auto) [place] # (Auto) Eos # (Auto) Baso # (Auto) Absolute Neuts (auto) pCO2 pO2 HCO3 ABG pH ABG Total CO2 ABG O2 Saturation ABG O2 Content ABG Base Excess ABG Hemoglobin ABG Carboxyhemoglobin POC ABG HHb (Measured) ABG Methemoglobin ABG O2 Capacity Hgb O2 Saturation FiO2 Sodium Potassium Chloride Carbon Dioxide Anion Gap BUN Creatinine Est GFR ( Amer) Est GFR (Non-Af Amer) POC Glucose (mg/dL) 295 H 295 H Random Glucose Uric Acid Calcium Phosphorus Magnesium Total Bilirubin AST ALT Alkaline Phosphatase Lactate Dehydrogenase Total Creatine Kinase CK-MB (CK-2) CK-MB (CK-2) % Troponin I Total Protein Albumin Globulin Albumin/Globulin Ratio Urine Color Urine Appearance Urine pH Ur Specific [place] Urine Protein Urine Glucose (UA) Urine Ketones Urine Blood Urine Nitrate Urine Bilirubin Urine Urobilinogen Ur Leukocyte Esterase Urine RBC Urine WBC Ur Epithelial Cells Uric Acid Crystals Urine Eosinophils Negative Ur Random Creatinine Ur Random Sodium 01/02/19 01/02/19 01/02/19 05:00 05:25 05:25 WBC 10.3 D RBC 4.09 Hgb 11.8 L Hct 38.0 L MCV 92.9 MCH 28.9 MCHC 31.1 RDW 14.5 Plt Count 191 MPV 10.7 Neut % (Auto) 86.2 H Lymph % (Auto) 10.0 L [place] % (Auto) 3.7 Eos % (Auto) 0.0 L Baso % (Auto) 0.1 Lymph # (Auto) 1.0 L [place] # (Auto) 0.4 Eos # (Auto) 0.0 Baso # (Auto) 0.01 Absolute Neuts (auto) 8.90 H pCO2 37 pO2 114.0 H HCO3 19.1 L ABG pH 7.32 L ABG Total CO2 20.2 L ABG O2 Saturation 96.9 ABG O2 Content 24.0 H ABG Base Excess -6.3 L ABG Hemoglobin 17.6 H ABG Carboxyhemoglobin 0 L POC ABG HHb (Measured) 3.1 ABG Methemoglobin 0.2 ABG O2 Capacity 24.8 H Hgb O2 Saturation 96.6 FiO2 60.0 Sodium 146 Potassium 4.3 Chloride 117 H Carbon Dioxide 23 Anion Gap 11 BUN 69 H Creatinine 2.8 H Est GFR ( Amer) 27 Est GFR (Non-Af Amer) 22 POC Glucose (mg/dL) Random Glucose 322 H* Uric Acid 12.0 H Calcium 9.2 Phosphorus 4.3 Magnesium 2.6 H Total Bilirubin 0.7 AST 47 ALT 75 H Alkaline Phosphatase 105 Lactate Dehydrogenase 788 H Total Creatine Kinase 491 H CK-MB (CK-2) 1.5 CK-MB (CK-2) % Cancelled Troponin I 0.54 H* D Total Protein 6.6 Albumin 3.3 Globulin 3.3 Albumin/Globulin Ratio 1.0 L Urine Color Urine Appearance Urine pH Ur Specific [place] Urine Protein Urine Glucose (UA) Urine Ketones Urine Blood Urine Nitrate Urine Bilirubin Urine Urobilinogen Ur Leukocyte Esterase Urine RBC Urine WBC Ur Epithelial Cells Uric Acid Crystals Urine Eosinophils Ur Random Creatinine Ur Random Sodium 01/02/19 07:36 WBC RBC Hgb Hct MCV MCH MCHC RDW Plt Count MPV Neut % (Auto) Lymph % (Auto) [place] % (Auto) Eos % (Auto) Baso % (Auto) Lymph # (Auto) [place] # (Auto) Eos # (Auto) Baso # (Auto) Absolute Neuts (auto) pCO2 pO2 HCO3 ABG pH ABG Total CO2 ABG O2 Saturation ABG O2 Content ABG Base Excess ABG Hemoglobin ABG Carboxyhemoglobin POC ABG HHb (Measured) ABG Methemoglobin ABG O2 Capacity Hgb O2 Saturation FiO2 Sodium Potassium Chloride Carbon Dioxide Anion Gap BUN Creatinine Est GFR ( Amer) Est GFR (Non-Af Amer) POC Glucose (mg/dL) 300 H Random Glucose Uric Acid Calcium Phosphorus Magnesium Total Bilirubin AST ALT Alkaline Phosphatase Lactate Dehydrogenase Total Creatine Kinase CK-MB (CK-2) CK-MB (CK-2) % Troponin I Total Protein Albumin Globulin Albumin/Globulin Ratio Urine Color Urine Appearance Urine pH Ur Specific [place] Urine Protein Urine Glucose (UA) Urine Ketones Urine Blood Urine Nitrate Urine Bilirubin Urine Urobilinogen Ur Leukocyte Esterase Urine RBC Urine WBC Ur Epithelial Cells Uric Acid Crystals Urine Eosinophils Ur Random Creatinine Ur Random Sodium Radiology Impressions: Radiology Impressions Chest X-Ray 01/01/19 07:00 IMPRESSION: Stable infiltrates. No interval change compared to the prior study. Chest X-Ray 01/01/19 13:28 IMPRESSION: Stable limited right perihilar infiltrate with interval lateral left basilar patchy airspace disease suspected. Tracheostomy placement in good apparent position with left central venous line unchanged in position. No pulmonary vascular congestion. Chest X-Ray 01/02/19 07:00 IMPRESSION: No active disease. Critical Care Progress Note - Nutrition Nutrition: Nutrition Category Date Time Status Dysphagia/Modified Consistency Diet [DIET] Diets 01/02/19 Lunch Ordered Attending/Attestation - Attestation I have personally seen and examined this patient.: Yes I have fully participated in the care of the patient.: Yes I have reviewed all pertinent clinical information: Yes Notes (Text): 01/02/19 12:27 s/p trach. on trach collar, doing well, undergoing speech and swallow eval. oob to chair. pulm toiletm chest pt ccm time 40 min
--- NOTE | 2019-01-02 12:37 | CP.PCM.PN ---
Subjective - Date & Time of Evaluation Date of Evaluation: 01/02/19 Time of Evaluation: 09:50 - Subjective Subjective: Tracheostomy was done yesterday, this morning, patient has been weaned off the ventilator, so far doing ok, no fevers overnight. Objective - Vital Signs/Intake and Output Vital Signs (last 24 hours): Temp Pulse Resp BP Pulse Ox 99.5 F 68 20 123/65 97 12/31/18 18:00 01/01/19 02:00 01/01/19 07:45 12/31/18 18:30 01/01/19 07:45 Intake and Output: 01/01/19 01/01/19 06:59 18:59 Intake Total 84 Balance 84 - Medications Medications: Current Medications Albuterol/Ipratropium (Duoneb 3 Mg/0.5 Mg (3 Ml) Ud) 3 ml IH [id number] [facility] Last Admin: 01/01/19 07:41 Dose: 3 ml Albuterol/Ipratropium (Duoneb 3 Mg/0.5 Mg (3 Ml) Ud) 3 ml IH Q2H PRN PRN Reason: Shortness of Breath Aspirin (Ecotrin) 81 mg PO DAILY [facility] Last Admin: 01/01/19 10:29 Dose: Not Given Dextrose (Dextrose 50% Inj) 0 ml IV STAT PRN; Protocol PRN Reason: Hypoglycemia Protocol NOREPINEPHRINE BIT/0.9 % NACL (Levophed 4 Mg/ 250 Ml Ns Premixed) 4 mg in 250 mls @ 15 mls/hr IV .[id number] PRN; Protocol PRN Reason: TITRATE PER MD ORDER Meropenem/Sodium Chloride (Merrem Iv 500 Mg/Ns 50 Ml) 500 mg in 50 mls @ 100 mls/hr IVPB Q12 [facility]; Protocol Stop: 01/07/19 22:01 Last Admin: 01/01/19 10:47 Dose: 100 mls/hr Lactated Ringer's (Lactated Ringer's) 1,000 mls @ 100 mls/hr IV .Q10H [facility] Last Admin: 12/31/18 09:43 Dose: 100 mls/hr Propofol (Diprivan) 1,000 mg in 100 mls @ 3.44 mls/hr IV .Q24H PRN; Protocol PRN Reason: TITRATE PER MD ORDER Last Admin: 01/01/19 03:13 Dose: 10 mcg/kg/min, 6.88 mls/hr Insulin Human Lispro (Humalog Low) 0 units SC ACHS [facility]; Protocol Last Admin: 01/01/19 10:29 Dose: Not Given Methylprednisolone (Solu-Medrol) 20 mg IVP Q12 [facility] Last Admin: 01/01/19 10:47 Dose: 20 mg Metoprolol Tartrate (Lopressor) 5 mg IVP Q6 PRN PRN Reason: if sbp >150 Last Admin: 12/28/18 05:28 Dose: 5 mg Pantoprazole Sodium (Protonix Inj) 40 mg IVP DAILY [facility] Last Admin: 01/01/19 10:46 Dose: 40 mg - Labs Labs: 01/01/19 05:30 01/01/19 05:30 PT 14.1 SECONDS (9.4-12.5) H 12/31/18 06:00 INR 1.25 12/31/18 06:00 APTT 56.1 Seconds (26.9-38.3) H 12/31/18 11:50 - Constitutional Appears: Non-toxic, Chronically Ill, Other (awake and alert) - Head Exam Head Exam: NORMAL INSPECTION - Neck Exam Additional comments: tracheostomy tube in place - Respiratory Exam Respiratory Exam: Decreased Breath Sounds, Rales (scattered) - Cardiovascular Exam Cardiovascular Exam: +S1, +S2 - GI/Abdominal Exam GI & Abdominal Exam: Soft. absent: Tenderness Assessment and Plan - Assessment and Plan (Free Text) Plan: Assessment severe sepsis S/P shock due to aspiration HCAP S/P VDRF in this patient S/P cardiac arrest, with acute renal failure, S/P tracheostomy, clinically improving CVA dyslipidemia arthritis HTN morbid obesity with BMI 41 bipolar disorder anxiety DM S/P knee surgery Plan MRSA screen is negative - we can d/c IV Vancomycin and continue Merrem day 4; sputum cx, blood cx are negative; target 4-7 days of therapy PCT is 14.26 will continue to monitor clinically discussed with at bedside
--- NOTE | 2019-01-02 12:47 | CP.PCM.PCO ---
Physician Communication Note - Physician Communication Note Physician Communication Note: Start PO(Diet/meds):LTACH or CASEYH OK
--- NOTE | 2019-01-02 13:56 | US ---
Date of service: 01/01/2019 PROCEDURE: Ultrasound of the Kidneys HISTORY: ARF Cardiac Arrest COMPARISON: None available. TECHNIQUE: Sonogram of the kidneys. FINDINGS: Body habitus limits the evaluation. RIGHT KIDNEY: Measures: 12.1 x 5.6 x 6.0 cm. Renal parenchymal atrophy is appreciated with normal size and contour, however, poor corticomedullary differentiation is appreciated which may indicate intrinsic medical renal disease. No stone, solid mass lesion or hydronephrosis visualized. LEFT KIDNEY: Measures: 11.0 x 6.3 x 6.3 cm. Renal parenchymal atrophy is appreciated with normal size and contour, however, poor corticomedullary differentiation is appreciated which may indicate intrinsic medical renal disease. No stone, solid mass lesion or hydronephrosis visualized. OTHER FINDINGS: None. IMPRESSION: Potential intrinsic medical renal disease. Parenchymal atrophy noted bilaterally. No obstructive uropathy, solid mass or urolithiasis identified.
--- NOTE | 2019-01-02 14:22 | CON ---
DATE: 01/02/2019 HISTORY OF PRESENT ILLNESS: This is a 73-year-old male with past medical history of hypertension, diabetes, obesity, arthritis, hyperlipidemia, and left hip replacement, lumbar spinal fusion with screws and plates and the patient had episode of respiratory failure and was . Now, the patient is on a trach tube and the patient also had some altered mental state with expressive aphasia and dealing much better. The patient was seen by Neurology team in the beginning, called to evaluate him. PAST MEDICAL HISTORY: Hypertension, diabetes, obesity, and lumbar spinal fusion. ALLERGIES: NO KNOWN DRUG ALLERGIES. SOCIAL HISTORY: He does not smoke, does not drink. PHYSICAL EXAMINATION: The patient is sitting comfortably on the chair. Daughter and his brother in bedside, and the patient follows simple commands and appropriately not in distress. Both pupils reactive. EOM intact. Visual rodriguez full. No facial asymmetry. Tongue in midline. Motor examination; moves all extremities spontaneously. Deep tendon reflexes 1+. Plantars are downgoing. Sensory appears intact. Cerebellar gait deferred. IMPRESSION: Altered mental status and the patient with dysphasia and CAT scan of the head was negative. It does not appear to have the stroke. PLAN: Continue present management. We will follow up. William Lanza MD
--- NOTE | 2019-01-02 14:55 | PN ---
DATE: 01/02/2019 REASON FOR CONSULTATION AND FOLLOWUP: Status post code blue, status post respiratory failure, possible obstructive sleep apnea, status post tracheostomy. SUBJECTIVE: Denies any chest pain, shortness of breath, or any palpitation. PHYSICAL EXAMINATION: GENERAL: Not in apparent distress. VITAL SIGNS: Temperature afebrile, heart rate 67, blood pressure 152/75. HEENT: PERRLA. Extraocular muscles intact. NECK: Supple. No carotid bruits or thyromegaly. CHEST: Clear to auscultation. HEART: S1 and S2 regular. ABDOMEN: Soft. EXTREMITIES: Clubbing and cyanosis negative. LABORATORY DATA: WBC 10.7, hemoglobin 11.7, hematocrit 38, platelet count 191. Chemistry shows sodium 146, potassium 4.6, chloride 101, carbon dioxide 27, anion gap of 11, BUN 16, and creatinine 2.8. Troponin is 0.57. IMPRESSION: A 73-year-old morbidly obese male admitted with initially altered mental status, being seen by Dr. Crespo in the office, with history of MUGA scan done recently in 2018 with ejection fraction of 52%, history of a stress test in 2013 and 09/22/2017 essentially negative myocardial perfusion study. Initially admitted with altered mental status. Initial CAT scan did not show any acute findings. In the telemetry became apneic, heart rate 30, moved to ICU. Then the patient while in the unit, had another episode of apnea, that happened after being extubated yesterday. The patient later underwent tracheostomy for possible obstructive sleep apnea. Discussed with the yesterday as well as with the son and discussed with Dr. Teran today. Though the patient had on admission, made some troponin positive, but most likely secondary to acute kidney injury with creatinine clearance of 36 in total, CPK was 5023 with MB fraction 0.4, so doubt it is an GA, most likely is not an myocardial infarction. The leak of the troponin is secondary to stress and strain as well as secondary to renal insufficiency and rhabdomyolysis, a total CPK of 5000 and MB fraction 0.4. The patient could have the cardiac catheterization definitely but in case of severe renal insufficiency, we will put the patient in dialysis. Now the creatinine clearance is 22 mL. A little bit dye will throw the patient into complete he definitely may need the dialysis. We will hold off cardiac catheterization because the patient has had no chest pain and as mentioned above, no evidence of myocardial infarction. The borderline troponin is most likely secondary to rhabdomyolysis, so we will treat medically. I will discuss with the family and Dr. Teran. For now, we will continue aggressive medical treatment. Since the patient is n.p.o., we will report Catapres patch for blood pressure and put hydralazine p.r.n. and continue beta-kyler. We will follow. Once the patient started p.o., we will change the medication to p.o. including the beta-kyler. We will repeat the blood workup in the morning. Once the renal function improves, consider cardiac catheterization. Thank you Dr. Teran for providing us the opportunity in taking care of the patient Zay Mcdonald. Magdalena Rajan MD
--- NOTE | 2019-01-02 15:36 | CP.PCM.PN ---
Subjective - Date & Time of Evaluation Date of Evaluation: 01/02/19 Time of Evaluation: 10:10 - Subjective Subjective: Surgery Progress note. Dr. Teran Pt seen and examined at bedside. Doing well and now on trach collar. C/o increased sputum production and requesting suctioning. No new complaints. States that he would like to start eating soon as well. Objective - Vital Signs/Intake and Output Vital Signs (last 24 hours): Temp Pulse Resp BP Pulse Ox 98.2 F 69 17 147/75 96 01/02/19 12:00 01/02/19 14:00 01/02/19 12:00 01/02/19 11:00 01/02/19 12:00 Intake and Output: 01/02/19 01/02/19 06:59 18:59 Intake Total 920 30 Balance 920 30 - Medications Medications: Current Medications Albuterol/Ipratropium (Duoneb 3 Mg/0.5 Mg (3 Ml) Ud) 3 ml IH [id number] [facility] Last Admin: 01/02/19 13:25 Dose: 3 ml Albuterol/Ipratropium (Duoneb 3 Mg/0.5 Mg (3 Ml) Ud) 3 ml IH Q2H PRN PRN Reason: Shortness of Breath Last Admin: 01/02/19 15:18 Dose: 3 ml Aspirin (Ecotrin) 81 mg PO DAILY [facility] Last Admin: 01/02/19 13:00 Dose: 81 mg Clonidine HCl (Catapres-Tts2 0.2 Mg/24 Hr) 1 patch TD Q7D@1000 [facility] Last Admin: 01/02/19 11:00 Dose: 1 patch Dextrose (Dextrose 50% Inj) 0 ml IV STAT PRN; Protocol PRN Reason: Hypoglycemia Protocol Hydralazine HCl (Apresoline) 10 mg IVP Q6 PRN PRN Reason: For SBP>160 Meropenem/Sodium Chloride (Merrem Iv 500 Mg/Ns 50 Ml) 500 mg in 50 mls @ 100 mls/hr IVPB Q12 [facility]; Protocol Stop: 01/07/19 22:01 Last Admin: 01/02/19 09:32 Dose: 100 mls/hr Propofol (Diprivan) 1,000 mg in 100 mls @ 3.44 mls/hr IV .Q24H PRN; Protocol PRN Reason: TITRATE PER MD ORDER Last Titration: 01/02/19 07:00 Dose: 0 mcg/kg/min, 0 mls/hr Sodium Chloride (Sodium Chloride 0.45%) 1,000 mls @ 60 mls/hr IV .[id number] [facility] Last Admin: 01/02/19 07:00 Dose: 60 mls/hr Insulin Human Lispro (Humalog Low) 0 units SC ACHS [facility]; Protocol Last Admin: 01/02/19 12:12 Dose: 3 units Methylprednisolone (Solu-Medrol) 20 mg IVP Q12 [facility] Last Admin: 01/02/19 09:08 Dose: 20 mg Metoprolol Tartrate (Lopressor) 5 mg IVP Q6 PRN PRN Reason: if sbp >150 Last Admin: 12/28/18 05:28 Dose: 5 mg Pantoprazole Sodium (Protonix Inj) 40 mg IVP DAILY [facility] Last Admin: 01/02/19 09:08 Dose: 40 mg Quetiapine Fumarate (Seroquel) 12.5 mg PO HS PRN; Protocol PRN Reason: Agitation - Labs Labs: 01/02/19 05:25 01/02/19 05:25 PT 14.1 SECONDS (9.4-12.5) H 12/31/18 06:00 INR 1.25 12/31/18 06:00 APTT 56.1 Seconds (26.9-38.3) H 12/31/18 11:50 - Constitutional Appears: Non-toxic, No Acute Distress, Older Than Stated Age - Head Exam Head Exam: ATRAUMATIC, NORMAL INSPECTION, NORMOCEPHALIC - Eye Exam Eye Exam: EOMI. absent: Scleral icterus - Respiratory Exam Additional comments: Tracheostomy site clean dry and intact. Dressing clean. Trach collar in place. Sputum+ - Cardiovascular Exam Cardiovascular Exam: RRR. absent: JVD - GI/Abdominal Exam GI & Abdominal Exam: Soft. absent: Distended, Guarding, Rebound - Extremities Exam Extremities Exam: Normal Inspection. absent: Calf Tenderness - Neurological Exam Neurological Exam: Alert, Awake, Oriented x3 - Psychiatric Exam Psychiatric exam: Normal Affect, Normal Mood - Skin Skin Exam: Dry, Intact, Normal Color, Warm Assessment and Plan - Assessment and Plan (Free Text) Assessment: 73yo M with VDRF s/p Tracheostomy. POD 1 Plan: - May start PO meds today - d/c planning for LTACH or other trach managed facility - Aggressive vent weaning - Continue pulm toilet and trach suctioning - Trach sutures out in 10 days Further recs as per Dr. Jeffry Craig PGY2 surgery
--- NOTE | 2019-01-02 16:07 | PN ---
DATE: 01/02/2019 PULMONARY PROGRESS NOTE REFERRING PHYSICIAN: Diego Teran MD SUBJECTIVE: The patient is seen sitting in chair in room. No acute distress. The patient is status post tracheostomy on trach collar, off ventilator. Reports that he is feeling well. No hemoptysis, hematemesis, hematuria, diarrhea and leg swelling reported. No shortness of breath. Chest pain reported. OBJECTIVE: GENERAL: No acute distress. VITAL SIGNS: Blood pressure 147/75, pulse 69, temperature 98.2 and oxygen saturation 96% on trach collar. HEENT: Moist mucous membrane. Small oral cavity. NECK: Tracheostomy in place. No signs of bleeding, discharge or erythema. RESPIRATORY: Rhonchi bilaterally. CARDIOVASCULAR: S1 and S2. ABDOMEN: Obese, soft and nontender. No distention. EXTREMITIES: No bilateral lower extremity edema. NEUROLOGIC: Awake, alert and able to follow commands. MEDICATIONS: Reviewed. DuoNeb 3 mL inhalation every 6 hours, DuoNeb 3 mL inhalation every 2 hours p.r.n., aspirin 81 mg daily, Clonidine patch 0.2 mg every 7 days, hydralazine 10 mg IV push every 6 hours p.r.n. systolic BP greater than 160, Humalog sliding scale a.c. and at bedtime, meropenem 500 mg every 12 hours, Solu-Medrol 20 mg every 12 hours, metoprolol tartrate 5 mg IV push every 6 hours p.r.n. systolic BP greater than 160, Protonix 40 mg daily, propofol 1000 mg 24 hours, Seroquel 12.5 mg at bedtime p.r.n. and sodium chloride 0.45% 1000 mL, 60 mL per hour. LABORATORY DATA: Reviewed. WBC 7.3, RBC 4.09, hemoglobin 11.8, hematocrit 38, platelets 191, pCO2 of 37, pO2 of 114, HCO3 of 19.1. ABG; pH 7.32, FiO2 of 60. Sodium 146, potassium 4.3, chloride 117, carbon dioxide 23, anion gap 11, BUN 69, creatinine 2.8, GFR 22, POC glucose 300, random glucose 322, uric acid 12, calcium 9.2, phosphorus 4.3, magnesium 2.6, total bilirubin 0.7, AST 47, ALT 75, alkaline phosphatase 105, lactate dehydrogenase 788, total creatine kinase 491, CKMB 1.5, troponin 0.54, total protein 6.6, albumin 3.3, globulin 3.3 and albumin-globulin ratio 1.0. Blood cultures preliminary, no growth after 3 days. Chest x-ray shows no active disease. Renal ultrasound showed potential intrinsic medical renal disease, parenchymal atrophy noted bilaterally. No obstructive uropathy, solid mass or urolithiasis identified. IMPRESSION AND PLAN: Healthcare-acquired pneumonia, status post cardiac arrest, respiratory failure on ventilator, presently off ventilator and the patient is status post tracheostomy on trach collar, acute renal failure, cerebrovascular accident, dyslipidemia, hypertension, morbid obesity, bipolar disorder, anxiety, diabetes mellitus, arthritis, history of cerebrovascular accident, morbid obesity, suspected sleep apnea syndrome. Sleep apnea precaution. Head of bed elevated at 45 degrees. Gastric prophylaxis. Continue inhaled bronchodilators. P.r.n. suctioning. Physical therapy out of bed to chair. Dr. Wright discussed case with attending and with family. We believe the patient would benefit from transfer when clear to unit for rehabilitation. We will followup with social services counselor. We will order repeat labs, ABG's, chest x-ray in the morning. Critical care time spent more than 35 minutes. This patient was seen and examined with Dr. Wright. Discussed assessment and plan as described above. The patient was seen and examined with Kael Flor, nurse practitioner. Discussed assessment and plan as described above. Thank you for this consult. We will follow with you. Kael Flor APN Magdalena Wright MD
[2019-01-03] MEDS: Albuterol-Ipratrop 3 mg / 0.5 (3 ml) UD IH SCH ×4 (01:29→20:45)
--- NOTE | 2019-01-03 02:21 | PN ---
DATE: 01/02/2019 SUBJECTIVE: The patient is seen in the ICU. He underwent a tracheostomy. He is currently awake. He is alert. Son is at bedside. He complains of pain in his throat. He complains of some pain in his lower back also. He denies any chest pain. PHYSICAL EXAMINATION: GENERAL: Obese elderly male, lying in bed, in the ICU. VITAL SIGNS: Blood pressure 160/65, heart rate 81, respiratory rate 23, temperature 98.7. T-max is 99.5. HEENT: Normocephalic, atraumatic, positive pallor. NECK: Supple, no JVD. Positive tracheostomy. LUNGS: Bilateral equal air entry, bilateral rhonchi, no rales. CARDIAC: S1, S2. Regular rate and rhythm. No murmur, no rub. ABDOMEN: Obese, distended, soft, nontender. Bowel sounds present. EXTREMITIES: No lower extremity edema. INTAKE AND OUTPUT: 1320/675. LABORATORY DATA: WBC 10, hemoglobin 11.8, hematocrit 38, platelets 191. Sodium 146, potassium 4.3, chloride 117, CO2 of 23, BUN 69, creatinine 2.8, glucose 322, uric acid 12, calcium 9.2, phosphorus 4.3 magnesium 2.6, A1c 7.1, AST 47, ALT 75, CPK 491. Troponin 0.54. Urine eosinophils negative. Urine sodium 41, urine creatinine 99. Urine culture, no growth. Blood culture, no growth. Renal ultrasound, right kidney 12 cm, left kidney 11 cm, no obstructive uropathy. No solid masses or stones. Chest x-ray, no active disease. CURRENT MEDICATIONS: Catapres patch #2, Diprivan discontinued, DuoNeb, meropenem 500 every 12 hours, Protonix, Seroquel, half-normal saline at 60, Solu-Medrol 20 IV every 12 hours. ASSESSMENT AND PLAN: 1. Acute kidney injury in the setting of cardiac arrest, renal hypoperfusion, acute tubular necrosis suspect. 2. Respiratory failure, history of sleep apnea, history of noncompliance with continuous positive airway pressure. Now status post tracheostomy because of likely mechanical obstruction. 3. Hypertension. 4. Non-insulin dependent diabetes mellitus. 5. History of cerebrovascular accident. 6. Hyperlipidemia. 7. Morbid obesity. 8. History of anemia. 9. Mild acute rhabdomyolysis. PLAN: 1. Renal parameters are now plateauing, expecting parameters start improving soon. 2. Continue low-dose IV fluids for the time being. 3. Avoid nephrotoxins. 4. Dose all antibiotics for creatinine clearance about 30 mL/minute. 5. Monitor urine output. 6. Monitor fingersticks and maintain euglycemia. 7. Case discussed with son and at bedside at length, case discussed with ICU nursing staff at length, case discussed with ICU residents, more than 35 minutes spent in the care of this critically ill patient. Velma Samuel MD
[2019-01-03 05:53] LABS: ARTERIAL BLOOD GAS HCO3 21.7 mmol/L (21-28); ARTERIAL BLOOD GAS HEMOGLOBIN 14.2 g/dL (11.7-17.4); ARTERIAL BLOOD GAS O2 CAPACITY 19.9 mL/dl (16-24); ARTERIAL BLOOD GAS O2 CONTENT 19.3 ML/dl (15-23); ARTERIAL BLOOD GAS PCO2 43 mm/Hg (35-45); ARTERIAL BLOOD GAS PH 7.31 (7.35-7.45)
[2019-01-03] MEDS: Sodium Chloride 0.45% 1,000 ML IV SCH (06:06)
[2019-01-03 06:34] LABS: BASO # 0.01 K/mm3 (0.0-2.0); BASO % 0.1 % (0.0-3.0); HEMOGLOBIN 10.8 g/dL (14.0-18.0); LYMPH # 1.3 (1.2-3.4); LYMPH % 10.9 % (22.0-35.0); MEAN CORPUSCULAR HGB CONC 31.2 g/dl (31.0-37.0); MEAN PLATELET VOLUME 10.6 fl (7.0-11.0); MONO # 0.5 (0.1-0.6); MONO % 4.5 % (1.0-6.0); RBC 3.72 10^6/uL (3.5-6.1); RED CELL DISTRIBUTION WIDTH 14.4 % (11.5-14.5); WHITE BLOOD COUNT 12.1 10^3/uL (4.5-11.0)
[2019-01-03 07:39] LABS: ALBUMIN 3.1 g/dL (3.0-4.8); CALCIUM 8.9 mg/dL (8.4-10.5)
[2019-01-03] MEDS: Insulin Lispro (humaLOG) LOW Coverage SC SCH ×4 (07:57→22:11)
[2019-01-03 08:19] LABS: CK-MB 1.3 ng/mL (0.0-3.6)
[2019-01-03 08:21] LABS: TROPONIN I 0.32 ng/mL
--- NOTE | 2019-01-03 09:16 | RAD ---
Date of service: 01/03/2019 HISTORY: rule out infiltrate COMPARISON: 01/02/2019 FINDINGS: LUNGS: No active pulmonary disease. PLEURA: No significant pleural effusion identified, no pneumothorax apparent. CARDIOVASCULAR: No aortic atherosclerotic calcification present. Moderate cardiomegaly no pulmonary vascular congestion. OSSEOUS STRUCTURES: No significant abnormalities. VISUALIZED UPPER ABDOMEN: Normal. OTHER FINDINGS: Tracheostomy and left central line unchanged IMPRESSION: No active disease.
--- NOTE | 2019-01-03 09:40 | CP.CCUPN ---
<Steffen Silva - Last Filed: 01/03/19 11:44> CCU Subjective - Physician Review Subjective (Free Text): ICU Progress Note for Dr. Santiago Patient was seen and examined at bedside. No acute overnight events. Patient tolerating diet well. Patient offers no complaints today. Patient denies CP, SOB, n/v/d, abdominal pain, fever, chills, LEIJA, or dizziness. CCU Objective - Vital Signs / Intake & Output Vital Signs (Last 4 hours): Vital Signs Temp Pulse Resp BP Pulse Ox 01/03/19 07:00 18 99 01/03/19 06:00 99 F 64 18 168/69 H Intake and Output (Last 8hrs): Intake & Output 01/02/19 01/03/19 01/03/19 22:59 06:59 14:59 Intake Total 1320 880 Output Total 900 1000 Balance 420 -120 Weight 120.202 kg Intake: IV 820 820 Left Hand 100 Left Internal Jugular 820 720 Oral 500 60 Output: Gastric Amount 0 Stomach 0 Urine 900 1000 2-way Urethral 900 1000 Other: # Bowel Movements 0 1 - Physical Exam Head: Positive for: Atraumatic, Normocephalic Pupils: Positive for: PERRL Extroacular Muscles: Positive for: EOMI Conjunctiva: Positive for: Normal Ears: Positive for: Normal Mouth: Positive for: Moist Mucous Membranes Pharnyx: Positive for: Normal. Negative for: ERYTHEMA, EXUDATE Neck: Positive for: Normal Range of Motion. Negative for: Meningeal Signs, MIDLINE TENDERNESS Respiratory/Chest: Positive for: Rales, Other (tracheostomy in place, no signs of bleeding, discharge, erythema.). Negative for: Respiratory Distress, Accessory Muscle Use, Wheezes, Rhonchi, Tachypneic Cardiovascular: Positive for: Regular Rate and Rhythm, Normal S1, S2. Negative for: Murmurs Abdomen: Positive for: Normal Bowel Sounds. Negative for: Tenderness, Distention, Peritoneal Signs Back: Positive for: Normal Inspection. Negative for: CVA Tenderness, Midline Tenderness Upper Extremity: Positive for: Normal Inspection, Normal ROM, NORMAL PULSES, Neurovascularly Intact. Negative for: Cyanosis, Edema Lower Extremity: Positive for: Normal Inspection, NORMAL PULSES, Normal ROM, Neurovascularly Intact. Negative for: Edema, Deformity Neurological: Positive for: GCS=15, CN II-XII Intact, Motor Func Grossly Intact, Normal Sensory Function, Normal Cerebellar Funct, Gait Normal, Memory Normal Skin: Positive for: Warm, Dry, Normal Color. Negative for: Rashes Psychiatric: Positive for: Alert - Medications Active Medications: Active Medications Generic Name Dose Route Start Last Admin Trade Name Freq PRN Reason Stop Dose Admin Albuterol/Ipratropium 3 ml 12/30/18 14:00 01/03/19 09:05 Duoneb 3 Mg/0.5 Mg (3 Ml) Ud IH 3 ml [id number] NARENDRA Administration Albuterol/Ipratropium 3 ml 12/31/18 05:17 01/02/19 15:18 Duoneb 3 Mg/0.5 Mg (3 Ml) Ud IH 3 ml Q2H PRN Administration Shortness of Breath Aspirin 81 mg 12/26/18 13:30 01/02/19 13:00 Ecotrin PO 81 mg DAILY NARENDRA Administration Clonidine HCl 1 patch 01/02/19 10:00 01/02/19 11:00 Catapres-Tts2 0.2 Mg/24 Hr TD 1 patch Q7D@1000 NARENDRA Administration Dextrose 0 ml 12/29/18 04:53 Dextrose 50% Inj IV STAT PRN Hypoglycemia Protocol Protocol Hydralazine HCl 10 mg 01/02/19 09:46 Apresoline IVP Q6 PRN For SBP>160 Meropenem/Sodium Chloride 500 mg in 50 mls @ 100 mls/hr 12/29/18 22:00 01/02/19 21:07 Merrem Iv 500 Mg/Ns 50 Ml IVPB 01/07/19 22:01 100 mls/hr Q12 NARENDRA Administration Protocol Propofol 1,000 mg in 100 mls @ 3.44 mls/hr 12/31/18 13:11 01/02/19 07:00 Diprivan IV 0 mcg/kg/min .Q24H PRN 0 mls/hr TITRATE PER MD ORDER Titration Protocol 5 MCG/KG/MIN Sodium Chloride 1,000 mls @ 60 mls/hr 01/01/19 14:00 01/03/19 06:06 Sodium Chloride 0.45% IV 60 mls/hr .[id number] NARENDRA Administration Insulin Human Lispro 0 units 12/29/18 07:30 01/03/19 07:57 Humalog Low SC 3 units ACHS NARENDRA Administration Protocol Metoprolol Tartrate 5 mg 12/27/18 20:39 12/28/18 05:28 Lopressor IVP 5 mg Q6 PRN Administration if sbp >150 Pantoprazole Sodium 40 mg 12/29/18 10:00 01/02/19 09:08 Protonix Inj IVP 40 mg DAILY NARENDRA Administration Prednisone 40 mg 01/03/19 10:00 Prednisone Tab PO DAILY NARENDRA Quetiapine Fumarate 12.5 mg 01/01/19 15:50 Seroquel PO HS PRN Agitation Protocol - Patient Studies Lab Studies: Microbiology Studies 12/29/18 09:05 Blood Culture - Final Blood NO GROWTH AFTER 5 DAYS Gram Stain - Final TEST NOT PERFORMED 12/29/18 20:54 Blood Culture - Preliminary Blood NO GROWTH AFTER 4 DAYS 12/29/18 20:24 Blood Culture - Preliminary Blood NO GROWTH AFTER 4 DAYS Lab Studies 01/03/19 01/03/19 01/03/19 Range/Units 07:34 06:15 06:15 WBC 12.1 H (4.5-11.0) 10^3/uL RBC 3.72 (3.5-6.1) 10^6/uL Hgb 10.8 L (14.0-18.0) g/dL Hct 34.6 L (42.0-52.0) % MCV 93.0 (80.0-105.0) fl MCH 29.0 (25.0-35.0) pg MCHC 31.2 (31.0-37.0) g/dl RDW 14.4 (11.5-14.5) % Plt Count 204 (120.0-450.0) 10^3/uL MPV 10.6 (7.0-11.0) fl Neut % (Auto) 84.5 H (50.0-68.0) % Lymph % (Auto) 10.9 L (22.0-35.0) % [place] % (Auto) 4.5 (1.0-6.0) % Eos % (Auto) 0.0 L (1.5-5.0) % Baso % (Auto) 0.1 (0.0-3.0) % Lymph # (Auto) 1.3 (1.2-3.4) [place] # (Auto) 0.5 (0.1-0.6) Eos # (Auto) 0.0 (0.0-0.7) Baso # (Auto) 0.01 (0.0-2.0) K/mm3 Absolute Neuts (auto) 10.21 H (1.4-6.5) pCO2 (35-45) mm/Hg pO2 (80-100) mm/Hg HCO3 (21-28) mmol/L ABG pH (7.35-7.45) ABG Total CO2 (22-28) mmol.L ABG O2 Saturation (95-98) % ABG O2 Content (15-23) ML/dl ABG Base Excess (-2.0-3.0) mmol/L ABG Hemoglobin (11.7-17.4) g/dL ABG Carboxyhemoglobin (0.5-1.5) % POC ABG HHb (Measured) (0-5) % ABG Methemoglobin (0.0-3.0) % ABG O2 Capacity (16-24) mL/dl Hgb O2 Saturation (95.0-98.0) % FiO2 % Sodium 147 (132-148) mmol/L Potassium 4.6 (3.6-5.0) mmol/L Chloride 117 H (98-107) mmol/L Carbon Dioxide 26 (21-33) mmol/L Anion Gap 9 L (10-20) BUN 69 H (7-21) mg/dL Creatinine 2.4 H (0.8-1.5) mg/dl Est GFR ( Amer) 32 Est GFR (Non-Af Amer) 27 POC Glucose (mg/dL) 284 H (65-110) mg/dL Random Glucose 304 H* (70-110) mg/dL Calcium 8.9 (8.4-10.5) mg/dL Phosphorus 4.6 H (2.5-4.5) mg/dL Magnesium 2.4 H (1.7-2.2) mg/dL Total Bilirubin 0.6 (0.2-1.3) mg/dL AST 30 (17-59) U/L ALT 62 H (7-56) U/L Alkaline Phosphatase 99 (38-126) U/L Lactate Dehydrogenase 820 H (333-699) U/L Total Creatine Kinase 247 H (35-230) U/L CK-MB (CK-2) 1.3 (0.0-3.6) ng/mL CK-MB (CK-2) % Cancelled Troponin I 0.32 H* D ng/mL Total Protein 6.2 (5.8-8.3) g/dL Albumin 3.1 (3.0-4.8) g/dL Globulin 3.1 gm/dL Albumin/Globulin Ratio 1.0 L (1.1-1.8) Urine Eosinophils 01/03/19 01/02/19 01/02/19 Range/Units 05:40 21:26 15:52 WBC (4.5-11.0) 10^3/uL RBC (3.5-6.1) 10^6/uL Hgb (14.0-18.0) g/dL Hct (42.0-52.0) % MCV (80.0-105.0) fl MCH (25.0-35.0) pg MCHC (31.0-37.0) g/dl RDW (11.5-14.5) % Plt Count (120.0-450.0) 10^3/uL MPV (7.0-11.0) fl Neut % (Auto) (50.0-68.0) % Lymph % (Auto) (22.0-35.0) % [place] % (Auto) (1.0-6.0) % Eos % (Auto) (1.5-5.0) % Baso % (Auto) (0.0-3.0) % Lymph # (Auto) (1.2-3.4) [place] # (Auto) (0.1-0.6) Eos # (Auto) (0.0-0.7) Baso # (Auto) (0.0-2.0) K/mm3 Absolute Neuts (auto) (1.4-6.5) pCO2 43 (35-45) mm/Hg pO2 103.0 H (80-100) mm/Hg HCO3 21.7 (21-28) mmol/L ABG pH 7.31 L (7.35-7.45) ABG Total CO2 23.0 (22-28) mmol.L ABG O2 Saturation 97.0 (95-98) % ABG O2 Content 19.3 (15-23) ML/dl ABG Base Excess -4.5 L (-2.0-3.0) mmol/L ABG Hemoglobin 14.2 (11.7-17.4) g/dL ABG Carboxyhemoglobin 0.4 L (0.5-1.5) % POC ABG HHb (Measured) 3.0 (0-5) % ABG Methemoglobin 0.3 (0.0-3.0) % ABG O2 Capacity 19.9 (16-24) mL/dl Hgb O2 Saturation 96.3 (95.0-98.0) % FiO2 40.0 % Sodium (132-148) mmol/L Potassium (3.6-5.0) mmol/L Chloride (98-107) mmol/L Carbon Dioxide (21-33) mmol/L Anion Gap (10-20) BUN (7-21) mg/dL Creatinine (0.8-1.5) mg/dl Est GFR ( Amer) Est GFR (Non-Af Amer) POC Glucose (mg/dL) 367 H 381 H (65-110) mg/dL Random Glucose (70-110) mg/dL Calcium (8.4-10.5) mg/dL Phosphorus (2.5-4.5) mg/dL Magnesium (1.7-2.2) mg/dL Total Bilirubin (0.2-1.3) mg/dL AST (17-59) U/L ALT (7-56) U/L Alkaline Phosphatase (38-126) U/L Lactate Dehydrogenase (333-699) U/L Total Creatine Kinase (35-230) U/L CK-MB (CK-2) (0.0-3.6) ng/mL CK-MB (CK-2) % Troponin I ng/mL Total Protein (5.8-8.3) g/dL Albumin (3.0-4.8) g/dL Globulin gm/dL Albumin/Globulin Ratio (1.1-1.8) Urine Eosinophils 01/02/19 01/02/19 01/01/19 Range/Units 11:56 07:36 16:50 WBC (4.5-11.0) 10^3/uL RBC (3.5-6.1) 10^6/uL Hgb (14.0-18.0) g/dL Hct (42.0-52.0) % MCV (80.0-105.0) fl MCH (25.0-35.0) pg MCHC (31.0-37.0) g/dl RDW (11.5-14.5) % Plt Count (120.0-450.0) 10^3/uL MPV (7.0-11.0) fl Neut % (Auto) (50.0-68.0) % Lymph % (Auto) (22.0-35.0) % [place] % (Auto) (1.0-6.0) % Eos % (Auto) (1.5-5.0) % Baso % (Auto) (0.0-3.0) % Lymph # (Auto) (1.2-3.4) [place] # (Auto) (0.1-0.6) Eos # (Auto) (0.0-0.7) Baso # (Auto) (0.0-2.0) K/mm3 Absolute Neuts (auto) (1.4-6.5) pCO2 (35-45) mm/Hg pO2 (80-100) mm/Hg HCO3 (21-28) mmol/L ABG pH (7.35-7.45) ABG Total CO2 (22-28) mmol.L ABG O2 Saturation (95-98) % ABG O2 Content (15-23) ML/dl ABG Base Excess (-2.0-3.0) mmol/L ABG Hemoglobin (11.7-17.4) g/dL ABG Carboxyhemoglobin (0.5-1.5) % POC ABG HHb (Measured) (0-5) % ABG Methemoglobin (0.0-3.0) % ABG O2 Capacity (16-24) mL/dl Hgb O2 Saturation (95.0-98.0) % FiO2 % Sodium (132-148) mmol/L Potassium (3.6-5.0) mmol/L Chloride (98-107) mmol/L Carbon Dioxide (21-33) mmol/L Anion Gap (10-20) BUN (7-21) mg/dL Creatinine (0.8-1.5) mg/dl Est GFR ( Amer) Est GFR (Non-Af Amer) POC Glucose (mg/dL) 261 H 300 H (65-110) mg/dL Random Glucose (70-110) mg/dL Calcium (8.4-10.5) mg/dL Phosphorus (2.5-4.5) mg/dL Magnesium (1.7-2.2) mg/dL Total Bilirubin (0.2-1.3) mg/dL AST (17-59) U/L ALT (7-56) U/L Alkaline Phosphatase (38-126) U/L Lactate Dehydrogenase (333-699) U/L Total Creatine Kinase (35-230) U/L CK-MB (CK-2) (0.0-3.6) ng/mL CK-MB (CK-2) % Troponin I ng/mL Total Protein (5.8-8.3) g/dL Albumin (3.0-4.8) g/dL Globulin gm/dL Albumin/Globulin Ratio (1.1-1.8) Urine Eosinophils Negative Laboratory Results - last 24 hr 01/01/19 01/02/19 01/02/19 16:50 07:36 11:56 WBC RBC Hgb Hct MCV MCH MCHC RDW Plt Count MPV Neut % (Auto) Lymph % (Auto) [place] % (Auto) Eos % (Auto) Baso % (Auto) Lymph # (Auto) [place] # (Auto) Eos # (Auto) Baso # (Auto) Absolute Neuts (auto) pCO2 pO2 HCO3 ABG pH ABG Total CO2 ABG O2 Saturation ABG O2 Content ABG Base Excess ABG Hemoglobin ABG Carboxyhemoglobin POC ABG HHb (Measured) ABG Methemoglobin ABG O2 Capacity Hgb O2 Saturation FiO2 Sodium Potassium Chloride Carbon Dioxide Anion Gap BUN Creatinine Est GFR ( Amer) Est GFR (Non-Af Amer) POC Glucose (mg/dL) 300 H 261 H Random Glucose Calcium Phosphorus Magnesium Total Bilirubin AST ALT Alkaline Phosphatase Lactate Dehydrogenase Total Creatine Kinase CK-MB (CK-2) CK-MB (CK-2) % Troponin I Total Protein Albumin Globulin Albumin/Globulin Ratio Urine Eosinophils Negative 01/02/19 01/02/19 01/03/19 15:52 21:26 05:40 WBC RBC Hgb Hct MCV MCH MCHC RDW Plt Count MPV Neut % (Auto) Lymph % (Auto) [place] % (Auto) Eos % (Auto) Baso % (Auto) Lymph # (Auto) [place] # (Auto) Eos # (Auto) Baso # (Auto) Absolute Neuts (auto) pCO2 43 pO2 103.0 H HCO3 21.7 ABG pH 7.31 L ABG Total CO2 23.0 ABG O2 Saturation 97.0 ABG O2 Content 19.3 ABG Base Excess -4.5 L ABG Hemoglobin 14.2 ABG Carboxyhemoglobin 0.4 L POC ABG HHb (Measured) 3.0 ABG Methemoglobin 0.3 ABG O2 Capacity 19.9 Hgb O2 Saturation 96.3 FiO2 40.0 Sodium Potassium Chloride Carbon Dioxide Anion Gap BUN Creatinine Est GFR ( Amer) Est GFR (Non-Af Amer) POC Glucose (mg/dL) 381 H 367 H Random Glucose Calcium Phosphorus Magnesium Total Bilirubin AST ALT Alkaline Phosphatase Lactate Dehydrogenase Total Creatine Kinase CK-MB (CK-2) CK-MB (CK-2) % Troponin I Total Protein Albumin Globulin Albumin/Globulin Ratio Urine Eosinophils 01/03/19 01/03/19 01/03/19 06:15 06:15 07:34 WBC 12.1 H RBC 3.72 Hgb 10.8 L Hct 34.6 L MCV 93.0 MCH 29.0 MCHC 31.2 RDW 14.4 Plt Count 204 MPV 10.6 Neut % (Auto) 84.5 H Lymph % (Auto) 10.9 L [place] % (Auto) 4.5 Eos % (Auto) 0.0 L Baso % (Auto) 0.1 Lymph # (Auto) 1.3 [place] # (Auto) 0.5 Eos # (Auto) 0.0 Baso # (Auto) 0.01 Absolute Neuts (auto) 10.21 H pCO2 pO2 HCO3 ABG pH ABG Total CO2 ABG O2 Saturation ABG O2 Content ABG Base Excess ABG Hemoglobin ABG Carboxyhemoglobin POC ABG HHb (Measured) ABG Methemoglobin ABG O2 Capacity Hgb O2 Saturation FiO2 Sodium 147 Potassium 4.6 Chloride 117 H Carbon Dioxide 26 Anion Gap 9 L BUN 69 H Creatinine 2.4 H Est GFR ( Amer) 32 Est GFR (Non-Af Amer) 27 POC Glucose (mg/dL) 284 H Random Glucose 304 H* Calcium 8.9 Phosphorus 4.6 H Magnesium 2.4 H Total Bilirubin 0.6 AST 30 ALT 62 H Alkaline Phosphatase 99 Lactate Dehydrogenase 820 H Total Creatine Kinase 247 H CK-MB (CK-2) 1.3 CK-MB (CK-2) % Cancelled Troponin I 0.32 H* D Total Protein 6.2 Albumin 3.1 Globulin 3.1 Albumin/Globulin Ratio 1.0 L Urine Eosinophils Radiology Impressions: Radiology Impressions Renal Ultrasound 01/01/19 13:54 IMPRESSION: Potential intrinsic medical renal disease. Parenchymal atrophy noted bilaterally. No obstructive uropathy, solid mass or urolithiasis identified. Chest X-Ray 01/02/19 07:00 IMPRESSION: No active disease. Chest X-Ray 01/03/19 07:00 IMPRESSION: No active disease. Fingerstick Blood Sugar Results: 286 Critical Care Progress Note - Nutrition Nutrition: Nutrition Category Date Time Status Dysphagia/Modified Consistency Diet [DIET] Diets 01/02/19 Lunch Ordered Assessment/Plan - Assessment and Plan (Free Text) Assessment: Patient is a 73 year old male with past medical history of CVA (2017), diabetes, arthritis, hypertension, and hyperlipidemia, who presented to the Emergency department with aphasia and altered mental status. Patient was code blue on 12/29 as patient went into respiratory arrest and PEA likely in the setting of obstructive sleep apnea. Patient was intubated and ROSC was achieved per ACLS protocol. Patient was extubated and placed on non-invasive ventilation. Patient failed non-invasive ventilation and again went into cardiorespiratory arrest last night. He was re-intubated and ROSC was achieved. Patient is POD#2 for trac heostomy placement. Patient is hemodynamically stable and tolerating trach well, will transfer to telemetry. Plan: Neuro - Intubated, not sedated, currently responding to questioning - maintain normothermia - Cont ASA and Lipitor Cardio - s/p cardiac arrest x2 - Echo showed EF 55%, RSVP 38 - Troponin elevated likely 2/2 chest compressions - hold beta kyler and losartan - Cont Lipitor and ASA - Cardiology consulted - maintain MAP > 65 mmHg Pulm - POD#2 tracheostomy - Pulmonary arrest likely in setting ANDREW, noncompliant with BIPAP - Possible aspiration PNA vs HCAP - CXR shows vascular congestion - Solumedrol 20 mg q12h - Duoneb narendra/prn - maintain SaO2 > 92% - Chest PT - Pulm toilet - OOB to chair GI - Liver enzymes downtrending likely 2/2 to hypoperfusion in setting of cardiorespiratory arrest - Cont to trend LFT's - NPO - Protonix for GI PPx Renal - GONZALEZ, creatinine downtrending; likely 2/2 hypoperfusion, possible ATN, rhabdomyolysis - 1/2NS 60 per hr - FeNa 0.8% - prerenal - Renal US negative - Strict Is and Os - Maintain euvolemia - Cont to monitor electrolytes and replete as needed - Nephro consulted Heme - Hgb stable - continue to monitor - SCD's for DVT PPx ID - Procal 14.26 - Cont Merrem (Day 6) per ID - blood and urine cultures negative - ID consulted Endo - maintain euglycemia - ISS, Accuchecks Patient seen and discussed in detail with Dr. Santiago. Dipesh Silva, DO PGY2 <Fuentes Santiago - Last Filed: 01/03/19 17:05> CCU Objective - Vital Signs / Intake & Output Vital Signs (Last 4 hours): Vital Signs Pulse BP 01/03/19 15:29 66 161/71 H Intake and Output (Last 8hrs): Intake & Output 01/03/19 01/03/19 01/03/19 06:59 14:59 22:59 Intake Total 880 Output Total 1000 Balance -120 Weight 265 lb Intake: IV 820 Left Hand 100 Left Internal Jugular 720 Oral 60 Output: Urine 1000 2-way Urethral 1000 Other: # Bowel Movements 1 - Medications Active Medications: Active Medications Generic Name Dose Route Start Last Admin Trade Name Freq PRN Reason Stop Dose Admin Albuterol/Ipratropium 3 ml 12/30/18 14:00 01/03/19 13:59 Duoneb 3 Mg/0.5 Mg (3 Ml) Ud IH 3 ml [id number] NARENDRA Administration Albuterol/Ipratropium 3 ml 12/31/18 05:17 01/02/19 15:18 Duoneb 3 Mg/0.5 Mg (3 Ml) Ud IH 3 ml Q2H PRN Administration Shortness of Breath Aspirin 81 mg 12/26/18 13:30 01/03/19 10:45 Ecotrin PO 81 mg DAILY NARENDRA Administration Carvedilol 3.125 mg 01/03/19 18:00 Coreg PO BID NARENDRA Clonidine HCl 1 patch 01/03/19 12:30 01/03/19 15:29 Catapres-Tts3 0.3 Mg/24 Hr TD 1 patch Q7D@1000 NARENDRA Administration Dextrose 0 ml 12/29/18 04:53 Dextrose 50% Inj IV STAT PRN Hypoglycemia Protocol Protocol Enoxaparin Sodium 30 mg 01/04/19 10:00 Lovenox SC DAILY NARENDRA Protocol Famotidine 40 mg 01/03/19 22:00 Pepcid PO HS NARENDRA Hydralazine HCl 10 mg 01/02/19 09:46 Apresoline IVP Q6 PRN For SBP>160 Hydralazine HCl 50 mg 01/03/19 18:00 Apresoline PO BID NARENDRA Meropenem/Sodium Chloride 500 mg in 50 mls @ 100 mls/hr 12/29/18 22:00 01/03/19 10:45 Merrem Iv 500 Mg/Ns 50 Ml IVPB 01/07/19 22:01 100 mls/hr Q12 NARENDRA Administration Protocol Propofol 1,000 mg in 100 mls @ 3.44 mls/hr 12/31/18 13:11 01/02/19 07:00 Diprivan IV 0 mcg/kg/min .Q24H PRN 0 mls/hr TITRATE PER MD ORDER Titration Protocol 5 MCG/KG/MIN Sodium Chloride 1,000 mls @ 60 mls/hr 01/01/19 14:00 01/03/19 06:06 Sodium Chloride 0.45% IV 60 mls/hr .[id number] NARENDRA Administration Insulin Human Lispro 0 units 12/29/18 07:30 01/03/19 12:47 Humalog Low SC 4 units ACHS NARENDRA Administration Protocol Metoprolol Tartrate 5 mg 12/27/18 20:39 12/28/18 05:28 Lopressor IVP 5 mg Q6 PRN Administration if sbp >150 Prednisone 40 mg 01/03/19 10:00 01/03/19 10:46 Prednisone Tab PO 40 mg DAILY NARENDRA Administration Quetiapine Fumarate 12.5 mg 01/01/19 15:50 Seroquel PO HS PRN Agitation Protocol - Patient Studies Lab Studies: Microbiology Studies 12/29/18 09:05 Blood Culture - Final Blood NO GROWTH AFTER 5 DAYS Gram Stain - Final TEST NOT PERFORMED 12/29/18 20:54 Blood Culture - Preliminary Blood NO GROWTH AFTER 4 DAYS 12/29/18 20:24 Blood Culture - Preliminary Blood NO GROWTH AFTER 4 DAYS Lab Studies 01/03/19 01/03/19 01/03/19 Range/Units 16:40 07:34 06:15 WBC (4.5-11.0) 10^3/uL RBC (3.5-6.1) 10^6/uL Hgb (14.0-18.0) g/dL Hct (42.0-52.0) % MCV (80.0-105.0) fl MCH (25.0-35.0) pg MCHC (31.0-37.0) g/dl RDW (11.5-14.5) % Plt Count (120.0-450.0) 10^3/uL MPV (7.0-11.0) fl Neut % (Auto) (50.0-68.0) % Lymph % (Auto) (22.0-35.0) % [place] % (Auto) (1.0-6.0) % Eos % (Auto) (1.5-5.0) % Baso % (Auto) (0.0-3.0) % Lymph # (Auto) (1.2-3.4) [place] # (Auto) (0.1-0.6) Eos # (Auto) (0.0-0.7) Baso # (Auto) (0.0-2.0) K/mm3 Absolute Neuts (auto) (1.4-6.5) pCO2 (35-45) mm/Hg pO2 (80-100) mm/Hg HCO3 (21-28) mmol/L ABG pH (7.35-7.45) ABG Total CO2 (22-28) mmol.L ABG O2 Saturation (95-98) % ABG O2 Content (15-23) ML/dl ABG Base Excess (-2.0-3.0) mmol/L ABG Hemoglobin (11.7-17.4) g/dL ABG Carboxyhemoglobin (0.5-1.5) % POC ABG HHb (Measured) (0-5) % ABG Methemoglobin (0.0-3.0) % ABG O2 Capacity (16-24) mL/dl Hgb O2 Saturation (95.0-98.0) % FiO2 % Sodium 147 (132-148) mmol/L Potassium 4.6 (3.6-5.0) mmol/L Chloride 117 H (98-107) mmol/L Carbon Dioxide 26 (21-33) mmol/L Anion Gap 9 L (10-20) BUN 69 H (7-21) mg/dL Creatinine 2.4 H (0.8-1.5) mg/dl Est GFR ( Amer) 32 Est GFR (Non-Af Amer) 27 POC Glucose (mg/dL) 289 H 284 H (65-110) mg/dL Random Glucose 304 H* (70-110) mg/dL Calcium 8.9 (8.4-10.5) mg/dL Phosphorus 4.6 H (2.5-4.5) mg/dL Magnesium 2.4 H (1.7-2.2) mg/dL Total Bilirubin 0.6 (0.2-1.3) mg/dL AST 30 (17-59) U/L ALT 62 H (7-56) U/L Alkaline Phosphatase 99 (38-126) U/L Lactate Dehydrogenase 820 H (333-699) U/L Total Creatine Kinase 247 H (35-230) U/L CK-MB (CK-2) 1.3 (0.0-3.6) ng/mL CK-MB (CK-2) % Cancelled Troponin I 0.32 H* D ng/mL Total Protein 6.2 (5.8-8.3) g/dL Albumin 3.1 (3.0-4.8) g/dL Globulin 3.1 gm/dL Albumin/Globulin Ratio 1.0 L (1.1-1.8) 01/03/19 01/03/19 01/02/19 Range/Units 06:15 05:40 21:26 WBC 12.1 H (4.5-11.0) 10^3/uL RBC 3.72 (3.5-6.1) 10^6/uL Hgb 10.8 L (14.0-18.0) g/dL Hct 34.6 L (42.0-52.0) % MCV 93.0 (80.0-105.0) fl MCH 29.0 (25.0-35.0) pg MCHC 31.2 (31.0-37.0) g/dl RDW 14.4 (11.5-14.5) % Plt Count 204 (120.0-450.0) 10^3/uL MPV 10.6 (7.0-11.0) fl Neut % (Auto) 84.5 H (50.0-68.0) % Lymph % (Auto) 10.9 L (22.0-35.0) % [place] % (Auto) 4.5 (1.0-6.0) % Eos % (Auto) 0.0 L (1.5-5.0) % Baso % (Auto) 0.1 (0.0-3.0) % Lymph # (Auto) 1.3 (1.2-3.4) [place] # (Auto) 0.5 (0.1-0.6) Eos # (Auto) 0.0 (0.0-0.7) Baso # (Auto) 0.01 (0.0-2.0) K/mm3 Absolute Neuts (auto) 10.21 H (1.4-6.5) pCO2 43 (35-45) mm/Hg pO2 103.0 H (80-100) mm/Hg HCO3 21.7 (21-28) mmol/L ABG pH 7.31 L (7.35-7.45) ABG Total CO2 23.0 (22-28) mmol.L ABG O2 Saturation 97.0 (95-98) % ABG O2 Content 19.3 (15-23) ML/dl ABG Base Excess -4.5 L (-2.0-3.0) mmol/L ABG Hemoglobin 14.2 (11.7-17.4) g/dL ABG Carboxyhemoglobin 0.4 L (0.5-1.5) % POC ABG HHb (Measured) 3.0 (0-5) % ABG Methemoglobin 0.3 (0.0-3.0) % ABG O2 Capacity 19.9 (16-24) mL/dl Hgb O2 Saturation 96.3 (95.0-98.0) % FiO2 40.0 % Sodium (132-148) mmol/L Potassium (3.6-5.0) mmol/L Chloride (98-107) mmol/L Carbon Dioxide (21-33) mmol/L Anion Gap (10-20) BUN (7-21) mg/dL Creatinine (0.8-1.5) mg/dl Est GFR ( Amer) Est GFR (Non-Af Amer) POC Glucose (mg/dL) 367 H (65-110) mg/dL Random Glucose (70-110) mg/dL Calcium (8.4-10.5) mg/dL Phosphorus (2.5-4.5) mg/dL Magnesium (1.7-2.2) mg/dL Total Bilirubin (0.2-1.3) mg/dL AST (17-59) U/L ALT (7-56) U/L Alkaline Phosphatase (38-126) U/L Lactate Dehydrogenase (333-699) U/L Total Creatine Kinase (35-230) U/L CK-MB (CK-2) (0.0-3.6) ng/mL CK-MB (CK-2) % Troponin I ng/mL Total Protein (5.8-8.3) g/dL Albumin (3.0-4.8) g/dL Globulin gm/dL Albumin/Globulin Ratio (1.1-1.8) Laboratory Results - last 24 hr 01/02/19 01/03/19 01/03/19 21:26 05:40 06:15 WBC 12.1 H RBC 3.72 Hgb 10.8 L Hct 34.6 L MCV 93.0 MCH 29.0 MCHC 31.2 RDW 14.4 Plt Count 204 MPV 10.6 Neut % (Auto) 84.5 H Lymph % (Auto) 10.9 L [place] % (Auto) 4.5 Eos % (Auto) 0.0 L Baso % (Auto) 0.1 Lymph # (Auto) 1.3 [place] # (Auto) 0.5 Eos # (Auto) 0.0 Baso # (Auto) 0.01 Absolute Neuts (auto) 10.21 H pCO2 43 pO2 103.0 H HCO3 21.7 ABG pH 7.31 L ABG Total CO2 23.0 ABG O2 Saturation 97.0 ABG O2 Content 19.3 ABG Base Excess -4.5 L ABG Hemoglobin 14.2 ABG Carboxyhemoglobin 0.4 L POC ABG HHb (Measured) 3.0 ABG Methemoglobin 0.3 ABG O2 Capacity 19.9 Hgb O2 Saturation 96.3 FiO2 40.0 Sodium Potassium Chloride Carbon Dioxide Anion Gap BUN Creatinine Est GFR ( Amer) Est GFR (Non-Af Amer) POC Glucose (mg/dL) 367 H Random Glucose Calcium Phosphorus Magnesium Total Bilirubin AST ALT Alkaline Phosphatase Lactate Dehydrogenase Total Creatine Kinase CK-MB (CK-2) CK-MB (CK-2) % Troponin I Total Protein Albumin Globulin Albumin/Globulin Ratio 01/03/19 01/03/19 01/03/19 06:15 07:34 16:40 WBC RBC Hgb Hct MCV MCH MCHC RDW Plt Count MPV Neut % (Auto) Lymph % (Auto) [place] % (Auto) Eos % (Auto) Baso % (Auto) Lymph # (Auto) [place] # (Auto) Eos # (Auto) Baso # (Auto) Absolute Neuts (auto) pCO2 pO2 HCO3 ABG pH ABG Total CO2 ABG O2 Saturation ABG O2 Content ABG Base Excess ABG Hemoglobin ABG Carboxyhemoglobin POC ABG HHb (Measured) ABG Methemoglobin ABG O2 Capacity Hgb O2 Saturation FiO2 Sodium 147 Potassium 4.6 Chloride 117 H Carbon Dioxide 26 Anion Gap 9 L BUN 69 H Creatinine 2.4 H Est GFR ( Amer) 32 Est GFR (Non-Af Amer) 27 POC Glucose (mg/dL) 284 H 289 H Random Glucose 304 H* Calcium 8.9 Phosphorus 4.6 H Magnesium 2.4 H Total Bilirubin 0.6 AST 30 ALT 62 H Alkaline Phosphatase 99 Lactate Dehydrogenase 820 H Total Creatine Kinase 247 H CK-MB (CK-2) 1.3 CK-MB (CK-2) % Cancelled Troponin I 0.32 H* D Total Protein 6.2 Albumin 3.1 Globulin 3.1 Albumin/Globulin Ratio 1.0 L Radiology Impressions: Radiology Impressions Chest X-Ray 01/03/19 07:00 IMPRESSION: No active disease. Critical Care Progress Note - Nutrition Nutrition: Nutrition Category Date Time Status Dysphagia/Modified Consistency Diet [DIET] Diets 01/02/19 Lunch Ordered Attending/Attestation - Attestation I have personally seen and examined this patient.: Yes I have fully participated in the care of the patient.: Yes I have reviewed all pertinent clinical information: Yes Notes (Text): 01/03/19 17:04 uneventful night. alert, awake and oriented, passed swallow eval, hemodynamically and respiratory andrade stable. weaned off of mech ventilation. tolerates OOB to chair and oral nutrition hydration. ok to downgrade to tele. ccm time 40 min
[2019-01-03] MEDS: MEROPENEM 500 MG in NS 500 MG/50 ML BAG IVPB SCH ×2 (10:45→21:36)
--- NOTE | 2019-01-03 12:07 | CP.PCM.PN ---
Subjective - Date & Time of Evaluation Date of Evaluation: 01/03/19 Time of Evaluation: 09:25 - Subjective Subjective: Patient is sitting on a chair, no fevers, breathing better but still with cough, still with secretions from the tracheostomy tube. Objective - Vital Signs/Intake and Output Vital Signs (last 24 hours): Temp Pulse Resp BP Pulse Ox 98.2 F 69 17 147/75 96 01/02/19 12:00 01/02/19 12:00 01/02/19 12:00 01/02/19 11:00 01/02/19 12:00 Intake and Output: 01/02/19 01/02/19 06:59 18:59 Intake Total 920 Balance 920 - Medications Medications: Current Medications Albuterol/Ipratropium (Duoneb 3 Mg/0.5 Mg (3 Ml) Ud) 3 ml IH [id number] [facility] Last Admin: 01/02/19 07:23 Dose: 3 ml Albuterol/Ipratropium (Duoneb 3 Mg/0.5 Mg (3 Ml) Ud) 3 ml IH Q2H PRN PRN Reason: Shortness of Breath Aspirin (Ecotrin) 81 mg PO DAILY [facility] Last Admin: 01/01/19 10:29 Dose: Not Given Clonidine HCl (Catapres-Tts2 0.2 Mg/24 Hr) 1 patch TD Q7D@1000 [facility] Last Admin: 01/02/19 11:00 Dose: 1 patch Dextrose (Dextrose 50% Inj) 0 ml IV STAT PRN; Protocol PRN Reason: Hypoglycemia Protocol Hydralazine HCl (Apresoline) 10 mg IVP Q6 PRN PRN Reason: For SBP>160 Meropenem/Sodium Chloride (Merrem Iv 500 Mg/Ns 50 Ml) 500 mg in 50 mls @ 100 mls/hr IVPB Q12 [facility]; Protocol Stop: 01/07/19 22:01 Last Admin: 01/02/19 09:32 Dose: 100 mls/hr Propofol (Diprivan) 1,000 mg in 100 mls @ 3.44 mls/hr IV .Q24H PRN; Protocol PRN Reason: TITRATE PER MD ORDER Last Admin: 01/02/19 02:13 Dose: 10 mcg/kg/min, 6.88 mls/hr Sodium Chloride (Sodium Chloride 0.45%) 1,000 mls @ 60 mls/hr IV .[id number] [facility] Last Admin: 01/02/19 07:00 Dose: 60 mls/hr Insulin Human Lispro (Humalog Low) 0 units SC ACHS [facility]; Protocol Last Admin: 01/02/19 12:12 Dose: 3 units Methylprednisolone (Solu-Medrol) 20 mg IVP Q12 [facility] Last Admin: 01/02/19 09:08 Dose: 20 mg Metoprolol Tartrate (Lopressor) 5 mg IVP Q6 PRN PRN Reason: if sbp >150 Last Admin: 12/28/18 05:28 Dose: 5 mg Pantoprazole Sodium (Protonix Inj) 40 mg IVP DAILY [facility] Last Admin: 01/02/19 09:08 Dose: 40 mg Quetiapine Fumarate (Seroquel) 12.5 mg PO HS PRN; Protocol PRN Reason: Agitation - Labs Labs: 01/02/19 05:25 01/02/19 05:25 PT 14.1 SECONDS (9.4-12.5) H 12/31/18 06:00 INR 1.25 12/31/18 06:00 APTT 56.1 Seconds (26.9-38.3) H 12/31/18 11:50 - Constitutional Appears: No Acute Distress, Chronically Ill - Head Exam Head Exam: NORMAL INSPECTION - ENT Exam ENT Exam: Mucous Membranes Moist - Neck Exam Neck Exam: absent: Meningismus Additional comments: tracheostomy tube in place - Respiratory Exam Respiratory Exam: Decreased Breath Sounds, Rales (scattered) - Cardiovascular Exam Cardiovascular Exam: +S1, +S2 - GI/Abdominal Exam GI & Abdominal Exam: Soft. absent: Tenderness Assessment and Plan - Assessment and Plan (Free Text) Plan: Assessment severe sepsis S/P shock due to aspiration HCAP S/P VDRF in this patient S/P cardiac arrest, with acute renal failure, S/P tracheostomy, clinically improving CVA dyslipidemia arthritis HTN morbid obesity with BMI 41 bipolar disorder anxiety DM S/P knee surgery Plan MRSA screen is negative - continue Merrem day 5; sputum cx, blood cx are negative; target up to 7 days of therapy PCT is 14.26 will continue to monitor clinically
--- NOTE | 2019-01-03 12:44 | PN ---
DATE: 01/03/2019 REFERRING PHYSICIAN: Diego Teran MD SUBJECTIVE: The patient seen sitting in arm chair in room. No acute distress. No overnight events noted. No headache, rhinitis, chest pain, shortness of breath, abdominal pain, nausea, vomiting, diarrhea, leg pain and leg swelling reported. OBJECTIVE: VITAL SIGNS: Blood pressure 168/69, pulse 64, temperature 99, oxygen saturation 99%, on trach collar. GENERAL: No acute distress. HEENT: Moist mucous membranes. NECK: Tracheostomy in place. No signs of bleeding. Erythema. Trach collar in place. RESPIRATORY: Rhonchi bilaterally. CARDIOVASCULAR: S1 and S2. ABDOMEN: Soft. Nontender. No distention. No organomegaly. Obese. EXTREMITIES: No bilateral lower extremity edema. NEUROLOGIC: Awake, alert, and following commands. MEDICATIONS: Reviewed. DuoNeb 3 mL inhalation every 6 hours, DuoNeb 3 mL inhalation every 2 hours p.r.n., aspirin 81 mg daily, clonidine patch 0.2 mg daily, Pepcid 40 mg bedtime, hydralazine 10 mg every 6 hours p.r.n. systolic blood pressure greater than 160, Humalog sliding scale a.c. and at bedtime, meropenem 500 mg every 12 hours, metoprolol tartate 5 mg IV push every 6 hours p.r.n. systolic blood pressure greater than 150, prednisone 40 mg daily, propofol 1000 mg p.r.n., Seroquel 12.5 mg at bedtime p.r.n., sodium chloride 0.45% at 1000 mL at 60 mL per hour. LABORATORY DATA: Laboratory data reviewed. WBC 12.1, RBC 3.7, hemoglobin 10.8, hematocrit 34.6, platelets 204, pCO2 43, pO2 103, HCO3 21.7. ABG: pH 7.31 and FiO2 of 40. Sodium 147, potassium 4.6, chloride 117, carbon dioxide 26, anion gap 9, BUN 69, creatinine 2.4, POC glucose 284, random glucose 304, calcium 8.9, phosphorus 4.6, magnesium 2.4, total bilirubin 0.6, AST 30, ALT 62, alkaline phosphatase 99, lactate dehydrogenase 820, total creatinine kinase 247. CK-MB 1.3, troponin 0.32, total protein 6.2, albumin 3.1, globulin 3.1, albumin and globulin ratio 1. Blood cultures preliminary, no growth after four days. DIAGNOSTIC DATA: Chest x-ray shows no active disease. IMPRESSION AND PLAN: Healthcare-acquired pneumonia; status post cardiac arrest; respiratory failure, was on ventilator, presently off ventilator. The patient is status post tracheostomy, on trach collar at this time; acute renal failure; cerebrovascular accident; dyslipidemia; hypertension; morbid obesity; bipolar disorder; anxiety; diabetes mellitus; arthritis; history of cerebrovascular accident; morbid obesity; obstructive sleep apnea syndrome; head of bed elevated at 45 degrees; sleep apnea precaution; gastric prophylaxis. Continue inhaled bronchodilators p.r.n. suctioning. Recommend continuing tapering steroids. Out of bed to chair. We will order repeat labs, ABG, chest x-ray in the morning. Critical care time spent more than 35 minutes. This patient was seen and examined with Dr. Wright. Discussed assessment and plan as described above. This patient seen and examined by Kael Flor, nurse practitioner. Discussed assessment and plan as described above. Thank you for this consult. We will follow with you. Kael Flor APN Magdalena Wright MD
--- NOTE | 2019-01-03 17:49 | PN ---
DATE: 01/03/2019 REASON FOR CONSULTATION AND FOLLOWUP: Status post code blue, status post respiratory failure, status post tracheostomy, possible obstructive sleep apnea and morbid obesity. The patient is awake and alert, sitting in the chair. Status post tracheostomy. PHYSICAL EXAMINATION: GENERAL: Not in apparent distress. VITAL SIGNS: Temperature afebrile. Pulse 64 and blood pressure 160/69. HEENT: PERRLA. Extraocular muscles intact. NECK: Supple. No carotid bruits or thyromegaly. CHEST: Clear to auscultation. HEART: S1 and S2 regular. ABDOMEN: Soft. EXTREMITIES: Clubbing and cyanosis negative. LABORATORY DATA: Blood workup as follows; WBC 12.1, hemoglobin 10.8, hematocrit 34.6 and platelet count 204. Chemistry shows sodium 140, potassium 4.6, chloride 117, carbon dioxide 26, anion gap of 9, BUN 69, creatinine 2.4 and troponin 0.32. IMPRESSION: A 73-year-old morbidly obese male with past medical history significant for hypertension, hyperlipidemia, arthritis, admitted with altered mental status, then became apneic, intubated, successfully extubated, re-intubated again because of respiratory failure. At that time, heart rate was 30 after that tracheostomy and intubation no further episodes were noted. The patient had rhabdomyolysis with a maximum CPK 5023, troponin 0.46, MB fraction of 0.4, serum creatinine 2.4, acute kidney injury, doubt there is a myocardial infarction. No evidence of acute MO, most likely this is bump in troponin secondary to rhabdomyolysis and hemodynamic instability. The patient is status post tracheostomy. RECOMMENDATION: Continue rehab, the patient is stable, stress test and cardiac catheterization as outpatient. Since right now, the patient has acute renal failure, it was told to the patient due to complete renal failure, he may need dialysis, and since there is no evidence of chest pain and no evidence of acute myocardial infarction, we will follow with you. I will avoid all nephrotoxic medication. We will increase Clonidine patch to 0.3 and increase 25 p.o. b.i.d. hydralazine. The patient had an echocardiography done that revealed ejection fraction 55%, trace to mild mitral regurgitation, RV systolic pressure 38. We will follow with you. Thank you Dr. Campbell for providing us the opportunity in taking care of the patient, Zay Saleemjanice. Magdalena Rajan MD
--- NOTE | 2019-01-03 20:53 | CP.PCM.PCO ---
Physician Communication Note - Physician Communication Note Physician Communication Note: Rx Diet/meds/resp therapy-LTACH planned(?#[id number] Tube next)
--- NOTE | 2019-01-03 21:28 | PN ---
DATE: 01/03/2019 SUBJECTIVE: The patient is seen in the ICU. He is awake. He is alert. He is sitting in a chair. He remains on oxygen via trache. He is somewhat lethargic. He complains of some pain. He complains of some shortness of breath. OBJECTIVE: GENERAL: Morbidly obese elderly male sitting in chair. VITAL SIGNS: Blood pressure 168/69, heart rate 64, respiratory rate 18, and temperature 99. HEENT: Normocephalic and atraumatic. Positive pallor. No icterus. NECK: Supple. No JVD. LUNGS: Bilateral rhonchi, bilateral equal expansion. No rales. CARDIAC: S1 and S2. Regular rate and rhythm. No murmur. No rub. ABDOMEN: Obese, distended, soft, and nontender. Bowel sounds present. EXTREMITIES: Trace lower extremity edema. INTAKE AND OUTPUT: 2230/1900. LABORATORY DATA: WBC 12, hemoglobin 10.8, hematocrit 34.6, and platelets 204. Sodium 147, potassium 4.6, chloride 117, CO2 of 26, BUN 69, creatinine 2.4, glucose 304, calcium 8.9, phosphorus 4.6, and magnesium 2.4. AST 30, ALT 62, and CPK 247. Troponin 0.32. Urine culture, no growth. Chest x-ray, no active disease. CURRENT MEDICATIONS: Catapres patch 0.3, DuoNeb, aspirin, Lovenox, meropenem 500 every 12 hours, Pepcid, prednisone 40 daily, and Seroquel. ASSESSMENT: 1. Acute kidney injury in the setting of cerebrovascular accident, cardiac arrest, renal hypoperfusion, and acute tubular necrosis. 2. Morbid obesity. 3. Sleep apnea with noncompliance with continuous positive airway pressure at home. 4. Respiratory failure because of mechanical issues, status post tracheostomy. 5. Noninsulin-dependent diabetes mellitus. 6. Hypertension. PLAN: 1. Renal parameters slowly improving, urine output is improving. 2. Discontinue IV fluids since p.o. intake is excellent. 3. Restart Coreg 3.125 b.i.d. 4. Continue to hold losartan and continue to hold metformin. 5. Monitor daily labs. 6. Monitor daily urine output. 7. Monitor fingersticks and continue insulin coverage. Case discussed with Dr. Teran, case discussed with the ICU nursing staff, case discussed with son and at bedside. More than 35 minutes spent in the care of this critically ill patient. Velma Samuel MD
[2019-01-04] MEDS: Sodium Chloride 0.45% 1,000 ML IV SCH ×3 (01:30→17:55)
[2019-01-04] MEDS: Albuterol-Ipratrop 3 mg / 0.5 (3 ml) UD IH SCH ×4 (02:05→20:50)
[2019-01-04] MEDS: Metoprolol 1 mg/ml Inj IVP PRN (06:07)
[2019-01-04 07:27] LABS: MEAN CELL VOLUME 92.4 fl (80.0-105.0); MEAN CORPUSCULAR HEMOGLOBIN 28.6 pg (25.0-35.0); MEAN CORPUSCULAR HGB CONC 30.9 g/dl (31.0-37.0); MEAN PLATELET VOLUME 10.8 fl (7.0-11.0); PLATELET COUNT 248 10^3/uL (120.0-450.0); RED CELL DISTRIBUTION WIDTH 14.3 % (11.5-14.5); WHITE BLOOD COUNT 15.2 10^3/uL (4.5-11.0)
--- NOTE | 2019-01-04 07:29 | CP.PCM.PN ---
Subjective - Date & Time of Evaluation Date of Evaluation: 01/04/19 Time of Evaluation: 06:30 - Subjective Subjective: awake, alert, on trach collar,no distress Reason for consultation and follow up: Cardiac evaluation status post code blue, requiring intubation, status post tracheostomy, history of hypertension, hyperlipidemia, morbidly obese Seen and examined by me and Dr. Rajan Objective - Vital Signs/Intake and Output Vital Signs (last 24 hours): Temp Pulse Resp BP Pulse Ox 98.4 F 70 19 187/78 H 94 L 01/04/19 05:42 01/04/19 06:07 01/04/19 05:42 01/04/19 06:07 01/04/19 05:42 Intake and Output: 01/04/19 01/04/19 06:59 18:59 Intake Total 300 Output Total 1000 Balance -700 - Medications Medications: Current Medications Albuterol/Ipratropium (Duoneb 3 Mg/0.5 Mg (3 Ml) Ud) 3 ml IH [id number] [facility] Last Admin: 01/04/19 07:11 Dose: 3 ml Albuterol/Ipratropium (Duoneb 3 Mg/0.5 Mg (3 Ml) Ud) 3 ml IH Q2H PRN PRN Reason: Shortness of Breath Last Admin: 01/02/19 15:18 Dose: 3 ml Aspirin (Ecotrin) 81 mg PO DAILY [facility] Last Admin: 01/03/19 10:45 Dose: 81 mg Carvedilol (Coreg) 3.125 mg PO BID [facility] Last Admin: 01/03/19 18:29 Dose: 3.125 mg Clonidine HCl (Catapres-Tts3 0.3 Mg/24 Hr) 1 patch TD Q7D@1000 [facility] Last Admin: 01/03/19 15:29 Dose: 1 patch Dextrose (Dextrose 50% Inj) 0 ml IV STAT PRN; Protocol PRN Reason: Hypoglycemia Protocol Enoxaparin Sodium (Lovenox) 30 mg SC DAILY [facility]; Protocol Famotidine (Pepcid) 40 mg PO HS [facility] Last Admin: 01/03/19 21:37 Dose: 40 mg Glipizide (Glucotrol) 10 mg PO 0730,1630 [facility] Hydralazine HCl (Apresoline) 10 mg IVP Q6 PRN PRN Reason: For SBP>160 Last Admin: 01/04/19 01:29 Dose: 10 mg Hydralazine HCl (Apresoline) 50 mg PO BID [facility] Last Admin: 01/03/19 18:29 Dose: 50 mg Propofol (Diprivan) 1,000 mg in 100 mls @ 3.44 mls/hr IV .Q24H PRN; Protocol PRN Reason: TITRATE PER MD ORDER Last Titration: 01/02/19 07:00 Dose: 0 mcg/kg/min, 0 mls/hr Sodium Chloride (Sodium Chloride 0.45%) 1,000 mls @ 60 mls/hr IV .[id number] [facility] Last Admin: 01/04/19 01:30 Dose: 60 mls/hr Insulin Human Lispro (Humalog Low) 0 units SC [facility]; Protocol Last Admin: 01/03/19 22:11 Dose: Not Given Metformin HCl (Glucophage) 1,000 mg PO BID [facility] Metoprolol Tartrate (Lopressor) 5 mg IVP Q6 PRN PRN Reason: if sbp >150 Last Admin: 01/04/19 06:07 Dose: 5 mg Prednisone (Prednisone Tab) 40 mg PO DAILY [facility] Last Admin: 01/03/19 10:46 Dose: 40 mg Quetiapine Fumarate (Seroquel) 12.5 mg PO HS PRN; Protocol PRN Reason: Agitation - Labs Labs: 01/03/19 06:15 01/03/19 06:15 PT 14.1 SECONDS (9.4-12.5) H 12/31/18 06:00 INR 1.25 12/31/18 06:00 APTT 56.1 Seconds (26.9-38.3) H 12/31/18 11:50 - Constitutional Appears: Non-toxic, No Acute Distress - Head Exam Head Exam: NORMAL INSPECTION, NORMOCEPHALIC - Eye Exam Eye Exam: Normal appearance Pupil Exam: NORMAL ACCOMODATION - ENT Exam ENT Exam: Mucous Membranes Moist - Neck Exam Additional comments: tracheostomy - Respiratory Exam Respiratory Exam: Decreased Breath Sounds, Rhonchi, NORMAL BREATHING PATTERN - Cardiovascular Exam Cardiovascular Exam: REGULAR RHYTHM, +S1, +S2 - GI/Abdominal Exam GI & Abdominal Exam: Soft, Normal Bowel Sounds - Exam Additional comments: francois catheter - Extremities Exam Extremities Exam: Full ROM Additional comments: 2+edema - Neurological Exam Neurological Exam: Alert, Awake - Psychiatric Exam Psychiatric exam: Normal Affect, Normal Mood - Skin Skin Exam: Dry, Normal Color, Warm Assessment and Plan - Assessment and Plan (Free Text) Assessment: A 73 year old male who was brought to the ER due to difficulty finding words. History of CVA (2017) with no residual defects, diabetes, hypertension, hyperlipidemia, arthritis,Right knee surgery, left hip replacement, lumbar spinal fusion with screws and plate. Code stroke was called in ER but outside of TPA window, TPA not indicated. Initial CT scan did not show acute findings. Admitted to telemetry. While in telemetry went into respiratory distress and heart rate to 30's, Sally giles was called and intubated ,eventually transferred to ICU. Extubated the following day however another episode of apnea. Trache ostomy was done for possible obstructive sleep apnea. Positive troponin on admission most likely due to acute kidney injury, CPK 5023 and MB fraction of 0.4. most likely rhabdomyolysis than myocardial infarction. Denies chest pain. Will treat medically for now. Hold off cardiac cath due to renal insufficiency. Stabilized in ICU and now transferred to telemetry. Cardiac status stable. Stress test and cardiac cath as out patient.Tracheostomy with trach collar. Plan: Awake, alert Transferred from ICU to telemetry last night No distress, trach collar intact Coughing whitish secretions Heart rate controlled Blood pressure controlled On ASA 81 mg daily,Coreg 3.125 mg BID,Clonidine patch, Hydralazine 50 mg BID, Prednisone 40 mg daily. Continue current treatment Continue current medications Discharge planning Will follow up Plan and treatment discussed with Dr. Rajan
[2019-01-04 08:07] LABS: ALBUMIN 3.1 g/dL (3.0-4.8); CALCIUM 9.3 mg/dL (8.4-10.5)
[2019-01-04 08:59] LABS: LYMPHOCYTE 13 % (22.0-35.0); MONOCYTE 8 % (1.0-6.0); NEUTROPHIL 74 % (50.0-70.0); PLATELET ESTIMATE NORMAL (NORMAL)
[2019-01-04] MEDS: Insulin Lispro (humaLOG) LOW Coverage SC SCH ×4 (08:59→22:13)
[2019-01-04] MEDS: Enoxaparin 30 mg Syringe SC SCH (09:37)
--- NOTE | 2019-01-04 10:08 | RAD ---
Date of service: 01/04/2019 HISTORY: follow up COMPARISON: 01/03/2019 FINDINGS: LUNGS: No active pulmonary disease. PLEURA: No significant pleural effusion identified, no pneumothorax apparent. CARDIOVASCULAR: No aortic atherosclerotic calcification present. Moderate cardiomegaly no pulmonary vascular congestion. OSSEOUS STRUCTURES: No significant abnormalities. VISUALIZED UPPER ABDOMEN: Normal. OTHER FINDINGS: Tracheostomy IMPRESSION: No active disease.
--- NOTE | 2019-01-04 11:32 | PN ---
DATE: 01/04/2019 PULMONARY PROGRESS NOTE REFERRING PHYSICIAN: Dr. Diego Teran. SUBJECTIVE: The patient is seen sitting up in bed. No acute distress. No overnight events reported. Remains on oxygen via trach collar. The patient reports having occasional cough. No headache, rhinitis, shortness of breath, chest pain, abdominal pain, nausea, vomiting, diarrhea, leg pain, or leg swelling reported. OBJECTIVE: GENERAL: No acute distress. VITAL SIGNS: Blood pressure 181/83, pulse 73, temperature 98.4, and oxygen saturation 94%. HEENT: Moist mucous membranes. Crowded airway. Mallampati score of 4. NECK: Tracheostomy in place. No signs of bleeding. Secretions noted. No erythema. Trach collar in place. RESPIRATORY: Few rhonchi bilaterally. CARDIOVASCULAR: S1 and S2. ABDOMEN: Soft and nontender. No distention. No organomegaly. EXTREMITIES: Bilateral lower extremity edema. NEUROLOGIC: Awake, alert and verbal. Follows commands. MEDICATIONS: Reviewed. DuoNeb 3 mL inhalation every 6 hours, DuoNeb 3 mL inhalation every 2 hours p.r.n., aspirin 81 mg daily, Coreg 3.125 mg twice a day, clonidine 0.3 mg patch every 7 days, Lovenox 30 mg subcutaneously daily, Pepcid 40 mg at bedtime, glipizide 10 mg twice a day, hydralazine 10 mg every 6 hours p.r.n. systolic BP greater than 160, hydralazine 50 mg twice a day, Humalog sliding scale a.c. and at bedtime, metformin 1000 mg twice a day, metoprolol tartrate 5 mg every 6 hours p.r.n. systolic BP greater than 150, prednisone 40 mg daily, propofol 1000 mg p.r.n., Seroquel 12.5 mg at bedtime p.r.n., and sodium chloride 0.45% 1000 mL at 60 mL per hour. LABORATORY DATA: Reviewed. WBC 15.2, RBC 4.2, hemoglobin 12, hematocrit 38.8, and platelets 248. Sodium 146, potassium 4.2, chloride 115, carbon dioxide 26, anion gap 9, BUN 61, creatinine 2.2, GFR 30, random glucose 241, calcium 9.3, total bilirubin 0.8, AST 33, ALT 49, alkaline phosphatase 97, total protein 6.2, albumin 3.1, globulin 3.1, and albumin-globulin ratio 1.0. Chest x-ray, no active disease. IMPRESSION AND PLAN: Healthcare-acquired pneumonia; status post cardiac arrest; respiratory failure, was on ventilator; the patient is now status post tracheostomy, on trach collar; acute renal failure; dyslipidemia; hypertension; bipolar disorder; anxiety; diabetes mellitus; arthritis; history of cerebrovascular accident; morbid obesity and sleep apnea syndrome with noncompliance with continuous positive airway pressure machine. Sleep apnea precaution, head of bed elevated at 45 degrees. Continue inhaled bronchodilators, p.r.n. trach suctioning. We will decrease prednisone to 20 mg daily. We will order procalcitonin to be done in the morning. Physical therapy, out of bed to chair. The patient pending discharge to [facility] when medically cleared. This patient was seen and examined with Dr. Wright. Discussed assessment and plan as described above. This patient was seen and examined with Kael Flor, nurse practitioner. Discussed assessment and plan as described above. Thank you for this consult. We will follow with you. Kael Flor APN Magdalena Wright MD [facility]
--- NOTE | 2019-01-04 12:23 | CP.PCM.PCO ---
Physician Communication Note - Physician Communication Note Physician Communication Note: DM Diet/Rx/PT/LTACH-[facility] refused now/Clinically dehydrated
--- NOTE | 2019-01-04 21:11 | PN ---
DATE: 01/04/2019 SUBJECTIVE: The patient is seen sitting in bed. He is awake, he is alert, he is comfortable. is at bedside. He complains of pain all over. PHYSICAL EXAMINATION GENERAL: Morbidly obese elderly male sitting in bed. VITAL SIGNS: Blood pressure 162/73, heart rate 65, respiratory rate 18, temperature 98.2. HEENT: Normocephalic, atraumatic, positive pallor. NECK: Supple. No JVD. CARDIAC: S1, S2. Regular rate rhythm. No murmur, no rub. LUNGS: Bilateral rhonchi, bilateral equal expansion, scattered wheeze. ABDOMEN: Obese, distended, soft, nontender, bowel sounds present. EXTREMITIES: Trace lower extremity edema. INTAKE AND OUTPUT: 1410/1975. LABORATORY DATA: WBC 15, hemoglobin 12, hematocrit 38.8, platelets 248. Sodium 146, potassium 4.2, chloride 115, CO2 of 26, BUN 51, creatinine 2.2, glucose 241, calcium 9.3. Albumin 3.1. CURRENT MEDICATIONS: 1. Hydralazine 10 mg IV every 6 hours p.r.n. 2. Apresoline 50 mg b.i.d. 3. Catapres 0.3 mg patch. 4. Coreg 0.125 mg b.i.d. 5. Diprivan. 6. Ecotrin. 7. Glucotrol 10 mg b.i.d. 8. Lovenox. 9. Pepcid. 10. Prednisone. ASSESSMENT AND PLAN: 1. Acute kidney injury in the setting of cardiac arrest, renal hypoperfusion, acute tubular necrosis. 2. Morbid obesity. 3. Sleep apnea. 4. Respiratory failure, mechanical obstruction. 5. Cerebrovascular accident. 6. Severe hypertension. PLAN: 1. Discontinue IV fluids. 2. Monitor fingersticks and continue insulin. 3. Monitor urine output. 4. Daily labs. Velma Samuel MD
[2019-01-05] MEDS: Albuterol-Ipratrop 3 mg / 0.5 (3 ml) UD IH SCH ×4 (01:00→19:55)
--- NOTE | 2019-01-05 01:41 | PN ---
DATE: 01/04/2019 SUBJECTIVE: The patient is seen in room 261, bed 1, earlier this morning. No fevers, no chills, no nausea. PHYSICAL EXAMINATION: VITAL SIGNS: Temperature is 98, blood pressure is 160/70, respiratory rate of 18. HEENT: Unremarkable. NECK: Supple. LUNGS: Have decreased breath sounds. HEART: Normal S1 and S2. ABDOMEN: Soft. LABORATORY DATA: Reveals a white count of 15,200, hemoglobin of 12, platelets of 248. Chemistries are noted with a BUN of 61, creatinine of 2.2. Procalcitonin is 14.26. Urinalysis is noted. Urine cultures are negative. Serum cultures are negative. Blood cultures are negative. The patient is on prednisone, , Seroquel. Review of orders reveals no antibiotic. ASSESSMENT AND PLAN: This is a 73-year-old male seen earlier today, who was admitted with severe sepsis, status post shock due to aspiration, healthcare-associated pneumonia, and status post ventilator-dependent respiratory failure in this patient status post cardiac arrest with acute renal failure and status post tracheostomy, cerebrovascular accident, dyslipidemia, arthritis. Had received five days of meropenem. Today would be day #6. Currently off of antibiotics. Reviewed medication. His meropenem was discontinued on 01/03/2019 yesterday. The patient is doing well. We will follow closely with you. Off of antibiotics. Darrel Ramesh MD
[2019-01-05] MEDS: Enoxaparin 30 mg Syringe SC SCH (09:55)
[2019-01-05] MEDS: Insulin Lispro (humaLOG) LOW Coverage SC SCH ×5 (09:57→21:38)
--- NOTE | 2019-01-05 11:11 | PN ---
DATE: 01/05/2019 SUBJECTIVE: The patient is in bed in no acute distress, was seen earlier today in 261, bed 1. He is awake and alert. PHYSICAL EXAMINATION: VITAL SIGNS: Temperature is 99, blood pressure is 160/70, respiratory rate of 18, heart rate of 69 and the patient has a trach collar. HEENT: Unremarkable. NECK: Supple. LUNGS: Have decreased breath sounds. HEART: Normal S1, S2. ABDOMEN: Soft. LABORATORY EXAMINATION: Reveals a white count of 15,200, hemoglobin of 12. Chemistries reveals a BUN of 61, creatinine of 2.2, troponin is elevated, procalcitonin of 14.2. Review of orders reveals the patient to be on prednisone. ASSESSMENT AND PLAN: This is a 73-year-old male admitted with severe sepsis, status post shock with aspiration, healthcare-associated pneumonia, status post ventilator-dependent respiratory failure status post cardiac arrest with acute renal failure status post tracheostomy, had received meropenem.. Currently off of antibiotics. The patient with history of cerebrovascular accident on prednisone at risk for developing nosocomial infections. Darrel Ramesh MD
--- NOTE | 2019-01-05 11:31 | PN ---
DATE: 01/05/2019 SUBJECTIVE: The patient is currently seen on 2R. He is sitting up in bed. Trach is intact. The patient appears to be communicating by writing. We discussed the need for him to drink more fluids and rather than placing him on IV. He states that he will attempt to do this. MEDICATIONS: Medication list reviewed. The patient is currently on hydralazine p.o., clonidine, Coreg, DuoNeb, Ecotrin, Glucotrol, sliding scale insulin, Lovenox, Pepcid, Prandin, prednisone, and Seroquel. OBJECTIVE: INTAKE/OUTPUT. Intake is 1230, output is 1000. VITAL SIGNS: Blood pressure presently ranging from 150-162 systolic, diastolic 70. Temperature 99, pulse of 68, respiratory rate of 18. Oxygen saturation 98% with an oxygen flow rate of 45 via the trach collar. HEENT: Head is normocephalic, atraumatic. Conjunctivae remain pink. Sclerae are nonicteric. NECK: Supple. Positive trach. No neck vein distention. CHEST: Few scattered rhonchi. No rales or wheezing. CARDIOVASCULAR: Shows a regular rate and rhythm with AI/MR. No S3, no S4, no rub. ABDOMEN: Mildly obese. Bowel sounds normal. No rebound, guarding or masses. EXTREMITIES: Show no lower extremity cyanosis, clubbing, or edema. He has diminished lower extremity pulses. NEUROLOGIC: Shows him to be alert, oriented, and communicating with writing because of the trach. He does have a Dong in place. LABORATORY DATA AND IMAGING STUDIES: Renal ultrasound done shows a renal parenchymal atrophy consistent with perhaps underlying chronic kidney disease, though his creatinine is less than 1.0 prior to this admission. No obstructive uropathy. Fractional secretion of sodium was greater than 1% consistent with ATN and urine Gordon stain was negative, which is against the diagnosis of acute interstitial nephritis. Chemistries today; BUN 61 down from 69, creatinine 2.2 down from a high of 2.8. His baseline BUN is less than 20 with baseline creatinine of less than 1. Glucose is 241, on last check. Liver enzymes are now normal. CPK level has come down to an acceptable range at 247 from a high of 5023. Albumin level was 3.1. Microbiology, all cultures are negative. ASSESSMENT: 1. Acute renal failure in the setting of cardiac arrest, renal hypoperfusion acute tubular necrosis, no evidence for acute interstitial nephritis. No evidence for obstructive uropathy. With time and renal perfusion and avoidance of any nephrotoxic agents, he should return back to baseline levels. As noted in Dr. Teran note, the patient does require more volume. I have encouraged him to increase p.o. fluid intake if he is not successful IV fluids will need to be restarted. 2. Status post cardiac arrest secondary to apnea. The patient refused to use a bilevel positive airway pressure mask upstairs on the floor. 3. History of acute rhabdomyolysis. This has resolved. This is likely secondary to CPR. 4. History of respiratory failure. The patient currently is comfortable with a trach collar. 5. History of hypertension. Blood pressure control is acceptable. Avoid GABRIELA inhibitors, angiotensin receptor blockers. 6. History of a cerebrovascular accident. The patient has remained on anticoagulation. 7. History of hyperlipidemia. The patient continues low-fat, low-cholesterol diet. 8. History of anemia. Hemoglobin is improved and stable at 12.0. 9. History of left ventricular hypertrophy with aortic insufficiency, mitral regurgitation with ejection fraction of 55%, currently stable. PLAN: 1. Discussed with the patient the need to increase p.o. fluid hydration. If he is unsuccessful and BUN continues to remain in a prerenal fashion, he will require IV fluid hydration. His last chest x-ray showed no evidence for CHF and he has no significant lower extremity edema. 2. Continue to monitor labs on a daily basis. 3. Continue to monitor the patient on telemetry. 4. The patient to continue to receive a follow-up from his Infectious Disease specialist, his tour counselor and his survey technologist. Brian Castellon MD [facility]
--- NOTE | 2019-01-05 18:08 | PN ---
DATE: 01/05/2019 PULMONARY PROGRESS NOTE REFERRING PHYSICIAN: Diego Teran MD SUBJECTIVE: The patient is out of bed to chair. Has a tracheostomy with T-piece secretion is better than yesterday. is at bedside. No nausea, no vomiting, diarrhea, leg pain, or leg swelling. OBJECTIVE: GENERAL: No acute distress. VITAL SIGNS: Temperature is 99, heart rate 60, respiratory rate 20, blood pressure 152/76, pulse ox 99% on trach T-piece. HEENT: Moist mucous membranes. Crowded airway. Mallampati score is 4. NECK: Short thick neck. Tracheostomy site looks okay, has an extra long trach. LUNGS: Fair airflow. No rhonchi. HEART: S1 and S2. ABDOMEN: Soft and nontender. No organomegaly. EXTREMITIES: No edema. NEUROLOGIC: Awake, alert, and follows simple commands. MEDICATIONS: He is on hydralazine 10 mg every 6 hours p.r.n., also hydralazine is 50 mg twice a day, clonidine patch weekly, Coreg 3.125 mg twice a day, DuoNeb every 6 hours round the clock, aspirin 81 mg daily, Glucophage 1000 mg which has been on hold, glipizide 10 mg twice a day insulin coverage, Lovenox 30 mg daily, Pepcid 20 mg daily, Prandin 2 mg a.c., prednisone 20 mg daily, and Seroquel 12.5 mg at bedtime p.r.n. LABORATORY DATA: Reviewed and noted. He has a procalcitonin .68. IMPRESSION AND PLAN: Recurrent respiratory failure, healthcare-associated pneumonia, respiratory failure requiring trach, morbid obesity, status post stroke, diabetes, history of hypertension, bipolar disorder, dysfunction. Case discussed with and nursing staff, all questions answered. We will discontinue his Glucophage because of renal failure. Continue glipizide and Prandin. Decrease prednisone to 10 mg daily. Physical therapy p.r.n. bronchodilator. Will benefit from acute neuro rehab. Thank you and we will follow with you. Magdalena Wright MD
[2019-01-06] MEDS: Albuterol-Ipratrop 3 mg / 0.5 (3 ml) UD IH SCH ×4 (01:00→20:11)
[2019-01-06 08:25] LABS: HEMOGLOBIN 13.1 g/dL (14.0-18.0); MEAN CELL VOLUME 93.2 fl (80.0-105.0); MEAN CORPUSCULAR HEMOGLOBIN 28.9 pg (25.0-35.0); MEAN PLATELET VOLUME 11.2 fl (7.0-11.0); RBC 4.53 10^6/uL (3.5-6.1); RED CELL DISTRIBUTION WIDTH 14.2 % (11.5-14.5); WHITE BLOOD COUNT 16.5 10^3/uL (4.5-11.0)
[2019-01-06 08:38] LABS: ALBUMIN 3.5 g/dL (3.0-4.8); CALCIUM 9.5 mg/dL (8.4-10.5)
[2019-01-06] MEDS: Insulin Lispro (humaLOG) LOW Coverage SC SCH ×4 (08:50→21:07)
[2019-01-06] MEDS: Enoxaparin 30 mg Syringe SC SCH (09:02)
--- NOTE | 2019-01-06 13:18 | PN ---
DATE: 01/06/2019 SUBJECTIVE: The patient is currently seen into were sitting in a chair. He continues to have a trach collar in place. The patient is attempting to speak, but is writing on a pad most of his communication. The patient is attempting to increase his p.o. fluid intake in lieu of placing an IV. The patient states he would like to go to the [facility] for further care. His family is in the room. His BUN and creatinine continued to improve post ATN secondary to his cardiac arrest. MEDICATIONS: Medication list reviewed. The patient is currently on hydralazine, clonidine, Coreg, DuoNeb, Ecotrin, Glucotrol, insulin sliding scale, Lovenox, Pepcid, Prandin, prednisone, Seroquel, and Xanax. OBJECTIVE: INTAKE/OUTPUT: Intake is 900, output is 2550. VITAL SIGNS: Blood pressure is ranging from 144-159 systolic, diastolic ranging from 74-76. Temperature 98.4, pulse of 71 with a respiratory rate of 20, pulse ox is 94% with an oxygen flow rate of 40 via trach collar. HEENT: Shows him to be normocephalic, atraumatic. Conjunctivae remain pink. Sclerae are nonicteric. NECK: Supple. Positive trach collar. No neck vein distention. CHEST: Slight decreased breath sounds at the bases with occasional scattered rhonchi. No rales or wheezing. CARDIOVASCULAR: Shows a regular rate and rhythm with AI/MR. No S3, no S4, no rub. ABDOMEN: Mildly obese. Bowel sounds normal. No rebound, guarding or masses. EXTREMITIES: Show no lower extremity cyanosis, clubbing or edema. He does have diminished lower extremity pulses bilateral. NEUROLOGIC: Shows him to be alert, oriented. The patient continues on Dong catheter in place. LABORATORY DATA AND IMAGING STUDIES: White blood cell count slightly higher 16.5, perhaps secondary to steroids. Hemoglobin 13.1, platelet count is 281,000. Chemistry showed normal electrolytes. BUN is down to 50 from a high of 69. Baseline is less than 20. Creatinine is down to 1.9 from a high of 2.8. Baseline is less than 1. Calcium, phosphorus, magnesium level all normal. Liver enzymes are normal. Albumin is stable and improved at 3.5. CPK is now normal. ASSESSMENT: 1. Acute renal failure in the setting of cardiac arrest, renal hypoperfusion, acute tubular necrosis, no evidence for acute interstitial nephritis. No evidence for obstructive uropathy. I expect that over time and with hydration, the patient, which should return back to baseline levels. I have encouraged him and his family to encourage him to drink p.o. fluids. We will try to avoid restarting IV fluid hydration. 2. Status post cardiac arrest secondary to apnea. The patient had refused bilevel positive airway pressure therapy on the floor. 3. History of acute rhabdomyolysis. This has resolved, quite possibly secondary to CPR and chest compression. 4. History of respiratory failure. The patient is currently comfortable with a trach collar. 5. History of hypertension, blood pressure control is acceptable with plus/minus elevations of systolic blood pressure. Presently we will avoid angiotensin-converting enzyme inhibitors and angiotensin receptor blockers as his renal function continues to improve. 6. Past history of cerebrovascular accident. The patient remained on chronic anticoagulation. He currently remains on Lovenox. In the outpatient setting and the patient was not receiving chronic anticoagulation. 7. History of hyperlipidemia. The patient continues low-fat, low-cholesterol diet. 8. History of left ventricular hypertrophy with aortic insufficiency and mitral regurgitation. Ejection fraction 55%, currently stable. PLAN: 1. Discussed with the patient's family. I have encouraged by the fact that his BUN and creatinine continue to drop on a daily basis. In all likelihood, we will get back to baseline. Perhaps by the end of this coming week as long as he remains well-hydrated. 2. Continue to avoid any nephrotoxic agents including GABRIELA inhibitors and angiotensin receptor blockers. He had been on angiotensin receptor blockers in the outpatient setting. 3. Continue to monitor labs on a daily or near daily basis. 4. Continue to follow the patient on telemetry. 5. The patient wishes to be transferred to the NH. His family will discuss this with the shoe planner and oncology social worker. 6. Continue followup with Infectious Disease, Cardiology and his lathe scalper operator. Brian Castellon MD
--- NOTE | 2019-01-06 14:06 | PN ---
DATE: 01/06/2019 SUBJECTIVE: The patient is in bed, in no acute distress, nontoxic. PHYSICAL EXAMINATION VITAL SIGNS: On exam, temperature is 98, blood pressure is 159/70, respiratory rate of 20 and heart rate of 62. HEENT: Unremarkable. NECK: Supple. LUNGS: Have decreased breath sounds. HEART: Normal S1 and S2. ABDOMEN: Soft. LABORATORY DATA: Laboratory examination reveals the patient's white count of 16,500 which is elevated. Review of orders reveals the patient to be on hydralazine and the patient is also on prednisone at 10 mg daily. Chemistries are noted, creatinine of 1.9. Procalcitonin is 1.68, which is decreased from 14 and are negative. ASSESSMENT AND PLAN: This is a 73-year-old male with severe sepsis, status post shock with aspiration, healthcare-associated pneumonia, status post ventilator-dependent respiratory failure status post cardiac arrest, acute renal failure status post tracheostomy. Currently off of antibiotics. The patient is on steroids and has leukocytosis. The patient is at risk for developing nosocomial infections. We will follow closely with you. Darrel Ramesh MD
--- NOTE | 2019-01-06 23:40 | PN ---
DATE: 01/06/2019 PULMONARY PROGRESS NOTE REFERRING PHYSICIAN: Dr. Teran SUBJECTIVE: He is out of bed to chair. Overnight events noted at times. He became very agitated. Had to be sedated. Secretion at the trach is well improved. No hemoptysis. No hematemesis. No hematuria. No diarrhea reported. OBJECTIVE: VITAL SIGNS: Temperature 98, heart rate 65, respiratory rate 18, blood pressure 126/73, and pulse ox 94%, on trach collar. HEENT: Moist mucous membranes. Crowded airway. Mallampati score is 4. NECK: Supple. No JVD. Trach site looks okay. Has an extra long trach. LUNGS: Scattered rhonchi. HEART: S1 and S2. ABDOMEN: Soft and nontender. No organomegaly. EXTREMITIES: No edema. NEUROLOGIC: Awake, alert, and follows simple commands, but confused at the time agitated, requiring chemical sedation last night. MEDICATIONS: He is on hydralazine 10 mg every 6 hours p.r.n. and 50 mg every 12 hours round the clock, clonidine patch 0.3 mg weekly, Coreg 3.125 mg twice a day, Diprivan discontinued, DuoNeb every 6 hours round the clock, every 2 hours p.r.n., Ecotrin 81 mg daily, glipizide 10 mg twice a day, insulin coverage, Lovenox 30 mg subcu daily, Pepcid 20 mg at bedtime, Prandin 2 mg before meals, also getting prednisone 10 mg daily, Seroquel 12.5 mg at bedtime, and Xanax 0.25 mg three times a day. LABORATORY DATA: Shows hemoglobin 13.1, hematocrit 42.2, WBC 16,000, and platelet is 281. Sodium 146, potassium 4.8, chloride 111, bicarbonate 29, BUN 50, creatinine 1.9, glucose is 165, calcium is 9.5, phosphorus 3.9, magnesium 2.1. AST is 32, ALT is 47, alk phos is 90, albumin is 3.5, procalcitonin is 1.68. IMPRESSION AND PLAN: Respiratory failure, requiring tracheostomy; status post stroke; encephalopathy; morbid obesity; status post respiratory failure; diabetes; hypertension; bipolar disorder; activities of daily living dysfunction. Case discussed with the family at bedside. All their questions answered. I also spoke to Dr. Teran in detail. The patient became agitated and anxious at sudden time, requiring chemical sedative last night. Still confused. We will decrease prednisolone. Follow up blood pressure. Continue supplemental oxygen. Will benefit from acute inpatient neuro rehabilitation. Gastric and deep venous thrombosis prophylaxis. Thank you and we will follow with you. Magdalena Wright MD
[2019-01-07] MEDS: Albuterol-Ipratrop 3 mg / 0.5 (3 ml) UD IH SCH ×4 (02:07→19:23)
[2019-01-07 08:02] LABS: HEMOGLOBIN 12.6 g/dL (14.0-18.0); MEAN CELL VOLUME 92.4 fl (80.0-105.0); MEAN CORPUSCULAR HGB CONC 31.4 g/dl (31.0-37.0); MEAN PLATELET VOLUME 11.5 fl (7.0-11.0); RBC 4.34 10^6/uL (3.5-6.1); RED CELL DISTRIBUTION WIDTH 13.9 % (11.5-14.5); WHITE BLOOD COUNT 16.2 10^3/uL (4.5-11.0)
[2019-01-07] MEDS: Insulin Lispro (humaLOG) LOW Coverage SC SCH ×4 (08:05→22:00)
[2019-01-07 08:26] LABS: ALB/GLOB RATIO 0.9 (1.1-1.8); ALBUMIN 3.1 g/dL (3.0-4.8); CALCIUM 8.9 mg/dL (8.4-10.5)
[2019-01-07] MEDS: Enoxaparin 30 mg Syringe SC SCH (09:29)
--- NOTE | 2019-01-07 10:52 | PN ---
DATE: 01/07/2019 SUBJECTIVE: The patient is seen earlier today in 261, bed 1. No fevers and chills. PHYSICAL EXAMINATION: VITAL SIGNS: Temperature is 98, blood pressure is 120/70, respiratory rate of 18. HEENT: Unremarkable. NECK: Supple. LUNGS: Have decreased breath sounds. HEART: Normal S1, S2. ABDOMEN: Soft, nontender. LABORATORY DATA: White count of 16,200, hemoglobin of 12. Chemistries reveals a BUN of 47, creatinine of 1.8. Procalcitonin is 1.68. Urinalysis is noted. Microbiology reveals urine culture and blood cultures. ASSESSMENT AND PLAN: This is a 73-year-old male with severe sepsis, status post shock and aspiration healthcare-associated pneumonia, status post ventilator-dependent respiratory failure, status post cardiac arrest, acute renal failure, status post tracheostomy. Currently off of antibiotics. The patient does have mild leukocytosis of 16,200. The patient is on steroids. The patient is at risk for developing nosocomial infections. We will follow the WBCs, currently now off of steroids. Prednisone was discontinued yesterday. We will follow WBCs. Darrel Ramesh MD
--- NOTE | 2019-01-07 15:07 | PN ---
DATE: 01/07/2019 PULMONARY PROGRESS NOTE REFERRING PHYSICIAN: Diego Teran MD SUBJECTIVE: The patient is seen lying in bed. No acute distress, is at bedside. No overnight events reported. No hemoptysis, hematemesis, hematuria or diarrhea reported. OBJECTIVE: GENERAL: No acute distress. VITAL SIGNS: Blood pressure 109/57, pulse 62, temperature 98.2, and oxygen saturation 94%. HEENT: Moist mucous membranes. Crowded airway. Mallampati score of 4. NECK: Supple. No JVD. Trach site, no erythema noted. LUNGS: Scattered rhonchi bilaterally. CARDIOVASCULAR: S1 and S2. ABDOMEN: Soft and nontender. No distention. No organomegaly. EXTREMITIES: Bilateral lower extremity edema. NEUROLOGIC: Awake, alert and verbal. Follows commands. Periods of confusion MEDICATIONS: Reviewed. DuoNeb 3 mL inhalation every 6 hours, DuoNeb 3 mL inhalation every 2 hours p.r.n., Xanax 0.25 mg three times a day, aspirin 81 mg daily, Coreg 3.125 mg twice a day, clonidine patch 0.3 mg every 7 days, Lovenox 30 mg daily, Pepcid 20 mg at bedtime, glipizide 10 mg twice a day, hydralazine 10 mg every 6 hours p.r.n. systolic BP greater than 160, hydralazine 50 mg twice a day, Humalog sliding scale a.c. and h.s., propofol 1000 mg p.r.n., Seroquel 12.5 mg p.o. h.s. p.r.n., Prandin 2 mg in the morning. LABORATORY DATA: Reviewed. WBC 15.2, RBC 4.37, hemoglobin 12.6, hematocrit 40.1, and platelets 195. Sodium 142, potassium 4.7, chloride 110, carbon dioxide 28, anion gap 9, BUN 47, creatinine 1.8, GFR 37, random glucose 107, calcium 8.9, total bilirubin 1, AST 25, ALT 36, alkaline phosphatase 80, total protein 6.3, albumin 3.1, globulin 3.3, and albumin-globulin ratio 0.9. IMPRESSION AND PLAN: Respiratory failure requiring tracheostomy, status post stroke, encephalopathy, morbid obesity, status post respiratory failure, diabetes, hypertension, bipolar disorder, activities of daily living dysfunction, suspected sleep apnea syndrome. Case discussed with at bedside, all questions answered. Continue supplemental oxygen and continue inhaled bronchodilators. The patient would benefit from acute inpatient neuro rehabilitation, deep venous thrombosis prophylaxis, gastric prophylaxis, p.r.n. suctioning. This patient was seen and examined with Dr. Wright. Discussed assessment and plan as described above. This patient was seen and examined with Kael Flor, nurse practitioner. Discussed assessment and plan as described above. Thank you for this consult. We will follow with you. Kael Flor APN Magdalena Wright MD [facility]
--- NOTE | 2019-01-07 19:15 | PN ---
DATE: 01/07/2019 REASON FOR CONSULTATION AND FOLLOWUP: Cardiac evaluation, status post respiratory failure, tracheostomy, COPD, rule out obstructive sleep apnea, morbid obesity, and status post tracheostomy. SUBJECTIVE: The patient denies any chest pain, shortness of breath, or any palpitation. OBJECTIVE: GENERAL: Not in apparent distress. VITAL SIGNS: As follows; temperature afebrile, heart rate 62, and blood pressure 109/57. HEENT: PERRLA. Extraocular muscles intact. NECK: Supple. No carotid bruits or thyromegaly. CHEST: Clear to auscultation. HEART: S1, S2 regular. ABDOMEN: Soft. EXTREMITIES: Clubbing and cyanosis negative. LABORATORY DATA: Blood workup; WBC 16.8, hemoglobin 12.6, hematocrit 40.1, and platelet count 195. Chemistry shows sodium 142, potassium 4.7, chloride 110, carbon dioxide 28, anion gap of 9, BUN 47, and creatinine 1.8. IMPRESSION: A 73-year-old morbidly obese male, with past medical history significant for hypertension, hyperlipidemia, and arthritis, admitted with altered mental status, became apneic twice requiring intubation, now patient successfully has a tracheostomy done, and the patient also went into acute rhabdomyolysis with maximum CPK 5023, troponin 0.4, MB fraction of 0.4, creatinine at that time was 2.4, acute kidney injury. No evidence of acute myocardial infarction, most likely his troponin is secondary to acute kidney injury and acute rhabdomyolysis with an MB fraction that was low. History of renal insufficiency and acute kidney injury. RECOMMENDATIONS: Continue aggressive medical treatment. After 6 to 8 weeks, consider stress test. Continue clonidine patch. Continue hydralazine and aggressive medical treatment. If the blood pressure remains low, we will cut down the hydralazine from 50 mg to 25 mg p.o. b.i.d. Continue Coreg. Continue enoxaparin deep venous thrombosis prophylaxis. Possible discharge planning. We will continue p.r.n. hydralazine; we will put 25 mg p.o. b.i.d. to hold if blood pressure less than [address]. [address] Teran for providing us the opportunity in taking care of the patient, Zay Mcdonald. Magdalena Rajan MD [facility] # [id number]
[2019-01-07] MEDS ORDERED: DiphenhydrAMINE 50 mg/ml Inj IVP STA (21:29)
--- NOTE | 2019-01-07 21:33 | OP ---
PROCEDURE DATE: 01/01/2019 SURGEON: Diego Teran MD MILL HAND PLATE MILL: Kirk Craig DO, PGY-2. SEC ACCOUNTANT: Jr Sutton MD ANESTHESIA: General endotracheal. PREOPERATIVE DIAGNOSES: 1. Recurrent cardiorespiratory failure with cardiac arrest x2. 2. Morbid obesity. 3. Obstructive sleep apnea. 4. [id number] diabetes mellitus. OPERATIVE INDICATIONS: The patient is a 73-year-old 270-pound male who enters the hospital with a recurrent episode of expressive aphasia. He remains somewhat confused for several days, undergoes extensive neurologic workup without significant blockage and he is noted to have a progressive respiratory arrest and cardiac arrest following same. After resuscitation, the patient was treated in the ICU, resuscitated carefully and able to be extubated. Before he could leave the ICU, he had a recurrent episode of hypoxemia and respiratory failure and once more went into cardiac arrest requiring intubation. At this point at the insistence of the public relations specialist, the attending physician was asked to do a tracheostomy and this was encouraged by the pulmonary energy sales consultant doctors, Dr. Wright. There is a small problem that this patient has an extremely large neck and a standard tracheostomy is unlikely to be satisfactorily placed into the trachea, a Shiley #8 XLT was obtained and this is approximately double in length and allows for adequate protection of the airway. In the future, the patient will have the tube changed to a fenestrated tube and if necessary a custom-made model. Risks, benefits and alternatives with their anticipated outcomes were discussed with the patient and with his family and the family signs the consent for surgery and anesthesia. OPERATIVE NOTE: The patient was brought to the operating room, identified by his wrist band, undergoes time-out procedure and was placed on the table in a supine manner with the shoulders elevated on a bolster pillow and the neck slightly hyperextended. Despite these measures the exposure to the neck is less than 1 inch and 4 inch cloth adhesive tape is utilized to hyperextend the chin and pull up the extensive adipose in the neck exposing the suprasternal notch of Oleary slightly more. The area was now prepped with Hibiclens chlorhexidine preparation and the patient was now aseptically draped. Transverse incision was made over the suprasternal notch of Oleary with sharp dissection carried down through the subcutaneous tissues and investing fascia-platysma below and hemostasis is contained with cautery. A self-retaining retractor was inserted and the midline is incised with cautery and the sternohyoid and sternothyroid retracted and the thyroid gland elevated exposing the trachea deep to the incision. There is an unusual anatomic variation in which the trachea instead of going vertically down to the chest is going straight back towards the back of the patient's neck, and once the trach hook has been placed into the second space, the trachea was pulled up towards the incision, incised transversely with a cautery exposing the endotracheal tube below which was carefully removed slowly and the #8 XLT tube inserted at the same time and inflated. Immediate ventilation was performed demonstrating CO2 on the monitor and good oxygenation. Breath sounds were present on both sides and will be confirmed by a portable chest x-ray. Subcutaneous approximation with 3-0 Polysorb interrupted suture was employed and the skin was closed with a 2-0 silk suture securing the tracheostomy tube to the skin on either side and then further secured with a Hiram tracheostomy support miller. A dry dressing was placed over the tracheostomy and the patient was transported back to the intensive care unit in a satisfactory condition. Sponge, instrument and suture count were verified as correct at the end of the procedure. Estimated blood loss during this procedure was less than 10 mL of blood. Diego Teran MD
--- NOTE | 2019-01-08 00:40 | PN ---
DATE: 01/07/2019 SUBJECTIVE: The patient is seen sitting in bed. He is awake; he is alert; he is comfortable. He complains of constipation. He complains of some shortness of breath. He complains of back pain. PHYSICAL EXAMINATION: GENERAL: Obese elderly male, lying in bed. VITAL SIGNS: Blood pressure 122/72, heart rate 64, respiratory rate 18-24, temperature 98. HEENT: Normocephalic, atraumatic, positive pallor. NECK: Supple. No JVD. LUNGS: Bilateral rhonchi, bilateral equal expansion. No rales appreciated anteriorly. CARDIAC: S1 and S2, regular rate and rhythm. No murmur, no rub. ABDOMEN: Obese, distended, soft, nontender, bowel sounds present. EXTREMITIES: 2+ pitting edema of the lower extremities. INTAKE AND OUTPUT: 1860/1900. LABORATORY DATA: WBC 16, hemoglobin 12.6, hematocrit 40, platelets 195. Sodium 142, potassium 4.7, chloride 110, CO2 of 28, BUN 47, creatinine 1.8, glucose 107, calcium 8.9. Albumin 3.1. CURRENT MEDICATIONS: Hydralazine 25 b.i.d., Catapres 0.3 patch, Coreg 3.125 b.i.d., aspirin 81, Glucotrol 10 mg b.i.d., Lovenox, Pepcid, Prandin, Seroquel, Xanax. ASSESSMENT: 1. Morbid obesity. 2. Obstructive sleep apnea, noncompliant with continuous positive airway pressure. 3. Status post cardiorespiratory arrest, mechanical obstruction. 4. Acute kidney injury, acute tubular necrosis in the setting of renal hypoperfusion. 5. Bni-wxadtgn-mtnbjwvtv diabetes mellitus. PLAN: 1. Lasix IV push 40 mg x1 dose. 2. Monitor intake and output. 3. Monitor daily labs. 4. Avoid nephrotoxins. 5. Taper steroids as feasible. 6. Continue monitoring glucose and insulin coverage. Velma Samuel MD
[2019-01-08] MEDS: Albuterol-Ipratrop 3 mg / 0.5 (3 ml) UD IH SCH ×4 (01:20→19:43)
[2019-01-08 07:12] LABS: HEMOGLOBIN 13.1 g/dL (14.0-18.0); MEAN CELL VOLUME 92.1 fl (80.0-105.0); MEAN CORPUSCULAR HEMOGLOBIN 28.8 pg (25.0-35.0); MEAN CORPUSCULAR HGB CONC 31.3 g/dl (31.0-37.0); MEAN PLATELET VOLUME 11.7 fl (7.0-11.0); RBC 4.55 10^6/uL (3.5-6.1); RED CELL DISTRIBUTION WIDTH 13.8 % (11.5-14.5)
[2019-01-08 07:26] LABS: ALBUMIN 3.5 g/dL (3.0-4.8); CALCIUM 9.1 mg/dL (8.4-10.5)
--- NOTE | 2019-01-08 07:57 | CP.PCM.PN ---
Subjective - Date & Time of Evaluation Date of Evaluation: 01/08/19 Time of Evaluation: 06:30 - Subjective Subjective: Sitting on chair, Awake, alert, on trach collar,no distress Reason for consultation and follow up: Cardiac evaluation status post code blue, requiring intubation, status post tracheostomy, history of hypertension, hyperlipidemia, morbidly obese Seen and examined by me and Dr. Rajan Objective - Vital Signs/Intake and Output Vital Signs (last 24 hours): Temp Pulse Resp BP Pulse Ox 98.6 F 68 20 120/70 96 01/08/19 06:00 01/08/19 06:00 01/08/19 06:00 01/08/19 06:00 01/08/19 06:00 Intake and Output: 01/08/19 01/08/19 06:59 18:59 Intake Total 960 Output Total 1250 Balance -290 - Medications Medications: Current Medications Albuterol/Ipratropium (Duoneb 3 Mg/0.5 Mg (3 Ml) Ud) 3 ml IH [id number] [facility] Last Admin: 01/08/19 07:32 Dose: 3 ml Albuterol/Ipratropium (Duoneb 3 Mg/0.5 Mg (3 Ml) Ud) 3 ml IH Q2H PRN PRN Reason: Shortness of Breath Last Admin: 01/02/19 15:18 Dose: 3 ml Alprazolam (Xanax) 0.25 mg PO TID [facility]; Protocol Stop: 01/12/19 18:01 Last Admin: 01/07/19 18:14 Dose: 0.25 mg Aspirin (Ecotrin) 81 mg PO DAILY [facility] Last Admin: 01/07/19 09:28 Dose: 81 mg Carvedilol (Coreg) 3.125 mg PO BID [facility] Last Admin: 01/07/19 18:11 Dose: 3.125 mg Clonidine HCl (Catapres-Tts3 0.3 Mg/24 Hr) 1 patch TD Q7D@1000 [facility] Last Admin: 01/03/19 15:29 Dose: 1 patch Dextrose (Dextrose 50% Inj) 0 ml IV STAT PRN; Protocol PRN Reason: Hypoglycemia Protocol Enoxaparin Sodium (Lovenox) 30 mg SC DAILY [facility]; Protocol Last Admin: 01/07/19 09:29 Dose: 30 mg Famotidine (Pepcid) 20 mg PO HS [facility] Last Admin: 01/07/19 22:04 Dose: 20 mg Glipizide (Glucotrol) 10 mg PO 0730,1630 [facility] Last Admin: 01/07/19 18:11 Dose: 10 mg Hydralazine HCl (Apresoline) 10 mg IVP Q6 PRN PRN Reason: For SBP>160 Last Admin: 01/05/19 17:02 Dose: 10 mg Hydralazine HCl (Apresoline) 25 mg PO BID [facility] Last Admin: 01/07/19 18:14 Dose: 25 mg Propofol (Diprivan) 1,000 mg in 100 mls @ 3.44 mls/hr IV .Q24H PRN; Protocol PRN Reason: TITRATE PER MD ORDER Last Titration: 01/02/19 07:00 Dose: 0 mcg/kg/min, 0 mls/hr Insulin Human Lispro (Humalog Low) [address] [facility]; Protocol Last Admin: 01/07/19 22:00 Dose: Not Given Quetiapine Fumarate (Seroquel) 12.5 mg PO HS PRN; Protocol PRN Reason: Agitation Last Admin: 01/07/19 22:05 Dose: 12.5 mg Repaglinide (Prandin) 2 mg PO AC [facility] Last Admin: 01/07/19 18:12 Dose: 2 mg - Labs Labs: 01/08/19 06:30 01/08/19 06:30 PT 14.1 SECONDS (9.4-12.5) H 12/31/18 06:00 INR 1.25 12/31/18 06:00 APTT 56.1 Seconds (26.9-38.3) H 12/31/18 11:50 - Constitutional Appears: Non-toxic, No Acute Distress - Head Exam Head Exam: NORMAL INSPECTION, NORMOCEPHALIC - Eye Exam Eye Exam: Normal appearance Pupil Exam: NORMAL ACCOMODATION - ENT Exam ENT Exam: Mucous Membranes Moist, Normal Exam Additional comments: tracheostomy - Respiratory Exam Respiratory Exam: Decreased Breath Sounds, Clear to Ausculation Bilateral, NORMAL BREATHING PATTERN Additional comments: trach collar - Cardiovascular Exam Cardiovascular Exam: +S1, +S2 - GI/Abdominal Exam GI & Abdominal Exam: Soft, Normal Bowel Sounds - Extremities Exam Extremities Exam: Full ROM Additional comments: 2-3+edema - Neurological Exam Neurological Exam: Alert, Awake, Oriented x3 - Psychiatric Exam Psychiatric exam: Normal Affect, Normal Mood - Skin Skin Exam: Dry, Normal Color, Warm Assessment and Plan - Assessment and Plan (Free Text) Assessment: A 73 year old male who was brought to the ER due to difficulty finding words. History of CVA (2017) with no residual defects, diabetes, hypertension, hyperlipidemia, arthritis,Right knee surgery, left hip replacement, lumbar spinal fusion with screws and plate. Code stroke was called in ER but outside of TPA window, TPA not indicated. Initial CT scan did not show acute findings. Admitted to telemetry. While in telemetry went into respiratory distress and heart rate to 30's, Sally giles was called and intubated ,eventually transferred to ICU. Extubated the following day however another episode of apnea. Tracheostomy was done for possible obstructive sleep apnea. Positive troponin on admission most likely due to acute kidney injury, CPK 5023 and MB fraction of 0.4. most likely rhabdomyolysis than myocardial infarction. Denies chest pain. Treat medically. Stabilized in ICU and now transferred to telemetry. Stress test and cardiac cath as out patient.Tracheostomy with trach collar.Cardiac status stable. No further cardiac work up at this point.Pulmonary on consult. Discharge planning. Plan: Cardiac status stable No distress, trach collar intact Heart rate controlled Blood pressure controlled On ASA 81 mg daily,Coreg 3.125 mg BID,Clonidine patch, Hydralazine 25 mg BID, Pulmonary on consult Continue current treatment Continue current medications Discharge planning Awaiting placement to [facility] May discharge from cardiac standpoint Will follow up Plan and treatment discussed with Dr. Rajan
[2019-01-08] MEDS: Insulin Lispro (humaLOG) LOW Coverage SC SCH ×4 (08:04→21:11)
[2019-01-08] MEDS: Enoxaparin 30 mg Syringe SC SCH (10:06)
--- NOTE | 2019-01-08 11:26 | PN ---
DATE: 01/08/2019 PULMONARY PROGRESS NOTE REFERRING PHYSICIAN: Diego Teran MD SUBJECTIVE: The patient is seen and sitting in armchair in room. No acute distress. No overnight events reported. No hemoptysis, hematemesis, hematuria, or diarrhea reported. The patient undergoing physical therapy. OBJECTIVE: GENERAL: No acute distress. VITAL SIGNS: Blood pressure 120/70, pulse 60, temperature 98.6, and oxygen saturation 96% via trach collar. HEENT: Moist mucous membranes. Mallampati score of 4. Crowded airway. NECK: Supple. No JVD. Trach site, no erythema noted. LUNGS: Few scattered rhonchi bilaterally. CARDIOVASCULAR: S1 and S2. ABDOMEN: Soft and nontender. No distention. No organomegaly. EXTREMITIES: Bilateral lower extremity edema. NEUROLOGIC: Awake, alert and verbal. Follows commands. Forgetul and agitated at times MEDICATIONS: Reviewed. DuoNeb 3 mL inhalation every 6 hours, DuoNeb 3 mL inhalation every 2 hours p.r.n., Xanax 0.25 mg 3 times a day, aspirin 81 mg daily, Coreg 3.125 mg twice a day, clonidine 0.3 mg patch every 7 days, Lovenox 30 mg subcutaneously daily, Pepcid 20 mg at bedtime, glipizide 10 mg twice a day, hydralazine 10 mg every 6 hours p.r.n. systolic BP greater than 160, hydralazine 25 mg twice a day, Humalog sliding scale a.c. and at bedtime, propofol 1000 mg p.r.n., Seroquel 12.5 mg p.o. at bedtime p.r.n., Prandin 2 mg in the morning. LABORATORY DATA: Reviewed. WBC 17, RBC 4.55, hemoglobin 13.1, hematocrit 41.9, and platelets 262. Sodium 142, potassium 4.1, chloride 106, carbon dioxide 30, anion gap 11, BUN 46, creatinine 1.9, GFR 35, random glucose 129, calcium 9.1, total bilirubin 1.2, AST 36, ALT 43, alkaline phosphatase 122, total protein 7, albumin 3.5, globulin 3.5, and albumin-globulin ratio 1.0. IMPRESSION AND PLAN: Respiratory failure requiring tracheostomy, status post stroke, morbid obesity, encephalopathy, status post respiratory failure, diabetes, hypertension, bipolar disorder, sleep apnea syndrome, activities of daily living dysfunction. Pulmonary point of view, continue supplemental oxygen, continue inhaled bronchodilators. The patient refusing continuous positive airway pressure machine, gastric prophylaxis, deep venous thrombosis prophylaxis, deep oral and tracheostomy suctioning, physical therapy. Patient becomes forgetful and agitated at times requiring chemical restraint. The patient would benefit from acute neuro rehab. This patient was seen and examined with Dr. Wright. Discussed assessment and plan as described above. This patient was seen and examined with Kael Flor, nurse practitioner. Discussed assessment and plan as described above. Thank you for this consult. We will follow with you. Kael Flor APN Magdalena Wright MD [facility]
--- NOTE | 2019-01-08 12:50 | RAD ---
Date of service: 01/08/2019 HISTORY: r/o infiltrate COMPARISON: 01/04/2019 TECHNIQUE: Chest PA and lateral FINDINGS: LUNGS: Left lower lobe infiltrate. No abnormal opacity elsewhere. PLEURA: Small left pleural effusion. No right pleural effusion. No pneumothorax. CARDIOVASCULAR: No aortic atherosclerotic calcification present. Normal cardiac size. No pulmonary vascular congestion. OSSEOUS STRUCTURES: No significant abnormalities. VISUALIZED UPPER ABDOMEN: Normal. OTHER FINDINGS: None. IMPRESSION: Left lower lobe infiltrate and small left pleural effusion.
[2019-01-08] MEDS ORDERED: Piperacill/Tazo 4.5gm in NS 4.5 GM/100 ML BAG IVPB STA (15:46)
[2019-01-08 17:17] LABS: PH,URINE 5.5 (4.7-8.0); URINE BILIRUBIN NEGATIVE (NEGATIVE); URINE BLOOD MODERATE (NEGATIVE); URINE GLUCOSE (UA) NEGATIVE (NEGATIVE); URINE LEUKOCYTE ESTERASE MODERATE Leu/uL (NEGATIVE); URINE PROTEIN TRACE mg/dL (<30 mg/dL); URINE UROBILINOGEN 0.2 E.U./dL (<1 E.U./dL)
[2019-01-08 17:18] LABS: URINE APPEARANCE SLIGHT-CLOUDY (CLEAR); URINE COLOR YELLOW (YELLOW)
[2019-01-08 17:31] LABS: URINE BACTERIA MOD /hpf; URINE EPITHELIAL CELLS 0 - 2 /hpf (0-5); URINE WBC 25 - 30 /hpf (0-6)
--- NOTE | 2019-01-08 17:47 | PN ---
DATE: 01/08/2019 SUBJECTIVE: The patient is seen earlier in 261. The patient is in bed, in no acute distress. No fevers. PHYSICAL EXAMINATION: VITAL SIGNS: Temperature is 98, blood pressure is 120/70, respirations 16. HEENT: Unremarkable. NECK: Supple. LUNGS: Decreased breath sounds. HEART: Normal S1 and S2. ABDOMEN: Soft, nontender. LABORATORY DATA: Examination reveals the patient's white count is 17,000. Review of orders revealed the patient to be off antibiotics. The patient had a chest x-ray and had left lower lobe infiltrate is noted. Dr. Rajan note is reviewed. ASSESSMENT AND PLAN: This is a 73-year-old male who was initially admitted with urosepsis status post shock and aspiration, now appears to have acute pneumonia status post vent-dependent respiratory failure status post cardiac arrest, acute renal failure, status post tracheostomy clearance. He is off antibiotics. Chest x-ray result is noted and the patient had a . Dr. Teran' note is reviewed from yesterday. We will follow with you. We will follow his WBC count also. Darrel Ramesh MD
[2019-01-08] MEDS ORDERED: Piperacill/Tazo 4.5gm in NS 4.5 GM/100 ML BAG IVPB SCH (18:00)
--- NOTE | 2019-01-08 19:28 | CP.PCM.PCO ---
Physician Communication Note - Physician Communication Note Physician Communication Note: +LLLInfiltrate/Incr yellow sputa(C/Sdone)-DC Dong/Start Zosyn IV
--- NOTE | 2019-01-08 19:33 | PN ---
DATE: 01/08/2019 SUBJECTIVE: The patient is currently seen on telemetry. The patient is sleepy. He is lying in bed. Trach collar is intact. The patient was started on antibiotic therapy today for his rising white blood cell count. He has remained afebrile. All cultures to date have been negative. Dong catheter was removed. The patient is recovering slowly from his episode of ATN, status post his cardiac arrest. MEDICATIONS: Medication list reviewed. The patient is currently on hydralazine, Catapres patch, Coreg, DuoNeb, Ecotrin, Glucotrol, sliding scale insulin, Lovenox, Pepcid, Prandin, Seroquel, Xanax, and he has recently been started on Zosyn 4.5 g every 6 hours. OBJECTIVE: INTAKE AND OUTPUT: Intake is 1680 and output is 1750. VITAL SIGNS: Last weight charted was 252 pounds 3 ounces. Blood pressure 103/65, temperature 99.1, respiratory rate of 20 with a pulse of 63. HEENT: Shows him to be normocephalic and atraumatic. Conjunctivae remain pink. Sclerae are nonicteric. NECK: Positive trach collar. No neck vein distention. CHEST: Slight decreased breath sounds at the bases with no audible rales, rhonchi or wheezing. CARDIOVASCULAR: Shows a regular rate and rhythm with AI/MR. No S3, no S4, and no rub. ABDOMEN: Mildly obese. Bowel sounds normal. No rebound, guarding, or masses. EXTREMITIES: Show trace pitting edema of his lower extremity bilaterally with his legs flat in bed. Diminished lower extremity pulses. No cyanosis or clubbing. NEUROLOGIC: Shows him to be alert, opening his eyes when spoken to. Dong catheter had been removed. LABORATORY DATA AND IMAGING: CBC; white blood cell count 17, hemoglobin 13.1 with a platelet count of 262,000. Chemistry showed normal electrolytes. BUN 46 with a creatinine of 1.9, this is down from a high of 69 BUN with a creatinine of 2.8 his baseline, BUN is less than 20 with a baseline creatinine less than 1. Glucose is 129. Calcium is 9.1. Liver enzymes are normal. Albumin is 3.5. Microbiology, all cultures are negative. ASSESSMENT AND PLAN: 1. Acute renal failure in the setting of cardiac arrest with suspected acute tubular necrosis secondary to renal hypoperfusion. No evidence for obstructive uropathy. No evidence for acute interstitial nephritis. The patient's BUN and creatinine have essentially remained stable. He is not quite back to baseline which is a BUN of less than 20 and creatinine of less than 1. The patient has been receiving intermittent doses of IV Lasix. We are trying to balance his intake and output. The patient is currently not receiving any IV fluid hydration. 2. Status post cardiac arrest secondary to apneic episode. The patient had refused bilevel positive airway pressure therapy on the floor. 3. History of acute rhabdomyolysis. This was secondary to cardiopulmonary resuscitation with chest compression. 4. History of respiratory failure. The patient is currently comfortable with a tracheostomy collar. 5. History of hypertension. Blood pressure control is acceptable. We will avoid angiotensin receptor blockers and GABRIELA inhibitors. The patient may continue on hydralazine, clonidine and Coreg. If necessary, we could add low-dose calcium channel kyler. Presently, he does not require this. 6. History of cerebrovascular accident. The patient remains on chronic anticoagulation. He is currently on Lovenox. In the outpatient setting, the patient was not receiving any anticoagulation. 7. History of hyperlipidemia. The patient continues a low-fat and low-cholesterol diet. 8. History of left ventricular hypertrophy with aortic insufficiency, mitral regurgitation, ejection fraction was 55%, this is stable. 9. Leukocytosis with negative cultures. The patient was started empirically on Zosyn. The patient will remain on this antibiotic, this needs to be dosed for creatinine of 1.9, which is essentially chronic kidney disease stage III. The dose will need to be lowered. 10. Continue to monitor blood pressure on present medication. Avoid GABRIELA inhibitors, angiotensin receptor blockers. 11. Continue to monitor accurate intake and output try and keep the patient in fluid balance. 12. Continue to monitor the patient on telemetry. 13. Encourage oral fluid hydration. 14. Agree with removal of Dong catheter and culturing of urine. 15. Try and obtain accurate intake and output with Dong catheter removed might be difficult. Brian Castellon MD [facility]
[2019-01-08] MEDS ORDERED: Vancomycin 1gm in NS 250ml 1 GM/250 ML BAG IVPB STA (19:41)
[2019-01-08] MEDS: Cefepime 0.5 GM in Sodium Chloride 0.9% 100 ML IVPB SCH (21:00)
[2019-01-09] MEDS: Albuterol-Ipratrop 3 mg / 0.5 (3 ml) UD IH SCH ×4 (01:16→19:13)
[2019-01-09 07:13] LABS: HEMOGLOBIN 12.1 g/dL (14.0-18.0); MEAN CELL VOLUME 92.6 fl (80.0-105.0); MEAN CORPUSCULAR HEMOGLOBIN 28.8 pg (25.0-35.0); MEAN CORPUSCULAR HGB CONC 31.1 g/dl (31.0-37.0); MEAN PLATELET VOLUME 11.2 fl (7.0-11.0); RBC 4.2 10^6/uL (3.5-6.1); RED CELL DISTRIBUTION WIDTH 13.8 % (11.5-14.5); WHITE BLOOD COUNT 14.7 10^3/uL (4.5-11.0)
[2019-01-09 07:35] LABS: ALB/GLOB RATIO 0.9 (1.1-1.8); ALBUMIN 3.3 g/dL (3.0-4.8); CALCIUM 8.8 mg/dL (8.4-10.5)
[2019-01-09] MEDS: Cefepime 0.5 GM in Sodium Chloride 0.9% 100 ML IVPB SCH ×2 (08:49→19:59)
--- NOTE | 2019-01-09 09:30 | PN ---
DATE: 01/09/2019 SUBJECTIVE: The patient seen earlier today in 261, bed 1. The patient is awake and alert. He has a trach collar. He had no fevers. He states that his breathing is worse in last few days; however, at this time he is feeling better. PHYSICAL EXAMINATION VITAL SIGNS: On exam, temperature is 98, blood pressure is 99/60, respiratory rate of 18 and heart rate of 64. HEENT: Unremarkable. NECK: Supple. LUNGS: Have decreased breath sounds. HEART: Normal S1 and S2. ABDOMEN: Soft and nontender. LABORATORY EXAMINATION: Reveals a white count of 14,000 and hemoglobin of 12. Chemistries reveal a creatinine of 1.9. Urinalysis is noted to have 25-30 WBCs. Microbiology; the sputum culture is pending, blood cultures are pending and urine cultures are pending. The patient's current the medication list includes; cefepime and one dose of vancomycin was given the patient's procalcitonin is also pending. Dr. Teran' communication report is reviewed. ASSESSMENT AND PLAN: This 73-year-old male who initially admitted with sepsis, status post shock, aspiration, appears to now has new infiltrate with a left-sided healthcare-associated pneumonia on intermittent vancomycin and Maxipime pending panculture results initial workup results. The patient is clinically stable. Darrel Ramesh MD
--- NOTE | 2019-01-09 10:22 | CP.PCM.PCO ---
Physician Communication Note - Physician Communication Note Physician Communication Note: OK transfer to [facility] (Cherelle and DERECK must concur)
[2019-01-09] MEDS: GlipiZIDE 10 mg SR Tab PO SCH (11:00)
[2019-01-09] MEDS: Enoxaparin 30 mg Syringe SC SCH (11:00)
--- NOTE | 2019-01-09 11:44 | CP.PCM.PN ---
Subjective - Date & Time of Evaluation Date of Evaluation: 01/09/19 Time of Evaluation: 11:42 - Subjective Subjective: Surgery Progress Note for Dr. Teran S/E at bedside. Complained of pain in the testicle and on his back. Denies fevers, chills, chest pain, n/v, constipation or diarrhea, and dysuria. Objective - Vital Signs/Intake and Output Vital Signs (last 24 hours): Temp Pulse Resp BP Pulse Ox 97.6 F 69 19 105/64 93 L 01/09/19 06:00 01/09/19 11:00 01/09/19 06:00 01/09/19 11:36 01/09/19 06:00 Intake and Output: 01/09/19 01/09/19 06:59 18:59 Intake Total 1080 Output Total 550 Balance 530 - Medications Medications: Current Medications Albuterol/Ipratropium (Duoneb 3 Mg/0.5 Mg (3 Ml) Ud) 3 ml IH [id number] [facility] Last Admin: 01/09/19 07:18 Dose: 3 ml Albuterol/Ipratropium (Duoneb 3 Mg/0.5 Mg (3 Ml) Ud) 3 ml IH Q2H PRN PRN Reason: Shortness of Breath Last Admin: 01/02/19 15:18 Dose: 3 ml Alprazolam (Xanax) 0.25 mg PO TID [facility]; Protocol Stop: 01/12/19 18:01 Last Admin: 01/09/19 11:01 Dose: 0.25 mg Aspirin (Ecotrin) 81 mg PO DAILY [facility] Last Admin: 01/09/19 11:00 Dose: 81 mg Carvedilol (Coreg) 3.125 mg PO BID [facility] Last Admin: 01/09/19 11:00 Dose: 3.125 mg Clonidine HCl (Catapres Tts1 0.1 Mg/24 Hr) 1 patch TD Q7D@1000 [facility] Last Admin: 01/09/19 10:59 Dose: Not Given Clopidogrel Bisulfate (Plavix) 75 mg PO DAILY [facility] Last Admin: 01/09/19 11:01 Dose: 75 mg Dextrose (Dextrose 50% Inj) 0 ml IV STAT PRN; Protocol PRN Reason: Hypoglycemia Protocol Enoxaparin Sodium (Lovenox) 30 mg SC DAILY [facility]; Protocol Last Admin: 01/09/19 11:00 Dose: 30 mg Famotidine (Pepcid) 20 mg PO HS [facility] Last Admin: 01/08/19 21:09 Dose: 20 mg Furosemide (Lasix) 40 mg IVP DAILY [facility] Last Admin: 01/09/19 11:36 Dose: 40 mg Glipizide (Glucotrol Xl) 10 mg PO DAILY [facility] Last Admin: 01/09/19 11:00 Dose: 10 mg Hydralazine HCl (Apresoline) 10 mg IVP Q6 PRN PRN Reason: For SBP>160 Last Admin: 01/05/19 17:02 Dose: 10 mg Hydralazine HCl (Apresoline) 25 mg PO BID [facility] Last Admin: 01/09/19 10:59 Dose: Not Given Cefepime HCl 0.5 gm/ Sodium (Chloride) 100 mls @ 100 mls/hr IVPB Q12H [facility]; Protocol Stop: 01/13/19 20:01 Last Admin: 01/09/19 08:49 Dose: 100 mls/hr Insulin Human Lispro (Humalog Low) 0 units SC ACHS [facility]; Protocol Last Admin: 01/08/19 21:11 Dose: Not Given Quetiapine Fumarate (Seroquel) 12.5 mg PO HS PRN; Protocol PRN Reason: Agitation Last Admin: 01/08/19 21:09 Dose: 12.5 mg - Labs Labs: 01/09/19 07:00 01/09/19 07:00 PT 14.1 SECONDS (9.4-12.5) H 12/31/18 06:00 INR 1.25 12/31/18 06:00 APTT 56.1 Seconds (26.9-38.3) H 12/31/18 11:50 - Constitutional Appears: Non-toxic, No Acute Distress - Head Exam Head Exam: NORMAL INSPECTION - Eye Exam Eye Exam: EOMI - ENT Exam Additional comments: trach collared - Respiratory Exam Respiratory Exam: NORMAL BREATHING PATTERN. absent: Respiratory Distress - Cardiovascular Exam Cardiovascular Exam: REGULAR RHYTHM - GI/Abdominal Exam GI & Abdominal Exam: Soft. absent: Tenderness - Extremities Exam Extremities Exam: Normal Inspection - Back Exam Additional comments: erythema noted on posterior back near sacrum right above gluteal fold; likely stage 1 ulcer, dressed with mediplex and optifoam Assessment and Plan - Assessment and Plan (Free Text) Assessment: 73yo M with VDRF s/p Tracheostomy. POD 8. Patient spiked fever with cxray showing PNA Plan: ID recommended 1x dose of vanc and 5 days of cefepime; Procal pending Stage 1 ulcer on sacrum dressed with optifoam and medihoney Patient requests transfer to [facility] [place], will attempt transfer for AM ; If leukocytosis trending downward in AM we will transfer Continue all other chronic meds for HTN, ANDREW, DM2 Further recs as per Dr. Teran PGY-1 Ivy Islas
--- NOTE | 2019-01-09 14:05 | PN ---
DATE: 01/09/2019 REASON FOR CONSULTATION AND FOLLOWUP: Cardiac evaluation status post respiratory failure, tracheostomy, COPD, obstructive sleep apnea, morbid obesity, status post tracheostomy. SUBJECTIVE: The patient denies any chest pain, shortness of breath, or any palpitation. PHYSICAL EXAMINATION: VITAL SIGNS: Temperature afebrile, heart rate 64, blood pressure 99/61. HEENT: PERRLA. Extraocular muscles intact. NECK: Supple. No carotid bruits. No thyromegaly. CHEST: Clear to auscultation. HEART: S1 and S2, regular. ABDOMEN: Soft. EXTREMITIES: Clubbing and cyanosis, negative. LABORATORY DATA: Blood work up as follows: WBC 14, hemoglobin 12.8, hematocrit 38.9, platelet count 242. Chemistries showed sodium 141, potassium 3.8, chloride 107, carbon dioxide 28, anion gap of 9, BUN 14 and creatinine 1.9. IMPRESSION: A 73-year-old morbidly obese male, body mass index of 41 kg per meter square with significant hypertension, hyperlipidemia, arthritis, admitted with altered mental status, became apneic twice requiring intubation, now the patient is status post tracheostomy. No evidence of acute myocardial infarction. Initial troponin 0.4, but muscle/brain fraction was negative in face of rhabdomyolysis, CPK 5023. So no evidence of acute myocardial infarction, no evidence of chest pain, history of chronic renal insufficiency, acute kidney injury, recovering. RECOMMENDATION: Continue aggressive medical treatment, continue tracheostomy care and toilet. We will decrease the antihypertensive medication, as the patient is running low blood pressure. We will change Catapres patch to #1. Thank you Dr. Teran for providing us the opportunity in taking care of the patient Zay Mcdonald. Magdalena Rajan MD
--- NOTE | 2019-01-09 14:47 | PN ---
DATE: 01/09/2019 PULMONARY PROGRESS NOTE REFERRING PHYSICIAN: Dr. Teran. SUBJECTIVE: The patient is seen sitting in armchair in room. Family at bedside. No acute distress. No overnight events reported. Nursing staff reports the patient does have thick secretions or thick sputum from trach, at times saturates 89% to 90%. FiO2 had to be increased to 60 today per nursing staff. Chest x-ray today showing left lower lobe infiltrate. The patient was placed on cefepime antibiotics per nursing staff. No hemoptysis, hematemesis, hematuria or diarrhea reported. OBJECTIVE: GENERAL: No acute distress. VITAL SIGNS: Blood pressure 101/61, pulse 60, temperature 99.6, oxygen saturation 94%, on trach collar. HEENT: Moist mucous membranes. Mallampati score of 4. Crowded airway. NECK: Supple. No JVD. Trach site, no erythema noted. LUNGS: Few scattered rhonchi bilaterally. CARDIOVASCULAR: S1 and S2. ABDOMEN: Soft and nontender. No distention. No organomegaly. EXTREMITIES: Bilateral lower extremity edema. NEUROLOGIC: Awake, alert and verbal. Follows commands. The patient can be forgetful and become agitated at times. MEDICATIONS: Reviewed. DuoNeb 3 mL inhalation every 6 hours, DuoNeb 3 mL inhalation every 2 hours p.r.n., Xanax 0.25 mg three times a day, aspirin 81 mg p.o. daily, Coreg 3.125 mg twice a day, cefepime 0.5 g every 12 hours, clonidine patch 0.1 mg every 7 days, Plavix 75 mg daily, Lovenox 30 mg subcu daily, Pepcid 20 mg at bedtime, glipizide 10 mg daily, hydralazine 10 mg IV push every 6 hours p.r.n. for systolic blood pressure greater than 160, hydralazine 25 mg p.o. twice a day, Humalog sliding scale a.c. and h.s., Seroquel 12.5 mg at bedtime p.r.n. LABORATORY DATA: Reviewed. WBC 14.7, RBC 4.2, hemoglobin 12.1, hematocrit 38.9, and platelets 242. Sodium 141, potassium 3.8, chloride 107, carbon dioxide 28, anion gap 9, BUN 40, creatinine 1.9, GFR 35, random glucose 110, calcium 8.8, phosphorus 4.5, magnesium 2. Total bilirubin 0.8, AST 22, ALT 31, alkaline phosphatase 126, total protein 6.8, albumin 3.3, globulin 3.5, and albumin-globulin ratio 0.9. Procalcitonin 0.77. Urinalysis shows urine protein trace, urine blood moderate, urine nitrite positive, urine leukocyte esterase moderate, urine rbc 2 to 5, urine wbc 25 to 30. Urine culture shows gram-negative rods preliminary. Sputum culture from the trach shows yeast species preliminary report. Chest x-ray shows left lower lobe infiltrates, small left pleural effusion. IMPRESSION AND PLAN: Respiratory failure requiring tracheostomy, status post stroke; morbid obesity; encephalopathy, status post respiratory failure; diabetes; hypertension; bipolar disorder; sleep apnea syndrome; activities of daily living dysfunction. The patient with new infiltrate on chest x-ray, we suspect aspiration-related pneumonia. The patient's procalcitonin is still high, but it is trending down. Leukocytosis also trending down. Continue pulmonary toileting. Continue inhaled bronchodilators, gastric prophylaxis, deep venous thrombosis prophylaxis, deep oral and tracheostomy suctioning. Continue supplemental oxygen. The patient being followed by Infectious Disease, currently on antibiotic therapy. From Pulmonary point of view, the patient is stable to go to [facility] supplemental oxygen, FiO2 is 50% once cleared by primary. The patient was seen and examined with Dr. Wright. Discussed assessment and plan as described above. The patient was seen and examined with Kael Flor, nurse practitioner. Discussed assessment and plan as described above. Thank you for this consult. We will follow with you. Kael Flor APN Magdalena Wright MD FERNANDO
--- NOTE | 2019-01-09 17:29 | PN ---
DATE: 01/09/2019 SUBJECTIVE: The patient is seen sitting in chair. He is awake, he is alert, is comfortable. He denies any pain today. PHYSICAL EXAMINATION: GENERAL: Morbidly obese elderly male sitting in chair. VITAL SIGNS: Blood pressure 105/64, heart rate 69, respiratory rate 19, temperature 97.6. HEENT: Normocephalic, atraumatic, positive pallor, no icterus. NECK: Supple, no JVD. LUNGS: Bilateral equal air entry, bilateral equal expansion, no rales. CARDIAC: S1 and S2, regular rate rhythm, no murmur, no rub. ABDOMEN: Obese, distended, soft, nontender, bowel sounds present. EXTREMITIES: 2+ pitting edema of the lower extremities. Intake and output 1105/1618. LABORATORY DATA: WBC 14.7, hemoglobin 12, hematocrit 38.9, platelets 242. Sodium 141, potassium 3.8, chloride 107, CO2 28, BUN 40, creatinine 1.9, glucose 110, calcium 8.8, phosphorus 4.5 magnesium 2, albumin 3.3. Urinalysis yellow, slightly cloudy, pH 5.5, specific gravity 1.015, protein trace, blood moderate, nitrite positive, leukocyte esterase moderate. CURRENT MEDICATIONS: Hydralazine 25 b.i.d., Catapres 0.1 patch not given today, cefepime 0.5 g every 12 hours, Coreg 3.125 b.i.d., DuoNeb, Ecotrin, Glucotrol XL 10, insulin, Lovenox, Pepcid, Seroquel, Xanax. ASSESSMENT: 1. Morbidly obese elderly male with sleep apnea, obstructive component, stridor, now with tracheostomy. 2. Status post respiratory failure. 3. Status post cardiorespiratory arrest. 4. Acute kidney injury, acute tubular necrosis in the setting of renal hypoperfusion, now resolving. 5. Hypertension, currently hypotensive. 6. Non-insulin dependent diabetes mellitus. 7. Suspected urinary tract infection. PLAN: 1. Check urine culture. 2. Continue antibiotics as per ID recommendations. 3. Hold antihypertensives. 4. Lasix 40 mg IV push x1 dose today. Velma Samuel MD
[2019-01-09] MEDS: Insulin Lispro (humaLOG) LOW Coverage SC SCH ×3 (19:01→21:22)
[2019-01-09] MEDS: Lidocaine 5% Patch TD SCH (19:02)
[2019-01-10] MEDS: Albuterol-Ipratrop 3 mg / 0.5 (3 ml) UD IH SCH ×4 (01:35→20:32)
[2019-01-10 07:56] LABS: HEMOGLOBIN 11.2 g/dL (14.0-18.0); MEAN CELL VOLUME 91.4 fl (80.0-105.0); MEAN CORPUSCULAR HEMOGLOBIN 29.1 pg (25.0-35.0); MEAN CORPUSCULAR HGB CONC 31.8 g/dl (31.0-37.0); MEAN PLATELET VOLUME 10.8 fl (7.0-11.0); RBC 3.85 10^6/uL (3.5-6.1); RED CELL DISTRIBUTION WIDTH 13.8 % (11.5-14.5); WHITE BLOOD COUNT 14.9 10^3/uL (4.5-11.0)
[2019-01-10] MEDS: Insulin Lispro (humaLOG) LOW Coverage SC SCH ×4 (08:11→22:21)
--- NOTE | 2019-01-10 08:13 | CP.PCM.PN ---
Subjective - Date & Time of Evaluation Date of Evaluation: 01/10/19 Time of Evaluation: 08:10 - Subjective Subjective: Surgery Progress Note for Dr. Teran S/E at bedside. Expressed desire to be transferred to [facility]. Denies fevers, chills, chest pain, n/v, constipation or diarrhea, and dysuria. Objective - Vital Signs/Intake and Output Vital Signs (last 24 hours): Temp Pulse Resp BP Pulse Ox 98.8 F 65 19 114/65 96 01/10/19 06:00 01/10/19 06:00 01/10/19 06:00 01/10/19 06:00 01/10/19 06:00 Intake and Output: 01/10/19 01/10/19 06:59 18:59 Intake Total 1840 Output Total 1650 Balance 190 - Medications Medications: Current Medications Albuterol/Ipratropium (Duoneb 3 Mg/0.5 Mg (3 Ml) Ud) 3 ml IH [id number] [facility] Last Admin: 01/10/19 01:35 Dose: 3 ml Albuterol/Ipratropium (Duoneb 3 Mg/0.5 Mg (3 Ml) Ud) 3 ml IH Q2H PRN PRN Reason: Shortness of Breath Last Admin: 01/02/19 15:18 Dose: 3 ml Alprazolam (Xanax) 0.25 mg PO TID [facility]; Protocol Stop: 01/12/19 18:01 Last Admin: 01/09/19 18:59 Dose: 0.25 mg Aspirin (Ecotrin) 81 mg PO DAILY [facility] Last Admin: 01/09/19 11:00 Dose: 81 mg Carvedilol (Coreg) 3.125 mg PO BID [facility] Last Admin: 01/09/19 19:00 Dose: 3.125 mg Clonidine HCl (Catapres Tts1 0.1 Mg/24 Hr) 1 patch TD Q7D@1000 [facility] Last Admin: 01/09/19 10:59 Dose: Not Given Clopidogrel Bisulfate (Plavix) 75 mg PO DAILY [facility] Last Admin: 01/09/19 11:01 Dose: 75 mg Dextrose (Dextrose 50% Inj) 0 ml IV STAT PRN; Protocol PRN Reason: Hypoglycemia Protocol Enoxaparin Sodium (Lovenox) 30 mg SC DAILY [facility]; Protocol Last Admin: 01/09/19 11:00 Dose: 30 mg Famotidine (Pepcid) 20 mg PO HS [facility] Last Admin: 01/09/19 21:35 Dose: 20 mg Glipizide (Glucotrol Xl) 10 mg PO DAILY [facility] Last Admin: 01/09/19 11:00 Dose: 10 mg Hydralazine HCl (Apresoline) 10 mg IVP Q6 PRN PRN Reason: For SBP>160 Last Admin: 01/05/19 17:02 Dose: 10 mg Hydralazine HCl (Apresoline) 25 mg PO BID [facility] Last Admin: 01/09/19 19:00 Dose: Not Given Cefepime HCl 0.5 gm/ Sodium (Chloride) 100 mls @ 100 mls/hr IVPB Q12H [facility]; Protocol Stop: 01/13/19 20:01 Last Admin: 01/09/19 19:59 Dose: 100 mls/hr Insulin Human Lispro (Humalog Low) 0 units SC ACHS [facility]; Protocol Last Admin: 01/09/19 21:22 Dose: Not Given Lidocaine (Lidoderm) 1 ea TD DAILY [facility] Last Admin: 01/09/19 19:02 Dose: 1 ea Quetiapine Fumarate (Seroquel) 12.5 mg PO HS PRN; Protocol PRN Reason: Agitation Last Admin: 01/10/19 02:07 Dose: 12.5 mg - Labs Labs: 01/10/19 07:50 01/09/19 07:00 PT 14.1 SECONDS (9.4-12.5) H 12/31/18 06:00 INR 1.25 12/31/18 06:00 APTT 56.1 Seconds (26.9-38.3) H 12/31/18 11:50 - Constitutional Appears: Non-toxic, No Acute Distress - Head Exam Head Exam: NORMAL INSPECTION - Eye Exam Eye Exam: EOMI, Normal appearance. absent: Scleral icterus - ENT Exam Additional comments: trach collared - Respiratory Exam Respiratory Exam: NORMAL BREATHING PATTERN. absent: Respiratory Distress - Cardiovascular Exam Cardiovascular Exam: absent: JVD - GI/Abdominal Exam GI & Abdominal Exam: Soft. absent: Distended, Firm, Guarding, Rigid, Tenderness - Back Exam Additional comments: erythema noted in sacral region, stage 1 ulcer - Neurological Exam Neurological Exam: Awake, Oriented x3 - Psychiatric Exam Psychiatric exam: Anxious - Skin Skin Exam: Intact, Normal Color Assessment and Plan - Assessment and Plan (Free Text) Assessment: 73yo M with VDRF s/p Tracheostomy. POD 9. Patient spiked fever with cxray showing PNA Plan: ID recommended 1x dose of vanc and 5 days of cefepime Procal trending down Stage 1 ulcer on sacrum dressed with optifoam and medihoney Patient requests transfer to [facility] [place], will attempt transfer for AM ; Leukocytosis trended slightly up, will attempt to transfer patient with assistance of social work team Continue all other chronic meds for HTN, ANDREW, DM2 Further recs as per Dr. Teran PGY-1 Ivy Islas
[2019-01-10 08:22] LABS: ALB/GLOB RATIO 0.9 (1.1-1.8); ALBUMIN 3.3 g/dL (3.0-4.8); CALCIUM 8.7 mg/dL (8.4-10.5)
--- NOTE | 2019-01-10 08:42 | CP.PCM.PCO ---
Physician Communication Note - Physician Communication Note Physician Communication Note: + UTI(Gr-Ulises)/LLLInfiltrate/afebrile/sat 97%/C/S pending/WBC14.9
--- NOTE | 2019-01-10 09:41 | CP.PCM.PN ---
Subjective - Date & Time of Evaluation Date of Evaluation: 01/10/19 Time of Evaluation: 06:35 - Subjective Subjective: No distress, sitting on chair, Awake, alert, on trach collar,coughing yellowish secretions Reason for consultation and follow up: Cardiac evaluation status post code blue, requiring intubation, status post tracheostomy, history of hypertension, hyperlipidemia, morbidly obese Seen and examined by me and Dr. Rajan Objective - Vital Signs/Intake and Output Vital Signs (last 24 hours): Temp Pulse Resp BP Pulse Ox 98.8 F 65 19 114/65 96 01/10/19 06:00 01/10/19 06:00 01/10/19 06:00 01/10/19 06:00 01/10/19 06:00 Intake and Output: 01/10/19 01/10/19 06:59 18:59 Intake Total 1840 Output Total 1650 Balance 190 - Medications Medications: Current Medications Albuterol/Ipratropium (Duoneb 3 Mg/0.5 Mg (3 Ml) Ud) 3 ml IH [id number] [facility] Last Admin: 01/10/19 08:40 Dose: 3 ml Albuterol/Ipratropium (Duoneb 3 Mg/0.5 Mg (3 Ml) Ud) 3 ml IH Q2H PRN PRN Reason: Shortness of Breath Last Admin: 01/02/19 15:18 Dose: 3 ml Alprazolam (Xanax) 0.25 mg PO TID [facility]; Protocol Stop: 01/12/19 18:01 Last Admin: 01/09/19 18:59 Dose: 0.25 mg Aspirin (Ecotrin) 81 mg PO DAILY [facility] Last Admin: 01/09/19 11:00 Dose: 81 mg Carvedilol (Coreg) 3.125 mg PO BID [facility] Last Admin: 01/09/19 19:00 Dose: 3.125 mg Clonidine HCl (Catapres Tts1 0.1 Mg/24 Hr) 1 patch TD Q7D@1000 [facility] Last Admin: 01/09/19 10:59 Dose: Not Given Clopidogrel Bisulfate (Plavix) 75 mg PO DAILY [facility] Last Admin: 01/09/19 11:01 Dose: 75 mg Dextrose (Dextrose 50% Inj) 0 ml IV STAT PRN; Protocol PRN Reason: Hypoglycemia Protocol Enoxaparin Sodium (Lovenox) 30 mg SC DAILY [facility]; Protocol Last Admin: 01/09/19 11:00 Dose: 30 mg Famotidine (Pepcid) 20 mg PO HS [facility] Last Admin: 01/09/19 21:35 Dose: 20 mg Glipizide (Glucotrol Xl) 10 mg PO DAILY [facility] Last Admin: 01/09/19 11:00 Dose: 10 mg Hydralazine HCl (Apresoline) 10 mg IVP Q6 PRN PRN Reason: For SBP>160 Last Admin: 01/05/19 17:02 Dose: 10 mg Hydralazine HCl (Apresoline) 25 mg PO BID [facility] Last Admin: 01/09/19 19:00 Dose: Not Given Cefepime HCl 0.5 gm/ Sodium (Chloride) 100 mls @ 100 mls/hr IVPB Q12H [facility]; Protocol Stop: 01/13/19 20:01 Last Admin: 01/09/19 19:59 Dose: 100 mls/hr Insulin Human Lispro (Humalog Low) 0 units SC ACHS [facility]; Protocol Last Admin: 01/10/19 08:11 Dose: Not Given Lidocaine (Lidoderm) 1 ea TD DAILY [facility] Last Admin: 01/09/19 19:02 Dose: 1 ea Quetiapine Fumarate (Seroquel) 12.5 mg PO HS PRN; Protocol PRN Reason: Agitation Last Admin: 01/10/19 02:07 Dose: 12.5 mg - Labs Labs: 01/10/19 07:50 01/10/19 07:50 PT 14.1 SECONDS (9.4-12.5) H 12/31/18 06:00 INR 1.25 12/31/18 06:00 APTT 56.1 Seconds (26.9-38.3) H 12/31/18 11:50 - Constitutional Appears: Non-toxic, No Acute Distress - Head Exam Head Exam: NORMAL INSPECTION, NORMOCEPHALIC - Eye Exam Eye Exam: Normal appearance Pupil Exam: NORMAL ACCOMODATION - ENT Exam ENT Exam: Mucous Membranes Moist, Normal Exam - Neck Exam Additional comments: tracheostomy - Respiratory Exam Respiratory Exam: Decreased Breath Sounds, Rhonchi, NORMAL BREATHING PATTERN Additional comments: trach collar - Cardiovascular Exam Cardiovascular Exam: REGULAR RHYTHM, +S1, +S2 - GI/Abdominal Exam GI & Abdominal Exam: Normal Bowel Sounds - Extremities Exam Extremities Exam: Full ROM Additional comments: 3+edema - Neurological Exam Neurological Exam: Alert, Awake, Oriented x3 - Psychiatric Exam Psychiatric exam: Normal Affect, Normal Mood - Skin Skin Exam: Dry, Normal Color, Warm Assessment and Plan - Assessment and Plan (Free Text) Assessment: A 73 year old male who was brought to the ER due to difficulty finding words. History of CVA (2017) with no residual defects, diabetes, hypertension, hyperlipidemia, arthritis,Right knee surgery, left hip replacement, lumbar spinal fusion with screws and plate. Code stroke was called in ER but outside of TPA window, TPA not indicated. Initial CT scan did not show acute findings. Admitted to telemetry. While in telemetry went into respiratory distress and heart rate to 30's, Sally giles was called and intubated ,eventually transferred to ICU. Extubated the following day however another episode of apnea. Tracheostomy was done for possible obstructive sleep apnea. Positive troponin on admission most likely due to acute kidney injury, CPK 5023 and MB fraction of 0.4. most likely rhabdomyolysis than myocardial infarction. Denies chest pain. Will treat medically for now. Hold off cardiac cath due to renal insufficiency. Stabilized in ICU and now transferred to telemetry. Cardiac status stable. Stress test and cardiac cath as out patient.Tracheostomy with trach collar.Recent chest xray showed left lower lobe pneumonia. Urine culture 0n positive for Klebsiella pneumoniae, 01/08/19 Sputum culture showing yeast species. ID on consult, On IV antibiotics. Plan: No distress, trach collar intact Coughing yellowish secretions Heart rate controlled Blood pressure controlled Cardiac status stable On ASA 81 mg daily,Coreg 3.125 mg BID,Clonidine patch 0.1 mg/24 hr every 7 days, Hydralazine 25 mg BID Continue IV antibiotics per ID Continue current treatment Continue current medications ID and Pulmonary on consult Nutritional support Discharge planning Will follow up Plan and treatment discussed with Dr. Rajan
[2019-01-10] MEDS ORDERED: Lidocaine 5% Patch TD SCH ×3 (10:00→11:23)
[2019-01-10] MEDS: Cefepime 0.5 GM in Sodium Chloride 0.9% 100 ML IVPB SCH (10:28)
[2019-01-10] MEDS: Enoxaparin 30 mg Syringe SC SCH (10:57)
[2019-01-10] MEDS: GlipiZIDE 10 mg SR Tab PO SCH (10:57)
[2019-01-10] MEDS ORDERED: Zinc Oxide Topical 40% Oint (Desitin) TOP PRN (10:59)
[2019-01-10] MEDS: Lidocaine 5% Patch TD SCH ×2 (11:32→11:35)
[2019-01-10] MEDS: MEROPENEM 500 MG in NS 500 MG/50 ML BAG IVPB SCH ×3 (11:38→21:47)
--- NOTE | 2019-01-10 11:38 | PN ---
DATE: 01/10/2019 LOCATION: The patient is seen earlier today in 261, bed 1. SUBJECTIVE: The patient is in no acute distress. PHYSICAL EXAMINATION: VITAL SIGNS: Temperature is 98, blood pressure is 114/60, and respiratory rate 16. HEENT: Unremarkable. NECK: Supple. LUNGS: Decreased breath sounds. HEART: Normal S1 and S2. ABDOMEN: Soft. LABORATORY DATA: Reveals a white count of 14,900 and hemoglobin of 11. Chemistry reveals a BUN of 35 and creatinine of 1.9. The urinalysis is noted and microbiology is noted. Blood cultures are negative. ESBL Klebsiella in the urine and yeast is from the tracheal site. ASSESSMENT AND PLAN: A 73-year-old male. He was initially admitted with sepsis and septic shock and there is a new infiltrate with left-sided healthcare-associated pneumonia, on intermittent vancomycin. The patient currently now has an extended-spectrum beta-lactamases Klebsiella in the urine, although it is uncertain if this is asymptomatic or not. The patient is . We will discontinue the cefepime and use meropenem and place the patient on extended-spectrum beta-lactamases precautions. Darrel Ramesh MD
--- NOTE | 2019-01-10 11:49 | PN ---
DATE: 01/10/2019 PULMONARY PROGRESS NOTE REFERRING PHYSICIAN: Dr. Teran. SUBJECTIVE: The patient is seen sitting in armchair in room. No acute distress. No overnight events reported. The patient reports having some fecal discomfort. Nursing staff reports that the patient has redness to sacral and scrotal area. No hemoptysis, hematemesis, hematuria or diarrhea reported. OBJECTIVE: GENERAL: No acute distress. VITAL SIGNS: Blood pressure 114/65, pulse 65, temperature 98.8, oxygen saturation 96% via trach collar. HEENT: Moist mucous membranes. Mallampati score of 4. Crowded airway. NECK: Supple. No JVD. Trach site, no erythema noted. RESPIRATORY: Scattered rhonchi bilaterally. CARDIOVASCULAR: S1 and S2. ABDOMEN: Soft and nontender. No distention. No organomegaly. EXTREMITIES: Bilateral lower extremity edema. NEUROLOGIC: Awake, alert, and verbal. Follows commands. MEDICATIONS: Reviewed. DuoNeb 3 mL inhalation every 6 hours, DuoNeb 3 mL inhalation every 2 hours p.r.n., Xanax 0.25 mg 3 times a day, aspirin 81 mg daily, Coreg 3.125 mg twice a day, clonidine 0.1 mg patch every 7 days, Plavix 75 mg daily, Lovenox 30 mg daily, Pepcid 20 mg at bedtime, glipizide 10 mg daily, hydralazine 10 mg every 6 hours p.r.n. for systolic blood pressure greater than 160, hydralazine 25 mg twice a day, Humalog sliding scale a.c. and at bedtime, Lidoderm patch transdermally daily, meropenem 500 mg every 8 hours, Seroquel 12.5 mg at bedtime p.r.n. LABORATORY DATA: Reviewed. WBC 14.9, RBC 3.85, hemoglobin 11.2, hematocrit 35.2, and platelets 277. Sodium 142, potassium 3.7, chloride 105, carbon dioxide 31, anion gap 9, BUN 35, creatinine 1.9, GFR 35, random glucose 121, calcium 8.7, total bilirubin 1.0, AST 35, ALT 39, alkaline phosphatase 169, total protein 6.9, albumin 3.3, globulin 3.5, and albumin-globulin ratio 0.9. Blood cultures preliminary no growth after 24-hours. Urine culture final shows Klebsiella pneumoniae. IMPRESSION AND PLAN: Respiratory failure requiring tracheostomy, status post stroke; morbid obesity; encephalopathy, diabetes, hypertension, bipolar disorder; sleep apnea syndrome; activities of daily living dysfunction, urinary tract infection, suspect aspiration-related pneumonia for new infiltrate on chest x-ray. Continue pulmonary toileting. Continue inhaled bronchodilators, gastric prophylaxis, deep venous thrombosis prophylaxis. Continue deep oral and tracheostomy suctioning. Continue supplemental oxygen via trach. Continue antibiotic therapy per Infectious Disease. The patient currently on meropenem, covering Gram-negative and Gram-positive bacteria. We will order wound care consult for redness to sacral area and opening to scrotum area. Pulmonary point of view, the patient appears stable to be moved to [facility] with supplemental oxygen. This patient was seen and examined with Dr. Wright. Discussed assessment and plan as described above. The patient was seen and examined with Kael Flor, nurse practitioner. Discussed assessment and plan as described above. Thank you for this consult and we will follow with you. Kael Flor APN Magdalena Wright MD
--- NOTE | 2019-01-10 15:30 | PN ---
DATE: 01/10/2019 SUBJECTIVE: The patient is currently seen on telemetry, sitting in a chair. Trach collar is intact. The arrangements are being made for him to go to subacute rehab. He is recovering from his episode of ATN/acute renal failure status post cardiac arrest. Of note, he has Klebsiella pneumonia growing out of his urine which is ESBL positive. MEDICATIONS: Medication list reviewed. The patient is currently on hydralazine, clonidine patch, Coreg, DuoNeb, Ecotrin, Glucotrol, Lidoderm, Lovenox, meropenem, Pepcid, Plavix, Seroquel and Xanax. OBJECTIVE: INTAKE/OUTPUT: Intake is 1840, output is 1650. VITAL SIGNS: Blood pressure is 114/65, temperature 98.8, respiratory rate 19 with a pulse of 65. HEENT: Shows him to be normocephalic, atraumatic. Conjunctivae are pink. Sclerae nonicteric. NECK: Positive trach collar. No neck vein distention. CHEST: Decreased breath sounds at the bases with no audible rales, rhonchi or wheezing. CARDIOVASCULAR: Shows a regular rate and rhythm with AI/MR. No S3, no S4, no rub. ABDOMEN: Mildly obese. Bowel sounds normal. No rebound, guarding or masses. EXTREMITIES: Show trace to 1+ pitting edema of his lower extremity was feet on the floor. No cyanosis or clubbing. NEUROLOGIC: Shows him to be alert. The patient is attempting to speak. He is writing down communication on a note pad. LABORATORY DATA AND IMAGING STUDIES: CBC, white blood cell count 14.9, hemoglobin 11.2 with a platelet count of 277,000. Chemistry showed normal electrolytes. BUN is 35 with a creatinine of 1.9. This is down from a BUN of 69. However, his baseline BUN is less than 20. Creatinine is down from a high of 2.8 down to 1.9. Baseline creatinine is less than 1. Microbiology, urine cultures are positive for ESBL Klebsiella in the urine. Otherwise all negative. ASSESSMENT: 1. Acute renal failure in the setting of cardiac arrest with renal hypoperfusion and acute tubular necrosis. No evidence for obstructive uropathy. No evidence for acute interstitial nephritis. The patient's BUN and creatinine will likely slowly return back to baseline. 2. Status post cardiac arrest secondary to apneic episode. The patient refused bilevel positive airway pressure therapy on the floor. 3. History of acute rhabdomyolysis. This has resolved. This was secondary to CPR with chest compression. 4. History of respiratory failure. The patient is currently comfortable with a trach collar. 5. History of hypertension. Blood pressure is controlled on present medical therapy. Would not using angiotensin receptor blockers inhibitors, angiotensin receptor blockers because of the renal issue. He will remain on hydralazine, clonidine, and Coreg. 6. Past history of cerebrovascular accident. The patient remains on chronic anticoagulation. He is receiving Lovenox. 7. History of hyperlipidemia. The patient will continue all dietary restrictions. 8. History of left ventricular hypertrophy with aortic insufficiency and mitral regurgitation. Ejection fraction 55%. This is stable. 9. Leukocytosis cultures have been negative with the exception of his urine culture which is positive for ESBL Klebsiella. The patient is on antibiotic therapy. PLAN: 1. The patient is being set up for outpatient transfer to subacute rehab. This might be placed on hold because of the ESBL Klebsiella. The patient will likely need a private room. 2. Continue oral fluid hydration. 3. Continue to monitor labs on an as-needed basis in the hospital monitoring for return of BUN and creatinine back to baseline. 4. Try and obtain accurate I's and O's with removal of Dong catheter as long as he is an inpatient. 5. Avoid all nephrotoxic agents as his renal parameters continue to improve. 6. IV antibiotic therapy under the guidance of Infectious Disease. Brian Castellon MD
[2019-01-10] MEDS: Zinc Oxide Topical 40% Oint (Desitin) TOP SCH (17:22)
--- NOTE | 2019-01-10 17:55 | CP.PCM.PCO ---
Physician Communication Note - Physician Communication Note Physician Communication Note: +ESBL Kkebsiella UTI/ TrNsfer delayed
[2019-01-10 21:41] VITALS: RESP 20
[2019-01-11] MEDS: Albuterol-Ipratrop 3 mg / 0.5 (3 ml) UD IH SCH ×4 (01:00→20:59)
[2019-01-11 06:49] LABS: HEMOGLOBIN 10.8 g/dL (14.0-18.0); MEAN CELL VOLUME 92.3 fl (80.0-105.0); MEAN CORPUSCULAR HEMOGLOBIN 28.7 pg (25.0-35.0); MEAN CORPUSCULAR HGB CONC 31.1 g/dl (31.0-37.0); MEAN PLATELET VOLUME 10.9 fl (7.0-11.0); RBC 3.76 10^6/uL (3.5-6.1); RED CELL DISTRIBUTION WIDTH 13.9 % (11.5-14.5); WHITE BLOOD COUNT 11.1 10^3/uL (4.5-11.0)
--- NOTE | 2019-01-11 07:15 | CP.PCM.PN ---
Subjective - Date & Time of Evaluation Date of Evaluation: 01/11/19 Time of Evaluation: 07:00 - Subjective Subjective: Sitting on chair, Awake, alert, on trach collar,feels better Reason for consultation and follow up: Cardiac evaluation status post code blue, requiring intubation, status post tracheostomy, history of hypertension, hyperlipidemia, morbidly obese Seen and examined by me and Dr. Rajan Objective - Vital Signs/Intake and Output Vital Signs (last 24 hours): Temp Pulse Resp BP Pulse Ox 98 F 59 L 20 115/67 98 01/10/19 21:39 01/10/19 21:39 01/10/19 21:39 01/10/19 21:39 01/10/19 21:39 Intake and Output: 01/11/19 01/11/19 06:59 18:59 Intake Total 360 Output Total 750 Balance -390 - Medications Medications: Current Medications Albuterol/Ipratropium (Duoneb 3 Mg/0.5 Mg (3 Ml) Ud) 3 ml IH [id number] [facility] Last Admin: 01/11/19 01:00 Dose: 3 ml Albuterol/Ipratropium (Duoneb 3 Mg/0.5 Mg (3 Ml) Ud) 3 ml IH Q2H PRN PRN Reason: Shortness of Breath Last Admin: 01/02/19 15:18 Dose: 3 ml Allopurinol (Zyloprim) 100 mg PO DAILY [facility] Last Admin: 01/10/19 14:17 Dose: 100 mg Alprazolam (Xanax) 0.25 mg PO TID [facility]; Protocol Stop: 01/12/19 18:01 Last Admin: 01/10/19 17:23 Dose: 0.25 mg Aspirin (Ecotrin) 81 mg PO DAILY [facility] Last Admin: 01/10/19 10:57 Dose: 81 mg Carvedilol (Coreg) 3.125 mg PO BID [facility] Last Admin: 01/10/19 17:22 Dose: 3.125 mg Clonidine HCl (Catapres Tts1 0.1 Mg/24 Hr) 1 patch TD Q7D@1000 [facility] Last Admin: 01/09/19 10:59 Dose: Not Given Clopidogrel Bisulfate (Plavix) 75 mg PO DAILY [facility] Last Admin: 01/10/19 10:57 Dose: 75 mg Dextrose (Dextrose 50% Inj) 0 ml IV STAT PRN; Protocol PRN Reason: Hypoglycemia Protocol Enoxaparin Sodium (Lovenox) 30 mg SC DAILY [facility]; Protocol Last Admin: 01/10/19 10:57 Dose: 30 mg Famotidine (Pepcid) 20 mg PO HS [facility] Last Admin: 01/10/19 21:47 Dose: 20 mg Glipizide (Glucotrol Xl) 10 mg PO DAILY [facility] Last Admin: 01/10/19 10:57 Dose: 10 mg Hydralazine HCl (Apresoline) 10 mg IVP Q6 PRN PRN Reason: For SBP>160 Last Admin: 01/05/19 17:02 Dose: 10 mg Hydralazine HCl (Apresoline) 25 mg PO BID [facility] Last Admin: 01/10/19 17:22 Dose: Not Given Meropenem/Sodium Chloride (Merrem Iv 500 Mg/Ns 50 Ml) 500 mg in 50 mls @ 100 mls/hr IVPB Q12 [facility]; Protocol Stop: 01/15/19 10:31 Last Admin: 01/10/19 21:47 Dose: 100 mls/hr Insulin Human Lispro (Humalog Low) 0 units SC ACHS [facility]; Protocol Last Admin: 01/10/19 22:21 Dose: Not Given Lidocaine (Lidoderm) 1 ea TD DAILY [facility] Last Admin: 01/10/19 11:35 Dose: 1 ea Petrolatum (Desitin Maximum Strength Topical 40% Oint) 0 gm TOP BID [facility] Last Admin: 01/10/19 17:22 Dose: 1 applic Quetiapine Fumarate (Seroquel) 12.5 mg PO HS PRN; Protocol PRN Reason: Agitation Last Admin: 01/10/19 02:07 Dose: 12.5 mg - Labs Labs: 01/11/19 06:10 01/10/19 07:50 PT 14.1 SECONDS (9.4-12.5) H 12/31/18 06:00 INR 1.25 12/31/18 06:00 APTT 56.1 Seconds (26.9-38.3) H 12/31/18 11:50 - Constitutional Appears: Non-toxic, No Acute Distress - Head Exam Head Exam: NORMAL INSPECTION, NORMOCEPHALIC - Eye Exam Eye Exam: Normal appearance Pupil Exam: NORMAL ACCOMODATION - ENT Exam ENT Exam: Mucous Membranes Moist, Normal Exam - Respiratory Exam Respiratory Exam: Decreased Breath Sounds, Rhonchi, NORMAL BREATHING PATTERN - Cardiovascular Exam Cardiovascular Exam: +S1, +S2 - GI/Abdominal Exam GI & Abdominal Exam: Soft, Normal Bowel Sounds - Extremities Exam Extremities Exam: Full ROM Additional comments: 2+edema - Neurological Exam Neurological Exam: Alert, Awake, Oriented x3 - Psychiatric Exam Psychiatric exam: Normal Affect, Normal Mood - Skin Skin Exam: Dry, Normal Color, Warm Assessment and Plan - Assessment and Plan (Free Text) Assessment: A 73 year old male who was brought to the ER due to difficulty finding words. History of CVA (2017) with no residual defects, diabetes, hypertension, hyperlipidemia, arthritis,Right knee surgery, left hip replacement, lumbar spinal fusion with screws and plate. Code stroke was called in ER but outside of TPA window, TPA not indicated. Initial CT scan did not show acute findings. Admitted to telemetry. While in telemetry went into respiratory distress and heart rate to 30's, Sally blue was called and intubated ,eventually transferred to ICU. Extubated the following day however another episode of apnea. Tracheost max was done for possible obstructive sleep apnea. Positive troponin on admission most likely due to acute kidney injury, CPK 5023 and MB fraction of 0.4. most likely rhabdomyolysis than myocardial infarction. Denies chest pain. Will treat medically for now. Hold off cardiac cath due to renal insufficiency. Stabilized in ICU and now transferred to telemetry. Cardiac status stable. Stress test and cardiac cath as out patient.Tracheostomy with trach collar.Recent chest xray showed left lower lobe pneumonia. Urine culture 0n 01/08/19 positive for Klebsiella pneumoniae, 01/08/19 Sputum culture showing yeast species. Blood cultures no growth after 48 hours. ID on consult, On IV antibiotics. On contact isolation. Plan: Feels better today No distress, trach collar intact Heart rate controlled Blood pressure controlled Cardiac status stable On ASA 81 mg daily,Coreg 3.125 mg BID,Clonidine patch 0.1 mg/24 hr every 7 days, Hydralazine 25 mg BID Continue IV antibiotics per ID Continue current treatment Continue current medications ID and Pulmonary on consult Nutritional support Discharge planning (Transfer to [facility] rehab) Will follow up Plan and treatment discussed with Dr. Rajan
[2019-01-11 07:24] LABS: ALB/GLOB RATIO 0.9 (1.1-1.8); ALBUMIN 3.2 g/dL (3.0-4.8); CALCIUM 8.9 mg/dL (8.4-10.5)
[2019-01-11 07:47] VITALS: TEMP 98.9; O2SAT 95
[2019-01-11] MEDS: Insulin Lispro (humaLOG) LOW Coverage SC SCH ×4 (08:16→22:01)
--- NOTE | 2019-01-11 09:14 | CP.PCM.PN ---
Subjective - Date & Time of Evaluation Date of Evaluation: 01/11/19 Time of Evaluation: 09:07 - Subjective Subjective: Surgery Progress Note for Dr. Teran S/E at bedside. Offers no acute complaints. Wants to be transferred. Denies fevers, chills, cp, n/v, constipation or diarrhea and dysuria. Objective - Vital Signs/Intake and Output Vital Signs (last 24 hours): Temp Pulse Resp BP Pulse Ox 98.9 F 63 20 116/62 95 01/11/19 06:00 01/11/19 06:00 01/11/19 06:00 01/11/19 06:00 01/11/19 06:00 Intake and Output: 01/11/19 01/11/19 06:59 18:59 Intake Total 360 Output Total 750 Balance -390 - Medications Medications: Current Medications Albuterol/Ipratropium (Duoneb 3 Mg/0.5 Mg (3 Ml) Ud) 3 ml IH [id number] [facility] Last Admin: 01/11/19 07:21 Dose: 3 ml Albuterol/Ipratropium (Duoneb 3 Mg/0.5 Mg (3 Ml) Ud) 3 ml IH Q2H PRN PRN Reason: Shortness of Breath Last Admin: 01/02/19 15:18 Dose: 3 ml Allopurinol (Zyloprim) 100 mg PO DAILY [facility] Last Admin: 01/10/19 14:17 Dose: 100 mg Alprazolam (Xanax) 0.25 mg PO TID [facility]; Protocol Stop: 01/12/19 18:01 Last Admin: 01/10/19 17:23 Dose: 0.25 mg Aspirin (Ecotrin) 81 mg PO DAILY [facility] Last Admin: 01/10/19 10:57 Dose: 81 mg Carvedilol (Coreg) 3.125 mg PO BID [facility] Last Admin: 01/10/19 17:22 Dose: 3.125 mg Clonidine HCl (Catapres Tts1 0.1 Mg/24 Hr) 1 patch TD Q7D@1000 [facility] Last Admin: 01/09/19 10:59 Dose: Not Given Clopidogrel Bisulfate (Plavix) 75 mg PO DAILY [facility] Last Admin: 01/10/19 10:57 Dose: 75 mg Dextrose (Dextrose 50% Inj) 0 ml IV STAT PRN; Protocol PRN Reason: Hypoglycemia Protocol Enoxaparin Sodium (Lovenox) 30 mg SC DAILY [facility]; Protocol Last Admin: 01/10/19 10:57 Dose: 30 mg Famotidine (Pepcid) 20 mg PO HS [facility] Last Admin: 01/10/19 21:47 Dose: 20 mg Glipizide (Glucotrol Xl) 10 mg PO DAILY [facility] Last Admin: 01/10/19 10:57 Dose: 10 mg Hydralazine HCl (Apresoline) 10 mg IVP Q6 PRN PRN Reason: For SBP>160 Last Admin: 01/05/19 17:02 Dose: 10 mg Hydralazine HCl (Apresoline) 25 mg PO BID [facility] Last Admin: 01/10/19 17:22 Dose: Not Given Meropenem/Sodium Chloride (Merrem Iv 500 Mg/Ns 50 Ml) 500 mg in 50 mls @ 100 mls/hr IVPB Q12 [facility]; Protocol Stop: 01/15/19 10:31 Last Admin: 01/10/19 21:47 Dose: 100 mls/hr Insulin Human Lispro (Humalog Low) 0 units SC ACHS [facility]; Protocol Last Admin: 01/10/19 22:21 Dose: Not Given Lidocaine (Lidoderm) 1 ea TD DAILY [facility] Last Admin: 01/10/19 11:35 Dose: 1 ea Petrolatum (Desitin Maximum Strength Topical 40% Oint) 0 gm TOP BID [facility] Last Admin: 01/10/19 17:22 Dose: 1 applic Quetiapine Fumarate (Seroquel) 12.5 mg PO HS PRN; Protocol PRN Reason: Agitation Last Admin: 01/10/19 02:07 Dose: 12.5 mg - Labs Labs: 01/11/19 06:10 01/11/19 06:10 PT 14.1 SECONDS (9.4-12.5) H 12/31/18 06:00 INR 1.25 12/31/18 06:00 APTT 56.1 Seconds (26.9-38.3) H 12/31/18 11:50 - Constitutional Appears: Non-toxic, No Acute Distress - Head Exam Head Exam: NORMAL INSPECTION - Eye Exam Eye Exam: EOMI. absent: Nystagmus, Scleral icterus - ENT Exam Additional comments: trach collar - Respiratory Exam Respiratory Exam: NORMAL BREATHING PATTERN - Cardiovascular Exam Cardiovascular Exam: absent: JVD - GI/Abdominal Exam GI & Abdominal Exam: Soft. absent: Tenderness - Neurological Exam Neurological Exam: Alert, Awake. absent: Oriented x3 - Psychiatric Exam Psychiatric exam: Normal Affect, Normal Mood - Skin Skin Exam: Intact, Normal Color Assessment and Plan - Assessment and Plan (Free Text) Assessment: 73yo M with VDRF s/p Tracheostomy. POD 10. Patient spiked fever with cxray showing PNA. Urine Cx positive for ESBL Plan: Will discuss with social work team for possible transfer in setting of u cx + for ESBL and active PNA infection Continue IV abx as per ID Dress stage 1 ulcer in sacrum with optifoam and medihoney Will remove sutures and do trach change at bedside Continue all other medical management as per primary team Further recs as per Dr. Teran PGY-1 Ivy Islas
[2019-01-11] MEDS: MEROPENEM 500 MG in NS 500 MG/50 ML BAG IVPB SCH ×2 (10:18→21:49)
[2019-01-11] MEDS: GlipiZIDE 10 mg SR Tab PO SCH (11:08)
[2019-01-11] MEDS: Enoxaparin 30 mg Syringe SC SCH (11:09)
--- NOTE | 2019-01-11 11:24 | CP.PCM.PCO ---
Physician Communication Note - Physician Communication Note Physician Communication Note: OK d/C LTACH today
[2019-01-11] MEDS: Zinc Oxide Topical 40% Oint (Desitin) TOP SCH ×2 (12:37→17:18)
[2019-01-11] MEDS: Lidocaine 5% Patch TD SCH (12:39)
--- NOTE | 2019-01-11 13:16 | PN ---
DATE: 01/11/2019 PULMONARY PROGRESS NOTE REFERRING PHYSICIAN: Dr. Teran. SUBJECTIVE: The patient is seen sitting up in chair. Family at bedside. No acute distress. No overnight events reported. No hemoptysis, hematemesis, hematuria, or diarrhea reported. PHYSICAL EXAMINATION: GENERAL: No acute distress. VITAL SIGNS: Blood pressure 116/62, pulse 63, temperature 98.9. Oxygen saturation 95% via trach collar. HEENT: Moist mucous membranes. Mallampati score of 4. Crowded airway. NECK: Supple. No JVD. Trach site intact. RESPIRATORY: Scattered rhonchi bilaterally. CARDIOVASCULAR: S1 and S2. ABDOMEN: Soft, nontender. No distention. No organomegaly. EXTREMITIES: Bilateral lower extremity edema. NEUROLOGICAL: Awake, alert and verbal. Follows commands. MEDICATIONS: Reviewed. DuoNeb 3 mL inhalation every 6 hours, DuoNeb 3 mL inhalation every 2 hours p.r.n., allopurinol 100 mg daily, Xanax 0.25 mg 3 times a day, aspirin 81 mg daily, Coreg 3.125 mg twice a day, clonidine 1 patch every 7 days 0.1 mg, Plavix 75 mg, Lovenox 30 mg subcu daily, Pepcid 20 mg at bedtime, glipizide 10 mg daily, hydralazine 10 mg IV push every 6 hours p.r.n., hydralazine 25 mg twice a day, Humalog sliding scale a.c. and h.s., Lidoderm transdermal daily to the affected area, meropenem 500 mg every 12 hours, Desitin topically twice a day and Seroquel 12.5 mg daily p.r.n. LABORATORY DATA: Reviewed. WBC 11.1, RBC 3.76, hemoglobin 10.9, hematocrit 34.7. Sodium 143, potassium 3.8, chloride 99, carbon dioxide 32, anion gap 15, BUN 29, creatinine 1.9, GFR 35, POC glucose 177, random glucose 111, calcium 8.9, phosphorus 3.6, magnesium 1.9, total bilirubin 0.8, AST 49, ALT 37, alkaline phosphatase 189, total protein 6.7, albumin 3.2, globulin 3.5, and albumin-globulin ratio 0.9. Blood cultures preliminary no growth after 48 hours. IMPRESSION AND PLAN: Respiratory failure requiring tracheostomy, status post stroke; morbid obesity; encephalopathy, diabetes, hypertension, bipolar disorder; sleep apnea syndrome; activities of daily living dysfunction. The patient is currently with urinary tract infection; Extended spectrum beta-lactamase in the urine, we suspect aspiration-related pneumonia for new infiltrate on chest x-ray. Continue pulmonary toileting; aggressive. Oral and tracheostomy suctioning. Continue supplemental oxygen via trach, antibiotics per Infectious Disease. We will order chest physiotherapy to be done. The patient is presently awaiting to be transferred to Neuro acute rehab facility once bed available. This patient was seen and examined with Dr. Wright. Discussed assessment and plan as described above. The patient was seen and examined with Kael Flor, nurse practitioner. Discussed assessment and plan as described above. Thank you for this consult. We will follow with you. Kael Flor APN Magdalena Wright MD
[2019-01-11] MEDS: Silver Sulfadiazine 1% Cream (25 gm) TP SCH (20:30)
--- NOTE | 2019-01-11 20:51 | PN ---
DATE: 01/11/2019 SUBJECTIVE: The patient is in bed, in no acute distress, nontoxic. PHYSICAL EXAMINATION: VITAL SIGNS: Temperature is 98, blood pressure is 160/60, respiratory 20, and heart rate of 63. HEENT: Unremarkable. NECK: Supple. LUNGS: Have decreased breath sounds. HEART: Normal S1 and S2. ABDOMEN: Soft. LABORATORY DATA: Reveals the blood cultures are negative. Urine culture does have ESBL Klebsiella and yeast in the trachea. White count is down to 11,000. Chemistries reveal the creatinine is 1.9 with procalcitonin is 0.77. ASSESSMENT AND PLAN: This is a 73 year old, was admitted with sepsis and septic shock and new infiltrated left-sided healthcare-associated pneumonia on intermittent vancomycin and now with ESBL Klebsiella in the urine. The patient is on meropenem and intermittent vancomycin. Day #2 of meropenem. Would complete 4 to 7 days of antibiotics. Darrel Ramesh MD
--- NOTE | 2019-01-11 21:35 | PN ---
DATE: 01/11/2019 SUBJECTIVE: The patient had been transferred from telemetry after 5R. The patient requires a private room because of ESBL-positive Klebsiella in his urine. He remains on antibiotic therapy. He continues to have stability of his renal parameters, status post ATN and cardiac arrest. MEDICATIONS: Medication list reviewed. The patient is currently on hydralazine, clonidine, Coreg, DuoNeb, Ecotrin, Glucotrol, insulin, Lidoderm, Lovenox, meropenem, Pepcid, Plavix, Seroquel, Xanax and allopurinol. OBJECTIVE: INTAKE/OUTPUT: Intake is 360. Output is 750. VITAL SIGNS: Blood pressure 116/62, temperature 98.9, pulse of 63 with a respiratory rate of 20. HEENT: Shows him to be normocephalic and atraumatic. Conjunctivae are pink. Sclerae are nonicteric. NECK: Supple. Positive trach collar. No neck vein distention. CHEST: Decreased breath sounds at the bases with no audible rales, rhonchi or wheezing. CARDIOVASCULAR: Shows a regular rate and rhythm with AI/MR. No S3. No S4. No rub. ABDOMEN: Mildly obese. Bowel sounds normal. No rebound, guarding or masses. EXTREMITIES: Showed trace pitting edema of his lower extremities with his feet on the floor. The patient is sitting in a chair. No cyanosis or clubbing. NEUROLOGIC: Shows him to be alert. He appears understand and he is communicating by trying to speak and by writing down communication on a notepad. LABORATORY DATA AND IMAGING: CBC: White blood cell count is 11.1, improved; hemoglobin 10.8, slightly low; platelet count is 300,000. Chemistry showed normal electrolytes. BUN down to 29 with a creatinine of 1.9. His baseline BUN is less than 20 with a baseline creatinine of less than 1. These numbers have improved from the maximal values post to his acute renal event. Calcium, phosphorus, magnesium levels are normal. Liver enzymes: Alkaline phosphatase 189. AST and ALT are normal. Microbiology: Again, urine is positive for Klebsiella ESBL. ASSESSMENT: 1. Acute renal failure in the setting of cardiac arrest with renal hypoperfusion and acute tubular necrosis. No evidence for obstructive uropathy. No evidence for acute interstitial nephritis. Blood urea nitrogen and creatinine remain mildly elevated, but are slowly falling back to baseline. 2. Status post cardiac arrest secondary to an apneic episode. The patient refused bilevel positive airway pressure therapy on the floor. 3. History of acute rhabdomyolysis. This is resolved. This is likely secondary to cardiopulmonary resuscitation with chest compression. 4. History of respiratory failure. The patient is comfortable with a tracheostomy collar. 5. History of hypertension. Blood pressure is presently well controlled on current medical therapy. Would avoid using angiotensin receptor kyler therapy or angiotensin-converting enzyme inhibition because of the renal issue. He will remain on hydralazine, clonidine, and Coreg. 6. Past history of cerebrovascular accident. The patient remains on chronic anticoagulation. He is receiving Lovenox. 7. History of hyperlipidemia. The patient will continue all dietary restrictions. 8. History of left ventricular hypertrophy with aortic insufficiency and mitral regurgitation. His ejection fraction is 55%. 9. Mild leukocytosis possibly secondary to urinary tract infection, positive for extended spectrum beta lactamase Klebsiella. The patient remains on meropenem therapy under the guidance of Infectious Disease. PLAN: 1. Agree with continuation of antibiotic therapy for the urinary tract infection. The patient is currently in a private room. 2. Encouraged oral fluid hydration. 3. Attempt to obtain accurate I's and O's. Dong had been removed. 4. Avoid all nephrotoxic agents and substances as his renal parameters continue to improve and fall back to baseline. Brian Castellon MD
[2019-01-12] MEDS: Albuterol-Ipratrop 3 mg / 0.5 (3 ml) UD IH SCH ×2 (01:32→07:28)
--- NOTE | 2019-01-12 07:25 | CP.PCM.PCO ---
Physician Communication Note - Physician Communication Note Physician Communication Note: [facility] Transfer delayed(Insur OK too late)-Transfer LISANDRO
[2019-01-12 07:26] LABS: HEMOGLOBIN 10.7 g/dL (14.0-18.0); MEAN CELL VOLUME 92.5 fl (80.0-105.0); MEAN CORPUSCULAR HEMOGLOBIN 28.7 pg (25.0-35.0); MEAN PLATELET VOLUME 10.8 fl (7.0-11.0); RBC 3.73 10^6/uL (3.5-6.1); RED CELL DISTRIBUTION WIDTH 13.7 % (11.5-14.5); WHITE BLOOD COUNT 8.6 10^3/uL (4.5-11.0)
--- NOTE | 2019-01-12 07:26 | CP.PCM.PCO ---
Physician Communication Note - Physician Communication Note Physician Communication Note: No DVT-Hopefully IVC insertion next Monday
--- NOTE | 2019-01-12 07:29 | CP.PCM.PN ---
Subjective - Date & Time of Evaluation Date of Evaluation: 01/12/19 Time of Evaluation: 06:45 - Subjective Subjective: Sitting on chair, Awake, alert, on trach collar Reason for consultation and follow up: Cardiac evaluation status post code blue, requiring intubation, status post tracheostomy, history of hypertension, hyperlipidemia, morbidly obese Seen and examined by me and Dr. Crespo Objective - Vital Signs/Intake and Output Vital Signs (last 24 hours): Temp Pulse Resp BP Pulse Ox 98.9 F 60 20 108/46 L 95 01/11/19 06:00 01/11/19 20:28 01/11/19 06:00 01/11/19 20:28 01/11/19 06:00 Intake and Output: 01/12/19 01/12/19 06:59 18:59 Intake Total 620 Balance 620 - Medications Medications: Current Medications Albuterol/Ipratropium (Duoneb 3 Mg/0.5 Mg (3 Ml) Ud) 3 ml IH [id number] [facility] Last Admin: 01/12/19 01:32 Dose: 3 ml Albuterol/Ipratropium (Duoneb 3 Mg/0.5 Mg (3 Ml) Ud) 3 ml IH Q2H PRN PRN Reason: Shortness of Breath Last Admin: 01/02/19 15:18 Dose: 3 ml Allopurinol (Zyloprim) 100 mg PO DAILY [facility] Last Admin: 01/11/19 11:00 Dose: 100 mg Alprazolam (Xanax) 0.25 mg PO TID [facility]; Protocol Stop: 01/12/19 18:01 Last Admin: 01/11/19 20:30 Dose: 0.25 mg Aspirin (Ecotrin) 81 mg PO DAILY [facility] Last Admin: 01/11/19 10:59 Dose: 81 mg Carvedilol (Coreg) 3.125 mg PO BID [facility] Last Admin: 01/11/19 20:28 Dose: Not Given Clonidine HCl (Catapres Tts1 0.1 Mg/24 Hr) 1 patch TD Q7D@1000 [facility] Last Admin: 01/09/19 10:59 Dose: Not Given Clopidogrel Bisulfate (Plavix) 75 mg PO DAILY [facility] Last Admin: 01/11/19 11:00 Dose: 75 mg Dextrose (Dextrose 50% Inj) 0 ml IV STAT PRN; Protocol PRN Reason: Hypoglycemia Protocol Enoxaparin Sodium (Lovenox) 30 mg SC DAILY [facility]; Protocol Last Admin: 01/11/19 11:09 Dose: 30 mg Famotidine (Pepcid) 20 mg PO HS [facility] Last Admin: 01/11/19 21:50 Dose: 20 mg Glipizide (Glucotrol Xl) 10 mg PO DAILY [facility] Last Admin: 01/11/19 11:08 Dose: 10 mg Hydralazine HCl (Apresoline) 10 mg IVP Q6 PRN PRN Reason: For SBP>160 Last Admin: 01/05/19 17:02 Dose: 10 mg Hydralazine HCl (Apresoline) 25 mg PO BID [facility] Last Admin: 01/11/19 17:17 Dose: Not Given Meropenem/Sodium Chloride (Merrem Iv 500 Mg/Ns 50 Ml) 500 mg in 50 mls @ 100 mls/hr IVPB Q12 [facility]; Protocol Stop: 01/15/19 10:31 Last Admin: 01/11/19 21:49 Dose: 100 mls/hr Insulin Human Lispro (Humalog Low) 0 units SC ACHS [facility]; Protocol Last Admin: 01/11/19 22:01 Dose: Not Given Lidocaine (Lidoderm) 1 ea TD DAILY [facility] Last Admin: 01/11/19 12:39 Dose: 1 ea Petrolatum (Desitin Maximum Strength Topical 40% Oint) 0 gm TOP BID [facility] Last Admin: 01/11/19 17:18 Dose: 1 applic Quetiapine Fumarate (Seroquel) 12.5 mg PO HS PRN; Protocol PRN Reason: Agitation Last Admin: 01/10/19 02:07 Dose: 12.5 mg Silver Sulfadiazine (Silvadene 1% 25 Gm) 0 gm TP DAILY [facility] Last Admin: 01/11/19 20:30 Dose: 1 gm - Labs Labs: 01/11/19 06:10 01/11/19 06:10 PT 14.1 SECONDS (9.4-12.5) H 12/31/18 06:00 INR 1.25 12/31/18 06:00 APTT 56.1 Seconds (26.9-38.3) H 12/31/18 11:50 - Constitutional Appears: Non-toxic, No Acute Distress - Head Exam Head Exam: NORMAL INSPECTION, NORMOCEPHALIC - Eye Exam Eye Exam: Normal appearance Pupil Exam: NORMAL ACCOMODATION - ENT Exam ENT Exam: Mucous Membranes Dry - Neck Exam Additional comments: tracheostomy - Respiratory Exam Respiratory Exam: Decreased Breath Sounds, Rhonchi, NORMAL BREATHING PATTERN Additional comments: trach collar - Cardiovascular Exam Cardiovascular Exam: +S1, +S2 - GI/Abdominal Exam GI & Abdominal Exam: Soft, Normal Bowel Sounds - Extremities Exam Extremities Exam: Full ROM Additional comments: 2-3+edema - Neurological Exam Neurological Exam: Alert, Awake, Oriented x3 - Psychiatric Exam Psychiatric exam: Normal Affect, Normal Mood - Skin Skin Exam: Dry, Normal Color, Warm Assessment and Plan - Assessment and Plan (Free Text) Assessment: A 73 year old male who was brought to the ER due to difficulty finding words. History of CVA (2017) with no residual defects, diabetes, hypertension, hyperlipidemia, arthritis,Right knee surgery, left hip replacement, lumbar spinal fusion with screws and plate. Code stroke was called in ER but outside of TPA window, TPA not indicated. Initial CT scan did not show acute findings. Admitted to telemetry. While in telemetry went into respiratory distress and heart rate to 30's, Sally giles was called and intubated ,eventually transferred to ICU. Extubated the following day however another episode of apnea. Tr acheostomy was done for possible obstructive sleep apnea. Positive troponin on admission most likely due to acute kidney injury, CPK 5023 and MB fraction of 0.4. most likely rhabdomyolysis than myocardial infarction. Denies chest pain. Treat medically . Hold off cardiac cath due to renal insufficiency. Stabilized in ICU and now transferred to telemetry. . Stress test and cardiac cath as out patient.Tracheostomy with trach collar.Recent chest xray showed left lower lobe pneumonia. Urine culture 0n 01/08/19 positive for Klebsiella pneumoniae, 01/08/19 Sputum culture showing yeast species. Blood cultures no growth after 48 hours. ID on consult, On IV antibiotics. On contact isolation.Cardiac status stable. H/H stable. WBC trending down, today WNL. Plan: Sitting on chair, no distress, trach collar intact Heart rate controlled Blood pressure controlled Cardiac status stable On ASA 81 mg daily,Coreg 3.125 mg BID,Clonidine patch 0.1 mg/24 hr every 7 days, Hydralazine 25 mg BID Continue IV antibiotics per ID Continue current treatment Continue current medications ID and Pulmonary on consult Nutritional support Discharge planning (Transfer to [facility] rehab) Will follow up Plan and treatment discussed with Dr. Rajan
[2019-01-12 07:45] LABS: ALB/GLOB RATIO 0.9 (1.1-1.8); ALBUMIN 3.1 g/dL (3.0-4.8); CALCIUM 8.6 mg/dL (8.4-10.5)
[2019-01-12] MEDS: Insulin Lispro (humaLOG) LOW Coverage SC SCH ×2 (08:18→11:26)
--- NOTE | 2019-01-12 08:55 | PN ---
DATE: 01/12/2019 SUBJECTIVE: The patient is in bed in no acute distress, nontoxic. PHYSICAL EXAMINATION VITAL SIGNS: On exam, temperature is 98, blood pressure is 108/40 and respiratory rate of 18. HEENT: Unremarkable. NECK: Supple. LUNGS: Have decreased breath sounds. HEART: Normal S1 and S2. ABDOMEN: Soft. LABORATORY EXAMINATION: Reveals a white count of 8.6 and hemoglobin of 10. BUN of 28 and creatinine of 1.7. Procalcitonin 0.77. Urinalysis is noted. Microbiology is noted. Klebsiella in the urine. The blood cultures are negative. Review of medications reveals the patient to be on meropenem. ASSESSMENT AND PLAN: This is a 73-year-old male who was admitted with sepsis, septic shock and new infiltrate, left-sided healthcare-associated pneumonia and extended-spectrum beta-lactamases in the urine. Today is day #3 of meropenem and intermittent vancomycin, would complete 4-7 days of antibiotics.. We will repeat a urinalysis and urine culture. This morning's white count is normal. We will follow with you. Darrel Ramesh MD
[2019-01-12] MEDS: Enoxaparin 30 mg Syringe SC SCH (09:17)
[2019-01-12] MEDS: GlipiZIDE 10 mg SR Tab PO SCH (09:19)
[2019-01-12] MEDS: Lidocaine 5% Patch TD SCH (09:19)
[2019-01-12] MEDS: MEROPENEM 500 MG in NS 500 MG/50 ML BAG IVPB SCH (09:20)
[2019-01-12 09:21] VITALS: BP 125/67; PULSE 64
[2019-01-12] MEDS: Silver Sulfadiazine 1% Cream (25 gm) TP SCH (09:38)
[2019-01-12 09:52] LABS: URINE BILIRUBIN NEGATIVE (NEGATIVE); URINE BLOOD NEGATIVE (NEGATIVE); URINE GLUCOSE (UA) NEGATIVE (NEGATIVE); URINE LEUKOCYTE ESTERASE NEGATIVE Leu/uL (NEGATIVE); URINE PROTEIN TRACE mg/dL (<30 mg/dL); URINE UROBILINOGEN 0.2 E.U./dL (<1 E.U./dL)
[2019-01-12 09:58] LABS: URINE APPEARANCE CLEAR (CLEAR); URINE COLOR YELLOW (YELLOW)
[2019-01-12 10:15] LABS: URINE BACTERIA SMALL /hpf; URINE EPITHELIAL CELLS 0 - 2 /hpf (0-5); URINE RBC 0 - 2 /hpf (0-2); URINE WBC 0 - 2 /hpf (0-6)
--- NOTE | 2019-01-12 10:26 | PN ---
DATE: 01/12/2019 PULMONARY PROGRESS NOTE REFERRING PHYSICIAN: Dr. Teran. SUBJECTIVE: The patient seems sitting in chair in room, trach collar in place. No acute distress. No overnight events reported. No hemoptysis, hematemesis, hematuria, or diarrhea reported. OBJECTIVE: GENERAL: No acute distress. VITAL SIGNS: Blood pressure 108/46, pulse 60, and oxygen saturation 95%. HEENT: Moist mucous membranes. Mallampati score of 4. Crowded airway. NECK: Supple. No JVD. Trach site intact. RESPIRATORY: Scattered rhonchi bilaterally. CARDIOVASCULAR: S1 and S2. ABDOMEN: Soft and nontender. No distention. No organomegaly. EXTREMITIES: Bilateral lower extremity edema. NEUROLOGICAL: Awake, alert, and verbal. Follows commands. MEDICATIONS: Reviewed. DuoNeb 3 mL inhalation every 6 hours, DuoNeb 3 mL inhalation every 2 hours p.r.n., allopurinol 100 mg daily, Xanax 0.25 mg three times a day, aspirin 81 mg daily, Coreg 3.125 mg twice a day, clonidine 1 patch every 7 days, Plavix 75 mg daily, Lovenox 30 mg subcutaneously daily, Pepcid 20 mg at bedtime, glipizide 10 mg daily, hydralazine 10 mg IV push every 6 hours p.r.n. for systolic BP greater than 160, hydralazine 25 mg twice a day, Humalog sliding scale a.c. and at bedtime, Lidoderm daily transdermal to affected area, meropenem 500 mg every 12 hours, Desitin topically twice a day to affected area, Seroquel 12.5 mg p.o. at bedtime p.r.n., and Silvadene topically daily to affected area. LABORATORY DATA: Reviewed. WBC 8.6, RBC 3.73, hemoglobin 10.7, hematocrit 34.5 and platelet 310. Sodium 140, potassium 3.7, chloride 105, carbon dioxide 31, anion gap 8, BUN 28, creatinine 1.7, GFR 40, POC glucose 140, random glucose 133, calcium 8.6, total bilirubin 0.6, AST 42, ALT 39, alkaline phosphatase 209, total protein 6.7, albumin 3.1, globulin 3.6, and albumin-globulin ratio 0.9. Blood cultures preliminary, no growth after three days. IMPRESSION AND PLAN: Respiratory failure requiring tracheostomy, status post stroke, morbid obesity, encephalopathy, diabetes, hypertension, bipolar disorder, sleep apnea syndrome, activities of daily living dysfunction, urinary tract infection, extended-spectrum beta-lactamase in the urine. We suspect aspiration is related to new infiltrate on chest x-ray. Continue pulmonary toileting, aggressive. Oral and tracheostomy suctioning. Continue supplemental oxygen via trach and antibiotics per Infectious Disease. The patient is presently awaiting to transferred to neuro acute rehab facility. Continue chest physiotherapy. This patient was seen and examined with Dr. Wright. Discussed assessment and plan as described above. This patient was seen and examined with Kael Flor, nurse practitioner. Discussed assessment and plan as described above. Thank you for this consult. We will follow with you. Kael Flor APN Magdalena Wright MD FERNANDO
[2019-01-12] MEDS: Zinc Oxide Topical 40% Oint (Desitin) TOP SCH (11:26)
--- NOTE | 2019-01-13 13:21 | CP.PCM.DIS ---
Provider - Provider Date of Admission: 12/23/18 23:44 Attending physician: Diego Teran MD Consults: 12/23/18 21:22 Stroke Team Consult Stat Comment: Consulting Provider: Neurohospitalist Consulting Physician: NEUROHOSP Neurohospitalist for Consult: Dmitry Gonzalez Neurohospitalist for Consult: Ben Cisneros Reason for Consult: difficulty word finding 12/24/18 10:55 Physician Consult Routine Comment: Consulting Provider: Brittany Bowling Consulting Physician: Brittany Bowling Reason for Consult: assess for competency 12/24/18 14:49 Social Work Referral Routine Comment: DISCHARGE PLANNING WITH PT,OT,REHAB.CODE STROKE. Physician Instructions: Reason For Exam: EVALUATION 12/27/18 16:42 Neurology Consult Routine Comment: Consulting Provider: Ben Cisneros Consulting Physician: Ben Cisneros Reason for Consult: Does pt need plavix? 12/29/18 10:19 Infectious Disease Consult Routine Comment: Consulting Provider: Darrel Ramesh Consulting Physician: Darrel Ramesh Reason for Consult: Aspiration pneumonia s/p code blue 12/29/18 11:33 Consult [Physician Consult] Routine Comment: S/p Cardio-respiratory failure Consulting Provider: Magdalena Rajan Consulting Physician: Magdalena Rajan Reason for Consult: s/p Cardi0-respiratory failure 12/30/18 22:07 Physician Consult Routine Comment: Consulting Provider: Magdalena Wright Consulting Physician: Magdalena Wright Reason for Consult: bstructive sleep apnea recommendations Additional Comments: 12/31/18 08:00 Physician Consult Routine Comment: Consulting Provider: William Lanza Consulting Physician: William Lanza Reason for Consult: Kaiden for rec CVA(expressive aphasia) 01/01/19 11:57 Nephrology Consult Routine Comment: Consulting Provider: Brian Castellon Consulting Physician: Brian Castellon Reason for Consult: GONZALEZ 01/02/19 15:01 Social Work Referral Routine Comment: discharge planing Physician Instructions: rehabilitation Reason For Exam: possible discharge to [facility] brain trauma unit 01/08/19 15:48 Physician Consult Routine Comment: Consulting Provider: Darrel Ramesh Consulting Physician: Darrel Ramesh Reason for Consult: Aspiration pna after trach, new infiltrate 01/11/19 11:16 Wound Care [Nursing Referral for Wound Care] Routine Comment: Physician Instructions: Reason For Exam: pressure ulcer butox Time Spent in preparation of Discharge (in minutes): 45 Hospital Course - Lab Results Lab Results: Micro Results 01/12/19 09:30 Urine Random Urine Culture - Final No Growth (<1,000 CFU/ML) 01/08/19 20:18 Blood Blood Culture - Preliminary NO GROWTH AFTER 4 DAYS 01/08/19 20:18 Blood Blood Culture - Preliminary NO GROWTH AFTER 4 DAYS 01/08/19 13:45 Trachasp Gram Stain - Final 01/08/19 13:45 Trachasp Sputum Culture - Final Yeast Species 01/08/19 17:00 Urine,Dong Urine Culture - Final Klebsiella Pneumoniae Ssp Pneu 12/29/18 20:54 Blood Blood Culture - Final NO GROWTH AFTER 5 DAYS 12/29/18 20:54 Blood Gram Stain - Final TEST NOT PERFORMED 12/29/18 20:24 Blood Blood Culture - Final NO GROWTH AFTER 5 DAYS 12/29/18 20:24 Blood Gram Stain - Final TEST NOT PERFORMED 12/29/18 09:05 Blood Blood Culture - Final NO GROWTH AFTER 5 DAYS 12/29/18 09:05 Blood Gram Stain - Final TEST NOT PERFORMED 12/30/18 07:30 Sputum Gram Stain - Final 12/30/18 07:30 Sputum Sputum Culture - Final No growth. 12/29/18 17:30 Naris MRSA Culture (Admit) - Final MRSA NOT DETECTED 12/30/18 09:20 Urine,Dong Urine Culture - Final No Growth (<1,000 CFU/ML) Most Recent Lab Values WBC 8.6 10^3/uL (4.5-11.0) D 01/12/19 06:45 RBC 3.73 10^6/uL (3.5-6.1) 01/12/19 06:45 Hgb 10.7 g/dL (14.0-18.0) L 01/12/19 06:45 Hct 34.5 % (42.0-52.0) L 01/12/19 06:45 MCV 92.5 fl (80.0-105.0) 01/12/19 06:45 MCH 28.7 pg (25.0-35.0) 01/12/19 06:45 MCHC 31.0 g/dl (31.0-37.0) 01/12/19 06:45 RDW 13.7 % (11.5-14.5) 01/12/19 06:45 Plt Count 310 10^3/uL (120.0-450.0) 01/12/19 06:45 MPV 10.8 fl (7.0-11.0) 01/12/19 06:45 Neut % (Auto) 84.5 % (50.0-68.0) H 01/03/19 06:15 Lymph % (Auto) 10.9 % (22.0-35.0) L 01/03/19 06:15 [place]ton % (Auto) 4.5 % (1.0-6.0) 01/03/19 06:15 Eos % (Auto) 0.0 % (1.5-5.0) L 01/03/19 06:15 Baso % (Auto) 0.1 % (0.0-3.0) 01/03/19 06:15 Lymph # (Auto) 1.3 (1.2-3.4) 01/03/19 06:15 Overton # (Auto) 0.5 (0.1-0.6) 01/03/19 06:15 Eos # (Auto) 0.0 (0.0-0.7) 01/03/19 06:15 Baso # (Auto) 0.01 K/mm3 (0.0-2.0) 01/03/19 06:15 Absolute Neuts (auto) 10.21 (1.4-6.5) H 01/03/19 06:15 Neutrophils % (Manual) 74 % (50.0-70.0) H 01/04/19 07:00 Lymphocytes % (Manual) 13 % (22.0-35.0) L 01/04/19 07:00 Monocytes % (Manual) 8 % (1.0-6.0) H 01/04/19 07:00 Eosinophils % (Manual) 5 % (0.0-3.0) H 12/23/18 22:12 Platelet Evaluation Normal (NORMAL) 01/04/19 07:00 PT 14.1 SECONDS (9.4-12.5) H 12/31/18 06:00 INR 1.25 12/31/18 06:00 APTT 56.1 Seconds (26.9-38.3) H 12/31/18 11:50 D-Dimer, Quantitative 4186 ng/mlDDU (0-243) H 12/29/18 04:35 pCO2 43 mm/Hg (35-45) 01/03/19 05:40 pO2 103.0 mm/Hg (80-100) H 01/03/19 05:40 HCO3 21.7 mmol/L (21-28) 01/03/19 05:40 ABG pH 7.31 (7.35-7.45) L 01/03/19 05:40 ABG Total CO2 23.0 mmol.L (22-28) 01/03/19 05:40 ABG O2 Saturation 97.0 % (95-98) 01/03/19 05:40 ABG O2 Content 19.3 ML/dl (15-23) 01/03/19 05:40 ABG Base Excess -4.5 mmol/L (-2.0-3.0) L 01/03/19 05:40 ABG Hemoglobin 14.2 g/dL (11.7-17.4) 01/03/19 05:40 ABG Carboxyhemoglobin 0.4 % (0.5-1.5) L 01/03/19 05:40 POC ABG HHb (Measured) 3.0 % (0-5) 01/03/19 05:40 ABG Methemoglobin 0.3 % (0.0-3.0) 01/03/19 05:40 ABG O2 Capacity 19.9 mL/dl (16-24) 01/03/19 05:40 ABG Potassium 4.2 mmol/L (3.6-5.2) 12/29/18 10:55 VBG pH 7.39 (7.32-7.43) 12/29/18 20:54 VBG pCO2 38.0 (40-60) L 12/29/18 20:54 VBG HCO3 23.0 mmol/l (21-28) 12/29/18 20:54 VBG Total CO2 24.2 mmol.L (22-28) 12/29/18 20:54 VBG O2 Sat (Calc) 97.5 % (40-65) H 12/29/18 20:54 VBG Base Excess -1.7 mmol/L (0.0-2.0) L 12/29/18 20:54 VBG Potassium 4.0 mmol/L (3.6-5.2) 12/29/18 20:54 Hgb O2 Saturation 96.3 % (95.0-98.0) 01/03/19 05:40 Sodium 145.0 mmol/L (132-148) 12/29/18 20:54 Chloride 114.0 mmol/L (98-107) H 12/29/18 20:54 Glucose 178 mg/dl (75-110) H 12/29/18 20:54 Lactate 1.4 mmol/L (0.7-2.1) 12/29/18 20:54 Mechanical Rate 16 12/29/18 10:55 FiO2 40.0 % 01/03/19 05:40 Tidal Volume 450 12/29/18 10:55 PEEP 5 12/29/18 10:55 Crit Value Called To Anastasia mahmood 12/29/18 16:20 Crit Value Called By Kay 12/29/18 16:20 Blood Gas Notified Time 1650 12/29/18 16:20 Sodium 140 mmol/L (132-148) 01/12/19 06:45 Potassium 3.7 mmol/L (3.6-5.0) 01/12/19 06:45 Chloride 105 mmol/L (98-107) 01/12/19 06:45 Carbon Dioxide 31 mmol/L (21-33) 01/12/19 06:45 Anion Gap 8 (10-20) L 01/12/19 06:45 BUN 28 mg/dL (7-21) H 01/12/19 06:45 Creatinine 1.7 mg/dl (0.8-1.5) H 01/12/19 06:45 Est GFR ( Amer) 48 01/12/19 06:45 Est GFR (Non-Af Amer) 40 01/12/19 06:45 POC Glucose (mg/dL) 149 mg/dL (65-110) H 01/12/19 11:18 Random Glucose 133 mg/dL (70-110) H 01/12/19 06:45 Hemoglobin A1c 7.1 % (4.2-6.5) H 12/30/18 05:00 Uric Acid 12.0 mg/dL (3.5-8.5) H 01/02/19 05:25 Calcium 8.6 mg/dL (8.4-10.5) 01/12/19 06:45 Phosphorus 3.6 mg/dL (2.5-4.5) 01/11/19 06:10 Magnesium 1.9 mg/dL (1.7-2.2) 01/11/19 06:10 Total Bilirubin 0.6 mg/dL (0.2-1.3) 01/12/19 06:45 AST 42 U/L (17-59) 01/12/19 06:45 ALT 39 U/L (7-56) 01/12/19 06:45 Alkaline Phosphatase 209 U/L (38-126) H 01/12/19 06:45 Lactate Dehydrogenase 820 U/L (333-699) H 01/03/19 06:15 Total Creatine Kinase 247 U/L (35-230) H 01/03/19 06:15 CK-MB (CK-2) 1.3 ng/mL (0.0-3.6) 01/03/19 06:15 CK-MB (CK-2) % 0.2 % (2.5-3.0) L 12/31/18 06:00 Troponin I 0.32 ng/mL H* D 01/03/19 06:15 Total Protein 6.7 g/dL (5.8-8.3) 01/12/19 06:45 Albumin 3.1 g/dL (3.0-4.8) 01/12/19 06:45 Globulin 3.6 gm/dL 01/12/19 06:45 Albumin/Globulin Ratio 0.9 (1.1-1.8) L 01/12/19 06:45 Triglycerides 105 mg/dL (35-160) 12/30/18 05:00 Cholesterol 88 mg/dL (130-200) L 12/30/18 05:00 LDL Cholesterol Direct < 30 mg/dL (0-129) 12/30/18 05:00 HDL Cholesterol 32 mg/dL (29-60) 12/30/18 05:00 Procalcitonin 0.77 NG/ML (0.19-0.49) H 01/08/19 20:18 TSH 3rd Generation 0.82 mIU/mL (0.46-4.68) 12/30/18 05:00 Arterial Blood Potassium 4.2 mmol/L (3.6-5.2) 12/29/18 10:55 Venous Blood Potassium 4.0 mmol/L (3.6-5.2) 12/29/18 20:54 Urine Color Yellow (YELLOW) 01/12/19 09:30 Urine Appearance Clear (CLEAR) 01/12/19 09:30 Urine pH 6.0 (4.7-8.0) 01/12/19 09:30 Ur Specific [place] 1.020 (1.005-1.035) 01/12/19 09:30 Urine Protein Trace mg/dL (<30 mg/dL) H 01/12/19 09:30 Urine Glucose (UA) Negative mg/dL (NEGATIVE) 01/12/19 09:30 Urine Ketones Negative mg/dL (NEGATIVE) 01/12/19 09:30 Urine Blood Negative (NEGATIVE) 01/12/19 09:30 Urine Nitrate Negative (NEGATIVE) 01/12/19 09:30 Urine Bilirubin Negative (NEGATIVE) 01/12/19 09:30 Urine Urobilinogen 0.2 E.U./dL (<1 E.U./dL) 01/12/19 09:30 Ur Leukocyte Esterase Negative Celena/uL (NEGATIVE) 01/12/19 09:30 Urine RBC 0 - 2 /hpf (0-2) 01/12/19 09:30 Urine WBC 0 - 2 /hpf (0-6) 01/12/19 09:30 Ur Epithelial Cells 0 - 2 /hpf (0-5) 01/12/19 09:30 Uric Acid Crystals Mod /hpf (NONE) 01/01/19 16:30 Urine Bacteria Small /hpf (NONE) 01/12/19 09:30 Urine Eosinophils Negative 01/01/19 16:50 Ur Random Creatinine 99 mg/dL 01/01/19 16:30 Ur Random Sodium 41 meq/L 01/01/19 16:30 Blood Type B POSITIVE 12/23/18 22:06 Blood Type Confirm B POSITIVE 12/23/18 23:47 Antibody Screen Negative 12/23/18 22:06 BBK History Checked No verified bt 12/23/18 22:06 Discharge Exam - Head Exam Head Exam: NORMAL INSPECTION, NORMOCEPHALIC Discharge Plan - Follow Up Plan Condition: STABLE Disposition: HOME/ ROUTINE Instructions: Heart Healthy Diet, Soft Diet, Aphasia (DC), How to Care for a Tracheostomy, Tracheotomy (DC) Referrals: Chencho Lanza MD [Staff Provider] - Brittany Bowling MD [Staff Provider] - Ben Cisneros MD [Staff Provider] - Brian Castellon MD [Staff Provider] - Diego Teran MD [Staff Provider] - Magdalena Wright MD [Staff Provider] -
== END 2019-01-12 11:57 | DRG 4 ==
LOC: ED 21:07 → ERH 23:44 → 2RNO 12-24 09:26 → ICU 12-29 05:58 → 2RNO 01-03 23:13 → 5RNO 01-10 14:52
PROVIDERS: ADMIT Surgery; ATTEND Surgery
PROC: 0BH17EZ Insertion of Endotracheal Airway into Trachea, Via Natural or Artificial Opening (ICD-10-PCS; 2018-12-29)
PROC: 5A1945Z Respiratory Ventilation, 24-96 Consecutive Hours (ICD-10-PCS; 2018-12-29)
PROC: 05HN33Z Insertion of Infusion Device into Left Internal Jugular Vein, Percutaneous Approach (ICD-10-PCS; 2018-12-29)
PROC: 3E0F7GC Introduction of Other Therapeutic Substance into Respiratory Tract, Via Natural or Artificial Opening (ICD-10-PCS; 2018-12-30)
PROC: 5A1945Z Respiratory Ventilation, 24-96 Consecutive Hours (ICD-10-PCS; 2018-12-31)
PROC: 0BH17EZ Insertion of Endotracheal Airway into Trachea, Via Natural or Artificial Opening (ICD-10-PCS; 2018-12-31)
PROC: 0B110F4 Bypass Trachea to Cutaneous with Tracheostomy Device, Open Approach (ICD-10-PCS; principal; 2019-01-01 11:45)
DX: I63.9 Cerebral infarction, unspecified (principal); A41.9 Sepsis, unspecified organism; R65.21 Severe sepsis with septic shock; N17.0 Acute kidney failure with tubular necrosis; J96.91 Respiratory failure, unspecified with hypoxia; J69.0 Pneumonitis due to inhalation of food and vomit; Z68.41 Body mass index [BMI] 40.0-44.9, adult; M62.82 Rhabdomyolysis; Z99.11 Dependence on respirator [ventilator] status; G93.40 Encephalopathy, unspecified; N39.0 Urinary tract infection, site not specified; J44.0 Chronic obstructive pulmonary disease with (acute) lower respiratory infection; R47.01 Aphasia; R29.701 NIHSS score 1; E78.5 Hyperlipidemia, unspecified; M50.321 Other cervical disc degeneration at C4-C5 level; R45.1 Restlessness and agitation; G47.33 Obstructive sleep apnea (adult) (pediatric); E66.01 Morbid (severe) obesity due to excess calories; F31.9 Bipolar disorder, unspecified; B96.1 Klebsiella pneumoniae [K. pneumoniae] as the cause of diseases classified elsewhere; F41.9 Anxiety disorder, unspecified; E86.0 Dehydration; I12.9 Hypertensive chronic kidney disease with stage 1 through stage 4 chronic kidney disease, or unspecified chronic kidney disease; E11.22 Type 2 diabetes mellitus with diabetic chronic kidney disease; N18.3 Chronic kidney disease, stage 3 (moderate); E87.5 Hyperkalemia; I08.0 Rheumatic disorders of both mitral and aortic valves; Z86.73 Personal history of transient ischemic attack (TIA), and cerebral infarction without residual deficits; Z91.19 Patient's noncompliance with other medical treatment and regimen; Z79.82 Long term (current) use of aspirin; Z79.84 Long term (current) use of oral hypoglycemic drugs; Z79.899 Other long term (current) drug therapy; Z96.642 Presence of left artificial hip joint; Z98.1 Arthrodesis status; Z82.3 Family history of stroke

== ENCOUNTER 2019-03-28 08:02 | Outpatient (CLI) | payer MEDICARE | END 2019-03-28 08:03 | disposition home or self-care (01) | LOC: CARDIO 08:02 ==